=== PATIENT | female | born 1975 | race Caucasian/White ===

== ENCOUNTER 2018-07-22 18:14 | Emergency (ER) | payer OTHER ==
[2018-07-22] MEDS ORDERED: Bacitracin Oint 1 GM U/D Packet TOP ONE (19:42)
[2018-07-22 21:11] VITALS: BP 145/78
--- NOTE | 2018-07-22 21:44 | EDM.PDOC ---
ED HPI GENERAL MEDICAL PROBLEM - General Chief Complaint: Laceration Stated Complaint: CUT RIGHT ANKLE ON RAZOR Time Seen by Provider: 07/22/18 19:42 Source of Information: Reports: Patient, Family (Daughter) History Limitations: Reports: No Limitations - History of Present Illness INITIAL COMMENTS - FREE TEXT/NARRATIVE: chief complaint: cut ankle This is a 42 year old female presents to ER for wound care. She reports has been house cleaning, using a case cutter to clean around window, forget where she put it, she walked and the blade was sticking out and cut the outside of her right ankle. she applied pressure to control bleeding and came to ER. Report TD is up to date. 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(s) Right Outer Aspect Ankle Pain Score (Numeric/FACES): 4 - Related Data Allergies Allergy/AdvReac Type Severity Reaction Status Date / Time ferumoxytol [From Feraheme] Allergy Severe Difficulty Verified 07/22/18 20:48 Breathing adhesive tape Allergy Other Verified 07/22/18 20:48 ciprofloxacin Allergy Rash Verified 07/22/18 20:48 fentanyl Allergy Itching Verified 07/22/18 20:48 Penicillins Allergy Other Verified 07/22/18 20:48 pineapple Allergy Other Verified 07/22/18 20:48 Home Meds: Home Meds Albuterol Sulfate [Proair Hfa] 2 puff IH QID PRN 08/28/15 [History] Cyanocobalamin (Vitamin B12) [Vitamin B12] 500 mcg PO DAILY 08/28/15 [History] Dextroamphetamine/Amphetamine [Adderall 10 mg Tablet] 10 mg PO BID 08/28/15 [ History] Venlafaxine HCl [Venlafaxine ER] 37.5 mg PO DAILY 01/03/18 [History] Past Medical History [employer]ER History: Reports: Neurological History: Reports: Migraines Psychiatric History: Reports: ADHD - Infectious Disease History Infectious Disease History: Reports: Chicken Pox - Past Surgical History GI Surgical History: Reports: Bariatric Procedure, Cholecystectomy, Hernia Repair/Other Female Surgical History: Reports: Hysterectomy Neurological Surgical History: Reports: None Social & Family History - Family History Family Medical History: Noncontributory - Tobacco Use Smoking Status *Q: Never Smoker Second Hand Smoke Exposure: No - Caffeine Use Caffeine Use: Reports: Soda - Recreational Drug Use Recreational Drug Use: No ED ROS GENERAL - Review of Systems Review Of Systems: See Below Constitutional: Reports: No Symptoms Cardiovascular: Reports: No Symptoms Endocrine: Reports: No Symptoms Skin: Reports: Other (laceration to right lateral ankle) Neurological: Reports: No Symptoms Psychiatric: Reports: No Symptoms Hematologic/Lymphatic: Reports: No Symptoms Immunologic: Reports: No Symptoms ED EXAM, SKIN/RASH Exam: See Below Exam Limited By: No Limitations General Appearance: Alert, WD/WN, Anxious Nose: Normal Inspection, No Blood Throat/Mouth: Normal Voice, No Airway Compromise Head: Atraumatic, Normocephalic Neck: Supple Respiratory/Chest: No Respiratory Distress Cardiovascular: No Edema Extremities: Normal Range of Motion, No Pedal Edema, Normal Capillary Refill, Other (laceration noted to lateral right ankle, no bleeding noted, wound is gaping.) Neurological: Alert, Oriented, No Motor/Sensory Deficits Psychiatric: Normal Affect, Normal Mood, Anxious Skin: Wound/Incision (right lateral ankle) Location, Skin: Lower Extremity, Right Characteristics: Linear Associated features: Tenderness Lymphatic: No Adenopathy ED SKIN PROCEDURES - Laceration/Wound Repair Right Lateral Ankle Lac/Wound length In cm: 3 Appearance: Subcutaneous, Linear, Clean Distal NVT: Neuro & Vascular Intact, No Tendon Injury Anesthetic Type: Local Local Anesthesia - Lidocaine (Xylocaine): 1% Plain Local Anesthetic Volume: 3cc Skin Prep: Chlorhexidine (Hibiciens), Saline Saline Irrigation (cc's): 20 Exploration/Debridement/Repair: Wound Explored, In a Bloodless Field, Explored to Base Closed with: Sutures Suture Size: 4-0 # of Sutures: 10 Suture Type: Prolene, Interrupted, Simple Drain Placement: No Sterile Dressing Applied: Provider Tetanus Status Addressed: Other (reports up to date with immunizations) Complications: No Course - Vital Signs Last Recorded V/S: Last Vital Signs Temp 36.3 C 07/22/18 20:45 Pulse 87 07/22/18 20:45 Resp 12 07/22/18 20:45 BP 145/78 H 07/22/18 20:45 Pulse Ox 94 L 07/22/18 20:45 - Orders/Labs/Meds Meds: Medications Discontinued Medications Generic Name Dose Route Start Last Admin Trade Name Soni PRN Reason Stop Dose Admin Bacitracin 1 dose 07/22/18 19:42 07/22/18 20:48 Bacitracin Oint 1 Gm TOP 07/22/18 19:43 1 dose ONETIME ONE Administration Lidocaine HCl 5 ml 07/22/18 19:42 07/22/18 20:48 Xylocaine-Mpf 1% INJECT 07/22/18 19:43 5 ml ONETIME ONE Administration Departure - Departure Time of Disposition: 21:38 Disposition: Home, Self-Care 01 Condition: Good Clinical Impression: Laceration of right ankle Qualifiers: Encounter type: initial encounter Qualified Code(s): S91.011A - Laceration without foreign body, right ankle, initial encounter - Discharge Information *PRESCRIPTION DRUG MONITORING PROGRAM REVIEWED*: No *COPY OF PRESCRIPTION DRUG MONITORING REPORT IN PATIENT TORSTEN: No Instructions: Sutured Wound Care, [id number] Referrals: Michelle Biswas PA [Primary Care Provider] - Forms: ED Department Discharge Care Plan Goals: Laceration repair -keep covered for 2 to 3 days, then clean and dry -apply antibiotic ointment to laceration two times a day for 3 day -Zithromax as directed for prevention of infection -Hydrocodone 5/325mg po every 4 hours as needed for pain #8 no exposure of wound until completely healed, no swimming pools, hot tubs, walking ponds or water, or soaking in bath tub wound check on Wednesday if has any concerns. Return to ER for any redness, increased pain, redness, discharge, or not improved. - Problem List & Annotations (1) Laceration of right ankle SNOMED Code(s): 404328698, [id number] Code(s): S91.011A - LACERATION WITHOUT FOREIGN BODY, RIGHT ANKLE, INIT ENCNTR Status: Acute Priority: High Current Visit: Yes Qualifiers: Encounter type: initial encounter Qualified Code(s): S91.011A - Laceration without foreign body, right ankle, initial encounter - Problem List Review Problem List Initiated/Reviewed/Updated: Yes - Assessment/Plan Plan: Laceration repair -keep covered for 2 to 3 days, then clean and dry -apply antibiotic ointment to laceration two times a day for 3 day -Zithromax as directed for prevention of infection -Hydrocodone 5/325mg po every 4 hours as needed for pain #8 no exposure of wound until completely healed, no swimming pools, hot tubs, walking ponds or water, or soaking in bath tub wound check on Wednesday if has any concerns. Return to ER for any redness, increased pain, redness, discharge, or not improved.
== END 2018-07-22 21:57 | disposition home or self-care (01) ==
LOC: JP.ED 18:14
DX: S91.011A Laceration without foreign body, right ankle, initial encounter (principal); Z79.899 Other long term (current) drug therapy; W26.8XXA Contact with other sharp object(s), not elsewhere classified, initial encounter
CPT/HCPCS: 12002; 99282; J2001

== ENCOUNTER 2018-09-27 22:37 | Inpatient (IN) | payer MEDICAID, OTHER ==
[2018-09-27] MEDS ORDERED: HYDROmorphone 0.5 MG/0.5 ML Syringe IVPUSH ONE ×2 (22:51→23:41)
[2018-09-27] MEDS ORDERED: Lactated Ringers 1,000 ML IV ONE (22:51)
[2018-09-27] MEDS ORDERED: Ketorolac 30 MG/ML SDV IVPUSH ONE (23:41)
--- NOTE | 2018-09-27 23:42 | EDM.PDOC ---
ED HPI GENERAL MEDICAL PROBLEM - General Chief Complaint: Abdominal Pain Stated Complaint: MEDICAL Time Seen by Provider: 09/27/18 23:00 Source of Information: Reports: Patient History Limitations: Reports: No Limitations - History of Present Illness INITIAL COMMENTS - FREE TEXT/NARRATIVE: 43-year-old female who has had recurring bouts of pancreatitis over the past several years, no real reason has been found but when she does get episodes they are very intense and painful. Tonight she developed pain about one and a half hours before coming into the emergency room, it is upper abdomen radiating down towards the left lower quadrant, nausea but no vomiting. Some back discomfort. No fevers or chills. The pain is very similar to her previous 2 or 3 episodes of pancreatitis. She is currently on a Bactrim antibiotic due to a lesion on her right arm that was felt to possibly be MRSA. That has caused some mild abdominal upset with nausea but no pain. Onset: Sudden Duration: Hour(s): (Symptoms started within the last 2 hours) Treatments DIRECTOR REPORT: Reports: Other (see below) Other Treatments DIRECTOR REPORT: unkown Abdomen Pain Score (Numeric/FACES): 8 - Related Data Allergies Allergy/AdvReac Type Severity Reaction Status Date / Time ferumoxytol [From Feraheme] Allergy Severe Difficulty Verified 09/27/18 22:55 Breathing adhesive tape Allergy Other Verified 09/27/18 22:55 ciprofloxacin Allergy Rash Verified 09/27/18 22:55 fentanyl Allergy Itching Verified 09/27/18 22:55 Penicillins Allergy Other Verified 09/27/18 22:55 pineapple Allergy Other Verified 09/27/18 22:55 Home Meds: Home Meds Albuterol Sulfate [Proair Hfa] 2 puff IH QID PRN 08/28/15 [History] Cyanocobalamin (Vitamin B12) [Vitamin B12] 500 mcg PO DAILY 08/28/15 [History] Dextroamphetamine/Amphetamine [Adderall 10 mg Tablet] 10 mg PO BID 08/28/15 [ History] Venlafaxine HCl [Venlafaxine ER] 37.5 mg PO DAILY 01/03/18 [History] Sulfamethoxazole/Trimethoprim [Bactrim Ds Tablet] 1 each PO BID 09/27/18 [ History] traMADol [Ultram] 50 mg PO Q6H PRN 09/27/18 [History] 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: Neurological History: Reports: Migraines Psychiatric History: Reports: ADHD - Infectious Disease History Infectious Disease History: Reports: Chicken Pox - Past Surgical History GI Surgical History: Reports: Bariatric Procedure, Cholecystectomy, Hernia Repair/Other Female Surgical History: Reports: Hysterectomy Neurological Surgical History: Reports: None Dermatological Surgical History: Reports: None Social & Family History - Family History Family Medical History: Noncontributory - Tobacco Use Smoking Status *Q: Never Smoker Second Hand Smoke Exposure: No - Caffeine Use Caffeine Use: Reports: Coffee - Recreational Drug Use Recreational Drug Use: No ED ROS GENERAL - Review of Systems Review Of Systems: See Below Constitutional: Reports: Malaise. Denies: Fever, Chills HEENT: Reports: No Symptoms Respiratory: Denies: Shortness of Breath Cardiovascular: Denies: Chest Pain GI/Abdominal: Reports: Abdominal Pain, Nausea. Denies: Vomiting : Reports: No Symptoms Skin: Reports: Other (Some healing impetigo-like lesions on the arms) Psychiatric: Reports: Anxiety ED EXAM, GI/ABD - Physical Exam Exam: See Below Exam Limited By: No Limitations General Appearance: Alert, Moderate Distress (Difficult to examine as she is in so much discomfort) Eyes: Bilateral: Normal Appearance (No jaundice) Respiratory/Chest: No Respiratory Distress, Lungs Clear Cardiovascular: Tachycardia GI/Abdominal Exam: Guarding (Guarding over nearly the whole abdomen), Tender Extremities: No: Pedal Edema Neurological: Alert, Oriented Psychiatric: Anxious Skin Exam: Warm, Dry Course - Vital Signs Last Recorded V/S: Last Vital Signs Temp 97.2 F 09/28/18 02:47 Pulse 118 H 09/28/18 02:47 Resp 20 09/28/18 02:47 BP 137/80 09/28/18 02:47 Pulse Ox 96 09/28/18 04:31 - Orders/Labs/Meds Orders: Active Orders 24 hr Category Date Time Status Iopamidol [Isovue-300 (61%)] Med 09/28/18 00:30 Active 70 ml IV . DIRECTED Sodium Chloride 0.9% [Normal Saline] 70 ml Med 09/28/18 00:30 Active IV ASDIRECTED Medication Orders Hydromorphone HCl (Dilaudid Paleology Teacher 15 Mg In Ns 30 Ml) 15 mg IV ASDIRECTED ERICK; Protocol Last Admin: 09/28/18 03:43 Dose: 15 mg Sodium Chloride (Normal Saline) 70 mls @ 3 mls/sec IV ASDIRECTED [facility] Last Admin: 09/28/18 00:34 Dose: 3 mls/sec Lactated Ringer's (Ringers, Lactated) 1,000 mls @ 250 mls/hr IV ASDIRECTED [facility] Last Admin: 09/28/18 02:10 Dose: 250 mls/hr Iopamidol (Isovue-300 (61%)) 70 ml IV . DIRECTED [facility] Ketorolac Tromethamine (Toradol) 30 mg IVPUSH Q8H PRN PRN Reason: Pain Stop: 10/03/18 07:01 Lorazepam (Ativan) 0.5 mg IVPUSH Q4H PRN PRN Reason: Anxiety Last Admin: 09/28/18 04:46 Dose: 0.5 mg Ondansetron HCl (Zofran) 4 mg IVPUSH Q4H PRN PRN Reason: Nausea/Vomiting Pantoprazole Sodium (Protonix Iv) 40 mg IVPUSH Q24H [facility] Last Admin: 09/28/18 03:43 Dose: 40 mg Labs: Laboratory Tests 09/27/18 09/27/18 09/28/18 Range/Units 23:05 23:05 00:15 WBC 4.9 (4.5-11.0) K/uL RBC 4.11 (3.30-5.50) M/uL Hgb 13.1 (12.0-15.0) g/dL Hct 39.6 (36.0-48.0) % MCV 96 (80-98) fL MCH 32 H (27-31) pg MCHC 33 (32-36) % Plt Count 336 (150-400) K/uL Neut % (Auto) 45 (36-66) % Lymph % (Auto) 45 H (24-44) % [place] % (Auto) 8 H (2-6) % Eos % (Auto) 2 (2-4) % Baso % (Auto) 1 (0-1) % Sodium 139 L (140-148) mmol/L Potassium 5.2 (3.6-5.2) mmol/L Chloride 105 (100-108) mmol/L Carbon Dioxide 23 (21-32) mmol/L Anion Gap 16.2 H (5.0-14.0) mmol/L BUN 18 (7-18) mg/dL Creatinine 1.0 (0.6-1.0) mg/dL Est Cr Clr Drug Dosing 51.57 mL/min Estimated GFR (MDRD) > 60 (>60) Glucose 89 (74-106) mg/dL Calcium 8.7 (8.5-10.1) mg/dL Total Bilirubin 0.2 (0.2-1.0) mg/dL AST 27 (15-37) U/L ALT 39 D (12-78) U/L Alkaline Phosphatase 75 (46-116) U/L Total Protein 7.1 (6.4-8.2) g/dL Albumin 3.3 L (3.4-5.0) g/dL Globulin 3.8 H (2.3-3.5) g/dL Albumin/Globulin Ratio 0.9 L (1.2-2.2) Amylase 79 (25-115) U/L Lipase 481 H (73-393) U/L Urine Opiates Screen Negative (NEGATIVE) Ur Oxycodone Screen Negative (NEGATIVE) Urine Methadone Screen Presumptive positive H (NEGATIVE) Ur Propoxyphene Screen Negative (NEGATIVE) Ur Barbiturates Screen Negative (NEGATIVE) Ur Tricyclics Screen Presumptive positive H (NEGATIVE) Ur Phencyclidine Scrn Negative (NEGATIVE) Ur Amphetamine Screen Presumptive positive H (NEGATIVE) U Methamphetamines Scrn Negative (NEGATIVE) Urine MDMA Screen Negative (NEGATIVE) U Benzodiazepines Scrn Presumptive positive H (NEGATIVE) U Cocaine Metab Screen Negative (NEGATIVE) U Marijuana (THC) Screen Negative (NEGATIVE) Meds: Medications Generic Name Dose Route Start Last Admin Trade Name Freq PRN Reason Stop Dose Admin Hydromorphone HCl 15 mg 09/28/18 03:00 09/28/18 03:43 Dilaudid Paleology Teacher 15 Mg In Ns 30 Ml IV 15 mg ASDIRECTED ERICK Administration Protocol Sodium Chloride 70 mls @ 3 mls/sec 09/28/18 00:30 09/28/18 00:34 Normal Saline IV 3 mls/sec ASDIRECTED ERICK Administration Lactated Ringer's 1,000 mls @ 250 mls/hr 09/28/18 02:00 09/28/18 02:10 Ringers, Lactated IV 250 mls/hr ASDIRECTED ERICK Administration Iopamidol 70 ml 09/28/18 00:30 Isovue-300 (61%) IV . DIRECTED [facility] Ketorolac Tromethamine 30 mg 09/28/18 07:00 Toradol IVPUSH 10/03/18 07:01 Q8H PRN Pain Lorazepam 0.5 mg 09/28/18 04:29 09/28/18 04:46 Ativan IVPUSH 0.5 mg Q4H PRN Administration Anxiety Ondansetron HCl 4 mg 09/28/18 02:58 Zofran IVPUSH Q4H PRN Nausea/Vomiting Pantoprazole Sodium 40 mg 09/28/18 03:00 09/28/18 03:43 Protonix Iv IVPUSH 40 mg Q24H ERICK Administration Discontinued Medications Generic Name Dose Route Start Last Admin Trade Name Freq PRN Reason Stop Dose Admin Hydromorphone HCl 0.5 mg 09/27/18 22:51 09/27/18 23:11 Dilaudid IVPUSH 09/27/18 22:52 0.5 mg ONETIME ONE Administration Hydromorphone HCl 0.5 mg 09/27/18 23:41 09/27/18 23:50 Dilaudid IVPUSH 09/27/18 23:42 0.5 mg ONETIME ONE Administration Hydromorphone HCl 0.5 mg 09/28/18 01:04 09/28/18 01:13 Dilaudid IVPUSH 09/28/18 01:05 0.5 mg ONETIME ONE Administration Hydromorphone HCl 0.5 mg 09/28/18 02:29 09/28/18 02:36 Dilaudid IVPUSH 09/28/18 02:30 0.5 mg ONETIME ONE Administration Lactated Ringer's 1,000 mls @ 1,000 mls/hr 09/27/18 22:51 09/27/18 23:15 Ringers, Lactated IV 09/27/18 23:50 1,000 mls/hr BOLUS ONE Administration Iopamidol 100 ml 09/28/18 00:30 09/28/18 00:33 Isovue-300 (61%) IV Not Given . DIRECTED [facility] Ketorolac Tromethamine 30 mg 09/27/18 23:41 09/27/18 23:47 Toradol IVPUSH 09/27/18 23:42 30 mg ONETIME ONE Administration - Re-Assessments/Exams Free Text/Narrative Re-Assessment/Exam: 09/28/18 01:32 Patient was initially in significant discomfort, an IV was started and she was given 0.5 mg of IV Dilaudid. CBC, CMP, amylase and lipase were obtained as well as a UA for urine drug screen. Lactated Ringer bolus was started. After the first liter she was able to give us a urine. Lipase returned elevated but only mildly. CBC was normal. 09/28/18 01:34 Urine drug screen was positive for methadone and benzodiazepines. Unsure if these are cross-reaction from other medication she is taking. Positive for amphetamines which she is prescribed. After the initial labs, the patient was given 30 mg of IV Toradol and another 0.5 mg of IV Dilaudid and she did settle down quite a bit. CT with IV contrast was ordered which was noncontributory, basically negative. The CT continued to show the dilated bile duct system from her cholecystectomy. At that point I called Dr. Calderon to ask if he would admit her overnight for pain control, serial lipase levels and IV hydration and possibly a surgical consultation tomorrow. Departure - Departure Time of Disposition: 02:52 Disposition: Admitted As Inpatient 65 Clinical Impression: Abdominal pain Qualifiers: Abdominal location: generalized Qualified Code(s): R10.84 - Generalized abdominal pain Pancreatitis Qualifiers: Chronicity: acute Pancreatitis type: idiopathic Acute pancreatitis complication : unspecified Qualified Code(s): K85.00 - Idiopathic acute pancreatitis without necrosis or infection - Discharge Information - My Orders Last 24 Hours: My Active Orders 09/28/18 00:30 Iopamidol [Isovue-300 (61%)] 70 ml IV . DIRECTED Sodium Chloride 0.9% [Normal Saline] 70 ml IV ASDIRECTED - Assessment/Plan Last 24 Hours: My Active Orders 09/28/18 00:30 Iopamidol [Isovue-300 (61%)] 70 ml IV . DIRECTED Sodium Chloride 0.9% [Normal Saline] 70 ml IV ASDIRECTED
[2018-09-28] MEDS ORDERED: Iopamidol 612 MG/ML 100 ML Bottle IV SCH (00:30)
[2018-09-28] MEDS: Iopamidol 612 MG/ML 100 ML Bottle IV SCH ×2 (00:32→00:33)
[2018-09-28] MEDS ORDERED: HYDROmorphone 0.5 MG/0.5 ML Syringe IVPUSH ONE ×2 (01:04→02:29)
--- NOTE | 2018-09-28 01:20 | CRLCT ---
INDICATION: Abdominal pain TECHNIQUE: CT abdomen and pelvis acquired with 70 cc Isovue 300 IV contrast. COMPARISON: January 01, 2018 FINDINGS: Lower chest: Bilateral breast implants. Liver: Unremarkable. Spleen: Unremarkable. Pancreas: Unremarkable. Gallbladder and bile ducts: S/p cholecystectomy. Intrahepatic and extrahepatic biliary ductal dilatation is stable. The common bile duct measures 9.5 mm in diameter, unchanged. Adrenal glands: Unremarkable. Kidneys: Unremarkable. GI tract: Status post gastric bypass procedure. Appendix is normal. Large amount of feces in the colon. Vascular structures: Unremarkable. Lymph nodes: Unremarkable. Miscellaneous: Unremarkable. No free air or significant free fluid. Pelvic Organs: Status post hysterectomy. Bones: Unremarkable for age. IMPRESSION: No acute intra-abdominal inflammatory process identified. Intrahepatic and extrahepatic biliary ductal dilatation may be due to reservoir effect although a distal obstruction cannot be excluded. Consider MRCP for further evaluation if clinically indicated. Large amount of feces in the colon. Status post bilateral breast implants, cholecystectomy, gastric bypass procedure, and hysterectomy. Please note that all CT scans at this facility use dose modulation, iterative reconstruction, and/or weight-based dosing when appropriate to reduce radiation dose to as low as reasonably achievable. Dictated by Natalee Camarena MD @ Sep 28 2018 1:12AM Signed by Dr. Natalee Camarena @ Sep 28 2018 1:20AM
[2018-09-28] MEDS: Lactated Ringers 1,000 ML IV SCH ×4 (02:10→21:05)
[2018-09-28] MEDS: Pantoprazole 40 MG Vial IVPUSH SCH (03:43)
[2018-09-28] MEDS: HYDROmorphone/Normal Saline 15 MG/30 ML PCA IV SCH (03:43)
[2018-09-28] MEDS: LORazepam 2 MG/ML SDV IVPUSH PRN ×3 (04:46→15:38)
[2018-09-28] MEDS ORDERED: Naloxone 0.4 MG/ML SDV IV PRN (07:27)
[2018-09-28] MEDS: Ketorolac 30 MG/ML SDV IVPUSH PRN (07:28)
--- NOTE | 2018-09-28 08:15 | HP ---
FIDENTIFYING DATA: Yenni Christianson is a 43-year-old single female from [place]. CHIEF COMPLAINT: Recurring abdominal pain. HISTORY OF PRESENT ILLNESS: Adult female has a noted history of recurrent generalized abdominal pain with accompanying nausea and evidence of active pancreatitis. She has noted hospitalizations in [place] in January of 2018 and [facility] in [place] in April 2018 with acute onset of abdominal pain and elevated lipase consistent with acute pancreatitis. Extensive GI workup previously has not shown underlying etiology. This is idiopathic in presentation. She notes she ate half a burger at a local food establishment this evening at approximately 8:00 p.m. One to 1-1/2 hours later, she had sudden onset of pain in the epigastrium and right upper quadrant with radiation to the lower abdomen and lower interscapular regions. The pain has persisted, though increased in intensity in waves, with accompanying diaphoresis and nausea. She has had no emesis. She denies hematemesis or bowel changes. Specifically, no melena, hematochezia, diarrhea or constipation. She is voiding with good regularity with normal appearing urine passed. Previous abdominal surgeries include Dalton-en-Y bariatric surgery of 12 years ago. She has had 2 laparotomies for reasons of lysis of abdominal adhesions and hysterectomy with unilateral oophorectomy for benign disease in the remote past. Additionally, she has had previous breast augmentation. She notes recent difficulty with dental disease, being cared for by a local dentist with multiple caries requiring repair. 1-1/2 weeks ago, she presented to the walk-in clinic with an inflammatory ulcerated skin lesion on the extensor surface of the right forearm, suggesting an active cellulitic change of the skin. She was placed on 10-day course of Bactrim, and though she notes abdominal upset from the Bactrim, she has been able to complete 9-1/2 days of therapy with the wound healing. She has had no other current skin rashes evident. PAST MEDICAL HISTORY: Surgical history as noted above. Additionally, she has a history of migraine headache presentation with abortive therapy, including the use of tramadol and intermittent Zomig, chronic depressive therapy, and ADD is managed with pharmacologic therapy. She denies recent use of other narcotic analgesics or benzodiazepines. Does use Adderall on a scheduled basis. ALLERGIES: HEME SUPPLEMENTS, ADHESIVE TAPE, CIPROFLOXACIN, FENTANYL, PENICILLIN, AND PINEAPPLE. CURRENT MEDICATIONS: Albuterol 2 puffs q.i.d. p.r.n. wheeze, B complex solution use sporadically by patient's report, Adderall 10 mg b.i.d., venlafaxine extended release 37.5 mg daily, Bactrim DS 1 tablet b.i.d. with completion of antibiotic course anticipated today, tramadol 50 mg q.6 hours p.r.n. migraine headaches, and Zomig p.r.n. migraines. HABITS: No tobacco use. Rare use of caffeinated beverages. Alcohol use is infrequent. None for greater than 1 month's time. Denies illicit drug use including marijuana, narcotic analgesics that are non-prescribed, or benzodiazepines. SOCIAL HISTORY: Currently single, moving into a new residence in [facility]. Young adult children provide assistance as needed. FAMILY HISTORY: No familial history of chronic inflammatory bowel disease or recent GI illnesses. REVIEW OF SYSTEMS: NEUROLOGIC: History of ADD and depressive disorder on chronic maintenance therapy with good control of symptoms. No history of strokes, headaches, seizures, or paresthesias. CARDIAC: No history of hypertension, diabetes, congenital heart disease, PA, chest pain or palpitations. RESPIRATORY: Infrequent mild wheeze with p.r.n. use of rescue inhaler. No recent acute upper respiratory infection, shortness of breath, cough, or sputum production. GASTROINTESTINAL: As above. No history of hepatitis, jaundice, or emesis. She is status post cholecystectomy. GENITOURINARY: Previous hysterectomy. No urinary symptoms. Denying urgency, frequency or change in normal pattern. PHYSICAL EXAMINATION: GENERAL: Appearance is that of an adult female in moderate discomfort secondary to recurrent waves of mid to upper abdominal pain. VITAL SIGNS: Initial vitals; temperature 96.7 degrees Fahrenheit, pulse 107, respiratory rate 14, blood pressure 141/85, and O2 saturations 98% on room air. HEENT: Pupils equal and reactive to light. Sclerae anicteric. Ears showed normal canals. Oral mucosa is moist. Scattered dental caries are noted. NECK: No adenopathy, thyromegaly, or JVD. Brisk carotid pulses. No bruits. LUNGS: Symmetrical and clear, non-tachypneic. HEART: Borderline tachycardic. No murmurs or gallops noted. ABDOMEN: Nondistended. Diminished sounds. No obvious organomegaly. Anterior abdominal pain diffusely to palpation. No CVA tenderness. Good femoral pulses. No abdominal bruits noted. GENITOURINARY: Omitted. RECTAL: Omitted. EXTREMITIES: Warm, pink and dry. Good arterial pulses. Brisk capillary refill. No cyanosis. Healing inflammatory skin ulcer over the right extensor forearm is noted. No other concerning skin rashes. LABORATORY DATA ON ADMISSION: WBC 4.9, hemoglobin 13.1, hematocrit 39.6, and platelet count 336,000. Sodium 139, potassium 5.2, BUN 18, creatinine 1.0, glucose 89, calcium 8.7, alkaline phosphatase 75, AST 27, amylase 79, and lipase mildly elevated at 481. Urine drug screen positive for methadone, tricyclics, amphetamines and benzodiazepines. IMAGING STUDIES: CT of the abdomen. No acute changes evident. She has mild dilatation of the common bile duct, thought to be secondary to post cholecystectomy phase, absence of gallbladder and uterus is confirmed without other obvious pathology. IMPRESSION: 1. Recurrent episodes of abdominal pain with accompanying elevated lipase suggest acute pancreatitis. 2. History of recurring pancreatitis, unknown etiology. 3. Status post bariatric surgery of 12 years ago. 4. Migraine headache, infrequent presentation. 5. History of attention deficit disorder and depressive illness with pharmacologic therapies. 6. Previous surgeries of the abdomen include cholecystectomy, Dalton-en-Y bariatric surgery, hysterectomy with unilateral oophorectomy, and lysis of abdominal adhesions x2. 7. Positive urine drug screen for methadone, benzodiazepines, amphetamines and tricyclics noted, history of scheduled use of Adderall for ADD. PLAN: The patient will be admitted to Medical floor for conservative and supportive care. Maintain n.p.o. status with full code presentation. IV fluid hydration is administered. We will provide antiemetics and PPI agents as ordered, as well as scheduled administration of Toradol on a t.i.d. schedule and Dilaudid by SOFTWARE DEPLOYMENT ENGINEER pump. Follow up labs including CBC, metabolic panel, and serial lipase enzymes are requested. If she shows a rapid improvement in abdominal symptoms, we will reintroduce clear liquid diet and advance as tolerated. Previous GI evaluation has not shown definitive evidence of cause of her pancreatitis. Questions via potential for illicit drug use with positive agents noted on urine drug screen. Castillo Calderon MD /[id number]
[2018-09-28] MEDS: Ondansetron 4 MG/2 ML SDV IVPUSH PRN (21:29)
[2018-09-29] MEDS: Ketorolac 30 MG/ML SDV IVPUSH PRN ×3 (02:47→21:03)
[2018-09-29] MEDS: Pantoprazole 40 MG Vial IVPUSH SCH (02:51)
[2018-09-29] MEDS: Lactated Ringers 1,000 ML IV SCH ×3 (05:17→21:02)
--- NOTE | 2018-09-29 11:45 | PCM.PN ---
- General Info Date of Service: 09/29/18 Subjective Update: There were no acute events overnight. Abdominal pain is somewhat better today though she did have a flare of the pain recently. Nausea last night but none today. No vomiting. No fevers. Lipase level is down to 1000 today from or than 4000 yesterday. She does report a headache and this has been improving with Toradol. Functional Status: Reports: Pain Controlled - Review of Systems General: Denies: Fever HEENT: Reports: Headaches Gastrointestinal: Reports: Abdominal Pain, Nausea - Patient Data Vitals - Most Recent: Last Vital Signs Temp 35.6 C 09/29/18 10:24 Pulse 113 H 09/29/18 10:24 Resp 18 09/29/18 10:24 BP 147/85 H 09/29/18 10:24 Pulse Ox 96 09/29/18 10:24 Weight - Most Recent: 52.435 kg I&O - Last 24 Hours: Intake & Output 09/28/18 09/29/18 09/29/18 22:59 06:59 14:59 Intake Total 2216 1410 Output Total 100 400 300 Balance 2116 1010 -300 Lab Results Last 24 Hours: Laboratory Results - last 24 hr 09/29/18 09/29/18 Range/Units 05:40 05:40 WBC 3.8 L (4.5-11.0) K/uL RBC 3.48 (3.30-5.50) M/uL Hgb 11.1 L D (12.0-15.0) g/dL Hct 34.3 L (36.0-48.0) % MCV 99 H (80-98) fL MCH 32 H (27-31) pg MCHC 32 (32-36) % Plt Count 359 (150-400) K/uL Sodium 135 L (140-148) mmol/L Potassium 4.6 (3.6-5.2) mmol/L Chloride 103 (100-108) mmol/L Carbon Dioxide 26 (21-32) mmol/L Anion Gap 10.6 (5.0-14.0) mmol/L BUN 10 (7-18) mg/dL Creatinine 0.6 (0.6-1.0) mg/dL Est Cr Clr Drug Dosing 85.94 mL/min Estimated GFR (MDRD) > 60 (>60) Glucose 85 (74-106) mg/dL Calcium 7.8 L (8.5-10.1) mg/dL Total Bilirubin 0.5 D (0.2-1.0) mg/dL AST 28 (15-37) U/L ALT 33 (12-78) U/L Alkaline Phosphatase 60 (46-116) U/L Total Protein 5.0 L (6.4-8.2) g/dL Albumin 2.3 L (3.4-5.0) g/dL Globulin 2.7 (2.3-3.5) g/dL Albumin/Globulin Ratio 0.9 L (1.2-2.2) Lipase 1018 H (73-393) U/L Med Orders - Current: Current Medications Hydromorphone HCl (Dilaudid Job Placement Specialist 15 Mg In Ns 30 Ml) 15 mg IV ASDIRECTED ERICK; Protocol Last Admin: 09/28/18 03:43 Dose: 15 mg Lactated Ringer's (Ringers, Lactated) 1,000 mls @ 125 mls/hr IV ASDIRECTED ERICK Last Admin: 09/29/18 05:17 Dose: 125 mls/hr Ketorolac Tromethamine (Toradol) 30 mg IVPUSH Q8H PRN PRN Reason: Pain Stop: 10/03/18 07:01 Last Admin: 09/29/18 02:47 Dose: 30 mg Lorazepam (Ativan) 0.5 mg IVPUSH Q4H PRN PRN Reason: Anxiety Last Admin: 09/28/18 15:38 Dose: 0.5 mg Naloxone HCl (Narcan) 0.1 mg IV ASDIRECTED PRN PRN Reason: decreased respiratory rate Ondansetron HCl (Zofran) 4 mg IVPUSH Q4H PRN PRN Reason: Nausea/Vomiting Last Admin: 09/28/18 21:29 Dose: 4 mg Pantoprazole Sodium (Protonix Iv) 40 mg IVPUSH Q24H [facility] Last Admin: 09/29/18 02:51 Dose: 40 mg Discontinued Medications Hydromorphone HCl (Dilaudid) 0.5 mg IVPUSH ONETIME ONE Stop: 09/27/18 22:52 Last Admin: 09/27/18 23:11 Dose: 0.5 mg Hydromorphone HCl (Dilaudid) 0.5 mg IVPUSH ONETIME ONE Stop: 09/27/18 23:42 Last Admin: 09/27/18 23:50 Dose: 0.5 mg Hydromorphone HCl (Dilaudid) 0.5 mg IVPUSH ONETIME ONE Stop: 09/28/18 01:05 Last Admin: 09/28/18 01:13 Dose: 0.5 mg Hydromorphone HCl (Dilaudid) 0.5 mg IVPUSH ONETIME ONE Stop: 09/28/18 02:30 Last Admin: 09/28/18 02:36 Dose: 0.5 mg Lactated Ringer's (Ringers, Lactated) 1,000 mls @ 1,000 mls/hr IV BOLUS ONE Stop: 09/27/18 23:50 Last Admin: 09/27/18 23:15 Dose: 1,000 mls/hr Sodium Chloride (Normal Saline) 70 mls @ 3 mls/sec IV ASDIRECTED [facility] Stop: 09/28/18 12:00 Last Admin: 09/28/18 00:34 Dose: 3 mls/sec Lactated Ringer's (Ringers, Lactated) 1,000 mls @ 250 mls/hr IV ASDIRECTED [facility] Last Admin: 09/28/18 08:50 Dose: 250 mls/hr Iopamidol (Isovue-300 (61%)) 100 ml IV . DIRECTED [facility] Last Admin: 09/28/18 00:33 Dose: Not Given Iopamidol (Isovue-300 (61%)) 70 ml IV . DIRECTED [facility] Stop: 09/28/18 12:00 Ketorolac Tromethamine (Toradol) 30 mg IVPUSH ONETIME ONE Stop: 09/27/18 23:42 Last Admin: 09/27/18 23:47 Dose: 30 mg - Exam Quality Assessment: No: Supplemental Oxygen General: Alert, Oriented, Cooperative, No Acute Distress Lungs: Normal Respiratory Effort Cardiovascular: Regular Rate, Regular Rhythm GI/Abdominal Exam: Soft, No Distention, Tender Extremities: No Pedal Edema. No: Increased Warmth Skin: Warm, Dry Psy/Mental Status: Alert, Normal Affect - Problem List Review Problem List Initiated/Reviewed/Updated: Yes - My Orders Last 24 Hours: My Active Orders 09/28/18 11:00 Lactated Ringers [Ringers, Lactated] 1,000 ml IV ASDIRECTED 09/29/18 11:44 Ketorolac [Toradol] 30 mg IVPUSH Q6H PRN 09/30/18 05:00 CBC W/O DIFF,HEMOGRAM [HEME] Timed (1) COMPREHENSIVE METABOLIC PN,CMP [CHEM] Timed LIPASE [CHEM] Timed - Plan Plan:: ASSESSMENT AND PLAN - Acute pancreatitis - etiology not entirely clear but did happen towards the end of a 10 day course of Bactrim and this could be the offending agent. Patient denies tobacco use and alcohol ingestion. No evidence for gallstones based on CT imaging and she is status post cholecystectomy. Laboratory studies improving. -Continue NPO status -Pain control -IV fluids -Symptomatically management of nausea -Lipase in the morning -Advance diet when pain has improved further and lipase normal or near-normal History of gastric bypass surgery - no issues at this time Maintenance issues - - DVT prophylaxis - mechanical - GI prophylaxis - PPI - Nutrition - nothing by mouth - Sutton catheter - not indicated Disposition - I would anticipate discharge home after the hospital stay Darinel Leach M.D.
[2018-09-29] MEDS: LORazepam 2 MG/ML SDV IVPUSH PRN (23:11)
[2018-09-30] MEDS: Pantoprazole 40 MG Vial IVPUSH SCH (03:52)
[2018-09-30] MEDS: Lactated Ringers 1,000 ML IV SCH (05:33)
[2018-09-30] MEDS: HYDROmorphone/Normal Saline 15 MG/30 ML PCA IV SCH (08:10)
[2018-09-30] MEDS: Ketorolac 30 MG/ML SDV IVPUSH PRN ×2 (09:10→16:01)
[2018-09-30] MEDS ORDERED: Ondansetron 4 MG Tab.DIS PO PRN (13:31)
--- NOTE | 2018-09-30 13:32 | PCM.PN ---
- General Info Date of Service: 09/30/18 Subjective Update: no acute events overnight. Pain remains moderate in nature but is better than yesterday. No significant nausea or fevers. Appetite is starting to return. Lipase level is down to 600 today. Functional Status: Reports: Pain Controlled - Review of Systems General: Denies: Fever Gastrointestinal: Reports: Abdominal Pain - Patient Data Vitals - Most Recent: Last Vital Signs Temp 36.6 C 09/30/18 10:39 Pulse 103 H 09/30/18 10:39 Resp 16 09/30/18 10:39 BP 129/81 09/30/18 10:39 Pulse Ox 93 L 09/30/18 12:05 Weight - Most Recent: 52.435 kg I&O - Last 24 Hours: Intake & Output 09/29/18 09/30/18 09/30/18 22:59 06:59 14:59 Intake Total 1608 1330 Output Total 761 676 1717 Balance 1308 930 -1000 Lab Results Last 24 Hours: Laboratory Results - last 24 hr 09/30/18 09/30/18 Range/Units 05:56 05:56 WBC 3.7 L (4.5-11.0) K/uL RBC 3.48 (3.30-5.50) M/uL Hgb 10.8 L (12.0-15.0) g/dL Hct 34.4 L (36.0-48.0) % MCV 99 H (80-98) fL MCH 31 (27-31) pg MCHC 31 L (32-36) % Plt Count 387 (150-400) K/uL Sodium 136 L (140-148) mmol/L Potassium 4.4 (3.6-5.2) mmol/L Chloride 100 (100-108) mmol/L Carbon Dioxide 25 (21-32) mmol/L Anion Gap 15.4 H (5.0-14.0) mmol/L BUN 5 L (7-18) mg/dL Creatinine 0.5 L (0.6-1.0) mg/dL Est Cr Clr Drug Dosing 103.13 mL/min Estimated GFR (MDRD) > 60 (>60) Glucose 67 L (74-106) mg/dL Calcium 8.0 L (8.5-10.1) mg/dL Total Bilirubin 0.5 (0.2-1.0) mg/dL AST 30 (15-37) U/L ALT 30 (12-78) U/L Alkaline Phosphatase 68 (46-116) U/L Total Protein 5.2 L (6.4-8.2) g/dL Albumin 2.3 L (3.4-5.0) g/dL Globulin 2.9 (2.3-3.5) g/dL Albumin/Globulin Ratio 0.8 L (1.2-2.2) Lipase 612 H (73-393) U/L Med Orders - Current: Current Medications Ketorolac Tromethamine (Toradol) 30 mg IVPUSH Q6H PRN PRN Reason: Pain Stop: 10/03/18 07:01 Last Admin: 09/30/18 09:10 Dose: 30 mg Lorazepam (Ativan) 0.5 mg IVPUSH Q4H PRN PRN Reason: Anxiety Last Admin: 09/29/18 23:11 Dose: 0.5 mg Naloxone HCl (Narcan) 0.1 mg IV ASDIRECTED PRN PRN Reason: decreased respiratory rate Ondansetron HCl (Zofran) 4 mg IVPUSH Q4H PRN PRN Reason: Nausea/Vomiting Last Admin: 09/28/18 21:29 Dose: 4 mg Discontinued Medications Hydromorphone HCl (Dilaudid) 0.5 mg IVPUSH ONETIME ONE Stop: 09/27/18 22:52 Last Admin: 09/27/18 23:11 Dose: 0.5 mg Hydromorphone HCl (Dilaudid) 0.5 mg IVPUSH ONETIME ONE Stop: 09/27/18 23:42 Last Admin: 09/27/18 23:50 Dose: 0.5 mg Hydromorphone HCl (Dilaudid) 0.5 mg IVPUSH ONETIME ONE Stop: 09/28/18 01:05 Last Admin: 09/28/18 01:13 Dose: 0.5 mg Hydromorphone HCl (Dilaudid) 0.5 mg IVPUSH ONETIME ONE Stop: 09/28/18 02:30 Last Admin: 09/28/18 02:36 Dose: 0.5 mg Hydromorphone HCl (Dilaudid Sheet Metal Contractor 15 Mg In Ns 30 Ml) 15 mg IV ASDIRECTED [facility]; Protocol Last Admin: 09/30/18 08:10 Dose: 15 mg Lactated Ringer's (Ringers, Lactated) 1,000 mls @ 1,000 mls/hr IV BOLUS ONE Stop: 09/27/18 23:50 Last Admin: 09/27/18 23:15 Dose: 1,000 mls/hr Sodium Chloride (Normal Saline) 70 mls @ 3 mls/sec IV ASDIRECTED [facility] Stop: 09/28/18 12:00 Last Admin: 09/28/18 00:34 Dose: 3 mls/sec Lactated Ringer's (Ringers, Lactated) 1,000 mls @ 250 mls/hr IV ASDIRECTED [facility] Last Admin: 09/28/18 08:50 Dose: 250 mls/hr Lactated Ringer's (Ringers, Lactated) 1,000 mls @ 125 mls/hr IV ASDIRECTED [facility] Last Admin: 09/30/18 05:33 Dose: 125 mls/hr Iopamidol (Isovue-300 (61%)) 100 ml IV . DIRECTED [facility] Last Admin: 09/28/18 00:33 Dose: Not Given Iopamidol (Isovue-300 (61%)) 70 ml IV . DIRECTED [facility] Stop: 09/28/18 12:00 Ketorolac Tromethamine (Toradol) 30 mg IVPUSH ONETIME ONE Stop: 09/27/18 23:42 Last Admin: 09/27/18 23:47 Dose: 30 mg Ketorolac Tromethamine (Toradol) 30 mg IVPUSH Q8H PRN PRN Reason: Pain Stop: 10/03/18 07:01 Last Admin: 09/29/18 02:47 Dose: 30 mg Pantoprazole Sodium (Protonix Iv) 40 mg IVPUSH Q24H [facility] Last Admin: 09/30/18 03:52 Dose: 40 mg - Exam Quality Assessment: No: Supplemental Oxygen General: Alert, Oriented, Cooperative, No Acute Distress Lungs: Normal Respiratory Effort GI/Abdominal Exam: Soft, No Distention Extremities: No Pedal Edema Skin: Warm, Dry Psy/Mental Status: Alert, Normal Affect - Problem List Review Problem List Initiated/Reviewed/Updated: Yes - My Orders Last 24 Hours: My Active Orders 09/30/18 13:30 Acetaminophen/oxyCODONE [Percocet 325-5 MG] 1 tab PO Q4H PRN Convert IV to Saline Lock [OM.PC] Routine 09/30/18 13:31 Discontinue Telemetry Monitoring [Cardiac Monitoring Discontinue] [RC] Click to Edit Ondansetron [Zofran ODT] 4 mg PO Q6H PRN 09/30/18 Lunch Clear Liquid Diet [DIET] 10/01/18 05:00 BASIC METABOLIC PANEL,BMP [CHEM] Timed LIPASE [CHEM] Timed - Plan Plan:: ASSESSMENT AND PLAN - Acute pancreatitis - etiology not entirely clear but did happen towards the end of a 10 day course of Bactrim and this could be the offending agent. lipase level down further today. Pain is down to moderate level at this time and patient is interested in a trial of oral pain medications and clear liquids. -trial of clear liquids -oralPain control -saline lock IV fluids -Symptomatically management of nausea -Lipase in the morning -Advance diet as tolerated if pain continues to improve History of gastric bypass surgery - no issues at this time Maintenance issues - - DVT prophylaxis - mechanical - GI prophylaxis - PPI - Nutrition - clear liquids - Sutton catheter - not indicated Disposition - I would anticipate discharge home after the hospital stay Darinel Leach M.D.
[2018-09-30] MEDS: Acetaminophen/oxyCODONE 325-5 MG Tab PO PRN ×3 (13:54→23:36)
[2018-10-01] MEDS: Acetaminophen/oxyCODONE 325-5 MG Tab PO PRN ×4 (03:44→20:24)
[2018-10-01] MEDS: LORazepam 2 MG/ML SDV IVPUSH PRN ×3 (05:07→22:15)
[2018-10-01] MEDS: Ketorolac 30 MG/ML SDV IVPUSH PRN ×3 (05:27→18:14)
--- NOTE | 2018-10-01 10:43 | PCM.PN ---
- General Info Date of Service: 10/01/18 Subjective Update: No acute events overnight. Abdominal pain seems to be stable today but is not dramatically better. Lipase level is slightly higher today. No complaints of nausea. No fevers. No headache. Functional Status: Reports: Pain Controlled. Denies: Tolerating Diet - Review of Systems General: Denies: Fever Gastrointestinal: Reports: Abdominal Pain - Patient Data Vitals - Most Recent: Last Vital Signs Temp 35.9 C 10/01/18 07:19 Pulse 113 H 10/01/18 07:19 Resp 18 10/01/18 07:19 BP 144/84 H 10/01/18 07:19 Pulse Ox 99 10/01/18 07:19 Weight - Most Recent: 52.435 kg I&O - Last 24 Hours: Intake & Output 09/30/18 10/01/18 10/01/18 22:59 06:59 14:59 Intake Total 480 500 Output Total 1000 425 Balance -520 75 Lab Results Last 24 Hours: Laboratory Results - last 24 hr 10/01/18 Range/Units 05:04 Sodium 137 L (140-148) mmol/L Potassium 3.8 (3.6-5.2) mmol/L Chloride 101 (100-108) mmol/L Carbon Dioxide 27 (21-32) mmol/L Anion Gap 12.8 (5.0-14.0) mmol/L BUN 4 L (7-18) mg/dL Creatinine 0.6 (0.6-1.0) mg/dL Est Cr Clr Drug Dosing 85.94 mL/min Estimated GFR (MDRD) > 60 (>60) Glucose 132 H (74-106) mg/dL Calcium 7.8 L (8.5-10.1) mg/dL Lipase 1150 H (73-393) U/L Med Orders - Current: Current Medications Ketorolac Tromethamine (Toradol) 30 mg IVPUSH Q6H PRN PRN Reason: Pain Stop: 10/03/18 07:01 Last Admin: 10/01/18 05:27 Dose: 30 mg Lorazepam (Ativan) 0.5 mg IVPUSH Q4H PRN PRN Reason: Anxiety Last Admin: 10/01/18 05:07 Dose: 0.5 mg Ondansetron HCl (Zofran) 4 mg IVPUSH Q4H PRN PRN Reason: Nausea/Vomiting Last Admin: 09/28/18 21:29 Dose: 4 mg Ondansetron HCl (Zofran Odt) 4 mg PO Q6H PRN PRN Reason: Nausea/Vomiting Oxycodone/Acetaminophen (Percocet 325-5 Mg) 1 tab PO Q4H PRN PRN Reason: Pain Last Admin: 10/01/18 03:44 Dose: 1 tab Discontinued Medications Hydromorphone HCl (Dilaudid) 0.5 mg IVPUSH ONETIME ONE Stop: 09/27/18 22:52 Last Admin: 09/27/18 23:11 Dose: 0.5 mg Hydromorphone HCl (Dilaudid) 0.5 mg IVPUSH ONETIME ONE Stop: 09/27/18 23:42 Last Admin: 09/27/18 23:50 Dose: 0.5 mg Hydromorphone HCl (Dilaudid) 0.5 mg IVPUSH ONETIME ONE Stop: 09/28/18 01:05 Last Admin: 09/28/18 01:13 Dose: 0.5 mg Hydromorphone HCl (Dilaudid) 0.5 mg IVPUSH ONETIME ONE Stop: 09/28/18 02:30 Last Admin: 09/28/18 02:36 Dose: 0.5 mg Hydromorphone HCl (Dilaudid Sports Book Writer 15 Mg In Ns 30 Ml) 15 mg IV ASDIRECTED ERICK; Protocol Last Admin: 09/30/18 08:10 Dose: 15 mg Lactated Ringer's (Ringers, Lactated) 1,000 mls @ 1,000 mls/hr IV BOLUS ONE Stop: 09/27/18 23:50 Last Admin: 09/27/18 23:15 Dose: 1,000 mls/hr Sodium Chloride (Normal Saline) 70 mls @ 3 mls/sec IV ASDIRECTED [facility] Stop: 09/28/18 12:00 Last Admin: 09/28/18 00:34 Dose: 3 mls/sec Lactated Ringer's (Ringers, Lactated) 1,000 mls @ 250 mls/hr IV ASDIRECTED ER[facility] Last Admin: 09/28/18 08:50 Dose: 250 mls/hr Lactated Ringer's (Ringers, Lactated) 1,000 mls @ 125 mls/hr IV ASDIRECTED [facility] Last Admin: 09/30/18 05:33 Dose: 125 mls/hr Iopamidol (Isovue-300 (61%)) 100 ml IV . DIRECTED [facility] Last Admin: 09/28/18 00:33 Dose: Not Given Iopamidol (Isovue-300 (61%)) 70 ml IV . DIRECTED [facility] Stop: 09/28/18 12:00 Ketorolac Tromethamine (Toradol) 30 mg IVPUSH ONETIME ONE Stop: 09/27/18 23:42 Last Admin: 09/27/18 23:47 Dose: 30 mg Ketorolac Tromethamine (Toradol) 30 mg IVPUSH Q8H PRN PRN Reason: Pain Stop: 10/03/18 07:01 Last Admin: 09/29/18 02:47 Dose: 30 mg Naloxone HCl (Narcan) 0.1 mg IV ASDIRECTED PRN PRN Reason: decreased respiratory rate Pantoprazole Sodium (Protonix Iv) 40 mg IVPUSH Q24H [facility] Last Admin: 09/30/18 03:52 Dose: 40 mg - Exam Quality Assessment: No: Supplemental Oxygen General: Alert, Oriented, Cooperative, No Acute Distress Lungs: Normal Respiratory Effort GI/Abdominal Exam: Soft, No Distention Extremities: No Pedal Edema Psy/Mental Status: Alert, Normal Affect - Problem List Review Problem List Initiated/Reviewed/Updated: Yes - My Orders Last 24 Hours: My Active Orders 09/30/18 13:30 Acetaminophen/oxyCODONE [Percocet 325-5 MG] 1 tab PO Q4H PRN Convert IV to Saline Lock [OM.PC] Routine 09/30/18 13:31 Ondansetron [Zofran ODT] 4 mg PO Q6H PRN 10/01/18 Lunch NPO [Nothing Per Oral Diet] [DIET] 10/02/18 05:00 BASIC METABOLIC PANEL,BMP [CHEM] Timed CBC W/O DIFF,HEMOGRAM [HEME] Timed (1) LIPASE [CHEM] Timed - Plan Plan:: ASSESSMENT AND PLAN - Acute pancreatitis - etiology not entirely clear but did happen towards the end of a 10 day course of Bactrim and this could be the offending agent. Lipase level slightly higher today and pain has not improved dramatically. -Water and ice chips -oral Pain control -saline lock IV fluids -Symptomatically management of nausea -Lipase in the morning -Advance diet as tolerated once pain starts to improve History of gastric bypass surgery - no issues at this time Maintenance issues - - DVT prophylaxis - mechanical - GI prophylaxis - PPI - Nutrition - water and ice chips only - Sutton catheter - not indicated Disposition - I would anticipate discharge home after the hospital stay Darinel Leach M.D.
[2018-10-02] MEDS: Acetaminophen/oxyCODONE 325-5 MG Tab PO PRN ×2 (00:18→06:29)
[2018-10-02] MEDS: Ketorolac 30 MG/ML SDV IVPUSH PRN (04:16)
[2018-10-02] MEDS: HYDROmorphone 1 MG/ML Syringe IVPUSH PRN ×6 (09:48→22:07)
[2018-10-02] MEDS: D5 1/2 NS w/ 20 mEq/L KCl 1,000 ML IV SCH ×2 (09:48→22:39)
--- NOTE | 2018-10-02 10:02 | PCM.PN ---
- General Info Date of Service: 10/02/18 Subjective Update: No acute events overnight but patient does report increased pain today. She has not had fevers. No complaints of nausea. Seems to be tolerating water okay. Lipase level has risen further today despite previous clinical improvement. No appetite. No complaints of shortness of breath. Functional Status: Denies: Pain Controlled - Review of Systems General: Denies: Fever Gastrointestinal: Reports: Abdominal Pain - Patient Data Vitals - Most Recent: Last Vital Signs Temp 36.2 C 10/02/18 07:07 Pulse 95 10/02/18 07:07 Resp 16 10/02/18 07:07 BP 123/87 10/02/18 07:07 Pulse Ox 96 10/02/18 07:07 Weight - Most Recent: 52.435 kg I&O - Last 24 Hours: Intake & Output 10/01/18 10/02/18 10/02/18 22:59 06:59 14:59 Intake Total 125 Output Total 600 200 Balance -475 -200 Lab Results Last 24 Hours: Laboratory Results - last 24 hr 10/02/18 10/02/18 Range/Units 04:30 04:30 WBC 4.0 L (4.5-11.0) K/uL RBC 3.84 (3.30-5.50) M/uL Hgb 11.9 L (12.0-15.0) g/dL Hct 37.1 (36.0-48.0) % MCV 97 (80-98) fL MCH 31 (27-31) pg MCHC 32 (32-36) % Plt Count 426 H (150-400) K/uL Sodium 137 L (140-148) mmol/L Potassium 3.7 (3.6-5.2) mmol/L Chloride 101 (100-108) mmol/L Carbon Dioxide 23 (21-32) mmol/L Anion Gap 16.7 H (5.0-14.0) mmol/L BUN 5 L (7-18) mg/dL Creatinine 0.4 L (0.6-1.0) mg/dL Est Cr Clr Drug Dosing 128.92 mL/min Estimated GFR (MDRD) > 60 (>60) Glucose 90 (74-106) mg/dL Calcium 8.2 L (8.5-10.1) mg/dL Lipase 2240 H (73-393) U/L Med Orders - Current: Current Medications Hydromorphone HCl (Dilaudid) 1 mg IVPUSH Q2H PRN PRN Reason: Pain (severe 7-10) Last Admin: 10/02/18 09:48 Dose: 1 mg Potassium Chloride/Dextrose/Sod Cl (D5 1/2 Ns W/ 20 Meq/L Kcl) 1,000 mls @ 75 mls/hr IV ASDIRECTED [facility] Last Admin: 10/02/18 09:48 Dose: 75 mls/hr Lorazepam (Ativan) 0.5 mg IVPUSH Q4H PRN PRN Reason: Anxiety Last Admin: 10/01/18 22:15 Dose: 0.5 mg Ondansetron HCl (Zofran) 4 mg IVPUSH Q4H PRN PRN Reason: Nausea/Vomiting Last Admin: 09/28/18 21:29 Dose: 4 mg Ondansetron HCl (Zofran Odt) 4 mg PO Q6H PRN PRN Reason: Nausea/Vomiting Discontinued Medications Hydromorphone HCl (Dilaudid) 0.5 mg IVPUSH ONETIME ONE Stop: 09/27/18 22:52 Last Admin: 09/27/18 23:11 Dose: 0.5 mg Hydromorphone HCl (Dilaudid) 0.5 mg IVPUSH ONETIME ONE Stop: 09/27/18 23:42 Last Admin: 09/27/18 23:50 Dose: 0.5 mg Hydromorphone HCl (Dilaudid) 0.5 mg IVPUSH ONETIME ONE Stop: 09/28/18 01:05 Last Admin: 09/28/18 01:13 Dose: 0.5 mg Hydromorphone HCl (Dilaudid) 0.5 mg IVPUSH ONETIME ONE Stop: 09/28/18 02:30 Last Admin: 09/28/18 02:36 Dose: 0.5 mg Hydromorphone HCl (Dilaudid Tub Wash Operator 15 Mg In Ns 30 Ml) 15 mg IV ASDIRECTED [facility]; Protocol Last Admin: 09/30/18 08:10 Dose: 15 mg Lactated Ringer's (Ringers, Lactated) 1,000 mls @ 1,000 mls/hr IV BOLUS ONE Stop: 09/27/18 23:50 Last Admin: 09/27/18 23:15 Dose: 1,000 mls/hr Sodium Chloride (Normal Saline) 70 mls @ 3 mls/sec IV ASDIRECTED [facility] Stop: 09/28/18 12:00 Last Admin: 09/28/18 00:34 Dose: 3 mls/sec Lactated Ringer's (Ringers, Lactated) 1,000 mls @ 250 mls/hr IV ASDIRECTED [facility] Last Admin: 09/28/18 08:50 Dose: 250 mls/hr Lactated Ringer's (Ringers, Lactated) 1,000 mls @ 125 mls/hr IV ASDIRECTED [facility] Last Admin: 09/30/18 05:33 Dose: 125 mls/hr Iopamidol (Isovue-300 (61%)) 100 ml IV . DIRECTED [facility] Last Admin: 09/28/18 00:33 Dose: Not Given Iopamidol (Isovue-300 (61%)) 70 ml IV . DIRECTED [facility] Stop: 09/28/18 12:00 Ketorolac Tromethamine (Toradol) 30 mg IVPUSH ONETIME ONE Stop: 09/27/18 23:42 Last Admin: 09/27/18 23:47 Dose: 30 mg Ketorolac Tromethamine (Toradol) 30 mg IVPUSH Q8H PRN PRN Reason: Pain Stop: 10/03/18 07:01 Last Admin: 09/29/18 02:47 Dose: 30 mg Ketorolac Tromethamine (Toradol) 30 mg IVPUSH Q6H PRN PRN Reason: Pain Stop: 10/03/18 07:01 Last Admin: 10/02/18 04:16 Dose: 30 mg Naloxone HCl (Narcan) 0.1 mg IV ASDIRECTED PRN PRN Reason: decreased respiratory rate Oxycodone/Acetaminophen (Percocet 325-5 Mg) 1 tab PO Q4H PRN PRN Reason: Pain Last Admin: 10/02/18 06:29 Dose: 1 tab Pantoprazole Sodium (Protonix Iv) 40 mg IVPUSH Q24H [facility] Last Admin: 09/30/18 03:52 Dose: 40 mg - Exam Quality Assessment: No: Supplemental Oxygen General: Alert, Oriented, Cooperative, No Acute Distress Lungs: Normal Respiratory Effort GI/Abdominal Exam: Soft, No Distention Extremities: No Pedal Edema Psy/Mental Status: Alert, Normal Affect - Problem List Review Problem List Initiated/Reviewed/Updated: Yes - My Orders Last 24 Hours: My Active Orders 10/01/18 Lunch NPO [Nothing Per Oral Diet] [DIET] 10/02/18 09:11 HYDROmorphone [Dilaudid] 1 mg IVPUSH Q2H PRN 10/02/18 09:15 D5 1/2 NS w/ 20 mEq/L KCl 1,000 ml IV ASDIRECTED 10/03/18 05:00 CBC W/O DIFF,HEMOGRAM [HEME] Timed (1) COMPREHENSIVE METABOLIC PN,CMP [CHEM] Timed LIPASE [CHEM] Timed 10/03/18 07:00 Abdomen wo Cont [MR] Routine - Plan Plan:: ASSESSMENT AND PLAN - Acute pancreatitis - etiology not entirely clear but did happen towards the end of a 10 day course of Bactrim and this could be the offending agent. Lipase level has risen again today and pain has increased. -Nothing by mouth status -IV pain meds -saline lock IV fluids -Symptomatically management of nausea -Lipase in the morning -MRCP in the morning History of gastric bypass surgery - no issues at this time Maintenance issues - - DVT prophylaxis - mechanical - GI prophylaxis - PPI - Nutrition - nothing by mouth - Sutton catheter - not indicated Disposition - I would anticipate discharge home after the hospital stay Darinel Leach M.D.
[2018-10-02] MEDS: Ondansetron 4 MG/2 ML SDV IVPUSH PRN (15:10)
[2018-10-02] MEDS: LORazepam 2 MG/ML SDV IVPUSH PRN ×2 (17:31→22:45)
[2018-10-03] MEDS: HYDROmorphone 1 MG/ML Syringe IVPUSH PRN ×7 (04:10→21:56)
[2018-10-03] MEDS: Ondansetron 4 MG/2 ML SDV IVPUSH PRN ×2 (04:25→22:02)
[2018-10-03] MEDS: LORazepam 2 MG/ML SDV IVPUSH PRN ×3 (04:29→19:52)
--- NOTE | 2018-10-03 13:18 | PCM.PN ---
- General Info Date of Service: 10/03/18 Subjective Update: Ms. Christianson has continued to experience abdominal pain in the epigastric and supraumbilical region of the abdomen. Lipase level modestly improved from yesterday. MRCP shows ductal dilatation which appears to be stable, no evidence of significant pancreatic inflammation, and no evidence of ductal stones. She continues to experience resting sinus tachycardia, other vital signs stable. Functional Status: Reports: Pain Controlled, Ambulating, Urinating. Denies: Tolerating Diet - Review of Systems General: Denies: Fever, Weakness, Chills Pulmonary: Reports: No Symptoms Cardiovascular: Reports: No Symptoms Gastrointestinal: Reports: Abdominal Pain. Denies: Diarrhea, Difficulty Swallowing, Hematochezia, Melena, Nausea, Vomiting - Patient Data Vitals - Most Recent: Last Vital Signs Temp 97.2 F 10/03/18 13:00 Pulse 105 H 10/03/18 13:00 Resp 16 10/03/18 13:00 BP 147/93 H 10/03/18 13:00 Pulse Ox 96 10/03/18 13:00 Weight - Most Recent: 115 lb 9.59 oz I&O - Last 24 Hours: Intake & Output 10/02/18 10/03/18 10/03/18 22:59 06:59 14:59 Intake Total 579 877 Output Total 225 100 300 Balance 354 777 -300 Lab Results Last 24 Hours: Laboratory Results - last 24 hr 10/03/18 10/03/18 Range/Units 04:52 04:52 WBC 4.2 L (4.5-11.0) K/uL RBC 4.00 (3.30-5.50) M/uL Hgb 12.4 (12.0-15.0) g/dL Hct 39.0 (36.0-48.0) % MCV 98 (80-98) fL MCH 31 (27-31) pg MCHC 32 (32-36) % Plt Count 494 H (150-400) K/uL Sodium 136 L (140-148) mmol/L Potassium 3.9 (3.6-5.2) mmol/L Chloride 102 (100-108) mmol/L Carbon Dioxide 26 (21-32) mmol/L Anion Gap 11.9 (5.0-14.0) mmol/L BUN 6 L (7-18) mg/dL Creatinine 0.4 L (0.6-1.0) mg/dL Est Cr Clr Drug Dosing 128.92 mL/min Estimated GFR (MDRD) > 60 (>60) Glucose 143 H (74-106) mg/dL Calcium 8.3 L (8.5-10.1) mg/dL Total Bilirubin 0.5 (0.2-1.0) mg/dL AST 13 L (15-37) U/L ALT 19 (12-78) U/L Alkaline Phosphatase 116 (46-116) U/L Total Protein 5.7 L (6.4-8.2) g/dL Albumin 2.3 L (3.4-5.0) g/dL Globulin 3.4 (2.3-3.5) g/dL Albumin/Globulin Ratio 0.7 L (1.2-2.2) Lipase 1825 H (73-393) U/L Med Orders - Current: Current Medications Hydromorphone HCl (Dilaudid) 1 mg IVPUSH Q2H PRN PRN Reason: Pain (severe 7-10) Last Admin: 10/03/18 11:11 Dose: 1 mg Potassium Chloride/Dextrose/Sod Cl (D5 1/2 Ns W/ 20 Meq/L Kcl) 1,000 mls @ 75 mls/hr IV ASDIRECTED [facility] Last Admin: 10/02/18 22:39 Dose: 75 mls/hr Lorazepam (Ativan) 0.5 mg IVPUSH Q4H PRN PRN Reason: Anxiety Last Admin: 10/03/18 12:18 Dose: 0.5 mg Ondansetron HCl (Zofran) 4 mg IVPUSH Q4H PRN PRN Reason: Nausea/Vomiting Last Admin: 10/03/18 04:25 Dose: 4 mg Ondansetron HCl (Zofran Odt) 4 mg PO Q6H PRN PRN Reason: Nausea/Vomiting Discontinued Medications Hydromorphone HCl (Dilaudid) 0.5 mg IVPUSH ONETIME ONE Stop: 09/27/18 22:52 Last Admin: 09/27/18 23:11 Dose: 0.5 mg Hydromorphone HCl (Dilaudid) 0.5 mg IVPUSH ONETIME ONE Stop: 09/27/18 23:42 Last Admin: 09/27/18 23:50 Dose: 0.5 mg Hydromorphone HCl (Dilaudid) 0.5 mg IVPUSH ONETIME ONE Stop: 09/28/18 01:05 Last Admin: 09/28/18 01:13 Dose: 0.5 mg Hydromorphone HCl (Dilaudid) 0.5 mg IVPUSH ONETIME ONE Stop: 09/28/18 02:30 Last Admin: 09/28/18 02:36 Dose: 0.5 mg Hydromorphone HCl (Dilaudid Sole Tier 15 Mg In Ns 30 Ml) 15 mg IV ASDIRECTED [facility]; Protocol Last Admin: 09/30/18 08:10 Dose: 15 mg Lactated Ringer's (Ringers, Lactated) 1,000 mls @ 1,000 mls/hr IV BOLUS ONE Stop: 09/27/18 23:50 Last Admin: 09/27/18 23:15 Dose: 1,000 mls/hr Sodium Chloride (Normal Saline) 70 mls @ 3 mls/sec IV ASDIRECTED [facility] Stop: 09/28/18 12:00 Last Admin: 09/28/18 00:34 Dose: 3 mls/sec Lactated Ringer's (Ringers, Lactated) 1,000 mls @ 250 mls/hr IV ASDIRECTED [facility] Last Admin: 09/28/18 08:50 Dose: 250 mls/hr Lactated Ringer's (Ringers, Lactated) 1,000 mls @ 125 mls/hr IV ASDIRECTED [facility] Last Admin: 09/30/18 05:33 Dose: 125 mls/hr Iopamidol (Isovue-300 (61%)) 100 ml IV . DIRECTED [facility] Last Admin: 09/28/18 00:33 Dose: Not Given Iopamidol (Isovue-300 (61%)) 70 ml IV . DIRECTED [facility] Stop: 09/28/18 12:00 Ketorolac Tromethamine (Toradol) 30 mg IVPUSH ONETIME ONE Stop: 09/27/18 23:42 Last Admin: 09/27/18 23:47 Dose: 30 mg Ketorolac Tromethamine (Toradol) 30 mg IVPUSH Q8H PRN PRN Reason: Pain Stop: 10/03/18 07:01 Last Admin: 09/29/18 02:47 Dose: 30 mg Ketorolac Tromethamine (Toradol) 30 mg IVPUSH Q6H PRN PRN Reason: Pain Stop: 10/03/18 07:01 Last Admin: 10/02/18 04:16 Dose: 30 mg Naloxone HCl (Narcan) 0.1 mg IV ASDIRECTED PRN PRN Reason: decreased respiratory rate Oxycodone/Acetaminophen (Percocet 325-5 Mg) 1 tab PO Q4H PRN PRN Reason: Pain Last Admin: 10/02/18 06:29 Dose: 1 tab Pantoprazole Sodium (Protonix Iv) 40 mg IVPUSH Q24H [facility] Last Admin: 09/30/18 03:52 Dose: 40 mg - Exam General: Alert, Oriented, Cooperative, Moderate Distress Lungs: Clear to Auscultation, Normal Respiratory Effort Cardiovascular: Regular Rate, Regular Rhythm, No Murmurs GI/Abdominal Exam: Soft, No Organomegaly, Distended, Tender. No: Guarding, Rigid, Rebound Extremities: Non-Tender, No Pedal Edema - Problem List Review Problem List Initiated/Reviewed/Updated: Yes - My Orders Last 24 Hours: My Active Orders 10/04/18 05:00 CBC WITH AUTO DIFF [HEME] Timed COMPREHENSIVE METABOLIC PN,CMP [CHEM] Timed LIPASE [CHEM] Timed - Plan Plan:: ASSESSMENT AND PLAN - Acute pancreatitis - etiology not entirely clear but did happen towards the end of a 10 day course of Bactrim and this could be the offending agent. Lipase level mildly improved from yesterday. Continues to experience epigastric and supraumbilical abdominal pain. MRCP obtained today shows increase in ascites, no obstructing lesion or significant pancreatic inflammation. -Nothing by mouth status -IV pain meds -saline lock IV fluids -Symptomatically management of nausea -Lipase in the morning History of gastric bypass surgery - no issues at this time Maintenance issues - - DVT prophylaxis - mechanical - GI prophylaxis - PPI - Nutrition - nothing by mouth - Sutton catheter - not indicated Disposition - I would anticipate discharge home after the hospital stay
[2018-10-03] MEDS: D5 1/2 NS w/ 20 mEq/L KCl 1,000 ML IV SCH (13:22)
--- NOTE | 2018-10-03 13:23 | MR ---
Abdomen wo Cont CLINICAL HISTORY: Pancreatitis COMPARISON: CT abdomen 09/28/2018 TECHNIQUE: Multiple images of the biliary system were obtained. All images were obtained on a 1.5 Radha Siemens unit. FINDINGS: There is diffuse fatty infiltration liver. There is intrahepatic biliary dilatation. There is also dilatation of the common hepatic and common bile duct. Maximum diameter of the common hepatic duct is 10 mm common bile duct measures 9 mm in diameter. This tapers just before the ampulla. The pancreatic duct is a normal contour. No pancreatic mass or cyst is identified. There is a large amount of abdominal ascites. This is increased since the study from 09/28/2018. There are small bibasal effusions.. There are some fluid-filled dilated loops of small bowel in a nonacute pattern IMPRESSION: Moderate diffuse ascites increased since prior study Common hepatic and common bile duct dilatation likely related to cholecystectomy. There is some mild intrahepatic biliary dilatation. Pancreatic duct is normal diameter. No filling defects are seen. Diffuse fatty infiltration liver Mild diffuse small bowel distention
[2018-10-04] MEDS: HYDROmorphone 1 MG/ML Syringe IVPUSH PRN ×2 (00:45→10:49)
[2018-10-04] MEDS: LORazepam 2 MG/ML SDV IVPUSH PRN (00:46)
[2018-10-04] MEDS: D5 1/2 NS w/ 20 mEq/L KCl 1,000 ML IV SCH (00:58)
[2018-10-04] MEDS ORDERED: LORazepam 0.5 MG Tab PO PRN (14:37)
--- NOTE | 2018-10-04 14:42 | PCM.PN ---
- General Info Date of Service: 10/04/18 Subjective Update: Ms. Christianson has remained stable since yesterday. Lipase level was almost normalized and her abdominal pain has significantly improved. Functional Status: Reports: Ambulating, Urinating - Review of Systems General: Denies: Fever, Chills Pulmonary: Reports: No Symptoms Cardiovascular: Reports: No Symptoms Gastrointestinal: Reports: Abdominal Pain. Denies: Difficulty Swallowing, Nausea, Vomiting - Patient Data Vitals - Most Recent: Last Vital Signs Temp 99.4 F 10/04/18 07:19 Pulse 109 H 10/04/18 07:19 Resp 16 10/04/18 07:19 BP 112/78 10/04/18 07:19 Pulse Ox 95 10/04/18 07:19 Weight - Most Recent: 115 lb 9.59 oz I&O - Last 24 Hours: Intake & Output 10/03/18 10/04/18 10/04/18 22:59 06:59 14:59 Intake Total 850 1748 Output Total 600 150 Balance 250 1598 Lab Results Last 24 Hours: Laboratory Results - last 24 hr 10/04/18 10/04/18 Range/Units 04:50 04:50 WBC 4.7 (4.5-11.0) K/uL RBC 3.62 (3.30-5.50) M/uL Hgb 11.5 L (12.0-15.0) g/dL Hct 35.3 L (36.0-48.0) % MCV 98 (80-98) fL MCH 32 H (27-31) pg MCHC 33 (32-36) % Plt Count 474 H (150-400) K/uL Neut % (Auto) 68 H (36-66) % Lymph % (Auto) 20 L (24-44) % [place] % (Auto) 11 H (2-6) % Eos % (Auto) 1 L (2-4) % Baso % (Auto) 0 (0-1) % Sodium 136 L (140-148) mmol/L Potassium 3.9 (3.6-5.2) mmol/L Chloride 102 (100-108) mmol/L Carbon Dioxide 27 (21-32) mmol/L Anion Gap 10.9 (5.0-14.0) mmol/L BUN 6 L (7-18) mg/dL Creatinine 0.5 L (0.6-1.0) mg/dL Est Cr Clr Drug Dosing 103.13 mL/min Estimated GFR (MDRD) > 60 (>60) Glucose 151 H (74-106) mg/dL Calcium 8.1 L (8.5-10.1) mg/dL Total Bilirubin 0.5 (0.2-1.0) mg/dL AST 15 (15-37) U/L ALT 17 (12-78) U/L Alkaline Phosphatase 121 H (46-116) U/L Total Protein 5.1 L (6.4-8.2) g/dL Albumin 1.9 L (3.4-5.0) g/dL Globulin 3.2 (2.3-3.5) g/dL Albumin/Globulin Ratio 0.6 L (1.2-2.2) Lipase 607 H (73-393) U/L Med Orders - Current: Current Medications Lorazepam (Ativan) 0.5 mg PO Q4H PRN PRN Reason: Anxiety Ondansetron HCl (Zofran Odt) 4 mg PO Q6H PRN PRN Reason: Nausea/Vomiting Oxycodone HCl (Oxycodone) 5 mg PO Q4H PRN PRN Reason: Pain Discontinued Medications Hydromorphone HCl (Dilaudid) 0.5 mg IVPUSH ONETIME ONE Stop: 09/27/18 22:52 Last Admin: 09/27/18 23:11 Dose: 0.5 mg Hydromorphone HCl (Dilaudid) 0.5 mg IVPUSH ONETIME ONE Stop: 09/27/18 23:42 Last Admin: 09/27/18 23:50 Dose: 0.5 mg Hydromorphone HCl (Dilaudid) 0.5 mg IVPUSH ONETIME ONE Stop: 09/28/18 01:05 Last Admin: 09/28/18 01:13 Dose: 0.5 mg Hydromorphone HCl (Dilaudid) 0.5 mg IVPUSH ONETIME ONE Stop: 09/28/18 02:30 Last Admin: 09/28/18 02:36 Dose: 0.5 mg Hydromorphone HCl (Dilaudid Insurance Processing Clerk 15 Mg In Ns 30 Ml) 15 mg IV ASDIRECTED [facility]; Protocol Last Admin: 09/30/18 08:10 Dose: 15 mg Hydromorphone HCl (Dilaudid) 1 mg IVPUSH Q2H PRN PRN Reason: Pain (severe 7-10) Last Admin: 10/04/18 10:49 Dose: 1 mg Lactated Ringer's (Ringers, Lactated) 1,000 mls @ 1,000 mls/hr IV BOLUS ONE Stop: 09/27/18 23:50 Last Admin: 09/27/18 23:15 Dose: 1,000 mls/hr Sodium Chloride (Normal Saline) 70 mls @ 3 mls/sec IV ASDIRECTED [facility] Stop: 09/28/18 12:00 Last Admin: 09/28/18 00:34 Dose: 3 mls/sec Lactated Ringer's (Ringers, Lactated) 1,000 mls @ 250 mls/hr IV ASDIRECTED [facility] Last Admin: 09/28/18 08:50 Dose: 250 mls/hr Lactated Ringer's (Ringers, Lactated) 1,000 mls @ 125 mls/hr IV ASDIRECTED [facility] Last Admin: 09/30/18 05:33 Dose: 125 mls/hr Potassium Chloride/Dextrose/Sod Cl (D5 1/2 Ns W/ 20 Meq/L Kcl) 1,000 mls @ 75 mls/hr IV ASDIRECTED [facility] Last Admin: 10/04/18 00:58 Dose: 75 mls/hr Iopamidol (Isovue-300 (61%)) 100 ml IV . DIRECTED [facility] Last Admin: 09/28/18 00:33 Dose: Not Given Iopamidol (Isovue-300 (61%)) 70 ml IV . DIRECTED [facility] Stop: 09/28/18 12:00 Ketorolac Tromethamine (Toradol) 30 mg IVPUSH ONETIME ONE Stop: 09/27/18 23:42 Last Admin: 09/27/18 23:47 Dose: 30 mg Ketorolac Tromethamine (Toradol) 30 mg IVPUSH Q8H PRN PRN Reason: Pain Stop: 10/03/18 07:01 Last Admin: 09/29/18 02:47 Dose: 30 mg Ketorolac Tromethamine (Toradol) 30 mg IVPUSH Q6H PRN PRN Reason: Pain Stop: 10/03/18 07:01 Last Admin: 10/02/18 04:16 Dose: 30 mg Lorazepam (Ativan) 0.5 mg IVPUSH Q4H PRN PRN Reason: Anxiety Last Admin: 10/04/18 00:46 Dose: 0.5 mg Naloxone HCl (Narcan) 0.1 mg IV ASDIRECTED PRN PRN Reason: decreased respiratory rate Ondansetron HCl (Zofran) 4 mg IVPUSH Q4H PRN PRN Reason: Nausea/Vomiting Last Admin: 10/03/18 22:02 Dose: 4 mg Oxycodone/Acetaminophen (Percocet 325-5 Mg) 1 tab PO Q4H PRN PRN Reason: Pain Last Admin: 10/02/18 06:29 Dose: 1 tab Pantoprazole Sodium (Protonix Iv) 40 mg IVPUSH Q24H [facility] Last Admin: 09/30/18 03:52 Dose: 40 mg - Exam General: Alert, Oriented, Cooperative, Mild Distress Lungs: Clear to Auscultation, Normal Respiratory Effort Cardiovascular: Regular Rate, Regular Rhythm, No Murmurs GI/Abdominal Exam: Soft, No Organomegaly, Tender. No: Distended, Guarding, Rigid, Rebound - Problem List Review Problem List Initiated/Reviewed/Updated: Yes - My Orders Last 24 Hours: My Active Orders 10/04/18 14:36 Convert IV to Saline Lock [OM.PC] Routine 10/04/18 14:37 LORazepam [Ativan] 0.5 mg PO Q4H PRN oxyCODONE 5 mg PO Q4H PRN 10/04/18 Lunch Regular Diet [DIET] 10/05/18 05:00 LIPASE [CHEM] Timed - Plan Plan:: ASSESSMENT AND PLAN - Acute pancreatitis - etiology not entirely clear but did happen towards the end of a 10 day course of Bactrim and this could be the offending agent. Lipase level has almost normalized. [place] pain significantly improved over the last 24 hours -Regular diet -Saline lock IV -Symptomatically management of nausea -Lipase in the morning History of gastric bypass surgery - no issues at this time Maintenance issues - - DVT prophylaxis - mechanical - GI prophylaxis - PPI - Nutrition - regular diet - Sutton catheter - not indicated Disposition - I would anticipate discharge home tomorrow
[2018-10-04] MEDS: oxyCODONE 5 MG Tab PO PRN ×2 (16:18→23:03)
[2018-10-05] MEDS: oxyCODONE 5 MG Tab PO PRN (08:05)
--- NOTE | 2018-10-05 12:04 | PCM.DCSUM1 ---
Discharge Summary - Hospital Course Brief History: Ms. Chrsitianson is a 43-year-old woman who was admitted through the emergency department with abdominal pain, nausea, and elevated lipase level, consistent with pancreatitis. - Discharge Data Discharge Date: 10/05/18 Discharge Disposition: Home, Self-Care 01 Condition: Fair - Discharge Diagnosis/Problem(s) (1) Nausea & vomiting SNOMED Code(s): 89787239 ICD Code: R11.2 - NAUSEA WITH VOMITING, UNSPECIFIED Status: Acute Current Visit: Yes (2) Dehydration SNOMED Code(s): 65426745 ICD Code: E86.0 - DEHYDRATION Status: Acute Current Visit: Yes (3) Abdominal pain SNOMED Code(s): 27939016 ICD Code: R10.9 - UNSPECIFIED ABDOMINAL PAIN Status: Acute Current Visit : Yes Qualifiers: Abdominal location: generalized Qualified Code(s): R10.84 - Generalized abdominal pain (4) Pancreatitis SNOMED Code(s): 92974068 ICD Code: K85.90 - ACUTE PANCREATITIS WITHOUT NECROSIS OR INFECTION, UNSP Status: Acute Current Visit: Yes Qualifiers: Chronicity: acute Pancreatitis type: idiopathic Acute pancreatitis complication: unspecified Qualified Code(s): K85.00 - Idiopathic acute pancreatitis without necrosis or infection - Patient Summary/Data Hospital Course: Ms. Christianson is a 43-year-old woman who was admitted through the emergency department with nausea and abdominal pain. Lipase level was found to be elevated CT scan was obtained which showed no evidence of obvious pancreatitis. Liver ducts were noted to be enlarged but she is status post cholecystectomy, ducts were stable in size when compared to previous imaging. On admission she was kept nothing by mouth and given IV fluids for hydration as well as medication for pain and nausea. Initially she improved with decrease in pain and improved lipase level. She was started on a clear liquid diet but shortly thereafter redeveloped significant pain with nausea and vomiting. Lipase level increased to greater than 2000 with the second episode. She does have a previous history of 2 recent episodes of pancreatitis with no specific etiology identified on fairly extensive evaluation. Because of the recurrent symptoms and elevation in lipase level with feeding she was placed back on nothing by mouth and given further IV fluids for hydration. MRCP was obtained and showed no evidence of obstructing stone or significant pancreatic inflammation. Over the next few days symptoms essentially resolved and lipase level normalized. She was placed on regular diet which she tolerated without difficulty and lipase level remains stable. Was felt most likely that recent antibiotic therapy with sulfa-containing medication Bactrim could be the precipitating event of this most recent episode. She should be careful about taking sulfa- containing medications in the future. She is also been instructed to avoid all alcohol use. Follow-up appointment will be scheduled with her primary care provider within one week. Activity will be as tolerated and she will resume her usual diet. - Patient Instructions Diet: Usual Diet as Tolerated Activity: As Tolerated Other/Special Instructions: Schedule follow-up appointment with primary care provider within one week. - Discharge Plan *PRESCRIPTION DRUG MONITORING PROGRAM REVIEWED*: Not Applicable *COPY OF PRESCRIPTION DRUG MONITORING REPORT IN PATIENT TORSTEN: Not Applicable Home Medications: Home Meds Albuterol Sulfate [Proair Hfa] 2 puff IH QID PRN 08/28/15 [History] Cyanocobalamin (Vitamin B12) [Vitamin B12] 500 mcg PO DAILY 08/28/15 [History] Dextroamphetamine/Amphetamine [Adderall 10 mg Tablet] 10 mg PO BID 08/28/15 [ History] Venlafaxine HCl [Venlafaxine ER] 37.5 mg PO DAILY 01/03/18 [History] traMADol [Ultram] 50 mg PO Q6H PRN 09/27/18 [History] Referrals: Michelle Biswas PA [Advanced RN Practitioner] - - Discharge Summary/Plan Comment DC Time >30 min.: No - Patient Data Vitals - Most Recent: Last Vital Signs Temp 97.2 F 10/05/18 07:50 Pulse 107 H 10/05/18 07:50 Resp 16 10/05/18 07:50 BP 115/64 10/05/18 07:50 Pulse Ox 91 L 10/05/18 07:50 Weight - Most Recent: 115 lb 9.59 oz I&O - Last 24 hours: Intake & Output 10/04/18 10/05/18 10/05/18 22:59 06:59 14:59 Intake Total 100 200 Balance 100 200 Lab Results - Last 24 hrs: Laboratory Results - last 24 hr 10/05/18 Range/Units 05:36 Lipase 360 (73-393) U/L Med Orders - Current: Current Medications Lorazepam (Ativan) 0.5 mg PO Q4H PRN PRN Reason: Anxiety Last Admin: 10/04/18 19:33 Dose: 0.5 mg Ondansetron HCl (Zofran Odt) 4 mg PO Q6H PRN PRN Reason: Nausea/Vomiting Last Admin: 10/04/18 19:32 Dose: 4 mg Oxycodone HCl (Oxycodone) 5 mg PO Q4H PRN PRN Reason: Pain Last Admin: 10/05/18 08:05 Dose: 5 mg Discontinued Medications Hydromorphone HCl (Dilaudid) 0.5 mg IVPUSH ONETIME ONE Stop: 09/27/18 22:52 Last Admin: 09/27/18 23:11 Dose: 0.5 mg Hydromorphone HCl (Dilaudid) 0.5 mg IVPUSH ONETIME ONE Stop: 09/27/18 23:42 Last Admin: 09/27/18 23:50 Dose: 0.5 mg Hydromorphone HCl (Dilaudid) 0.5 mg IVPUSH ONETIME ONE Stop: 09/28/18 01:05 Last Admin: 09/28/18 01:13 Dose: 0.5 mg Hydromorphone HCl (Dilaudid) 0.5 mg IVPUSH ONETIME ONE Stop: 09/28/18 02:30 Last Admin: 09/28/18 02:36 Dose: 0.5 mg Hydromorphone HCl (Dilaudid Music Pastor 15 Mg In Ns 30 Ml) 15 mg IV ASDIRECTED ERICK; Protocol Last Admin: 09/30/18 08:10 Dose: 15 mg Hydromorphone HCl (Dilaudid) 1 mg IVPUSH Q2H PRN PRN Reason: Pain (severe 7-10) Last Admin: 10/04/18 10:49 Dose: 1 mg Lactated Ringer's (Ringers, Lactated) 1,000 mls @ 1,000 mls/hr IV BOLUS ONE Stop: 09/27/18 23:50 Last Admin: 09/27/18 23:15 Dose: 1,000 mls/hr Sodium Chloride (Normal Saline) 70 mls @ 3 mls/sec IV ASDIRECTED ERICK Stop: 09/28/18 12:00 Last Admin: 09/28/18 00:34 Dose: 3 mls/sec Lactated Ringer's (Ringers, Lactated) 1,000 mls @ 250 mls/hr IV ASDIRECTED [facility] Last Admin: 09/28/18 08:50 Dose: 250 mls/hr Lactated Ringer's (Ringers, Lactated) 1,000 mls @ 125 mls/hr IV ASDIRECTED [facility] Last Admin: 09/30/18 05:33 Dose: 125 mls/hr Potassium Chloride/Dextrose/Sod Cl (D5 1/2 Ns W/ 20 Meq/L Kcl) 1,000 mls @ 75 mls/hr IV ASDIRECTED [facility] Last Admin: 10/04/18 00:58 Dose: 75 mls/hr Iopamidol (Isovue-300 (61%)) 100 ml IV . DIRECTED [facility] Last Admin: 09/28/18 00:33 Dose: Not Given Iopamidol (Isovue-300 (61%)) 70 ml IV . DIRECTED [facility] Stop: 09/28/18 12:00 Ketorolac Tromethamine (Toradol) 30 mg IVPUSH ONETIME ONE Stop: 09/27/18 23:42 Last Admin: 09/27/18 23:47 Dose: 30 mg Ketorolac Tromethamine (Toradol) 30 mg IVPUSH Q8H PRN PRN Reason: Pain Stop: 10/03/18 07:01 Last Admin: 09/29/18 02:47 Dose: 30 mg Ketorolac Tromethamine (Toradol) 30 mg IVPUSH Q6H PRN PRN Reason: Pain Stop: 10/03/18 07:01 Last Admin: 10/02/18 04:16 Dose: 30 mg Lorazepam (Ativan) 0.5 mg IVPUSH Q4H PRN PRN Reason: Anxiety Last Admin: 10/04/18 00:46 Dose: 0.5 mg Naloxone HCl (Narcan) 0.1 mg IV ASDIRECTED PRN PRN Reason: decreased respiratory rate Ondansetron HCl (Zofran) 4 mg IVPUSH Q4H PRN PRN Reason: Nausea/Vomiting Last Admin: 10/03/18 22:02 Dose: 4 mg Oxycodone/Acetaminophen (Percocet 325-5 Mg) 1 tab PO Q4H PRN PRN Reason: Pain Last Admin: 10/02/18 06:29 Dose: 1 tab Pantoprazole Sodium (Protonix Iv) 40 mg IVPUSH Q24H [facility] Last Admin: 09/30/18 03:52 Dose: 40 mg - Exam General: Reports: Alert, Oriented, Cooperative, No Acute Distress Lungs: Reports: Clear to Auscultation, Normal Respiratory Effort Cardiovascular: Reports: Regular Rate, Regular Rhythm, No Murmurs GI/Abdominal Exam: Soft, Non-Tender, No Organomegaly, No Distention
[2018-10-05 12:42] VITALS: BP 115/79; PULSE 96
== END 2018-10-05 13:13 | disposition home or self-care (01) | DRG 440 ==
LOC: JP.ED 22:37 → JP.MS 09-28 01:46
PROVIDERS: ADMIT Family Medicine; ATTEND Hospitalist
DX: K85.30 Drug induced acute pancreatitis without necrosis or infection (principal); T36.8X5A Adverse effect of other systemic antibiotics, initial encounter; E86.0 Dehydration; G43.909 Migraine, unspecified, not intractable, without status migrainosus; F90.9 Attention-deficit hyperactivity disorder, unspecified type; F41.9 Anxiety disorder, unspecified; Z88.1 Allergy status to other antibiotic agents; Z88.0 Allergy status to penicillin; Z88.8 Allergy status to other drugs, medicaments and biological substances; Z90.49 Acquired absence of other specified parts of digestive tract; Z91.018 Allergy to other foods; Z98.84 Bariatric surgery status; Z79.899 Other long term (current) drug therapy; Z90.710 Acquired absence of both cervix and uterus; Z86.14 Personal history of Methicillin resistant Staphylococcus aureus infection
CPT/HCPCS: 36415; 74177; 74181; 74181-26; 80048; 80053; 80305-QW; 82150; 83690; 85025; 85027; 94762; 96361; 96374; 96375; 96376; 99284-25; A9270-GY; C9113; J1170; J1885; J2060; J2405; J3480; J7030; J7120

== ENCOUNTER 2018-10-06 08:14 | Inpatient (IN) | payer OTHER ==
[2018-10-06] MEDS ORDERED: Lactated Ringers 1,000 ML IV ONE (08:41)
[2018-10-06] MEDS ORDERED: HYDROmorphone 0.5 MG/0.5 ML Syringe IVPUSH ONE ×2 (08:43→11:04)
[2018-10-06] MEDS ORDERED: Ondansetron 4 MG/2 ML SDV IVPUSH ONE ×2 (08:49→12:22)
--- NOTE | 2018-10-06 08:55 | EDM.PDOC ---
ED HPI GENERAL MEDICAL PROBLEM - General Chief Complaint: Abdominal Pain Stated Complaint: D/C YESTERDAY;PANCREATITIS Time Seen by Provider: 10/06/18 08:45 Source of Information: Reports: Patient, Old Records, RN History Limitations: Reports: No Limitations - History of Present Illness INITIAL COMMENTS - FREE TEXT/NARRATIVE: 43 yo female was discharged yesterday from here after an admission for pancreatitis. Ate only a cup of chicken noodle soup after discharge and now her pain is back. Not as bad as when she was last admitted, but certainly worse than when discharged. No fever or bleeding. Has a pHx of hysterectomy, cholecystectomy and gastric bypass(13 yrs ago). Reports diarrhea since discharge. Had nausea and vomiting x 1 this morning at 7 am and her pain began about 0330h last night. Onset: Today Onset Date: 10/06/18 Onset Time: 03:30 Duration: Hour(s):, Getting Worse Location: Reports: Abdomen Quality: Reports: Ache Severity: Moderate Improves with: Reports: None Worsens with: Reports: Other (time) Context: Reports: Other (see HPI) Associated Symptoms: Reports: Nausea/Vomiting, Other (diarrhea). 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) Abdominal Pain Score (Numeric/FACES): 8 - Related Data Allergies Allergy/AdvReac Type Severity Reaction Status Date / Time ferumoxytol [From Feraheme] Allergy Severe Difficulty Verified 09/27/18 22:55 Breathing adhesive tape Allergy Other Verified 09/27/18 22:55 ciprofloxacin Allergy Rash Verified 09/27/18 22:55 fentanyl Allergy Itching Verified 09/27/18 22:55 Penicillins Allergy Other Verified 09/27/18 22:55 pineapple Allergy Other Verified 09/27/18 22:55 sulfamethoxazole AdvReac Other Verified 10/05/18 11:50 [From Bactrim] trimethoprim [From Bactrim] AdvReac Other Verified 10/05/18 11:50 Home Meds: Home Meds Albuterol Sulfate [Proair Hfa] 2 puff IH QID PRN 08/28/15 [History] Cyanocobalamin (Vitamin B12) [Vitamin B12] 500 mcg PO DAILY 08/28/15 [History] Dextroamphetamine/Amphetamine [Adderall 10 mg Tablet] 10 mg PO BID 08/28/15 [ History] Venlafaxine HCl [Venlafaxine ER] 37.5 mg PO DAILY 01/03/18 [History] traMADol [Ultram] 50 mg PO Q6H PRN 09/27/18 [History] 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: Neurological History: Reports: Migraines Psychiatric History: Reports: ADHD - Infectious Disease History Infectious Disease History: Reports: Chicken Pox - Past Surgical History GI Surgical History: Reports: Bariatric Procedure, Cholecystectomy, Hernia Repair/Other Female Surgical History: Reports: Hysterectomy Neurological Surgical History: Reports: None Dermatological Surgical History: Reports: None Social & Family History - Family History Family Medical History: Noncontributory - Tobacco Use Smoking Status *Q: Never Smoker - Caffeine Use Caffeine Use: Reports: None - Recreational Drug Use Recreational Drug Use: No ED ROS GENERAL - Review of Systems Review Of Systems: See Below Constitutional: Reports: No Symptoms HEENT: Reports: No Symptoms Respiratory: Reports: No Symptoms Cardiovascular: Reports: No Symptoms Endocrine: Reports: No Symptoms GI/Abdominal: Reports: Abdominal Pain, Diarrhea, Decreased Appetite, Nausea, Vomiting. Denies: Black Stool, Bloody Stool, Constipation, Distension, Hematemesis, Hematochezia, Melena : Reports: No Symptoms Musculoskeletal: Reports: No Symptoms Skin: Reports: No Symptoms Neurological: Reports: No Symptoms Psychiatric: Reports: No Symptoms ED EXAM, GI/ABD - Physical Exam Exam: See Below Exam Limited By: No Limitations General Appearance: Alert, WD/WN, No Apparent Distress Eyes: Bilateral: Normal Appearance, EOMI Ears: Normal External Exam, Normal Canal, Hearing Grossly Normal, Normal TMs Nose: Normal Inspection, No Blood Throat/Mouth: Normal Inspection, Normal Lips, Normal Oropharynx, Normal Voice, No Airway Compromise Head: Atraumatic, Normocephalic Neck: Normal Inspection Respiratory/Chest: No Respiratory Distress, Lungs Clear, Normal Breath Sounds, No Accessory Muscle Use Cardiovascular: Regular Rate, Rhythm, No Edema GI/Abdominal Exam: Normal Bowel Sounds, Soft, No Distention, Tender (epigastrium ). No: Non-Tender, Distended, Guarding, Rigid, Rebound Back Exam: Normal Inspection. No: CVA Tenderness (R), CVA Tenderness (L) Extremities: Normal Inspection, Normal Range of Motion, Non-Tender Neurological: Alert, Oriented, CN II-XII Intact, Normal Cognition, No Motor/ Sensory Deficits Psychiatric: Normal Affect, Normal Mood Skin Exam: Warm, Dry, Intact, Normal Color, No Rash Course - Vital Signs Text/Narrative:: No improvement with GI cocktail. Discussed with Dr. Lockett @ 10:45am, recommends MRCP for rising LFT's Last Recorded V/S: Last Vital Signs Temp 36.0 C 10/06/18 09:48 Pulse 82 10/06/18 09:48 Resp BP 139/91 H 10/06/18 09:48 Pulse Ox 99 10/06/18 09:48 - Orders/Labs/Meds Orders: Active Orders 24 hr Category Date Time Status NS + KCl 20mEq/L [Normal Saline with 20 mEq KCl] 1,000 Med 10/06/18 10:15 Active ml IV ASDIRECTED Medication Orders Potassium Chloride/Sodium Chloride (Normal Saline With 20 Meq Kcl) 1,000 mls @ 500 mls/hr IV ASDIRECTED ERICK Last Admin: 10/06/18 10:16 Dose: 500 mls/hr Labs: Laboratory Tests 10/06/18 10/06/18 10/06/18 Range/Units 08:41 08:41 08:42 WBC 5.5 (4.5-11.0) K/uL RBC 3.62 (3.30-5.50) M/uL Hgb 11.5 L (12.0-15.0) g/dL Hct 34.6 L (36.0-48.0) % MCV 96 (80-98) fL MCH 32 H (27-31) pg MCHC 33 (32-36) % Plt Count 100 L (150-400) K/uL Sodium 141 (140-148) mmol/L Potassium 3.4 L (3.6-5.2) mmol/L Chloride 104 (100-108) mmol/L Carbon Dioxide 26 (21-32) mmol/L Anion Gap 14.4 H (5.0-14.0) mmol/L BUN 13 D (7-18) mg/dL Creatinine 0.6 (0.6-1.0) mg/dL Est Cr Clr Drug Dosing 85.94 mL/min Estimated GFR (MDRD) > 60 (>60) Glucose 106 (74-106) mg/dL Calcium 8.2 L (8.5-10.1) mg/dL Total Bilirubin (0.2-1.0) mg/dL Direct Bilirubin (0.0-0.2) mg/dL Indirect Bilirubin AST (15-37) U/L ALT (12-78) U/L Alkaline Phosphatase (46-116) U/L Total Protein (6.4-8.2) g/dL Albumin (3.4-5.0) g/dL Globulin (2.3-3.5) g/dL Albumin/Globulin Ratio (1.2-2.2) Lipase 329 (73-393) U/L 10/06/18 Range/Units 09:58 WBC (4.5-11.0) K/uL RBC (3.30-5.50) M/uL Hgb (12.0-15.0) g/dL Hct (36.0-48.0) % MCV (80-98) fL MCH (27-31) pg MCHC (32-36) % Plt Count (150-400) K/uL Sodium (140-148) mmol/L Potassium (3.6-5.2) mmol/L Chloride (100-108) mmol/L Carbon Dioxide (21-32) mmol/L Anion Gap (5.0-14.0) mmol/L BUN (7-18) mg/dL Creatinine (0.6-1.0) mg/dL Est Cr Clr Drug Dosing mL/min Estimated GFR (MDRD) (>60) Glucose (74-106) mg/dL Calcium (8.5-10.1) mg/dL Total Bilirubin 0.5 (0.2-1.0) mg/dL Direct Bilirubin 0.29 H (0.0-0.2) mg/dL Indirect Bilirubin 0.21 AST 84 H D (15-37) U/L ALT 49 D (12-78) U/L Alkaline Phosphatase 145 H (46-116) U/L Total Protein 5.8 L (6.4-8.2) g/dL Albumin 2.3 L (3.4-5.0) g/dL Globulin 3.5 (2.3-3.5) g/dL Albumin/Globulin Ratio 0.7 L (1.2-2.2) Lipase (73-393) U/L Meds: Medications Generic Name Dose Route Start Last Admin Trade Name Freq PRN Reason Stop Dose Admin Potassium Chloride/Sodium Chloride 1,000 mls @ 500 mls/hr 10/06/18 10:15 02/14 10:16 Normal Saline With 20 Meq Kcl IV 500 mls/hr ASDIRECTED ERICK Administration Discontinued Medications Generic Name Dose Route Start Last Admin Trade Name Soni PRN Reason Stop Dose Admin Al Hydroxide/Mg Hydroxide 15 0 ml 10/06/18 09:24 10/06/18 09:28 ml/ Lidocaine HCl 15 ml PO 10/06/18 09:25 15 ml ONETIME ONE Administration Hydromorphone HCl 0.5 mg 10/06/18 08:43 10/06/18 08:58 Dilaudid IVPUSH 10/06/18 08:44 0.5 mg ONETIME ONE Administration Hydromorphone HCl 0.5 mg 10/06/18 11:04 10/06/18 11:08 Dilaudid IVPUSH 10/06/18 11:05 0.5 mg ONETIME ONE Administration Lactated Ringer's 1,000 mls @ 1,000 mls/hr 10/06/18 08:41 10/06/18 09:01 Ringers, Lactated IV 10/06/18 09:40 1,000 mls/hr BOLUS ONE Administration Acetaminophen 1,000 mg/ Premix 100 mls @ 400 mls/hr 10/06/18 10:00 10/06/18 09:52 IV 10/06/18 10:14 400 mls/hr NOW ONE Administration Lorazepam 1 mg 10/06/18 11:45 10/06/18 12:16 Ativan IVPUSH 10/06/18 11:46 1 mg ONETIME ONE Administration Ondansetron HCl 4 mg 10/06/18 08:49 10/06/18 09:01 Zofran IVPUSH 10/06/18 08:50 4 mg ONETIME ONE Administration Ondansetron HCl 4 mg 10/06/18 12:22 10/06/18 12:30 Zofran IVPUSH 10/06/18 12:23 4 mg ONETIME ONE Administration - Radiology Interpretation Free Text/Narrative:: MRCP-no acute findings Departure - Departure Time of Disposition: 14:45 Disposition: Refer to Observation Condition: Fair Clinical Impression: Epigastric pain, Hypokalemia - Discharge Information Referrals: Michelle Biswas PA [Primary Care Provider] - Forms: ED Department Discharge - My Orders Last 24 Hours: My Active Orders 10/06/18 10:15 NS + KCl 20mEq/L [Normal Saline with 20 mEq KCl] 1,000 ml IV ASDIRECTED - Assessment/Plan Last 24 Hours: My Active Orders 10/06/18 10:15 NS + KCl 20mEq/L [Normal Saline with 20 mEq KCl] 1,000 ml IV ASDIRECTED
[2018-10-06] MEDS ORDERED: Alum Hydrox/Mag Hydrox/Simeth 15 ML, Lidocaine 2% 15 ML PO ONE ×2 (09:24)
[2018-10-06] MEDS ORDERED: Acetaminophen 1,000 MG in Premix Bag 1 BAG IV ONE ×2 (09:40→10:00)
[2018-10-06] MEDS ORDERED: NS + KCl 20mEq/L 1,000 ML IV SCH (10:15)
[2018-10-06] MEDS ORDERED: LORazepam 2 MG/ML SDV IVPUSH ONE (11:45)
--- NOTE | 2018-10-06 14:33 | CRLMR ---
INDICATION: Rising LFTs, pain, history of cholecystectomy, history of gastric bypass. COMPARISON: CT scans dated 09/28/2018, and 01/03/2018 TECHNIQUE: MRCP. FINDINGS: Bilateral augmentation mammoplasty. New small bilateral pleural effusions. New small to moderate amount of ascites. Cholecystectomy clips. No significant hepatic steatosis. Non cirrhotic liver morphology. The spleen is normal in size. No hydronephrosis. Mild intrahepatic biliary ductal dilatation. The common bile duct measures approximately 11-12 mm in maximal diameter, and tapers distally. The pancreatic duct is normal in caliber. The noncontrast appearance to the pancreas is grossly unremarkable. No definite filling defects within the biliary system. Adrenal glands are unremarkable in appearance. IMPRESSION: 1. Unchanged mild intra and extrahepatic biliary ductal dilatation status post cholecystectomy without definite filling defect seen on the MRCP. 2. New small bilateral pleural effusions, and new mild to moderate ascites. Dictated by Kevin Spaulding MD @ Oct 06 2018 2:17PM (Electronically Signed)
--- NOTE | 2018-10-06 15:30 | PCM.HP ---
H&P History of Present Illness - General Date of Service: 10/06/18 Admit Problem/Dx: Admission Diagnosis/Problem Admission Diagnosis/Problem Pancreatitis Source of Information: Patient, Old Records, Provider, RN Notes Reviewed History Limitations: Reports: No Limitations - History of Present Illness Initial Comments - Free Text/Narative: Ms. Christianson is a 43-year-old woman was admitted to observation status because of recurrent abdominal pain, nausea, and vomiting, secondary to pancreatitis. She was hospitalized at this facility and discharged home yesterday with similar symptoms. During that hospitalization did have significant elevation in her lipase level. CT scan obtained on admission showed no obvious inflammation in the pancreas and MRCP obtained during hospitalization showed no evidence of obstructing stones or significant pancreatic inflammation. Pain did recur during that hospitalization requiring a more poor prolonged stay. At the time of discharge she was tolerating a regular diet and had been pain-free with normalization of her lipase level. She felt well during the day after discharge yesterday but awoke early this morning with recurrent symptoms. MRCP is been repeated and still shows no evidence of obstructing stones. Abdominal Pain Score (Numeric/FACES): 8 - Related Data Allergies/Adverse Reactions: Allergies Allergy/AdvReac Type Severity Reaction Status Date / Time ferumoxytol [From Feraheme] Allergy Severe Difficulty Verified 09/27/18 22:55 Breathing adhesive tape Allergy Other Verified 09/27/18 22:55 ciprofloxacin Allergy Rash Verified 09/27/18 22:55 fentanyl Allergy Itching Verified 09/27/18 22:55 Penicillins Allergy Other Verified 09/27/18 22:55 pineapple Allergy Other Verified 09/27/18 22:55 sulfamethoxazole AdvReac Other Verified 10/05/18 11:50 [From Bactrim] trimethoprim [From Bactrim] AdvReac Other Verified 10/05/18 11:50 Home Medications: Home Meds Albuterol Sulfate [Proair Hfa] 2 puff IH QID PRN 08/28/15 [History] Cyanocobalamin (Vitamin B12) [Vitamin B12] 500 mcg PO DAILY 08/28/15 [History] Dextroamphetamine/Amphetamine [Adderall 10 mg Tablet] 10 mg PO BID 08/28/15 [ History] Venlafaxine HCl [Venlafaxine ER] 37.5 mg PO DAILY 10/08/18 [History] traMADol [Ultram] 50 mg PO Q6H PRN 09/27/18 [History] Past Medical History 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: Neurological History: Reports: Migraines Psychiatric History: Reports: ADHD - Infectious Disease History Infectious Disease History: Reports: Chicken Pox - Past Surgical History GI Surgical History: Reports: Bariatric Procedure, Cholecystectomy, Hernia Repair/Other Female Surgical History: Reports: Hysterectomy Neurological Surgical History: Reports: None Dermatological Surgical History: Reports: None Social & Family History - Family History Family Medical History: Noncontributory - Tobacco Use Smoking Status *Q: Never Smoker - Caffeine Use Caffeine Use: Reports: None - Recreational Drug Use Recreational Drug Use: No H&P Review of Systems - Review of Systems: Review Of Systems: See Below General: Reports: Malaise. Denies: Fever, Chills HEENT: Reports: No Symptoms Pulmonary: Reports: No Symptoms Cardiovascular: Reports: No Symptoms Gastrointestinal: Reports: Abdominal Pain, Diarrhea, Decreased Appetite, Nausea , Vomiting. Denies: Difficulty Swallowing, Hematemesis, Hematochezia, Melena Genitourinary: Reports: No Symptoms Musculoskeletal: Reports: No Symptoms Skin: Reports: No Symptoms Psychiatric: Reports: No Symptoms Neurological: Reports: No Symptoms Hematologic/Lymphatic: Reports: No Symptoms Immunologic: Reports: No Symptoms Exam - Exam Exam: See Below - Vital Signs Vital Signs: Last Vital Signs Temp 96.8 F 10/06/18 09:48 Pulse 82 10/06/18 09:48 Resp BP 139/91 H 10/06/18 09:48 Pulse Ox 99 10/06/18 09:48 Weight: 116 lb 6.465 oz - Exam General: Alert, Oriented, Cooperative, Mild Distress HEENT: Conjunctiva Clear, Hearing Intact, Mucosa Moist & [place], Normal Nasal Septum, Posterior Pharynx Clear, Pupils Equal Neck: Supple, Trachea Midline, +2 Carotid Pulse wo Bruit Lungs: Clear to Auscultation, Normal Respiratory Effort Cardiovascular: Regular Rate, Regular Rhythm, Normal S1, Normal S2. No: Systolic Murmur, Diastolic Murmur GI/Abdominal Exam: Soft, Non-Tender, No Organomegaly, No Distention Back Exam: Normal Inspection, Full Range of Motion Extremities: Non-Tender, No Pedal Edema Skin: Warm, Dry, Intact Neurological: Cranial Nerves Intact, Strength Equal Bilateral, Normal Speech, Normal Tone, Sensation Intact. No: Focal Deficit Neuro Extensive - Mental Status: Alert, Oriented x3, Normal Mood/Affect, Normal Cognition, Memory Intact - Patient Data Lab Results Last 24 hrs: Laboratory Results - last 24 hr 10/06/18 10/06/18 10/06/18 Range/Units 08:41 08:41 08:42 WBC 5.5 (4.5-11.0) K/uL RBC 3.62 (3.30-5.50) M/uL Hgb 11.5 L (12.0-15.0) g/dL Hct 34.6 L (36.0-48.0) % MCV 96 (80-98) fL MCH 32 H (27-31) pg MCHC 33 (32-36) % Plt Count 100 L (150-400) K/uL Sodium 141 (140-148) mmol/L Potassium 3.4 L (3.6-5.2) mmol/L Chloride 104 (100-108) mmol/L Carbon Dioxide 26 (21-32) mmol/L Anion Gap 14.4 H (5.0-14.0) mmol/L BUN 13 D (7-18) mg/dL Creatinine 0.6 (0.6-1.0) mg/dL Est Cr Clr Drug Dosing 85.94 mL/min Estimated GFR (MDRD) > 60 (>60) Glucose 106 (74-106) mg/dL Calcium 8.2 L (8.5-10.1) mg/dL Total Bilirubin (0.2-1.0) mg/dL Direct Bilirubin (0.0-0.2) mg/dL Indirect Bilirubin AST (15-37) U/L ALT (12-78) U/L Alkaline Phosphatase (46-116) U/L Total Protein (6.4-8.2) g/dL Albumin (3.4-5.0) g/dL Globulin (2.3-3.5) g/dL Albumin/Globulin Ratio (1.2-2.2) Lipase 329 (73-393) U/L 10/06/18 Range/Units 09:58 WBC (4.5-11.0) K/uL RBC (3.30-5.50) M/uL Hgb (12.0-15.0) g/dL Hct (36.0-48.0) % MCV (80-98) fL MCH (27-31) pg MCHC (32-36) % Plt Count (150-400) K/uL Sodium (140-148) mmol/L Potassium (3.6-5.2) mmol/L Chloride (100-108) mmol/L Carbon Dioxide (21-32) mmol/L Anion Gap (5.0-14.0) mmol/L BUN (7-18) mg/dL Creatinine (0.6-1.0) mg/dL Est Cr Clr Drug Dosing mL/min Estimated GFR (MDRD) (>60) Glucose (74-106) mg/dL Calcium (8.5-10.1) mg/dL Total Bilirubin 0.5 (0.2-1.0) mg/dL Direct Bilirubin 0.29 H (0.0-0.2) mg/dL Indirect Bilirubin 0.21 AST 84 H D (15-37) U/L ALT 49 D (12-78) U/L Alkaline Phosphatase 145 H (46-116) U/L Total Protein 5.8 L (6.4-8.2) g/dL Albumin 2.3 L (3.4-5.0) g/dL Globulin 3.5 (2.3-3.5) g/dL Albumin/Globulin Ratio 0.7 L (1.2-2.2) Lipase (73-393) U/L Result Diagrams: 10/06/18 08:41 10/06/18 08:41 *Q Meaningful Use (ADM) - VTE Risk Assess *Q Each Risk Factor Represents 1 Point: Age 41 - 59 years Total Score 1 Point Risk Factors: 1 Each Risk Factor Represents 2 Points: None Total Score 2 Point Risk Factors: 0 Each Risk Factor Represents 3 Points: None Total Score 3 Point Risk Factors: 0 Each Risk Factor Represents 5 Points: None Total Score 5 Point Risk Factors: 0 Venous Thromboembolism Risk Factor Score *Q: 1 Problem List Initiated/Reviewed/Updated: Yes Orders Last 24hrs: Active Orders 24 hr Category Date Time Status Patient Status Manage Transfer [TRANSFER] Routine ADT 10/06/18 15:17 Active NS + KCl 20mEq/L [Normal Saline with 20 mEq KCl] 1,000 Med 10/06/18 10:15 Active ml IV ASDIRECTED Resuscitation Status Routine Resus Stat 10/06/18 15:19 Ordered Medication Orders Potassium Chloride/Sodium Chloride (Normal Saline With 20 Meq Kcl) 1,000 mls @ 500 mls/hr IV ASDIRECTED [facility] Last Admin: 10/06/18 10:16 Dose: 500 mls/hr Assessment/Plan Comment:: ASSESSMENT AND PLAN - Acute pancreatitis - current pain since discharge yesterday. Associated with nausea and vomiting. Lipase level within normal range, modest elevation in alkaline phosphatase and AST. MRCP obtained today shows no evidence of stones within the ducts. No other specific etiology has been identified for her recurrent episodes of pancreatitis -Regular diet -Normal saline 125 L per hour -Symptomatically management of nausea and pain -Lipase and LFTs in the morning History of gastric bypass surgery - no issues at this time Mild hypokalemia -Oral potassium replacement -Recheck potassium level in a.m. Maintenance issues - - DVT prophylaxis - ambulation - GI prophylaxis - PPI - Nutrition - regular diet - Sutton catheter - not indicated Primary care provider-Michelle Biswas Disposition - I would anticipate discharge home in 1-2 days
[2018-10-06] MEDS ORDERED: Sodium Chloride 0.9% 10 ML Syringe FLUSH PRN (15:40)
[2018-10-06] MEDS ORDERED: Acetaminophen 325 MG Tab PO PRN (15:40)
[2018-10-06] MEDS ORDERED: Albuterol 8 GM Inhaler INH PRN (15:40)
[2018-10-06] MEDS ORDERED: Albuterol 0.083% 2.5 MG/3 ML Neb Soln NEB PRN (15:40)
[2018-10-06] MEDS ORDERED: Ondansetron 4 MG/2 ML SDV IV PRN (15:40)
[2018-10-06] MEDS ORDERED: Potassium Chloride 20 MEQ Tab.ER PO ONE (16:30)
[2018-10-06] MEDS: Sodium Chloride 0.9% 1,000 ML IV SCH (16:48)
[2018-10-06] MEDS: oxyCODONE 5 MG Tab PO PRN ×2 (16:48→21:28)
[2018-10-06] MEDS: Pantoprazole 40 MG Tab.CR PO SCH (17:08)
[2018-10-06] MEDS: LORazepam 2 MG/ML SDV IV PRN (23:34)
[2018-10-07] MEDS: Sodium Chloride 0.9% 1,000 ML IV SCH (00:48)
[2018-10-07] MEDS: oxyCODONE 5 MG Tab PO PRN ×6 (02:05→22:43)
[2018-10-07] MEDS: Pantoprazole 40 MG Tab.CR PO SCH (07:43)
[2018-10-07] MEDS: Amphetamine/Dextroamphetamine Salts 10 MG Tab PO SCH ×2 (09:30→17:21)
[2018-10-07] MEDS: Venlafaxine 37.5 MG Cap.ER PO SCH (09:30)
--- NOTE | 2018-10-07 20:35 | PCM.PN ---
- General Info Date of Service: 10/07/18 Subjective Update: Ms. Christianson has felt moderate improvement since admission with less pain, currently tolerating diet. Vital signs have been stable and she has remained afebrile. Lipase level was found to be normal again today, liver enzymes are elevated from admission. - Review of Systems General: Reports: Weakness. Denies: Fever, Chills Pulmonary: Reports: No Symptoms Cardiovascular: Reports: No Symptoms Gastrointestinal: Reports: Abdominal Pain, Decreased Appetite, Nausea. Denies: Diarrhea, Difficulty Swallowing, Vomiting - Patient Data Vitals - Most Recent: Last Vital Signs Temp 96.8 F 10/07/18 15:00 Pulse 96 10/07/18 15:00 Resp 16 10/07/18 15:00 BP 136/82 10/07/18 15:00 Pulse Ox 98 10/07/18 15:00 Weight - Most Recent: 119 lb 3.016 oz I&O - Last 24 Hours: Intake & Output 10/07/18 10/07/18 10/07/18 06:59 14:59 22:59 Intake Total 240 Output Total 850 Balance -850 240 Lab Results Last 24 Hours: Laboratory Results - last 24 hr 10/07/18 10/07/18 Range/Units 05:00 05:11 Sodium 137 L (140-148) mmol/L Potassium 4.6 (3.6-5.2) mmol/L Chloride 105 (100-108) mmol/L Carbon Dioxide 24 (21-32) mmol/L Anion Gap 12.6 (5.0-14.0) mmol/L BUN 10 (7-18) mg/dL Creatinine 0.5 L (0.6-1.0) mg/dL Est Cr Clr Drug Dosing 103.13 mL/min Estimated GFR (MDRD) > 60 (>60) Glucose 98 (74-106) mg/dL Calcium 7.7 L (8.5-10.1) mg/dL Total Bilirubin 0.4 (0.2-1.0) mg/dL AST 245 H D (15-37) U/L ALT 142 H (12-78) U/L Alkaline Phosphatase 140 H (46-116) U/L Total Protein 5.1 L (6.4-8.2) g/dL Albumin 2.0 L (3.4-5.0) g/dL Globulin 3.1 (2.3-3.5) g/dL Albumin/Globulin Ratio 0.7 L (1.2-2.2) Lipase 226 (73-393) U/L Med Orders - Current: Current Medications Acetaminophen (Tylenol) 650 mg PO Q4H PRN PRN Reason: Pain (Mild 1-3)/fever Albuterol (Ventolin Hfa) 0 gm INH QID PRN PRN Reason: Wheezing Albuterol (Proventil Neb Soln) 2.5 mg NEB Q4H PRN PRN Reason: Shortness Of Breath/wheezing Amphetamine/Dextroamphetamine (Adderall) 10 mg PO BID@0900,1400 [facility] Last Admin: 10/07/18 17:21 Dose: Not Given Lorazepam (Ativan) 0.5 mg IV Q4H PRN PRN Reason: Anxiety Last Admin: 10/06/18 23:34 Dose: 0.5 mg Ondansetron HCl (Zofran) 4 mg IV Q4H PRN PRN Reason: Nausea/Vomiting Oxycodone HCl (Oxycodone) 5 mg PO Q4H PRN PRN Reason: Pain (moderate 4-6) Last Admin: 10/07/18 18:57 Dose: 5 mg Pantoprazole Sodium (Protonix) 40 mg PO DAILY@0730 [facility] Last Admin: 10/07/18 07:43 Dose: 40 mg Sodium Chloride (Saline Flush) 10 ml FLUSH ASDIRECTED PRN PRN Reason: Keep Vein Open Venlafaxine HCl (Effexor Xr) 37.5 mg PO DAILY [facility] Last Admin: 10/07/18 09:30 Dose: 37.5 mg Discontinued Medications Al Hydroxide/Mg Hydroxide 15 (ml/ Lidocaine HCl 15 ml) 0 ml PO ONETIME ONE Stop: 10/06/18 09:25 Last Admin: 10/06/18 09:28 Dose: 15 ml Hydromorphone HCl (Dilaudid) 0.5 mg IVPUSH ONETIME ONE Stop: 10/06/18 08:44 Last Admin: 10/06/18 08:58 Dose: 0.5 mg Hydromorphone HCl (Dilaudid) 0.5 mg IVPUSH ONETIME ONE Stop: 10/06/18 11:05 Last Admin: 10/06/18 11:08 Dose: 0.5 mg Lactated Ringer's (Ringers, Lactated) 1,000 mls @ 1,000 mls/hr IV BOLUS ONE Stop: 10/06/18 09:40 Last Admin: 10/06/18 09:01 Dose: 1,000 mls/hr Acetaminophen 1,000 mg/ Premix 100 mls @ 400 mls/hr IV NOW ONE Stop: 10/06/18 10:14 Last Admin: 10/06/18 09:52 Dose: 400 mls/hr Potassium Chloride/Sodium Chloride (Normal Saline With 20 Meq Kcl) 1,000 mls @ 500 mls/hr IV ASDIRECTED [facility] Last Admin: 10/06/18 10:16 Dose: 500 mls/hr Sodium Chloride (Normal Saline) 1,000 mls @ 125 mls/hr IV ASDIRECTED [facility] Last Admin: 10/07/18 00:48 Dose: 125 mls/hr Lorazepam (Ativan) 1 mg IVPUSH ONETIME ONE Stop: 10/06/18 11:46 Last Admin: 10/06/18 12:16 Dose: 1 mg Ondansetron HCl (Zofran) 4 mg IVPUSH ONETIME ONE Stop: 10/06/18 08:50 Last Admin: 10/06/18 09:01 Dose: 4 mg Ondansetron HCl (Zofran) 4 mg IVPUSH ONETIME ONE Stop: 10/06/18 12:23 Last Admin: 10/06/18 12:30 Dose: 4 mg Potassium Chloride (Klor-Con M20) 40 meq PO ONETIME ONE Stop: 10/06/18 16:31 Last Admin: 10/06/18 17:08 Dose: 40 meq - Exam Quality Assessment: DVT Prophylaxis General: Alert, Oriented, Cooperative, Mild Distress Lungs: Clear to Auscultation, Normal Respiratory Effort Cardiovascular: Regular Rate, Regular Rhythm, No Murmurs GI/Abdominal Exam: Soft, No Organomegaly, Tender. No: Distended, Guarding, Rigid, Rebound Extremities: Non-Tender, No Pedal Edema - Problem List Review Problem List Initiated/Reviewed/Updated: Yes - My Orders Last 24 Hours: My Active Orders 10/07/18 09:00 Amphetamine/Dextroamphetamine [Adderall] 10 mg PO BID@0900,1400 Venlafaxine [Effexor XR] 37.5 mg PO DAILY 10/07/18 17:31 Convert IV to Saline Lock [OM.PC] Routine 10/08/18 05:00 COMPREHENSIVE METABOLIC PN,CMP [CHEM] Timed LIPASE [CHEM] Timed - Plan Plan:: ASSESSMENT AND PLAN - Acute pancreatitis - recurrent pain since discharge. Associated with nausea and vomiting. Lipase level remains within normal range, modest elevation in liver enzymes including AST and alkaline phosphatase. Improvement in nausea and vomiting as well as pain since admission -Regular diet -Saline lock IV -Symptomatically management of nausea and pain -Lipase and LFTs in the morning History of gastric bypass surgery - no issues at this time Mild hypokalemia -Oral potassium replacement -Recheck potassium level in a.m. Maintenance issues - - DVT prophylaxis - ambulation - GI prophylaxis - PPI - Nutrition - regular diet - Sutton catheter - not indicated Primary care provider-Michelle Biswas Disposition - I would anticipate discharge home in 1-2 days
[2018-10-07] MEDS: LORazepam 2 MG/ML SDV IV PRN (22:44)
[2018-10-08] MEDS: oxyCODONE 5 MG Tab PO PRN ×3 (02:39→12:14)
[2018-10-08] MEDS: Pantoprazole 40 MG Tab.CR PO SCH (07:31)
[2018-10-08] MEDS: Amphetamine/Dextroamphetamine Salts 10 MG Tab PO SCH ×2 (09:49→14:12)
[2018-10-08] MEDS: Venlafaxine 37.5 MG Cap.ER PO SCH (09:50)
[2018-10-08] MEDS ORDERED: Promethazine 25 MG Tab PO PRN (12:43)
--- NOTE | 2018-10-08 13:12 | PCM.PN ---
- General Info Date of Service: 10/08/18 Subjective Update: Ms. Christianson continues to experience epigastric and right upper quadrant abdominal pain, nausea but no vomiting. Pain continues to radiate into the back, lipase level has remained normal. Transaminase levels have increased from admission. Functional Status: Reports: Ambulating, Urinating - Review of Systems General: Reports: Weakness. Denies: Fever, Chills Pulmonary: Reports: No Symptoms Cardiovascular: Reports: No Symptoms Gastrointestinal: Reports: Abdominal Pain, Decreased Appetite, Nausea. Denies: Difficulty Swallowing, Hematochezia, Melena, Vomiting - Patient Data Vitals - Most Recent: Last Vital Signs Temp 96.8 F 10/08/18 11:00 Pulse 111 H 10/08/18 11:00 Resp 18 10/08/18 11:00 BP 148/86 H 10/08/18 11:00 Pulse Ox 93 L 10/08/18 11:00 Weight - Most Recent: 117 lb 3.2 oz I&O - Last 24 Hours: Intake & Output 10/07/18 10/08/18 10/08/18 22:59 06:59 14:59 Output Total 900 Balance -900 Lab Results Last 24 Hours: Laboratory Results - last 24 hr 10/08/18 Range/Units 05:30 Sodium 141 (140-148) mmol/L Potassium 4.5 (3.6-5.2) mmol/L Chloride 105 (100-108) mmol/L Carbon Dioxide 33 H (21-32) mmol/L Anion Gap 7.5 (5.0-14.0) mmol/L BUN 6 L (7-18) mg/dL Creatinine 0.6 (0.6-1.0) mg/dL Est Cr Clr Drug Dosing 85.94 mL/min Estimated GFR (MDRD) > 60 (>60) Glucose 112 H (74-106) mg/dL Calcium 8.5 (8.5-10.1) mg/dL Total Bilirubin 0.4 (0.2-1.0) mg/dL AST 461 H D (15-37) U/L ALT 394 H (12-78) U/L Alkaline Phosphatase 161 H (46-116) U/L Total Protein 5.7 L (6.4-8.2) g/dL Albumin 2.3 L (3.4-5.0) g/dL Globulin 3.4 (2.3-3.5) g/dL Albumin/Globulin Ratio 0.7 L (1.2-2.2) Lipase 292 (73-393) U/L Med Orders - Current: Current Medications Albuterol (Ventolin Hfa) 0 gm INH QID PRN PRN Reason: Wheezing Albuterol (Proventil Neb Soln) 2.5 mg NEB Q4H PRN PRN Reason: Shortness Of Breath/wheezing Amphetamine/Dextroamphetamine (Adderall) 10 mg PO BID@0900,1400 [facility] Last Admin: 10/08/18 09:49 Dose: Not Given Famotidine (Pepcid) 20 mg PO BID [facility] Ketorolac Tromethamine (Toradol) 30 mg IVPUSH Q6H PRN PRN Reason: Pain Stop: 10/13/18 12:43 Promethazine HCl (Phenergan) 25 mg PO Q6H PRN PRN Reason: Nausea/Vomiting Scopolamine (Transderm-Scop) 1.5 mg TRDERM Q72H [facility] Sodium Chloride (Saline Flush) 10 ml FLUSH ASDIRECTED PRN PRN Reason: Keep Vein Open Venlafaxine HCl (Effexor Xr) 37.5 mg PO DAILY [facility] Last Admin: 10/08/18 09:50 Dose: Not Given Discontinued Medications Acetaminophen (Tylenol) 650 mg PO Q4H PRN PRN Reason: Pain (Mild 1-3)/fever Al Hydroxide/Mg Hydroxide 15 (ml/ Lidocaine HCl 15 ml) 0 ml PO ONETIME ONE Stop: 10/06/18 09:25 Last Admin: 10/06/18 09:28 Dose: 15 ml Hydromorphone HCl (Dilaudid) 0.5 mg IVPUSH ONETIME ONE Stop: 10/06/18 08:44 Last Admin: 10/06/18 08:58 Dose: 0.5 mg Hydromorphone HCl (Dilaudid) 0.5 mg IVPUSH ONETIME ONE Stop: 10/06/18 11:05 Last Admin: 10/06/18 11:08 Dose: 0.5 mg Lactated Ringer's (Ringers, Lactated) 1,000 mls @ 1,000 mls/hr IV BOLUS ONE Stop: 10/06/18 09:40 Last Admin: 10/06/18 09:01 Dose: 1,000 mls/hr Acetaminophen 1,000 mg/ Premix 100 mls @ 400 mls/hr IV NOW ONE Stop: 10/06/18 10:14 Last Admin: 10/06/18 09:52 Dose: 400 mls/hr Potassium Chloride/Sodium Chloride (Normal Saline With 20 Meq Kcl) 1,000 mls @ 500 mls/hr IV ASDIRECTED [facility] Last Admin: 10/06/18 10:16 Dose: 500 mls/hr Sodium Chloride (Normal Saline) 1,000 mls @ 125 mls/hr IV ASDIRECTED [facility] Last Admin: 10/07/18 00:48 Dose: 125 mls/hr Lorazepam (Ativan) 1 mg IVPUSH ONETIME ONE Stop: 10/06/18 11:46 Last Admin: 10/06/18 12:16 Dose: 1 mg Lorazepam (Ativan) 0.5 mg IV Q4H PRN PRN Reason: Anxiety Last Admin: 10/07/18 22:44 Dose: 0.5 mg Ondansetron HCl (Zofran) 4 mg IVPUSH ONETIME ONE Stop: 10/06/18 08:50 Last Admin: 10/06/18 09:01 Dose: 4 mg Ondansetron HCl (Zofran) 4 mg IVPUSH ONETIME ONE Stop: 10/06/18 12:23 Last Admin: 10/06/18 12:30 Dose: 4 mg Ondansetron HCl (Zofran) 4 mg IV Q4H PRN PRN Reason: Nausea/Vomiting Oxycodone HCl (Oxycodone) 5 mg PO Q4H PRN PRN Reason: Pain (moderate 4-6) Last Admin: 10/08/18 12:14 Dose: 5 mg Pantoprazole Sodium (Protonix) 40 mg PO DAILY@0730 [facility] Last Admin: 10/08/18 07:31 Dose: 40 mg Potassium Chloride (Klor-Con M20) 40 meq PO ONETIME ONE Stop: 10/06/18 16:31 Last Admin: 10/06/18 17:08 Dose: 40 meq - Exam General: Alert, Oriented, Cooperative, Mild Distress Lungs: Clear to Auscultation, Normal Respiratory Effort Cardiovascular: Regular Rate, Regular Rhythm, No Murmurs GI/Abdominal Exam: Soft, No Organomegaly, No Distention, Tender. No: Guarding, Rigid, Rebound Extremities: Non-Tender, No Pedal Edema - Problem List Review Problem List Initiated/Reviewed/Updated: Yes - My Orders Last 24 Hours: My Active Orders 10/07/18 17:31 Convert IV to Saline Lock [OM.PC] Routine 10/08/18 12:40 Patient Status [ADT] Routine 10/08/18 12:43 Ketorolac [Toradol] 30 mg IVPUSH Q6H PRN Promethazine [Phenergan] 25 mg PO Q6H PRN 10/08/18 12:45 Scopolamine [Transderm-Scop] 1.5 mg TRDERM Q72H 10/08/18 12:54 HEPATITIS PANEL (4) Urgent 10/08/18 13:30 Famotidine [Pepcid] 20 mg PO BID 10/09/18 05:00 COMPREHENSIVE METABOLIC PN,CMP [CHEM] Timed - Plan Plan:: ASSESSMENT AND PLAN - Acute pancreatitis - lipase level has remained within normal range -Regular diet -Saline lock IV -Symptomatically management of nausea and pain Transaminitis-specific etiology not clear. Medications have been reviewed by pharmacy and we'll plan to discontinue all of recent medication and switch to other forms. -Discontinue; lorazepam, Zofran, oxycodone, and Protonix -Acute hepatitis profile History of gastric bypass surgery - no issues at this time Mild hypokalemia -Oral potassium replacement -Recheck potassium level in a.m. Maintenance issues - - DVT prophylaxis - ambulation - GI prophylaxis - PPI - Nutrition - regular diet - Sutton catheter - not indicated Primary care provider-Michelle Biswas Disposition - I would anticipate discharge home in 1-2 days
[2018-10-08] MEDS ORDERED: Scopolamine 1.5 MG Transdermal Patch TRDERM SCH (13:30)
[2018-10-08] MEDS: Famotidine 20 MG Tab PO SCH ×2 (13:53→22:16)
[2018-10-08] MEDS: Ketorolac 30 MG/ML SDV IVPUSH PRN ×2 (16:38→22:15)
[2018-10-08] MEDS ORDERED: Melatonin 3 MG Tab PO PRN (21:00)
--- NOTE | 2018-10-08 21:08 | PCM.SN ---
- Free Text/Narrative Note: time 2[address] call [address] [place] [address] for sleep aid. Mrs. Christianson declines melatonin and other sleep aides ordered a: insomnia p: Ambien 5mg po at hs prn insomnia
[2018-10-09] MEDS: Ketorolac 30 MG/ML SDV IVPUSH PRN ×2 (08:20→14:32)
[2018-10-09] MEDS: Famotidine 20 MG Tab PO SCH (08:51)
[2018-10-09] MEDS: Venlafaxine 37.5 MG Cap.ER PO SCH (08:53)
[2018-10-09] MEDS: Amphetamine/Dextroamphetamine Salts 10 MG Tab PO SCH ×2 (08:53→14:32)
[2018-10-09] MEDS ORDERED: VERIFY SCOP PATCH TOP SCH (09:00)
[2018-10-09 11:34] VITALS: BP 103/62; PULSE 88
--- NOTE | 2018-10-09 14:22 | PCM.DCSUM1 ---
Discharge Summary - Hospital Course Brief History: Ms. Christianson is a 43-year-old woman who was admitted to observation status with recurrent epigastric abdominal pain, nausea, and vomiting. - Discharge Data Discharge Date: 10/09/18 Discharge Disposition: Home, Self-Care 01 Condition: Fair - Discharge Diagnosis/Problem(s) (1) Transaminitis SNOMED Code(s): 646669499, 641324306 ICD Code: R74.0 - NONSPEC ELEV OF LEVELS OF TRANSAMNS & LACTIC ACID DEHYDRGNSE Status: Acute Current Visit: Yes (2) Nausea & vomiting SNOMED Code(s): 20861702 ICD Code: R11.2 - NAUSEA WITH VOMITING, UNSPECIFIED Status: Acute Current Visit: No (3) Dehydration SNOMED Code(s): 75798473 ICD Code: E86.0 - DEHYDRATION Status: Acute Current Visit: No - Patient Summary/Data Hospital Course: Ms. Christianson is a 43-year-old woman was admitted to observation status because of recurrent abdominal pain, nausea, and vomiting, secondary to pancreatitis. She was hospitalized at this facilityearlier in the week with similar symptoms, just discharged to home on the day prior to admission. During that hospitalization did have significant elevation in her lipase level. CT scan obtained on admission showed no obvious inflammation in the pancreas and MRCP obtained during hospitalization showed no evidence of obstructing stones or significant pancreatic inflammation. Pain did recur during that hospitalization requiring a more prolonged stay. At the time of discharge she was tolerating a regular diet and had been pain-free with normalization of her lipase level. She felt well during the day after discharge, but awoke early this morning with recurrent symptoms. MRCP is been repeated and still shows no evidence of obstructing stones. On admission she was given IV fluids for hydration as well as pain medication and medication for nausea. Liver enzymes were noted to be modestly elevated, on admission, lipase level was within normal range. Follow-up labs obtained on the morning after admission showed further elevation in liver enzymes, lipase level remained normal. 2 days after admission, liver enzymes peaked with AST and ALTs levels in the range of 3-400. Medications were reviewed his this was felt to be the most likely cause of her transaminitis. Medications including oxycodone, Zofran, Protonix, and lorazepam were discontinued. She was started on alternative medications for management of symptoms. Acute hepatitis profile was also drawn and sent off, results of which are pending at the time of discharge. By the following morning liver enzymes had improved significantly but not totally normalized. She continued to experience mild epigastric abdominal pain, nausea and vomiting had totally resolved. She was tolerating a soft diet without significant difficulty. Activity will be as tolerated and she will continue on a soft diet. Follow-up appointment will be scheduled with her primary care provider within one week, CMP should be obtained at the time of follow-up appointment. At her request vitamin B12 level and iron levels were obtained in the day of discharge. Iron level found to be low, she will be scheduled for follow-up in the bariatric clinic for ongoing management of this. Gastroenterology consult will be scheduled for her for assessment of recurrent pancreatitis and elevation in liver enzymes. - Patient Instructions Diet: Usual Diet as Tolerated Activity: As Tolerated Other/Special Instructions: please schedule follow-up appointment with primary care provider within one week. CMP should be obtained at the time of follow-up appointment. Please schedule follow-up appointment in the bariatric surgery clinic, for ongoing management of low iron level. Please schedule gastroenterology consult inserting recurrent pancreatitis and liver enzyme elevation. - Discharge Plan *PRESCRIPTION DRUG MONITORING PROGRAM REVIEWED*: Not Applicable *COPY OF PRESCRIPTION DRUG MONITORING REPORT IN PATIENT TORSTEN: Not Applicable Prescriptions/Med Rec: Ketorolac [Toradol] 10 mg PO Q6H PRN #16 tab PRN Reason: Pain Promethazine [Phenergan] 25 mg PO Q6H PRN #10 tablet PRN Reason: Nausea/Vomiting Scopolamine [Transderm-Scop] 1.5 mg TRDERM Q72H #3 patch Home Medications: Home Meds Albuterol Sulfate [Proair Hfa] 2 puff IH QID PRN 08/28/15 [History] Cyanocobalamin (Vitamin B12) [Vitamin B12] 500 mcg PO DAILY 08/28/15 [History] Dextroamphetamine/Amphetamine [Adderall 10 mg Tablet] 10 mg PO BID 08/28/15 [ History] Venlafaxine HCl [Venlafaxine ER] 37.5 mg PO DAILY 01/03/18 [History] Ketorolac [Toradol] 10 mg PO Q6H PRN #16 tab 10/09/18 [Rx] Promethazine [Phenergan] 25 mg PO Q6H PRN #10 tablet 10/09/18 [Rx] Scopolamine [Transderm-Scop] 1.5 mg TRDERM Q72H #3 patch 10/09/18 [Rx] Referrals: Dianne Celeste PA [Ordering Only Provider] - 10/11/18 10:45 am Michelle Biswas PA [Primary Care Provider] - 10/13/18 1:30 pm - Discharge Summary/Plan Comment DC Time >30 min.: No - Patient Data Vitals - Most Recent: Last Vital Signs Temp 97.9 F 10/09/18 11:00 Pulse 88 10/09/18 11:00 Resp 18 10/09/18 11:00 BP 103/62 10/09/18 11:00 Pulse Ox 95 10/09/18 11:00 Weight - Most Recent: 117 lb 3.2 oz I&O - Last 24 hours: Intake & Output 10/08/18 10/09/18 10/09/18 22:59 06:59 14:59 Intake Total 360 Output Total 9401 852 3258 Balance -1200 400 -500 Lab Results - Last 24 hrs: Laboratory Results - last 24 hr 10/09/18 10/09/18 10/09/18 Range/Units 06:10 06:10 06:10 Sodium 139 L (140-148) mmol/L Potassium 4.3 (3.6-5.2) mmol/L Chloride 105 (100-108) mmol/L Carbon Dioxide 29 (21-32) mmol/L Anion Gap 9.3 (5.0-14.0) mmol/L BUN 6 L (7-18) mg/dL Creatinine 0.6 (0.6-1.0) mg/dL Est Cr Clr Drug Dosing 85.94 mL/min Estimated GFR (MDRD) > 60 (>60) Glucose 98 (74-106) mg/dL Calcium 8.3 L (8.5-10.1) mg/dL Iron 24 L (50-170) ug/dL TIBC 208 L (250-450) ug/dl % Saturation 12 L (20-55) % Ferritin 436 H (8-388) ng/ml Total Bilirubin 0.3 (0.2-1.0) mg/dL AST 239 H (15-37) U/L ALT 325 H (12-78) U/L Alkaline Phosphatase 145 H (46-116) U/L Total Protein 5.4 L (6.4-8.2) g/dL Albumin 2.1 L (3.4-5.0) g/dL Globulin 3.3 (2.3-3.5) g/dL Albumin/Globulin Ratio 0.6 L (1.2-2.2) Vitamin B12 1503 H (193-986) pg/ml Med Orders - Current: Current Medications Albuterol (Ventolin Hfa) 0 gm INH QID PRN PRN Reason: Wheezing Albuterol (Proventil Neb Soln) 2.5 mg NEB Q4H PRN PRN Reason: Shortness Of Breath/wheezing Amphetamine/Dextroamphetamine (Adderall) 10 mg PO BID@0900,1400 [facility] Last Admin: 10/09/18 08:53 Dose: Not Given Famotidine (Pepcid) 20 mg PO BID [facility] Last Admin: 10/09/18 08:51 Dose: 20 mg Ketorolac Tromethamine (Toradol) 30 mg IVPUSH Q6H PRN PRN Reason: Pain Stop: 10/13/18 12:43 Last Admin: 10/09/18 08:20 Dose: 30 mg Melatonin (Melatonin) 6 mg PO BEDTIME PRN PRN Reason: Insomnia Last Admin: 10/09/18 00:04 Dose: 6 mg Verify Scop Patch 0 each TOP DAILY [facility] Last Admin: 10/09/18 08:56 Dose: Not Given Promethazine HCl (Phenergan) 25 mg PO Q6H PRN PRN Reason: Nausea/Vomiting Scopolamine (Transderm-Scop) 1.5 mg TRDERM Q72H [facility] Last Admin: 10/08/18 13:53 Dose: 1.5 mg Sodium Chloride (Saline Flush) 10 ml FLUSH ASDIRECTED PRN PRN Reason: Keep Vein Open Venlafaxine HCl (Effexor Xr) 37.5 mg PO DAILY [facility] Last Admin: 10/09/18 08:53 Dose: 37.5 mg Discontinued Medications Acetaminophen (Tylenol) 650 mg PO Q4H PRN PRN Reason: Pain (Mild 1-3)/fever Al Hydroxide/Mg Hydroxide 15 (ml/ Lidocaine HCl 15 ml) 0 ml PO ONETIME ONE Stop: 10/06/18 09:25 Last Admin: 10/06/18 09:28 Dose: 15 ml Hydromorphone HCl (Dilaudid) 0.5 mg IVPUSH ONETIME ONE Stop: 10/06/18 08:44 Last Admin: 10/06/18 08:58 Dose: 0.5 mg Hydromorphone HCl (Dilaudid) 0.5 mg IVPUSH ONETIME ONE Stop: 10/06/18 11:05 Last Admin: 10/06/18 11:08 Dose: 0.5 mg Lactated Ringer's (Ringers, Lactated) 1,000 mls @ 1,000 mls/hr IV BOLUS ONE Stop: 10/06/18 09:40 Last Admin: 10/06/18 09:01 Dose: 1,000 mls/hr Acetaminophen 1,000 mg/ Premix 100 mls @ 400 mls/hr IV NOW ONE Stop: 10/06/18 10:14 Last Admin: 10/06/18 09:52 Dose: 400 mls/hr Potassium Chloride/Sodium Chloride (Normal Saline With 20 Meq Kcl) 1,000 mls @ 500 mls/hr IV ASDIRECTED [facility] Last Admin: 10/06/18 10:16 Dose: 500 mls/hr Sodium Chloride (Normal Saline) 1,000 mls @ 125 mls/hr IV ASDIRECTED [facility] Last Admin: 10/07/18 00:48 Dose: 125 mls/hr Lorazepam (Ativan) 1 mg IVPUSH ONETIME ONE Stop: 10/06/18 11:46 Last Admin: 10/06/18 12:16 Dose: 1 mg Lorazepam (Ativan) 0.5 mg IV Q4H PRN PRN Reason: Anxiety Last Admin: 10/07/18 22:44 Dose: 0.5 mg Ondansetron HCl (Zofran) 4 mg IVPUSH ONETIME ONE Stop: 10/06/18 08:50 Last Admin: 10/06/18 09:01 Dose: 4 mg Ondansetron HCl (Zofran) 4 mg IVPUSH ONETIME ONE Stop: 10/06/18 12:23 Last Admin: 10/06/18 12:30 Dose: 4 mg Ondansetron HCl (Zofran) 4 mg IV Q4H PRN PRN Reason: Nausea/Vomiting Oxycodone HCl (Oxycodone) 5 mg PO Q4H PRN PRN Reason: Pain (moderate 4-6) Last Admin: 10/08/18 12:14 Dose: 5 mg Pantoprazole Sodium (Protonix) 40 mg PO DAILY@0730 [facility] Last Admin: 10/08/18 07:31 Dose: 40 mg Potassium Chloride (Klor-Con M20) 40 meq PO ONETIME ONE Stop: 10/06/18 16:31 Last Admin: 10/06/18 17:08 Dose: 40 meq - Exam General: Reports: Alert, Oriented, Cooperative, Mild Distress Lungs: Reports: Clear to Auscultation, Normal Respiratory Effort Cardiovascular: Reports: Regular Rate, Regular Rhythm, No Murmurs GI/Abdominal Exam: Soft, No Organomegaly, Tender. No: Distended, Guarding, Rigid, Rebound Extremities: Non-Tender, No Pedal Edema
[2018-10-11 22:07] LABS: HBSAG SCREEN Negative (Negative); HEP A AB, IGM Negative (Negative); HEP B CORE AB, IGM Negative (Negative); HEP C VIRUS AB <0.1 s/co ratio (0.0-0.9)
== END 2018-10-09 15:42 | disposition home or self-care (01) | DRG 440 ==
LOC: JP.ED 08:14 → JP.MS 15:17 → UNDOADMIN 15:17 → JP.MS 15:17 → OBSVTOIN 10-08 12:41 → UNDODISIN 10-09 15:42 → UNDODISOB 10-09 15:42
PROVIDERS: ADMIT Hospitalist; ATTEND Hospitalist
DX: K85.90 Acute pancreatitis without necrosis or infection, unspecified (principal); E86.0 Dehydration; E87.6 Hypokalemia; R74.0 Nonspecific elevation of levels of transaminase and lactic acid dehydrogenase [LDH]; F90.9 Attention-deficit hyperactivity disorder, unspecified type; Z79.899 Other long term (current) drug therapy; Z88.8 Allergy status to other drugs, medicaments and biological substances; Z88.1 Allergy status to other antibiotic agents; Z88.0 Allergy status to penicillin; Z88.2 Allergy status to sulfonamides; Z91.018 Allergy to other foods; Z91.09 Other allergy status, other than to drugs and biological substances; Z98.84 Bariatric surgery status
CPT/HCPCS: 36415; 74181; 80048; 80053; 80074; 80076; 82607; 82728; 83550; 83690; 85027; 96361; 96365; 96366; 96367; 96375; 96376; 99285-25; A9270-GY; G0378; J0131; J1170; J1885; J2060; J2405; J3480; J7030; J7120

== ENCOUNTER 2019-02-04 07:36 | Emergency (ER) | payer OTHER ==
[2019-02-04] MEDS ORDERED: Ondansetron 4 MG/2 ML SDV IVPUSH ONE ×2 (08:16→10:36)
[2019-02-04] MEDS ORDERED: HYDROmorphone 0.5 MG/0.5 ML Syringe IVPUSH ONE ×2 (08:17→09:26)
[2019-02-04] MEDS ORDERED: Sodium Chloride 0.9% 1,000 ML IV SCH ×2 (08:30→09:30)
--- NOTE | 2019-02-04 08:50 | EDM.PDOC ---
ED HPI GENERAL MEDICAL PROBLEM - General Chief Complaint: Abdominal Pain Stated Complaint: WEAKNESS, COUGHING Time Seen by Provider: 02/04/19 08:47 Source of Information: Reports: Patient History Limitations: Reports: No Limitations - History of Present Illness INITIAL COMMENTS - FREE TEXT/NARRATIVE: pt started to have rt lower abdomanal pain yesterday. She was able to rest for a while during the nite and then the pain came and was very severe. Onset: Today, Sudden Duration: Hour(s): Location: Reports: Abdomen, Other (pt had a normal BM yesterday. She has not had vomiting. ) Associated Symptoms: Reports: No Other Symptoms Right Lower Abdominal Pain Score (Numeric/FACES): 5 - Related Data Allergies Allergy/AdvReac Type Severity Reaction Status Date / Time ferumoxytol [From Feraheme] Allergy Severe Difficulty Verified 02/04/19 07:59 Breathing adhesive tape Allergy Other Verified 02/04/19 07:59 ciprofloxacin Allergy Rash Verified 02/04/19 07:59 fentanyl Allergy Itching Verified 02/04/19 07:59 Penicillins Allergy Other Verified 02/04/19 07:59 pineapple Allergy Other Verified 02/04/19 07:59 sulfamethoxazole AdvReac Other Verified 02/04/19 07:59 [From Bactrim] trimethoprim [From Bactrim] AdvReac Other Verified 02/04/19 07:59 Home Meds: Home Meds Albuterol Sulfate [Proair Hfa] 2 puff IH QID PRN 08/28/15 [History] Cyanocobalamin (Vitamin B12) [Vitamin B12] 500 mcg PO DAILY 08/28/15 [History] Dextroamphetamine/Amphetamine [Adderall 10 mg Tablet] 10 mg PO BID 08/28/15 [ History] Venlafaxine HCl [Venlafaxine ER] 37.5 mg PO DAILY 01/03/18 [History] Promethazine [Phenergan] 25 mg PO Q6H PRN #10 tablet 10/09/18 [Rx] Scopolamine [Transderm-Scop] 1.5 mg TRDERM Q72H #3 patch 10/09/18 [Rx] Past Medical History [employer] History: Reports: Neurological History: Reports: Migraines Psychiatric History: Reports: ADHD - Infectious Disease History Infectious Disease History: Reports: Chicken Pox - Past Surgical History GI Surgical History: Reports: Bariatric Procedure, Cholecystectomy, Hernia Repair/Other, Other (See Below) Other GI Surgeries/Procedures: sbo Female Surgical History: Reports: Hysterectomy Social & Family History - Family History Family Medical History: Noncontributory - Tobacco Use Smoking Status *Q: Never Smoker - Caffeine Use Caffeine Use: Reports: None - Recreational Drug Use Recreational Drug Use: No ED ROS GENERAL - Review of Systems Review Of Systems: See Below Constitutional: Reports: No Symptoms HEENT: Reports: No Symptoms Respiratory: Reports: No Symptoms Cardiovascular: Reports: No Symptoms Endocrine: Reports: No Symptoms GI/Abdominal: Reports: Abdominal Pain, Nausea, Other (pt has the most severe pain in the rt lower abdoman. She had a gastric bypass in 2005. ) Musculoskeletal: Reports: No Symptoms ED EXAM, GI/ABD - Physical Exam Exam: See Below Text/Narrative:: pt arrived with pain in the left lower abdoman. She had a stool according t her yesterday, She has not vomited. She has not had a fever. Exam Limited By: No Limitations General Appearance: Alert, Anxious, Moderate Distress Ears: Normal TMs Nose: Normal Inspection Throat/Mouth: Normal Inspection Head: Atraumatic Neck: Normal Inspection Respiratory/Chest: No Respiratory Distress Cardiovascular: Regular Rate, Rhythm GI/Abdominal Exam: Non-Tender, Tender, Other (pt is very tender in the rt lower abdoman. ) (Female) Exam: Deferred Rectal (Female) Exam: Deferred Back Exam: Normal Inspection Extremities: Normal Inspection Neurological: Alert, Oriented, Normal Cognition Course - Vital Signs Last Recorded V/S: Last Vital Signs Temp 36.2 C 02/04/19 07:56 Pulse 92 02/04/19 13:32 Resp 16 02/04/19 13:32 BP 137/88 02/04/19 13:32 Pulse Ox 98 02/04/19 13:32 - Orders/Labs/Meds Orders: Active Orders 24 hr Category Date Time Status Pelvis Non OB Comp [US] Stat Exams 02/04/19 11:19 Taken VL Duplex Abd Pel Ret Ltd [US] Stat Exams 02/04/19 12:34 Taken Iopamidol [Isovue-300 (61%)] Med 02/04/19 10:01 Active 100 ml IV . DIRECTED PRN Sodium Chloride 0.9% [Normal Saline] 1,000 ml Med 02/04/19 08:30 Active IV ASDIRECTED Sodium Chloride 0.9% [Normal Saline] 1,000 ml Med 02/04/19 09:30 Active IV ASDIRECTED Medication Orders Sodium Chloride (Normal Saline) 1,000 mls @ 999 mls/hr IV ASDIRECTED [facility] Last Admin: 02/04/19 08:37 Dose: 999 mls/hr Sodium Chloride (Normal Saline) 1,000 mls @ 999 mls/hr IV ASDIRECTED [facility] Last Admin: 02/04/19 09:38 Dose: 999 mls/hr Iopamidol (Isovue-300 (61%)) 100 ml IV . DIRECTED PRN PRN Reason: RADIOLOGY EXAM Stop: 02/05/19 10:02 Last Admin: 02/04/19 10:18 Dose: 66 ml Labs: Laboratory Tests 02/04/19 02/04/19 02/04/19 Range/Units 08:18 08:19 08:19 WBC 4.2 L (4.5-11.0) K/uL RBC 3.84 (3.30-5.50) M/uL Hgb 12.3 (12.0-15.0) g/dL Hct 38.5 (36.0-48.0) % MCV 100 H (80-98) fL MCH 32 H (27-31) pg MCHC 32 (32-36) % Plt Count 366 (150-400) K/uL Neut % (Auto) 51 (36-66) % Lymph % (Auto) 36 (24-44) % [place] % (Auto) 10 H (2-6) % Eos % (Auto) 2 (2-4) % Baso % (Auto) 0 (0-1) % Sodium 139 L (140-148) mmol/L Potassium 4.1 (3.6-5.2) mmol/L Chloride 106 (100-108) mmol/L Carbon Dioxide 24 (21-32) mmol/L Anion Gap 13.1 (5.0-14.0) mmol/L BUN 15 D (7-18) mg/dL Creatinine 0.6 (0.6-1.0) mg/dL Est Cr Clr Drug Dosing 83.11 mL/min Estimated GFR (MDRD) > 60 (>60) Glucose 105 (74-106) mg/dL Calcium 8.5 (8.5-10.1) mg/dL Total Bilirubin 0.1 L D (0.2-1.0) mg/dL AST 26 D (15-37) U/L ALT 24 D (12-78) U/L Alkaline Phosphatase 93 (46-116) U/L C-Reactive Protein 0.20 (0.0-0.3) mg/dL Total Protein 6.8 (6.4-8.2) g/dL Albumin 3.4 (3.4-5.0) g/dL Globulin 3.4 (2.3-3.5) g/dL Albumin/Globulin Ratio 1.0 L (1.2-2.2) Amylase 59 (25-115) U/L Lipase 346 (73-393) U/L Urine Color (YELLOW) Urine Appearance (CLEAR) Urine pH (5.0-8.0) Ur Specific [place] (1.008-1.030) Urine Protein (NEGATIVE) mg/dL Urine Glucose (UA) (NEGATIVE) mg/dL Urine Ketones (NEGATIVE) mg/dL Urine Occult Blood (NEGATIVE) Urine Nitrite (NEGATIVE) Urine Bilirubin (NEGATIVE) Urine Urobilinogen (0.2-1.0) EU/dL Ur Leukocyte Esterase (NEGATIVE) Urine RBC (0-5) Urine WBC (0-5) Ur Epithelial Cells Amorphous Sediment Urine Bacteria Urine Mucus Urine Other 02/04/19 Range/Units 09:33 WBC (4.5-11.0) K/uL RBC (3.30-5.50) M/uL Hgb (12.0-15.0) g/dL Hct (36.0-48.0) % MCV (80-98) fL MCH (27-31) pg MCHC (32-36) % Plt Count (150-400) K/uL Neut % (Auto) (36-66) % Lymph % (Auto) (24-44) % [place] % (Auto) (2-6) % Eos % (Auto) (2-4) % Baso % (Auto) (0-1) % Sodium (140-148) mmol/L Potassium (3.6-5.2) mmol/L Chloride (100-108) mmol/L Carbon Dioxide (21-32) mmol/L Anion Gap (5.0-14.0) mmol/L BUN (7-18) mg/dL Creatinine (0.6-1.0) mg/dL Est Cr Clr Drug Dosing mL/min Estimated GFR (MDRD) (>60) Glucose (74-106) mg/dL Calcium (8.5-10.1) mg/dL Total Bilirubin (0.2-1.0) mg/dL AST (15-37) U/L ALT (12-78) U/L Alkaline Phosphatase (46-116) U/L C-Reactive Protein (0.0-0.3) mg/dL Total Protein (6.4-8.2) g/dL Albumin (3.4-5.0) g/dL Globulin (2.3-3.5) g/dL Albumin/Globulin Ratio (1.2-2.2) Amylase (25-115) U/L Lipase (73-393) U/L Urine Color Yellow (YELLOW) Urine Appearance Slightly cloudy A (CLEAR) Urine pH 5.5 (5.0-8.0) Ur Specific [place] >= 1.030 (1.008-1.030) Urine Protein Negative (NEGATIVE) mg/dL Urine Glucose (UA) Negative (NEGATIVE) mg/dL Urine Ketones Trace H (NEGATIVE) mg/dL Urine Occult Blood Negative (NEGATIVE) Urine Nitrite Negative (NEGATIVE) Urine Bilirubin Negative (NEGATIVE) Urine Urobilinogen 0.2 (0.2-1.0) EU/dL Ur Leukocyte Esterase Negative (NEGATIVE) Urine RBC Not seen (0-5) Urine WBC Not seen (0-5) Ur Epithelial Cells Few Amorphous Sediment Few Urine Bacteria Rare Urine Mucus Rare Urine Other See note Meds: Medications Generic Name Dose Route Start Last Admin Trade Name Freq PRN Reason Stop Dose Admin Sodium Chloride 1,000 mls @ 999 mls/hr 02/04/19 08:30 02/04/19 08:37 Normal Saline IV 999 mls/hr ASDIRECTED ERICK Administration Sodium Chloride 1,000 mls @ 999 mls/hr 02/04/19 09:30 02/04/19 09:38 Normal Saline IV 999 mls/hr ASDIRECTED ERICK Administration Iopamidol 100 ml 02/04/19 10:01 02/04/19 10:18 Isovue-300 (61%) IV 02/05/19 10:02 66 ml . DIRECTED PRN Administration RADIOLOGY EXAM Discontinued Medications Generic Name Dose Route Start Last Admin Trade Name Soni PRN Reason Stop Dose Admin Hydromorphone HCl 0.5 mg 02/04/19 08:17 02/04/19 08:34 Dilaudid IVPUSH 02/04/19 08:18 0.5 mg ONETIME ONE Administration Hydromorphone HCl 0.5 mg 02/04/19 09:26 02/04/19 09:36 Dilaudid IVPUSH 02/04/19 09:27 0.5 mg ONETIME ONE Administration Hydromorphone HCl 1 mg 02/04/19 10:37 02/04/19 10:43 Dilaudid IVPUSH 02/04/19 10:38 1 mg ONETIME ONE Administration Sodium Chloride 66 mls @ 3 mls/sec 02/04/19 10:15 02/04/19 10:18 Normal Saline IV 02/04/19 10:16 3 mls/sec ASDIRECTED ERICK Administration Ketorolac Tromethamine 30 mg 02/04/19 12:47 02/04/19 13:29 Toradol IVPUSH 02/04/19 12:48 30 mg ONETIME ONE Administration Magnesium Citrate 296 ml 02/04/19 12:51 02/04/19 13:29 Citrate Of Magnesia PO 02/04/19 12:52 296 ml ONETIME ONE Administration Ondansetron HCl 4 mg 02/04/19 08:16 02/04/19 08:33 Zofran IVPUSH 02/04/19 08:17 4 mg ONETIME ONE Administration Ondansetron HCl 4 mg 02/04/19 10:36 02/04/19 10:41 Zofran IVPUSH 02/04/19 10:37 4 mg ONETIME ONE Administration Sodium Chloride 10 ml 02/04/19 10:01 02/04/19 10:18 Saline Flush FLUSH 02/04/19 10:02 10 ml ONETIME PRN Administration per radiology protocol - Re-Assessments/Exams Free Text/Narrative Re-Assessment/Exam: 02/04/19 13:45 pt had normal lab work. She continued to be uncomfortable. Her urine did not reveal any blood . She had a cat scan of the abdoman which was neg except for a rt ovarian cyst. . A pelvic US was done which does reveal good sized ovarian cyst. There is very little pelvic fluid. She does have a large amount of hard stool. Departure - Departure Time of Disposition: 13:49 Disposition: Home, Self-Care 01 Preliminary Cause of *Q: Sepsis & Multi System Organ Failure Clinical Impression: Right ovarian cyst, Constipation - Discharge Information Referrals: PCP,None [Primary Care Provider] - Forms: ED Department Discharge Care Plan Goals: appt with Yocasta True in 4-5 days, high fiber diet, prunes daily, push fluids, motrin nd tylenol for pain, norco 5/325 q6h prn for pain #10 - My Orders Last 24 Hours: My Active Orders 02/04/19 08:30 Sodium Chloride 0.9% [Normal Saline] 1,000 ml IV ASDIRECTED 02/04/19 09:30 Sodium Chloride 0.9% [Normal Saline] 1,000 ml IV ASDIRECTED 02/04/19 10:01 Iopamidol [Isovue-300 (61%)] 100 ml IV . DIRECTED PRN 02/04/19 11:19 Pelvis Non OB Comp [US] Stat 02/04/19 12:34 VL Duplex Abd Pel Ret Ltd [US] Stat - Assessment/Plan Last 24 Hours: My Active Orders 02/04/19 08:30 Sodium Chloride 0.9% [Normal Saline] 1,000 ml IV ASDIRECTED 02/04/19 09:30 Sodium Chloride 0.9% [Normal Saline] 1,000 ml IV ASDIRECTED 02/04/19 10:01 Iopamidol [Isovue-300 (61%)] 100 ml IV . DIRECTED PRN 02/04/19 11:19 Pelvis Non OB Comp [US] Stat 02/04/19 12:34 VL Duplex Abd Pel Ret Ltd [US] Stat
[2019-02-04] MEDS ORDERED: Sodium Chloride 0.9% 10 ML Syringe FLUSH PRN (10:01)
[2019-02-04] MEDS ORDERED: Iopamidol 612 MG/ML 100 ML Bottle IV PRN (10:01)
[2019-02-04] MEDS ORDERED: HYDROmorphone 1 MG/ML Syringe IVPUSH ONE (10:37)
--- NOTE | 2019-02-04 11:10 | CRLCT ---
INDICATION: Right lower abdominal pain. TECHNIQUE: CT abdomen and pelvis acquired with IV contrast. 66 mL Isovue was administered. COMPARISON: CT abdomen/pelvis 09/28/2018 FINDINGS: Lower chest: Partially visualized breast implants. Liver: Within normal limits. Spleen: Within normal limits. Pancreas: Within normal limits. Gallbladder and bile ducts: Status post cholecystectomy. Intra and extrahepatic biliary ductal dilatation, similar to CT 09/28/2018. Common bile duct measures approximately 9 mm, unchanged. Kidneys: Within normal limits. Adrenal glands: Within normal limits. GI tract: Postsurgical changes of gastric bypass. No bowel obstruction. Normal appendix. Vascular structures: Within normal limits. Lymph nodes: No abdominal or pelvic lymphadenopathy. Miscellaneous: Trace free fluid in the pelvis. Tiny fat containing umbilical hernia. Pelvic Organs: Status post hysterectomy. Probable 1.5 cm right ovarian cyst. Bones: Within normal limits. IMPRESSION: 1. Normal appendix. 2. Trace free fluid in the pelvis, most likely physiologic. Probable 1.5 cm right ovarian cyst. 3. Postsurgical changes of gastric bypass and cholecystectomy. Stable intra and extrahepatic biliary ductal dilatation. Dictated by Laura Dee MD @ 02/04/2019 11:09:25 AM Please note that all CT scans at this facility use dose modulation, iterative reconstruction, and/or weight-based dosing when appropriate to reduce radiation dose to as low as reasonably achievable. Dictated by: Laura Dee MD @ 02/04/2019 11:09:32 (Electronically Signed)
[2019-02-04] MEDS ORDERED: Ketorolac 30 MG/ML SDV IVPUSH ONE (12:47)
[2019-02-04] MEDS ORDERED: Magnesium Citrate Solution 296 ML Bottle PO ONE (12:51)
[2019-02-04 13:33] VITALS: BP 137/88; PULSE 92
--- NOTE | 2019-02-04 13:43 | CRLUS ---
INDICATION: Severe right lower abdominal tenderness. Previous history of hysterectomy and left oophorectomy. COMPARISON: CT of the pelvis from earlier today. FINDINGS: Transabdominal ultrasound examination of the female pelvis was performed. The uterus is absent, consistent with the history hysterectomy. The right ovary contains a simple cyst measuring 2.1 x 1.9 x 1.9 centimeters, corresponding well to the appearance on CT. The right ovary measures 3.7 x 3.8 x 2.2 centimeters and has normal color and pulsed Doppler flow. The left ovary cannot be identified, consistent with the history of left oophorectomy. There is no sign of any left adnexal mass. There is no sign of free fluid in the pelvis. IMPRESSION: Simple cyst in the right ovary measuring up to 2.1 centimeters in diameter, corresponding well to the appearance on CT. Otherwise normal appearance of the right ovary with normal color and pulse Doppler flow. Status post hysterectomy and left oophorectomy. No signs of any free fluid in the pelvis. Dictated by González Mckeon MD @ Feb 04 2019 1:39PM Signed by Dr. González Mckeon @ Feb 04 2019 1:42PM
--- NOTE | 2019-02-06 13:31 | CRLUS ---
Final Report: INDICATION: Severe right lower abdominal tenderness. Previous history of hysterectomy and left oophorectomy. COMPARISON: CT of the pelvis from earlier today. FINDINGS: Transabdominal ultrasound examination of the female pelvis was performed. The uterus is absent, consistent with the history hysterectomy. The right ovary contains a simple cyst measuring 2.1 x 1.9 x 1.9 centimeters, corresponding well to the appearance on CT. The right ovary measures 3.7 x 3.8 x 2.2 centimeters and has normal color and pulsed Doppler flow. The left ovary cannot be identified, consistent with the history of left oophorectomy. There is no sign of any left adnexal mass. There is no sign of free fluid in the pelvis. IMPRESSION: Simple cyst in the right ovary measuring up to 2.1 centimeters in diameter, corresponding well to the appearance on CT. Otherwise normal appearance of the right ovary with normal color and pulse Doppler flow. Status post hysterectomy and left oophorectomy. No signs of any free fluid in the pelvis. Dictated by González Mckeon MD @ Feb 04 2019 1:39PM Signed by: González Mckeon MD @02/04/2019 1:42:20 PM (Electronic Signature) MTDD
== END 2019-02-04 14:25 | disposition home or self-care (01) ==
LOC: JP.ED 07:36
DX: N83.201 Unspecified ovarian cyst, right side (principal); K59.00 Constipation, unspecified; Z88.8 Allergy status to other drugs, medicaments and biological substances; Z88.1 Allergy status to other antibiotic agents; Z88.0 Allergy status to penicillin; Z91.018 Allergy to other foods; Z91.048 Other nonmedicinal substance allergy status
CPT/HCPCS: 36415; 74177; 76856; 80053; 81001; 82150; 83690; 85025; 86140; 93976; 96361; 96374; 96375; 96376; 99285; A9270; J1170; J1885; J2405; J7030; Q9967

== ENCOUNTER 2019-03-21 08:54 | Observation (INO) | payer OTHER ==
[2019-03-21] MEDS ORDERED: Famotidine 20 MG/2 ML SDV IVPUSH ONE (09:00)
[2019-03-21] MEDS ORDERED: diphenhydrAMINE 50 MG/ML SDV IVPUSH ONE (09:00)
[2019-03-21] MEDS ORDERED: Sodium Chloride 0.9% 1,000 ML IV SCH (09:00)
[2019-03-21] MEDS ORDERED: Hydrocortisone Sodium Succinate 100 MG/2 ML SDV IVPUSH ONE (09:00)
[2019-03-21] MEDS ORDERED: Iron Sucrose Complex 500 MG in Sodium Chloride 0.9% 250 ML IV ONE (09:30)
[2019-03-21] MEDS ORDERED: Sodium Chloride 0.9% Inhalation Soln 3 ML Neb INH PRN ×2 (11:46→14:03)
[2019-03-21] MEDS: Racepinephrine 2.25% 0.5 ML Neb Soln NEB PRN ×3 (11:51→13:29)
[2019-03-21] MEDS ORDERED: diphenhydrAMINE 50 MG/ML SDV IVPUSH PRN (12:00)
[2019-03-21] MEDS ORDERED: Hydrocortisone Sodium Succinate 100 MG/2 ML SDV IVPUSH PRN (12:00)
[2019-03-21] MEDS ORDERED: Famotidine 20 MG/2 ML SDV IVPUSH PRN (12:00)
--- NOTE | 2019-03-21 13:23 | PCM.HP.2 ---
H&P History of Present Illness - General Date of Service: 03/21/19 Admit Problem/Dx: Admission Diagnosis/Problem Admission Diagnosis/Problem Anaphylaxis Source of Information: Patient, RN History Limitations: Reports: No Limitations - History of Present Illness Initial Comments - Free Text/Narative: CC: My throat is tight HPI: Yenni was in the respiratory care faculty unit today for a Venofer infusion. She has a history of reaction to iron-containing products and was premedicated with steroids, Benadryl and an H2 ashutosh. Part of the way into the infusion she had a reaction with shortness of breath, the sensation that her throat was closing in with chest tightness as well as a rash. The infusion was stopped and she received a second dose of the 3 above-named medications. Initially symptoms abated but then returned again. She was tachycardic with heart rates in the 130s and felt like she had significant airway tightness. I was asked to see her regarding the recurrent allergic reaction. At the time of evaluation she reported significant shortness of breath and the sensation that her throat was closing in. She said this feels similar to her previous reaction though maybe not quite as severe. No complaints of abdominal pain or nausea. No fevers recently. She is receiving a racemic epinephrine nebulizer at the time of my evaluation. - Related Data Allergies/Adverse Reactions: Allergies Allergy/AdvReac Type Severity Reaction Status Date / Time ferumoxytol [From Feraheme] Allergy Severe Difficulty Verified 03/21/19 14:05 Breathing iron [From Venofer] Allergy Severe Anaphylactic Verified 03/21/19 14:05 Shock adhesive tape Allergy Other Verified 03/21/19 14:05 bacitracin Allergy Other Verified 03/21/19 14:05 [From Neosporin ([id number])] ciprofloxacin Allergy Rash Verified 03/21/19 14:05 fentanyl Allergy Itching Verified 03/21/19 14:05 neomycin Allergy Other Verified 03/21/19 14:05 [From Neosporin ([id number])] Penicillins Allergy Other Verified 03/21/19 14:05 pineapple Allergy Other Verified 03/21/19 14:05 polymyxin B Allergy Other Verified 03/21/19 14:05 [From Neosporin ([id number])] sulfamethoxazole AdvReac Other Verified 03/21/19 14:05 [From Bactrim] trimethoprim [From Bactrim] AdvReac Other Verified 03/21/19 14:05 Home Medications: Home Meds Albuterol Sulfate [Proair Hfa] 2 puff IH QID PRN 08/28/15 [History] Cyanocobalamin (Vitamin B12) [Vitamin B12] 500 mcg PO DAILY 08/28/15 [History] Venlafaxine HCl [Venlafaxine ER] 37.5 mg PO DAILY 01/03/18 [History] Calcium Carbonate [Tums] 500 mg PO TID 03/20/19 [History] Cholecalciferol (Vitamin D3) [Vitamin D] 5,000 unit PO DAILY 03/20/19 [History] Cyanocobalamin (Vitamin B-12) [Cyanocobalamin Injection] 1,000 mcg IJ Q14D 03/20 [History] Dextroamphetamine/Amphetamine [Adderall 10 mg Tablet] 10 mg PO BID 03/20/19 [ History] EPINEPHrine [Epipen Jr] 0.15 mg IM ASDIRECTED PRN 03/20/19 [History] Magnesium Chloride [Mag Delay] 64 mg PO DAILY 03/20/19 [History] Omeprazole 40 mg PO BID 03/20/19 [History] Ondansetron [Zofran ODT] 8 mg PO Q8H PRN 03/20/19 [History] Thiamine [Vitamin B-1] 100 mg PO DAILY 03/20/19 [History] ZOLMitriptan [Zomig] 5 mg PO ASDIRECTED 03/20/19 [History] 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: Neurological History: Reports: Migraines Psychiatric History: Reports: ADHD - Infectious Disease History Infectious Disease History: Reports: Chicken Pox - Past Surgical History GI Surgical History: Reports: Bariatric Procedure, Cholecystectomy, Hernia Repair/Other, Other (See Below) Other GI Surgeries/Procedures: sbo Female Surgical History: Reports: Hysterectomy Social & Family History - Family History Family Medical History: Noncontributory - Caffeine Use Caffeine Use: Reports: None H&P Review of Systems - Review of Systems: Review Of Systems: See Below Free Text/Narrative: A complete 12 point review of systems was obtained. Pertinent positives and negatives are noted in the history of present illness. All other systems were reviewed and were negative except as noted. Exam - Exam Exam: See Below - Vital Signs Vital Signs: Last Vital Signs Temp 36.7 C 03/21/19 11:25 Pulse 128 H 03/21/19 12:50 Resp 26 H 03/21/19 12:50 BP 138/75 03/21/19 12:50 Pulse Ox 100 03/21/19 12:50 Weight: 43.998 kg - Exam Quality Assessment: Supplemental Oxygen General: Alert, Oriented, Cooperative, Mild Distress HEENT: Conjunctiva Clear. No: Mucosa Moist & [place] (dry), Scleral Icterus Neck: Supple, Trachea Midline Lungs: Wheezing (Mild diffuse, mostly with inspiration). No: Normal Respiratory Effort (Increased work of breathing) Cardiovascular: Regular Rhythm, Tachycardia. No: Systolic Murmur GI/Abdominal Exam: Soft, No Distention Extremities: No Pedal Edema. No: Increased Warmth Skin: Warm, Dry Neuro Extensive - Mental Status: Alert, Oriented x3, Nl Response to Commands Neuro Extensive - Motor, Sensory, Reflexes: No: Dysarthria, Abnormal Motor, Tremor Psychiatric: Alert, Anxious Sepsis Event Note - Focused Exam Vital Signs: Vital Signs Temp Pulse Resp BP Pulse Ox 03/21/19 12:50 128 H 26 H 138/75 100 03/21/19 12:46 140 H 26 H 146/78 H 100 03/21/19 12:44 142 H 28 H 152/80 H 100 03/21/19 12:42 138 H 32 H 127/88 100 03/21/19 12:40 135 H 28 H 135/58 L 100 03/21/19 12:30 111 H 18 144/81 H 100 03/21/19 12:10 118 H 18 128/71 97 03/21/19 12:05 116 H 20 100 03/21/19 12:00 122 H 20 100 03/21/19 11:52 100 18 136/74 100 03/21/19 11:45 100 18 129/71 100 03/21/19 11:30 112 H 20 142/76 H 100 03/21/19 11:25 36.7 C 115 H 24 H 150/77 H 100 03/21/19 11:20 110 H 26 H 147/79 H 100 03/21/19 11:15 111 H 26 H 153/79 H 100 03/21/19 11:10 117 H 28 H 160/99 H 100 03/21/19 11:08 120 H 28 H 161/78 H 100 03/21/19 11:06 121 H 24 H 146/73 H 100 03/21/19 11:00 111 H 20 144/82 H 100 03/21/19 10:45 100 18 125/71 100 03/21/19 10:30 101 H 18 131/79 98 03/21/19 10:15 97 18 127/78 97 03/21/19 10:00 36.8 C 110 H 18 139/89 100 03/21/19 09:11 36.8 C 118 H 18 127/90 100 Date Exam was Performed: 03/21/19 Time Exam was Performed: 15:04 *Q Meaningful Use (ADM) - VTE Risk Assess *Q Each Risk Factor Represents 1 Point: Age 41 - 59 years Total Score 1 Point Risk Factors: 1 Each Risk Factor Represents 2 Points: None Total Score 2 Point Risk Factors: 0 Each Risk Factor Represents 3 Points: None Total Score 3 Point Risk Factors: 0 Each Risk Factor Represents 5 Points: None Total Score 5 Point Risk Factors: 0 Venous Thromboembolism Risk Factor Score *Q: 1 - Problem List (1) Anaphylactic reaction due to adverse effect of correct drug or medicament properly administered, initial encounter SNOMED Code(s): 004329946 ICD Code: T88.6XXA - ANAPHYL REACTION DUE TO ADVRS EFF DRUG/MED PROP ADMIN, INIT Status: Acute Current Visit: Yes (2) Iron deficiency anemia SNOMED Code(s): 34096205 ICD Code: D50.9 - IRON DEFICIENCY ANEMIA, UNSPECIFIED Status: Chronic Current Visit: Yes Qualifiers: Iron deficiency anemia type: other iron deficiency Qualified Code(s): D50.8 - Other iron deficiency anemias Problem List Initiated/Reviewed/Updated: Yes Orders Last 24hrs: Active Orders 24 hr Category Date Time Status Patient Status Manage Transfer [TRANSFER] Routine ADT 03/21/19 13:16 Ordered RT Aerosol Therapy [RC] ASDIRECTED Care 03/21/19 11:47 Active Famotidine [Pepcid] Med 03/21/19 12:00 Active 20 mg IVPUSH ASDIRECTED PRN Hydrocortisone Sod Succinate [Solu-CORTEF] Med 03/21/19 12:00 Active 100 mg IVPUSH ASDIRECTED PRN Iron Sucrose Complex [Venofer] 500 mg Med 03/21/19 09:30 Active Sodium Chloride 0.9% [Normal Saline] 250 ml IV ONETIME Racepinephrine [S-2 2.25%] Med 03/21/19 11:46 Active 0.5 ml NEB Q2H PRN Sodium Chloride 0.9% Med 03/21/19 11:46 Active 3 ml INH ASDIRECTED PRN Sodium Chloride 0.9% [Normal Saline] 1,000 ml Med 03/21/19 09:00 Active IV ASDIRECTED diphenhydrAMINE [Benadryl] Med 03/21/19 12:00 Active 50 mg IVPUSH ASDIRECTED PRN Resuscitation Status Routine Resus Stat 03/21/19 13:18 Ordered Medication Orders Diphenhydramine HCl (Benadryl) 50 mg IVPUSH ASDIRECTED PRN PRN Reason: ALLERIC REACTION Last Admin: 03/21/19 11:09 Dose: 50 mg Famotidine (Pepcid) 20 mg IVPUSH ASDIRECTED PRN PRN Reason: ALLERGIC REACTIONS Last Admin: 03/21/19 11:13 Dose: 20 mg Hydrocortisone Sodium Succinate (Solu-Cortef) 100 mg IVPUSH ASDIRECTED PRN PRN Reason: ALLERGIC REACTION Last Admin: 03/21/19 11:07 Dose: 100 mg Iron Sucrose 500 mg/ Sodium (Chloride) 275 mls @ 68 mls/hr IV ONETIME ONE Stop: 03/21/19 13:32 Last Admin: 03/21/19 10:01 Dose: 68 mls/hr Sodium Chloride (Normal Saline) 1,000 mls @ 100 mls/hr IV ASDIRECTED ERICK Last Admin: 03/21/19 09:29 Dose: 100 mls/hr Racepinephrine (S-2 2.25%) 0.5 ml NEB Q2H PRN PRN Reason: Shortness of Breath Last Admin: 03/21/19 11:51 Dose: 0.5 ml Sodium Chloride (Sodium Chloride 0.9%) 3 ml INH ASDIRECTED PRN PRN Reason: mix with racepinephrine neb Last Admin: 03/21/19 11:51 Dose: 3 ml Assessment/Plan Comment:: ASSESSMENT AND PLAN - Anaphylactic reaction to iron-containing product history of reaction to iron- containing products but the patient had been premedicated and the hope was that she would tolerate this infusion. Unfortunately she did not. Recurrent symptoms of throat tightness and shortness of breath despite aggressive management to reduce the reaction. Given the severity of symptoms she is not safe for outpatient management. -IV Solu-Medrol every 6 hours -IV diphenhydramine every 6 hours -Close monitoring in the intensive care unit -Cardiac monitoring and pulse oximetry Severe iron deficiency anemia-severe reaction to Venofer. I would advise against infusions of iron-containing products in the future given the severity of her reaction even in the setting of appropriate premedication. She may need a referral to a farm butcher to discuss other options for replacement. Maintenance issues - - DVT prophylaxis - mechanical - GI prophylaxis -not indicated - Nutrition - regular diet as tolerated - Sutton catheter -not indicated CODE STATUS -full code Admission justification -patient will be referred to observation status for management of anaphylactic reaction. Disposition -I would anticipate discharge home tomorrow Darinel Leach M.D. - Mortality Measure Prognosis:: Good
[2019-03-21] MEDS ORDERED: EPINEPHrine 1 MG/ML SDV IM ONE (13:27)
[2019-03-21] MEDS ORDERED: Ondansetron 4 MG Tab.DIS PO PRN (14:03)
[2019-03-21] MEDS ORDERED: Magnesium Hydroxide 400 MG/5 ML Susp 30 ML Cup PO PRN (14:03)
[2019-03-21] MEDS ORDERED: Melatonin 3 MG Tab PO PRN (14:03)
[2019-03-21] MEDS ORDERED: Ondansetron 4 MG/2 ML SDV IV PRN (14:03)
[2019-03-21] MEDS ORDERED: Racepinephrine 2.25% 0.5 ML Neb Soln NEB PRN (14:03)
[2019-03-21] MEDS: methylPREDNISolone Sodium Succinate 125 MG/2 ML SDV IVPUSH SCH ×2 (14:14→20:32)
[2019-03-21] MEDS: LORazepam 2 MG/ML SDV IVPUSH PRN ×2 (14:14→23:19)
[2019-03-21] MEDS: Amphetamine/Dextroamphetamine Salts 10 MG Tab PO SCH (16:47)
[2019-03-21] MEDS: Sodium Chloride 0.9% 1,000 ML IV SCH (17:00)
[2019-03-21] MEDS: diphenhydrAMINE 50 MG/ML SDV IVPUSH SCH ×2 (18:01→23:23)
[2019-03-21] MEDS: Acetaminophen 325 MG Tab PO PRN ×2 (19:33→23:22)
[2019-03-22] MEDS: Sodium Chloride 0.9% 1,000 ML IV SCH ×2 (00:07→08:05)
[2019-03-22] MEDS: methylPREDNISolone Sodium Succinate 125 MG/2 ML SDV IVPUSH SCH ×2 (02:08→08:02)
[2019-03-22] MEDS: diphenhydrAMINE 50 MG/ML SDV IVPUSH SCH (05:43)
[2019-03-22 06:03] VITALS: PULSE 88
[2019-03-22] MEDS: Acetaminophen 325 MG Tab PO PRN (06:59)
[2019-03-22] MEDS: Amphetamine/Dextroamphetamine Salts 10 MG Tab PO SCH (08:02)
[2019-03-22] MEDS ORDERED: Venlafaxine 37.5 MG Cap.ER PO SCH (09:00)
[2019-03-22 09:37] VITALS: BP 126/73
--- NOTE | 2019-03-22 10:30 | PCM.DCSUM1 ---
Discharge Summary - Hospital Course Brief History: Ms. Christianson is a 43-year-old woman who was admitted as a direct admission from the rn long term care unit with anaphylactic reaction secondary to IV iron infusion. - Discharge Data Discharge Date: 03/22/19 Discharge Disposition: Home, Self-Care 01 Condition: Good - Referral to Home Health Primary Care Physician: ALEX Melton - Patient Summary/Data Hospital Course: Ms. Christianson was in the rn long term care unit today for a Venofer infusion. She has a history of reaction to iron-containing products and was premedicated with steroids, Benadryl and an H2 ashutosh. Part of the way into the infusion she had a reaction with shortness of breath, the sensation that her throat was closing in with chest tightness as well as a rash. The infusion was stopped and she received a second dose of the 3 above-named medications. Initially symptoms abated but then returned again. She was tachycardic with heart rates in the 130s and felt like she had significant airway tightness. I was asked to see her regarding the recurrent allergic reaction. At the time of evaluation she reported significant shortness of breath and the sensation that her throat was closing in. She said this feels similar to her previous reaction though maybe not quite as severe. No complaints of abdominal pain or nausea. She was admitted to observation status in the intensive care unit and received racemic epinephrine nebulizer therapy. She was then started on regular dosing of Benadryl and Solu-Medrol IV. Over the course of a few hours allergic reaction resolved and by the following morning she was stable with no throat tightness and vital signs within desired range. I have recommended that she not receive further doses of IV or IM iron because of her significant reactions. She will be given a list of high iron foods and will try different oral iron supplements to improve her iron level. Activity will be as tolerated and she will resume her usual diet. Follow-up appointment has already been scheduled with Janet Mohan for March 24. - Patient Instructions Diet: Usual Diet as Tolerated Activity: As Tolerated Other/Special Instructions: Patient has follow-up appointment scheduled with Janet Mohan for March 24. - Discharge Plan *PRESCRIPTION DRUG MONITORING PROGRAM REVIEWED*: Not Applicable *COPY OF PRESCRIPTION DRUG MONITORING REPORT IN PATIENT TORSTEN: Not Applicable Home Medications: Home Meds Albuterol Sulfate [Proair Hfa] 2 puff IH QID PRN 08/28/15 [History] Cyanocobalamin (Vitamin B12) [Vitamin B12] 500 mcg PO DAILY 08/28/15 [History] Venlafaxine HCl [Venlafaxine ER] 37.5 mg PO DAILY 01/03/18 [History] Calcium Carbonate [Tums] 500 mg PO TID 03/20/19 [History] Cholecalciferol (Vitamin D3) [Vitamin D] 5,000 unit PO DAILY 03/20/19 [History] Cyanocobalamin (Vitamin B-12) [Cyanocobalamin Injection] 1,000 mcg IJ Q14D 03/20 [History] Dextroamphetamine/Amphetamine [Adderall 10 mg Tablet] 10 mg PO BID 03/20/19 [ History] EPINEPHrine [Epipen Jr 2-[place]] 0.15 mg IM ASDIRECTED PRN 03/20/19 [History] Magnesium Chloride [Mag Delay] 64 mg PO DAILY 03/20/19 [History] Omeprazole 40 mg PO BID 03/20/19 [History] Ondansetron [Zofran Odt] 8 mg PO Q8H PRN 03/20/19 [History] Thiamine [Vitamin B-1] 100 mg PO DAILY 03/20/19 [History] ZOLMitriptan [Zomig] 5 mg PO ASDIRECTED 03/20/19 [History] - Discharge Summary/Plan Comment DC Time >30 min.: No - Patient Data Vitals - Most Recent: Last Vital Signs Temp 97 F 03/22/19 08:00 Pulse 88 03/22/19 06:00 Resp 12 03/22/19 08:00 BP 126/73 03/22/19 08:00 Pulse Ox 100 03/22/19 08:00 Weight - Most Recent: 97 lb I&O - Last 24 hours: Intake & Output 03/21/19 03/22/19 03/22/19 22:59 06:59 14:59 Intake Total 800 1463 Balance 800 1463 Med Orders - Current: Current Medications Acetaminophen (Tylenol) 650 mg PO Q4H PRN PRN Reason: Pain (Mild 1-3)/fever Last Admin: 03/22/19 06:59 Dose: 650 mg Amphetamine/Dextroamphetamine (Adderall) 10 mg PO BID@0800,1600 ERICK Last Admin: 12/25/19 08:02 Dose: 10 mg Diphenhydramine HCl (Benadryl) 25 mg IVPUSH Q6H [facility] Last Admin: 03/22/19 05:43 Dose: 25 mg Sodium Chloride (Normal Saline) 1,000 mls @ 125 mls/hr IV ASDIRECTED [facility] Last Admin: 03/22/19 08:05 Dose: 125 mls/hr Lorazepam (Ativan) 0.5 mg IVPUSH Q4H PRN PRN Reason: Nausea/Vomiting Last Admin: 03/21/19 23:19 Dose: 0.5 mg Magnesium Hydroxide (Milk Of Magnesia) 30 ml PO Q12H PRN PRN Reason: Constipation Melatonin (Melatonin) 9 mg PO BEDTIME PRN PRN Reason: Sleep Methylprednisolone Sodium Succinate (Solu-Medrol) 62.5 mg IVPUSH Q6H [facility] Last Admin: 03/22/19 08:02 Dose: 62.5 mg Ondansetron HCl (Zofran Odt) 4 mg PO Q6H PRN PRN Reason: Nausea able to take PO Ondansetron HCl (Zofran) 4 mg IV Q6H PRN PRN Reason: Nausea/Vomiting Racepinephrine (S-2 2.25%) 0.5 ml NEB Q2H PRN PRN Reason: stridor Senna/Docusate Sodium (Senna Plus) 1 tab PO BID PRN PRN Reason: Constipation Sodium Chloride (Sodium Chloride 0.9%) 3 ml INH ASDIRECTED PRN PRN Reason: mix with racepinephrine neb Venlafaxine HCl (Effexor Xr) 37.5 mg PO DAILY [facility] Last Admin: 03/22/19 08:03 Dose: 37.5 mg Discontinued Medications Diphenhydramine HCl (Benadryl) 50 mg IVPUSH ONETIME ONE Stop: 03/21/19 09:01 Last Admin: 03/21/19 09:34 Dose: 50 mg Diphenhydramine HCl (Benadryl) 50 mg IVPUSH ASDIRECTED PRN PRN Reason: ALLERIC REACTION Last Admin: 03/21/19 11:09 Dose: 50 mg Epinephrine HCl (Adrenalin) 0.3 mg IM ONETIME ONE Stop: 03/21/19 13:28 Last Admin: 03/21/19 13:36 Dose: 0.3 mg Famotidine (Pepcid) 20 mg IVPUSH ONETIME ONE Stop: 03/21/19 09:01 Last Admin: 03/21/19 09:39 Dose: 20 mg Famotidine (Pepcid) 20 mg IVPUSH ASDIRECTED PRN PRN Reason: ALLERGIC REACTIONS Last Admin: 03/21/19 11:13 Dose: 20 mg Hydrocortisone Sodium Succinate (Solu-Cortef) 100 mg IVPUSH ONETIME ONE Stop: 03/21/19 09:01 Last Admin: 03/21/19 09:30 Dose: 100 mg Hydrocortisone Sodium Succinate (Solu-Cortef) 100 mg IVPUSH ASDIRECTED PRN PRN Reason: ALLERGIC REACTION Last Admin: 03/21/19 11:07 Dose: 100 mg Iron Sucrose 500 mg/ Sodium (Chloride) 275 mls @ 68 mls/hr IV ONETIME ONE Stop: 03/21/19 13:32 Last Admin: 03/21/19 10:01 Dose: 68 mls/hr Sodium Chloride (Normal Saline) 1,000 mls @ 100 mls/hr IV ASDIRECTED ERICK Last Admin: 03/21/19 09:29 Dose: 100 mls/hr Racepinephrine (S-2 2.25%) 0.5 ml NEB Q2H PRN PRN Reason: Shortness of Breath Last Admin: 03/21/19 13:29 Dose: 0.5 ml Sodium Chloride (Sodium Chloride 0.9%) 3 ml INH ASDIRECTED PRN PRN Reason: mix with racepinephrine neb Last Admin: 03/21/19 11:51 Dose: 3 ml - Exam General: Reports: Alert, Oriented, Cooperative, No Acute Distress Lungs: Reports: Clear to Auscultation, Normal Respiratory Effort Cardiovascular: Reports: Regular Rate, Regular Rhythm, No Murmurs GI/Abdominal Exam: Soft, Non-Tender, No Organomegaly, No Distention
--- NOTE | 2019-03-27 11:06 | PN ---
DATE OF SERVICE: 03/22/2019 The patient was receiving some IV Venofer yesterday in [facility] when she developed hypersensitivity reaction despite receiving hydrocortisone, Benadryl, and Pepcid IV preinfusion, and she was admitted overnight for observation things have cleared. Now at this point, she received about 1/3rd of her 500 mg dose of Venofer prior to having it stopped which should get her into a low normal range in terms of her ferritin. In the past, she has been intolerant of any oral iron formulation. She will be seeing Janet this coming Wednesday in clinic and we will see if there are any other oral, perhaps chewable formulas that might be adequate for the patient. Otherwise, I think we will try an INFeD injection with pretreatment with perhaps 60 mg of penicillin the next Wednesday. This can be done in the hospital in case she does have another hypersensitivity reaction. Luis Lockett MD /[id number]
== END 2019-03-22 11:01 | disposition home or self-care (01) ==
LOC: JP.ACU 08:54 → JP.ICU 13:16
PROVIDERS: ADMIT Internal Medicine; ATTEND Internal Medicine
DX: T88.6XXA Anaphylactic reaction due to adverse effect of correct drug or medicament properly administered, initial encounter (principal); T45.4X5A Adverse effect of iron and its compounds, initial encounter; D50.9 Iron deficiency anemia, unspecified; Z88.8 Allergy status to other drugs, medicaments and biological substances; Z88.1 Allergy status to other antibiotic agents; Z91.018 Allergy to other foods; Z88.2 Allergy status to sulfonamides; Z91.048 Other nonmedicinal substance allergy status
CPT/HCPCS: 94640; 96361; 96365; 96372; 96375; 96376; A9270; G0378; J0171; J1200; J1720; J1756; J2060; J2930; J3490; J7030; J7050

== ENCOUNTER 2019-06-26 20:46 | Inpatient (IN) | payer OTHER, SELFPAY ==
[2019-06-26] MEDS ORDERED: Lactated Ringers 1,000 ML IV ONE (21:58)
[2019-06-26] MEDS ORDERED: Ondansetron 4 MG/2 ML SDV IVPUSH ONE ×2 (21:59→23:35)
[2019-06-26] MEDS ORDERED: HYDROmorphone 0.5 MG/0.5 ML Syringe IVPUSH ONE ×2 (21:59→22:43)
--- NOTE | 2019-06-26 22:05 | EDM.PDOC ---
ED HPI GENERAL MEDICAL PROBLEM - General Chief Complaint: Abdominal Pain Stated Complaint: ABD PAIN Time Seen by Provider: 06/26/19 21:45 Source of Information: Reports: Patient, Old Records History Limitations: Reports: No Limitations - History of Present Illness INITIAL COMMENTS - FREE TEXT/NARRATIVE: 43 yo female presents with epigastric pain that began about 10 days ago and was mild and intermittent initially. Sx's are now much worse today. Sx's are worse with movement, not worse with eating. No vomiting, but has some nausea. No change in bowels. No distention. Has a complicated hx of gastric bypass, cholecystectomy, and hysterectomy. Also a pHx of pancreatitis. Onset: Gradual Onset Date: 06/16/19 Duration: Day(s):, Getting Worse Location: Reports: Abdomen Quality: Reports: Ache Severity: Severe Improves with: Reports: None Worsens with: Reports: Other (time), Movement Context: Reports: Other (See HPI) Associated Symptoms: Reports: Nausea/Vomiting (no vomiting). 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) Right Upper Abdomen Pain Score (Numeric/FACES): 8 - Related Data Allergies Allergy/AdvReac Type Severity Reaction Status Date / Time ferumoxytol [From Feraheme] Allergy Severe Difficulty Verified 06/26/19 20:52 Breathing iron [From Venofer] Allergy Severe Anaphylactic Verified 06/26/19 20:52 Shock adhesive tape Allergy Other Verified 06/26/19 20:52 bacitracin Allergy Other Verified 06/26/19 20:52 [From Neosporin ([id number])] ciprofloxacin Allergy Rash Verified 06/26/19 20:52 fentanyl Allergy Itching Verified 06/26/19 20:52 neomycin Allergy Other Verified 06/26/19 20:52 [From Neosporin ([id number])] Penicillins Allergy Other Verified 06/26/19 20:52 pineapple Allergy Other Verified 06/26/19 20:52 polymyxin B Allergy Other Verified 06/26/19 20:52 [From Neosporin ([id number])] sulfamethoxazole AdvReac Other Verified 06/26/19 20:52 [From Bactrim] trimethoprim [From Bactrim] AdvReac Other Verified 06/26/19 20:52 Home Meds: Home Meds Albuterol Sulfate [Proair Hfa] 2 puff IH QID PRN 08/28/15 [History] Cyanocobalamin (Vitamin B12) [Vitamin B12] 500 mcg PO DAILY 08/28/15 [History] Venlafaxine HCl [Venlafaxine ER] 37.5 mg PO DAILY 01/03/18 [History] Calcium Carbonate [Tums] 500 mg PO TID 03/20/19 [History] Cholecalciferol (Vitamin D3) [Vitamin D] 5,000 unit PO DAILY 03/20/19 [History] Cyanocobalamin (Vitamin B-12) [Cyanocobalamin Injection] 1,000 mcg IJ Q14D 03/20 [History] Dextroamphetamine/Amphetamine [Adderall 10 mg Tablet] 10 mg PO BID 03/20/19 [ History] EPINEPHrine [Epipen Jr 2-Fransisco] 0.15 mg IM ASDIRECTED PRN 03/20/19 [History] Magnesium Chloride [Mag Delay] 64 mg PO DAILY 03/20/19 [History] Omeprazole 40 mg PO BID 03/20/19 [History] Ondansetron [Zofran Odt] 8 mg PO Q8H PRN 03/20/19 [History] Thiamine [Vitamin B-1] 100 mg PO DAILY 03/20/19 [History] ZOLMitriptan [Zomig] 5 mg PO ASDIRECTED PRN 03/20/19 [History] Pedi Multivit No.25/Folic Acid [Flintstones Multivit Chew Tab] 2 tab PO DAILY [History] Past Medical History Gastrointestinal History: Reports: 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: Musculoskeletal History: Reports: Fracture Other Musculoskeletal History: foot fx Neurological History: Reports: Migraines Psychiatric History: Reports: ADHD Hematologic History: Reports: B12 Deficiency, Blood Transfusion(s), Iron Deficiency - Infectious Disease History Infectious Disease History: Reports: Chicken Pox, Measles - Past Surgical History GI Surgical History: Reports: Bariatric Procedure, Cholecystectomy, Hernia Repair/Other, Other (See Below) Other GI Surgeries/Procedures: sbo Female Surgical History: Reports: Hysterectomy Social & Family History - Family History Family Medical History: Noncontributory - Tobacco Use Smoking Status *Q: Never Smoker Second Hand Smoke Exposure: No - Caffeine Use Caffeine Use: Reports: None - Alcohol Use Days Per Week of Alcohol Use: 0 - Recreational Drug Use Recreational Drug Use: No ED ROS GENERAL - Review of Systems Review Of Systems: See Below Constitutional: Reports: No Symptoms HEENT: Reports: No Symptoms Respiratory: Reports: No Symptoms Cardiovascular: Reports: No Symptoms GI/Abdominal: Reports: Abdominal Pain, Nausea. Denies: Black Stool, Bloody Stool, Constipation, Diarrhea, Distension, Hematemesis, Hematochezia, Melena, Vomiting : Reports: No Symptoms Musculoskeletal: Reports: No Symptoms Skin: Reports: No Symptoms Neurological: Reports: No Symptoms Psychiatric: Reports: No Symptoms ED EXAM, GI/ABD - Physical Exam Exam: See Below Exam Limited By: No Limitations General Appearance: Alert, WD/WN, Mild Distress Eyes: Bilateral: Normal Appearance Ears: Normal External Exam, Normal Canal, Hearing Grossly Normal, Normal TMs Nose: Normal Inspection, No Blood Throat/Mouth: Normal Inspection, Normal Lips, Normal Oropharynx, Normal Voice, No Airway Compromise Head: Atraumatic, Normocephalic Neck: Normal Inspection Respiratory/Chest: No Respiratory Distress, Lungs Clear, Normal Breath Sounds Cardiovascular: Regular Rate, Rhythm, No Edema GI/Abdominal Exam: No Distention, Tender (especially in the epigastrium), Abnormal Bowel Sounds (decreased). No: Normal Bowel Sounds, Non-Tender, Distended, Rebound, Hernia Back Exam: Normal Inspection. No: CVA Tenderness (R), CVA Tenderness (L) Extremities: Normal Inspection, Normal Range of Motion, Non-Tender, No Pedal Edema Neurological: Alert, Oriented, CN II-XII Intact, Normal Cognition, No Motor/ Sensory Deficits Psychiatric: Normal Affect, Normal Mood Skin Exam: Warm, Dry, Intact, Normal Color, No Rash Course - Vital Signs Text/Narrative:: Dr. Madrid paged @ [phone] Last Recorded V/S: Last Vital Signs Temp 35.9 C L 06/26/19 21:15 Pulse 87 06/26/19 21:15 Resp 22 H 06/26/19 21:15 BP 157/85 H 06/26/19 21:15 Pulse Ox 100 06/26/19 21:15 - Orders/Labs/Meds Orders: Active Orders 24 hr Category Date Time Status Lactated Ringers [Ringers, Lactated] 1,000 ml Med 06/26/19 21:58 Active IV BOLUS Medication Orders Lactated Ringer's (Ringers, Lactated) 1,000 mls @ 1,000 mls/hr IV BOLUS ONE Stop: 06/26/19 22:57 Last Admin: 06/26/19 22:13 Dose: 1,000 mls/hr Labs: Laboratory Tests 06/26/19 06/26/19 06/26/19 Range/Units 22:08 22:08 22:08 WBC 14.1 H (4.5-11.0) K/uL RBC 4.38 (3.30-5.50) M/uL Hgb 13.7 (12.0-15.0) g/dL Hct 43.9 (36.0-48.0) % MCV 100 H (80-98) fL MCH 31 (27-31) pg MCHC 31 L (32-36) % Plt Count 415 H (150-400) K/uL Sodium 141 (140-148) mmol/L Potassium 4.5 (3.6-5.2) mmol/L Chloride 105 (100-108) mmol/L Carbon Dioxide 26 (21-32) mmol/L Anion Gap 9.7 (5.0-14.0) mmol/L BUN 18 (7-18) mg/dL Creatinine 0.8 (0.6-1.0) mg/dL Est Cr Clr Drug Dosing 64.46 mL/min Estimated GFR (MDRD) > 60 (>60) Glucose 113 H (74-106) mg/dL Calcium 9.0 (8.5-10.1) mg/dL Lipase 1563 H (73-393) U/L Meds: Medications Generic Name Dose Route Start Last Admin Trade Name Freq PRN Reason Stop Dose Admin Lactated Ringer's 1,000 mls @ 1,000 mls/hr 06/26/19 21:58 06/26/19 22:13 Ringers, Lactated IV 06/26/19 22:57 1,000 mls/hr BOLUS ONE Administration Discontinued Medications Generic Name Dose Route Start Last Admin Trade Name Freq PRN Reason Stop Dose Admin Hydromorphone HCl 0.5 mg 06/26/19 21:59 06/26/19 22:17 Dilaudid IVPUSH 06/26/19 22:00 0.5 mg ONETIME ONE Administration Ondansetron HCl 4 mg 06/26/19 21:59 06/26/19 22:13 Zofran IVPUSH 06/26/19 22:00 4 mg ONETIME ONE Administration Departure - Departure Time of Disposition: 22:55 Disposition: Admitted As Inpatient 65 Condition: Fair Clinical Impression: Epigastric pain, Elevated lipase - Discharge Information *PRESCRIPTION DRUG MONITORING PROGRAM REVIEWED*: No *COPY OF PRESCRIPTION DRUG MONITORING REPORT IN PATIENT TORSTEN: No Referrals: Michelle Biswas PA [Primary Care Provider] - Forms: ED Department Discharge Sepsis Event Note - Evaluation Sepsis Screening Result: No Definite Risk - Focused Exam Vital Signs: Vital Signs Temp Pulse Resp BP Pulse Ox 06/26/19 21:15 35.9 C L 87 22 H 157/85 H 100 06/26/19 21:00 35.9 C L 87 22 H 157/85 H 100 Date Exam was Performed: 06/26/19 Time Exam was Performed: 22:37 - My Orders Last 24 Hours: My Active Orders 06/26/19 21:58 Lactated Ringers [Ringers, Lactated] 1,000 ml IV BOLUS - Assessment/Plan Last 24 Hours: My Active Orders 06/26/19 21:58 Lactated Ringers [Ringers, Lactated] 1,000 ml IV BOLUS
--- NOTE | 2019-06-26 22:58 | PCM.HP.2 ---
H&P History of Present Illness - General Date of Service: 06/26/19 Source of Information: Patient History Limitations: Reports: No Limitations - History of Present Illness Initial Comments - Free Text/Narative: Patient is a 43yo female with PMH of recurrent acute idiopathic pancreatitis. Patient has symptoms similar in nature starting today. Patient did have a cold and possible skin infection within the last two weeks, but no other illnesses or likely source of pancreatitis. Patient has had cholecystectomy, and gastric bypass surgery denies alcohol use, has had a hysterectomy and does not use OCP, does not take any medications known for pancreatitis, and has had an extensive workup in the past that has yielded no results. Patient says she mainly has pain and nausea, but no SOB, vomiting, diarrhea, constipation. Patient has a family member/partner who is a healthcare worker but neither have symptoms of COVID19. Onset of Symptoms: Reports: Today Duration of Symptoms: Reports: Hour(s): Location: Reports: Abdomen Quality: Reports: Sharp Severity: Severe Improves with: Reports: Medication Worsens with: Reports: Eating, Movement Context: Reports: Activity/Exercise Associated Symptoms: Reports: Nausea/Vomiting Right Upper Abdomen Pain Score (Numeric/FACES): 8 - Related Data Allergies/Adverse Reactions: Allergies Allergy/AdvReac Type Severity Reaction Status Date / Time ferumoxytol [From Feraheme] Allergy Severe Difficulty Verified 06/26/19 20:52 Breathing iron [From Venofer] Allergy Severe Anaphylactic Verified 06/26/19 20:52 Shock adhesive tape Allergy Other Verified 06/26/19 20:52 bacitracin Allergy Other Verified 06/26/19 20:52 [From Neosporin ([id number])] ciprofloxacin Allergy Rash Verified 06/26/19 20:52 fentanyl Allergy Itching Verified 06/26/19 20:52 neomycin Allergy Other Verified 06/26/19 20:52 [From Neosporin ([id number])] Penicillins Allergy Other Verified 06/26/19 20:52 pineapple Allergy Other Verified 06/26/19 20:52 polymyxin B Allergy Other Verified 06/26/19 20:52 [From Neosporin ([id number])] sulfamethoxazole AdvReac Other Verified 06/26/19 20:52 [From Bactrim] trimethoprim [From Bactrim] AdvReac Other Verified 06/26/19 20:52 Home Medications: Home Meds Albuterol Sulfate [Proair Hfa] 2 puff IH QID PRN 08/28/15 [History] Cyanocobalamin (Vitamin B12) [Vitamin B12] 500 mcg PO DAILY 08/28/15 [History] Venlafaxine HCl [Venlafaxine ER] 37.5 mg PO DAILY 01/03/18 [History] Calcium Carbonate [Tums] 500 mg PO TID 03/20/19 [History] Cholecalciferol (Vitamin D3) [Vitamin D] 5,000 unit PO DAILY 03/20/19 [History] Cyanocobalamin (Vitamin B-12) [Cyanocobalamin Injection] 1,000 mcg IJ Q14D 03/20 [History] Dextroamphetamine/Amphetamine [Adderall 10 mg Tablet] 10 mg PO BID 03/20/19 [ History] EPINEPHrine [Epipen Jr 2-Fransisco] 0.15 mg IM ASDIRECTED PRN 03/20/19 [History] Magnesium Chloride [Mag Delay] 64 mg PO DAILY 03/20/19 [History] Omeprazole 40 mg PO BID 03/20/19 [History] Ondansetron [Zofran Odt] 8 mg PO Q8H PRN 03/20/19 [History] Thiamine [Vitamin B-1] 100 mg PO DAILY 03/20/19 [History] ZOLMitriptan [Zomig] 5 mg PO ASDIRECTED PRN 03/20/19 [History] Pedi Multivit No.25/Folic Acid [Flintstones Multivit Chew Tab] 2 tab PO DAILY [History] Past Medical History Gastrointestinal History: 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: Musculoskeletal History: Reports: Fracture Other Musculoskeletal History: foot fx Neurological History: Reports: Migraines Psychiatric History: Reports: ADHD Hematologic History: Reports: B12 Deficiency, Blood Transfusion(s), Iron Deficiency - Infectious Disease History Infectious Disease History: Reports: Chicken Pox, Measles - Past Surgical History GI Surgical History: Reports: Bariatric Procedure, Cholecystectomy, Hernia Repair/Other, Other (See Below) Other GI Surgeries/Procedures: sbo Female Surgical History: Reports: Hysterectomy Social & Family History - Family History Family Medical History: Noncontributory - Tobacco Use Smoking Status *Q: Never Smoker Second Hand Smoke Exposure: No - Caffeine Use Caffeine Use: Reports: None - Alcohol Use Days Per Week of Alcohol Use: 0 - Recreational Drug Use Recreational Drug Use: No H&P Review of Systems - Review of Systems: Review Of Systems: See Below General: Denies: Fever, Chills HEENT: Reports: No Symptoms Pulmonary: Reports: No Symptoms Cardiovascular: Reports: No Symptoms Gastrointestinal: Reports: Abdominal Pain, Nausea. Denies: Constipation, Diarrhea Genitourinary: Reports: No Symptoms Musculoskeletal: Reports: No Symptoms Skin: Reports: No Symptoms Psychiatric: Reports: No Symptoms Neurological: Reports: No Symptoms Hematologic/Lymphatic: Reports: No Symptoms Immunologic: Reports: No Symptoms Exam - Exam Exam: See Below - Vital Signs Vital Signs: Last Vital Signs Temp 35.9 C L 06/26/19 21:15 Pulse 87 06/26/19 21:15 Resp 22 H 06/26/19 21:15 BP 157/85 H 06/26/19 21:15 Pulse Ox 100 06/26/19 21:15 Weight: 50.4 kg - Exam General: Alert, Oriented, Cooperative, Mild Distress HEENT: PERRLA, Hearing Intact, Mucosa Moist & Pace, Nares Patent, Normal Nasal Septum, Posterior Pharynx Clear, Conjunctiva Clear, EOMI, EACs Clear, TMs Clear Neck: Supple, Trachea Midline, 2 Lungs: Clear to Auscultation, Normal Respiratory Effort Cardiovascular: Regular Rate, Regular Rhythm GI/Abdominal Exam: Normal Bowel Sounds, Soft, Non-Tender, No Organomegaly, No Distention, No Abnormal Bruit, No Mass, Pelvis Stable, Tender (epigastric) (Female) Exam: Normal External Exam, Normal Speculum Exam, Normal Bimanual Exam Rectal (Female) Exam: Normal Exam, Normal Rectal Tone Back Exam: Normal Inspection, Full Range of Motion, NT Extremities: Normal Inspection, Normal Range of Motion, Non-Tender, No Pedal Edema, Normal Capillary Refill Skin: Warm, Dry, Intact Neurological: Cranial Nerves Intact Neuro Extensive - Mental Status: Alert, Oriented x3, Normal Mood/Affect, Normal Cognition Psychiatric: Alert, Normal Affect, Normal Mood - Patient Data Lab Results Last 24 hrs: Laboratory Results - last 24 hr 06/26/19 06/26/19 06/26/19 Range/Units 22:08 22:08 22:08 WBC 14.1 H (4.5-11.0) K/uL RBC 4.38 (3.30-5.50) M/uL Hgb 13.7 (12.0-15.0) g/dL Hct 43.9 (36.0-48.0) % MCV 100 H (80-98) fL MCH 31 (27-31) pg MCHC 31 L (32-36) % Plt Count 415 H (150-400) K/uL Sodium 141 (140-148) mmol/L Potassium 4.5 (3.6-5.2) mmol/L Chloride 105 (100-108) mmol/L Carbon Dioxide 26 (21-32) mmol/L Anion Gap 9.7 (5.0-14.0) mmol/L BUN 18 (7-18) mg/dL Creatinine 0.8 (0.6-1.0) mg/dL Est Cr Clr Drug Dosing 64.46 mL/min Estimated GFR (MDRD) > 60 (>60) Glucose 113 H (74-106) mg/dL Calcium 9.0 (8.5-10.1) mg/dL Lipase 1563 H (73-393) U/L Result Diagrams: 06/26/19 22:08 06/26/19 22:08 Sepsis Event Note - Evaluation Sepsis Screening Result: No Definite Risk - Focused Exam Vital Signs: Vital Signs Temp Pulse Resp BP Pulse Ox 06/26/19 21:15 35.9 C L 87 22 H 157/85 H 100 06/26/19 21:00 35.9 C L 87 22 H 157/85 H 100 Date Exam was Performed: 06/26/19 Time Exam was Performed: 23:42 - Problem List (1) Acute pancreatitis SNOMED Code(s): 212178835 ICD Code: K85.90 - ACUTE PANCREATITIS WITHOUT NECROSIS OR INFECTION, UNSP Status: Acute Current Visit: Yes Onset Date: ~06/26/19 Problem Details: Patient has idiopathic pancreatitis, is vitally stable, has increased white count but calcium and glucose are normal, will continue pain medication with nausea, NPO and fluids. Do not see benefit in CT at this time as patient's data does not suggest significant infection or pseudocyst, saponification or other comorbidity Qualifiers: Pancreatitis type: idiopathic Acute pancreatitis complication: unspecified Qualified Code(s): K85.00 - Idiopathic acute pancreatitis without necrosis or infection Problem List Initiated/Reviewed/Updated: Yes - Mortality Measure Prognosis:: Good
[2019-06-26] MEDS ORDERED: Promethazine 12.5 MG in Sodium Chloride 0.9% 50 ML IV PRN (23:31)
[2019-06-26] MEDS ORDERED: Naloxone 0.4 MG/ML SDV IVPUSH PRN (23:37)
[2019-06-26] MEDS ORDERED: HYDROmorphone/Normal Saline 15 MG/30 ML PCA IV PRN (23:37)
[2019-06-27] MEDS: Lactated Ringers 1,000 ML IV SCH ×2 (00:10→06:45)
[2019-06-27] MEDS: Ondansetron 4 MG/2 ML SDV IV PRN ×3 (02:52→19:55)
[2019-06-27] MEDS ORDERED: Lactated Ringers 1,000 ML IV SCH (09:30)
--- NOTE | 2019-06-27 15:27 | PCM.PN ---
- General Info Date of Service: 06/27/19 Subjective Update: Ms. Christianson is a 43-year-old woman who was admitted last night by Dr. Madrid with recurrent idiopathic pancreatitis. She has had symptoms of abdominal pain and nausea intermittently over the past week, became more severe yesterday. She has had previous episodes of pancreatitis and despite fairly extensive evaluation as well as subspecialty consultation no definitive cause has been identified. She is somewhat sleepy and lethargic related to pain medication. reports that she has not necessarily been following her diet and occasionally does drink alcohol. Lipase level was 1500 on admission and today has gone up to 5200. She has noted no improvement in the pain or nausea since admission. Functional Status: Reports: Tolerating Diet, Ambulating - Review of Systems General: Reports: Weakness, Fatigue. Denies: Fever, Chills Pulmonary: Reports: No Symptoms Cardiovascular: Reports: No Symptoms Gastrointestinal: Reports: Abdominal Pain, Nausea. Denies: Diarrhea, Difficulty Swallowing, Vomiting - Patient Data Vitals - Most Recent: Last Vital Signs Temp 97.0 F 06/27/19 10:59 Pulse 104 H 06/27/19 10:59 Resp 16 06/27/19 10:59 BP 104/75 06/27/19 10:59 Pulse Ox 100 06/27/19 12:41 Weight - Most Recent: 114 lb 0.016 oz I&O - Last 24 Hours: Intake & Output 06/27/19 06/27/19 06/27/19 06:59 14:59 22:59 Intake Total 737 Output Total 400 400 Balance 337 -400 Lab Results Last 24 Hours: Laboratory Results - last 24 hr 06/26/19 06/26/19 06/26/19 Range/Units 22:08 22:08 22:08 WBC 14.1 H (4.5-11.0) K/uL RBC 4.38 (3.30-5.50) M/uL Hgb 13.7 (12.0-15.0) g/dL Hct 43.9 (36.0-48.0) % MCV 100 H (80-98) fL MCH 31 (27-31) pg MCHC 31 L (32-36) % Plt Count 415 H (150-400) K/uL Neut % (Auto) (36-66) % Lymph % (Auto) (24-44) % Kemper % (Auto) (2-6) % Eos % (Auto) (2-4) % Baso % (Auto) (0-1) % Sodium 141 (140-148) mmol/L Potassium 4.5 (3.6-5.2) mmol/L Chloride 105 (100-108) mmol/L Carbon Dioxide 26 (21-32) mmol/L Anion Gap 9.7 (5.0-14.0) mmol/L BUN 18 (7-18) mg/dL Creatinine 0.8 (0.6-1.0) mg/dL Est Cr Clr Drug Dosing 64.46 mL/min Estimated GFR (MDRD) > 60 (>60) Glucose 113 H (74-106) mg/dL Calcium 9.0 (8.5-10.1) mg/dL Total Bilirubin (0.2-1.0) mg/dL AST (15-37) U/L ALT (12-78) U/L Alkaline Phosphatase (46-116) U/L Total Protein (6.4-8.2) g/dL Albumin (3.4-5.0) g/dL Globulin (2.3-3.5) g/dL Albumin/Globulin Ratio (1.2-2.2) Lipase 1563 H (73-393) U/L 06/27/19 06/27/19 Range/Units 07:15 07:15 WBC 4.9 (4.5-11.0) K/uL RBC 3.58 (3.30-5.50) M/uL Hgb 11.2 L D (12.0-15.0) g/dL Hct 36.2 (36.0-48.0) % MCV 101 H (80-98) fL MCH 31 (27-31) pg MCHC 31 L (32-36) % Plt Count 308 (150-400) K/uL Neut % (Auto) 69 H (36-66) % Lymph % (Auto) 24 (24-44) % Kemper % (Auto) 7 H (2-6) % Eos % (Auto) 1 L (2-4) % Baso % (Auto) 0 (0-1) % Sodium 142 (140-148) mmol/L Potassium 4.1 (3.6-5.2) mmol/L Chloride 107 (100-108) mmol/L Carbon Dioxide 30 (21-32) mmol/L Anion Gap 4.6 L (5.0-14.0) mmol/L BUN 13 (7-18) mg/dL Creatinine 0.6 (0.6-1.0) mg/dL Est Cr Clr Drug Dosing 85.94 mL/min Estimated GFR (MDRD) > 60 (>60) Glucose 96 (74-106) mg/dL Calcium 8.0 L (8.5-10.1) mg/dL Total Bilirubin 0.3 D (0.2-1.0) mg/dL AST 117 H D (15-37) U/L ALT 71 D (12-78) U/L Alkaline Phosphatase 116 (46-116) U/L Total Protein 5.6 L (6.4-8.2) g/dL Albumin 2.9 L (3.4-5.0) g/dL Globulin 2.7 (2.3-3.5) g/dL Albumin/Globulin Ratio 1.1 L (1.2-2.2) Lipase 5252 H (73-393) U/L Med Orders - Current: Current Medications Hydromorphone HCl (Dilaudid) 0.5 mg IVPUSH Q2H PRN PRN Reason: Pain Promethazine HCl 12.5 mg/ (Sodium Chloride) 50.5 mls @ 200 mls/hr IV Q6H PRN PRN Reason: Nausea/Vomiting Last Admin: 06/27/19 05:04 Dose: 200 mls/hr Lactated Ringer's (Ringers, Lactated) 1,000 mls @ 100 mls/hr IV ASDIRECTED ERICK Naloxone HCl (Narcan) 0.4 mg IVPUSH Q2M PRN PRN Reason: Respiratory Distress Ondansetron HCl (Zofran) 4 mg IV Q4H PRN PRN Reason: Nausea/Vomiting Last Admin: 06/27/19 11:03 Dose: 4 mg Discontinued Medications Hydromorphone HCl (Dilaudid) 0.5 mg IVPUSH ONETIME ONE Stop: 06/26/19 22:00 Last Admin: 06/26/19 22:17 Dose: 0.5 mg Hydromorphone HCl (Dilaudid) 0.5 mg IVPUSH ONETIME ONE Stop: 06/26/19 22:44 Last Admin: 06/26/19 22:58 Dose: 0.5 mg Hydromorphone HCl (Dilaudid Rn Surgical 15 Mg In Ns 30 Ml) 0 mg IV ASDIRECTED PRN; Protocol PRN Reason: Pain Last Admin: 06/27/19 00:11 Dose: 15 mg Lactated Ringer's (Ringers, Lactated) 1,000 mls @ 1,000 mls/hr IV BOLUS ONE Stop: 06/26/19 22:57 Last Admin: 06/26/19 22:13 Dose: 1,000 mls/hr Lactated Ringer's (Ringers, Lactated) 1,000 mls @ 150 mls/hr IV ASDIRECTED ERICK Last Admin: 06/27/19 06:45 Dose: 150 mls/hr Ondansetron HCl (Zofran) 4 mg IVPUSH ONETIME ONE Stop: 06/26/19 22:00 Last Admin: 06/26/19 22:13 Dose: 4 mg Ondansetron HCl (Zofran) 4 mg IVPUSH ONETIME ONE Stop: 06/26/19 23:36 Last Admin: 06/26/19 23:41 Dose: 4 mg - Exam Quality Assessment: DVT Prophylaxis General: Cooperative, Mild Distress, Lethargic Lungs: Clear to Auscultation, Normal Respiratory Effort Cardiovascular: Regular Rate, Regular Rhythm, No Murmurs GI/Abdominal Exam: Soft, No Organomegaly, Tender. No: Distended, Guarding, Rigid, Rebound Extremities: Non-Tender, No Pedal Edema Sepsis Event Note - Evaluation Sepsis Screening Result: No Definite Risk - Focused Exam Vital Signs: Vital Signs Temp Pulse Resp BP Pulse Ox 06/27/19 12:41 100 06/27/19 10:59 97.0 F 104 H 16 104/75 96 06/27/19 08:02 97.7 F 70 16 101/60 96 06/27/19 07:15 99 Date Exam was Performed: 06/27/19 Time Exam was Performed: 15:28 - Problem List Review Problem List Initiated/Reviewed/Updated: Yes - My Orders Last 24 Hours: My Active Orders 06/27/19 09:30 Lactated Ringers [Ringers, Lactated] 1,000 ml IV ASDIRECTED 06/27/19 15:20 HYDROmorphone [Dilaudid] 0.5 mg IVPUSH Q2H PRN 06/28/19 05:00 CBC WITH AUTO DIFF [HEME] Timed COMPREHENSIVE METABOLIC PN,CMP [CHEM] Timed LIPASE [CHEM] Timed - Plan Plan:: ASSESSMENT AND PLAN ACUTE ON CHRONIC PANCREATITIS-recurrent episode, despite previous evaluation and subspecialty consultation no specific etiology for pancreatitis has been identified. Lipase level has increased from admission, she has ongoing pain and nausea. -N.p.o. -Repeat lipase in a.m. -IV fluids for hydration -Pain and nausea medication as needed STATUS POST GASTRIC BYPASS SURGERY MAINTENANCE ISSUES -DVT prophylaxis; SCUDs -GI prophylaxis; not indicated -Sutton catheter; not indicated -Nutrition; n.p.o. -Nicotine dependence; not required CODE STATUS-FULL CODE ADMISSION STATUS-patient will be admitted to inpatient status, expect at least a 2 night hospital stay for evaluation and management of problems as outlined above. At the time of this admission I do not reasonably expected evaluation and management of this problem will require more than a 96 hour hospital stay. DISPOSITION-anticipate discharge to home after the hospital stay. PRIMARY CARE PROVIDER-Yocasta Biswas
[2019-06-27] MEDS: HYDROmorphone 0.5 MG/0.5 ML Syringe IVPUSH PRN ×2 (19:46→22:57)
[2019-06-28] MEDS: Ondansetron 4 MG/2 ML SDV IV PRN ×2 (03:46→09:25)
[2019-06-28] MEDS: HYDROmorphone 0.5 MG/0.5 ML Syringe IVPUSH PRN ×3 (03:50→09:25)
--- NOTE | 2019-06-28 10:48 | PCM.PN ---
- General Info Date of Service: 06/28/19 Subjective Update: Ms. Christianson proved significantly since yesterday, nausea has resolved, and pain significantly improved. White blood cell count remains normal and lipase level has normalized. She is tolerated a full liquid diet this morning without significant difficulty. Functional Status: Reports: Tolerating Diet, Ambulating, Urinating - Review of Systems General: Denies: Fever, Chills Pulmonary: Reports: No Symptoms Cardiovascular: Reports: No Symptoms Gastrointestinal: Reports: Abdominal Pain. Denies: Diarrhea, Difficulty Swallowing, Nausea, Vomiting - Patient Data Vitals - Most Recent: Last Vital Signs Temp 98.4 F 06/28/19 07:52 Pulse 94 06/28/19 07:52 Resp 16 06/28/19 07:52 BP 121/71 06/28/19 07:52 Pulse Ox 96 06/28/19 07:52 Weight - Most Recent: 114 lb 0.016 oz I&O - Last 24 Hours: Intake & Output 06/27/19 06/28/19 06/28/19 22:59 06:59 14:59 Intake Total 1656 2663 501 Output Total 1100 300 600 Balance 556 2363 -99 Lab Results Last 24 Hours: Laboratory Results - last 24 hr 06/28/19 06/28/19 Range/Units 04:14 04:14 WBC 4.9 (4.5-11.0) K/uL RBC 3.30 (3.30-5.50) M/uL Hgb 10.5 L (12.0-15.0) g/dL Hct 33.5 L (36.0-48.0) % MCV 102 H (80-98) fL MCH 32 H (27-31) pg MCHC 31 L (32-36) % Plt Count 255 (150-400) K/uL Neut % (Auto) 66 (36-66) % Lymph % (Auto) 25 (24-44) % Weld % (Auto) 8 H (2-6) % Eos % (Auto) 1 L (2-4) % Baso % (Auto) 0 (0-1) % Sodium 138 L (140-148) mmol/L Potassium 3.7 (3.6-5.2) mmol/L Chloride 103 (100-108) mmol/L Carbon Dioxide 26 (21-32) mmol/L Anion Gap 12.7 (5.0-14.0) mmol/L BUN 8 (7-18) mg/dL Creatinine 0.6 (0.6-1.0) mg/dL Est Cr Clr Drug Dosing 85.94 mL/min Estimated GFR (MDRD) > 60 (>60) Glucose 83 (74-106) mg/dL Calcium 7.7 L (8.5-10.1) mg/dL Total Bilirubin 0.4 (0.2-1.0) mg/dL AST 37 (15-37) U/L ALT 44 (12-78) U/L Alkaline Phosphatase 101 (46-116) U/L Total Protein 5.3 L (6.4-8.2) g/dL Albumin 2.5 L (3.4-5.0) g/dL Globulin 2.8 (2.3-3.5) g/dL Albumin/Globulin Ratio 0.9 L (1.2-2.2) Lipase 281 (73-393) U/L Med Orders - Current: Current Medications Ondansetron HCl (Zofran) 4 mg IV Q4H PRN PRN Reason: Nausea/Vomiting Last Admin: 06/28/19 09:25 Dose: 4 mg Oxycodone HCl (Oxycodone) 5 mg PO Q4H PRN PRN Reason: Pain Discontinued Medications Hydromorphone HCl (Dilaudid) 0.5 mg IVPUSH ONETIME ONE Stop: 06/26/19 22:00 Last Admin: 06/26/19 22:17 Dose: 0.5 mg Hydromorphone HCl (Dilaudid) 0.5 mg IVPUSH ONETIME ONE Stop: 06/26/19 22:44 Last Admin: 06/26/19 22:58 Dose: 0.5 mg Hydromorphone HCl (Dilaudid Strainer Cleaner 15 Mg In Ns 30 Ml) 0 mg IV ASDIRECTED PRN; Protocol PRN Reason: Pain Last Admin: 06/27/19 00:11 Dose: 15 mg Hydromorphone HCl (Dilaudid) 0.5 mg IVPUSH Q2H PRN PRN Reason: Pain Last Admin: 06/28/19 09:25 Dose: 0.5 mg Lactated Ringer's (Ringers, Lactated) 1,000 mls @ 1,000 mls/hr IV BOLUS ONE Stop: 06/26/19 22:57 Last Admin: 06/26/19 22:13 Dose: 1,000 mls/hr Lactated Ringer's (Ringers, Lactated) 1,000 mls @ 150 mls/hr IV ASDIRECTED [facility] Last Admin: 06/27/19 06:45 Dose: 150 mls/hr Promethazine HCl 12.5 mg/ (Sodium Chloride) 50.5 mls @ 200 mls/hr IV Q6H PRN PRN Reason: Nausea/Vomiting Last Admin: 06/27/19 05:04 Dose: 200 mls/hr Lactated Ringer's (Ringers, Lactated) 1,000 mls @ 100 mls/hr IV ASDIRECTED [facility] Last Admin: 06/27/19 22:48 Dose: 100 mls/hr Naloxone HCl (Narcan) 0.4 mg IVPUSH Q2M PRN PRN Reason: Respiratory Distress Ondansetron HCl (Zofran) 4 mg IVPUSH ONETIME ONE Stop: 06/26/19 22:00 Last Admin: 06/26/19 22:13 Dose: 4 mg Ondansetron HCl (Zofran) 4 mg IVPUSH ONETIME ONE Stop: 06/26/19 23:36 Last Admin: 06/26/19 23:41 Dose: 4 mg - Exam Quality Assessment: DVT Prophylaxis General: Alert, Oriented, Cooperative, No Acute Distress Lungs: Clear to Auscultation, Normal Respiratory Effort Cardiovascular: Regular Rate, Regular Rhythm, No Murmurs GI/Abdominal Exam: Soft, No Organomegaly, Tender. No: Distended, Guarding, Rigid, Rebound Extremities: Non-Tender, No Pedal Edema Sepsis Event Note - Evaluation Sepsis Screening Result: No Definite Risk - Focused Exam Vital Signs: Vital Signs Temp Pulse Resp BP Pulse Ox 06/28/19 07:52 98.4 F 94 16 121/71 96 06/28/19 06:59 98.1 F 96 18 124/76 95 06/28/19 03:00 99.0 F 101 H 16 128/82 95 06/27/19 23:02 98.7 F 109 H 16 108/62 91 L Date Exam was Performed: 06/28/19 Time Exam was Performed: 10:44 - Problem List Review Problem List Initiated/Reviewed/Updated: Yes - My Orders Last 24 Hours: My Active Orders 06/28/19 08:25 Convert IV to Saline Lock [OM.PC] Routine 06/28/19 10:42 oxyCODONE 5 mg PO Q4H PRN 06/28/19 Lunch GI Soft Low Fiber [Soft Diet] [DIET] - Plan Plan:: ASSESSMENT AND PLAN ACUTE ON CHRONIC PANCREATITIS-recurrent episode, good improvement over the last 24 hours. Nausea is resolved and pain significantly improved. Lipase level is now within normal range. -Soft diet -Saline lock IV -Pain and nausea medication as needed STATUS POST GASTRIC BYPASS SURGERY MAINTENANCE ISSUES -DVT prophylaxis; SCUDs -GI prophylaxis; not indicated -Sutton catheter; not indicated -Nutrition; n.p.o. -Nicotine dependence; not required CODE STATUS-FULL CODE ADMISSION STATUS-patient will be admitted to inpatient status, expect at least a 2 night hospital stay for evaluation and management of problems as outlined above. At the time of this admission I do not reasonably expected evaluation and management of this problem will require more than a 96 hour hospital stay. DISPOSITION-anticipate discharge to home tomorrow PRIMARY CARE PROVIDER-Yocasta Biswas
[2019-06-28] MEDS: oxyCODONE 5 MG Tab PO PRN ×3 (16:33→23:41)
[2019-06-29] MEDS: oxyCODONE 5 MG Tab PO PRN ×2 (03:47→07:58)
[2019-06-29 10:52] VITALS: BP 113/70; PULSE 92
--- NOTE | 2019-06-29 11:01 | PCM.DCSUM1 ---
Discharge Summary - Hospital Course Brief History: Ms. Christianson is a 43-year-old woman who was admitted through the emergency department with abdominal pain and nausea secondary to recurrent idiopathic pancreatitis. - Discharge Data Discharge Date: 06/29/19 Discharge Disposition: Home, Self-Care 01 Condition: Stable - Referral to Home Health Primary Care Physician: ALEX Melton - Discharge Diagnosis/Problem(s) (1) Epigastric pain SNOMED Code(s): 95022135 ICD Code: R10.13 - EPIGASTRIC PAIN Status: Acute (2) Acute pancreatitis SNOMED Code(s): 955659576 ICD Code: K85.90 - ACUTE PANCREATITIS WITHOUT NECROSIS OR INFECTION, UNSP Status: Acute Onset Date: ~06/26/19 Problem Details: Patient has idiopathic pancreatitis, is vitally stable, has increased white count but calcium and glucose are normal, will continue pain medication with nausea, NPO and fluids. Do not see benefit in CT at this time as patient's data does not suggest significant infection or pseudocyst, saponification or other comorbidity Qualifiers: Pancreatitis type: idiopathic Acute pancreatitis complication: unspecified Qualified Code(s): K85.00 - Idiopathic acute pancreatitis without necrosis or infection (3) Bariatric surgery status SNOMED Code(s): 008968910, 284990882, 871634113 ICD Code: Z98.84 - BARIATRIC SURGERY STATUS Status: Chronic - Patient Summary/Data Hospital Course: Ms. Christianson is a 43-year-old woman who was admitted through the emergency department with nausea and abdominal pain secondary to recurrent idiopathic pancreatitis. She has had symptoms of abdominal pain and nausea intermittently over the past week, became more severe yesterday. She has had previous episodes of pancreatitis and despite fairly extensive evaluation as well as subspecialty consultation no definitive cause has been identified. reports that she has not necessarily been following her diet and occasionally does drink alcohol. Lipase level was 1500 on admission. She was admitted to the hospital and given medication as needed for pain and nausea. By the following morning lipase level had increased to 5200. Over the next 24 hours of hospitalization abdominal pain improved significantly and lipase level normalized. She was started on a full liquid diet which was advanced to a soft diet. Over 24 hours prior to discharge she tolerated diet and had almost total resolution of her abdominal pain. Activity will be as tolerated and she will be discharged home on her usual diet, instructed to avoid all alcohol use. Follow-up appointment will be scheduled with her primary care provider within 1 week. - Patient Instructions Diet: Usual Diet as Tolerated, No Alcoholic Beverages Activity: As Tolerated Other/Special Instructions: Please schedule follow-up appointment with primary care provider within 1 week. - Discharge Plan *PRESCRIPTION DRUG MONITORING PROGRAM REVIEWED*: No *COPY OF PRESCRIPTION DRUG MONITORING REPORT IN PATIENT TORSTEN: No Home Medications: Home Meds Albuterol Sulfate [Proair Hfa] 2 puff IH QID PRN 08/28/15 [History] Cyanocobalamin (Vitamin B12) [Vitamin B12] 500 mcg PO DAILY 08/28/15 [History] Venlafaxine HCl [Venlafaxine ER] 37.5 mg PO DAILY 01/03/18 [History] Calcium Carbonate [Tums] 500 mg PO TID 03/20/19 [History] Cholecalciferol (Vitamin D3) [Vitamin D] 5,000 unit PO DAILY 03/20/19 [History] Cyanocobalamin (Vitamin B-12) [Cyanocobalamin Injection] 1,000 mcg IJ Q14D 03/20 [History] Dextroamphetamine/Amphetamine [Adderall 10 mg Tablet] 10 mg PO BID 03/20/19 [ History] EPINEPHrine [Epipen Jr 2-Fransisco] 0.15 mg IM ASDIRECTED PRN 03/20/19 [History] Magnesium Chloride [Mag Delay] 64 mg PO DAILY 03/20/19 [History] Omeprazole 40 mg PO BID 03/20/19 [History] Ondansetron [Zofran Odt] 8 mg PO Q8H PRN 03/20/19 [History] Thiamine [Vitamin B-1] 100 mg PO DAILY 03/20/19 [History] ZOLMitriptan [Zomig] 5 mg PO ASDIRECTED PRN 03/20/19 [History] Pedi Multivit No.25/Folic Acid [Flintstones Multivit Chew Tab] 2 tab PO DAILY [History] Patient Handouts: Acute Pancreatitis Referrals: Michelle Biswas PA [Primary Care Provider] - 07/06/19 1:30 pm (Please arrive 15 minutes early to register for your appointment.) - Discharge Summary/Plan Comment DC Time >30 min.: No - Patient Data Vitals - Most Recent: Last Vital Signs Temp 97.5 F 06/29/19 10:49 Pulse 92 06/29/19 10:49 Resp 16 06/29/19 10:49 BP 113/70 06/29/19 10:49 Pulse Ox 99 06/29/19 10:49 Weight - Most Recent: 114 lb 0.016 oz I&O - Last 24 hours: Intake & Output 06/28/19 06/29/19 06/29/19 22:59 06:59 14:59 Intake Total 380 120 Output Total 1000 950 600 Balance -620 -830 -600 Med Orders - Current: Current Medications Ondansetron HCl (Zofran) 4 mg IV Q4H PRN PRN Reason: Nausea/Vomiting Last Admin: 06/28/19 09:25 Dose: 4 mg Oxycodone HCl (Oxycodone) 5 mg PO Q4H PRN PRN Reason: Pain Last Admin: 06/29/19 07:58 Dose: 5 mg Discontinued Medications Hydromorphone HCl (Dilaudid) 0.5 mg IVPUSH ONETIME ONE Stop: 06/26/19 22:00 Last Admin: 06/26/19 22:17 Dose: 0.5 mg Hydromorphone HCl (Dilaudid) 0.5 mg IVPUSH ONETIME ONE Stop: 06/26/19 22:44 Last Admin: 06/26/19 22:58 Dose: 0.5 mg Hydromorphone HCl (Dilaudid Office Assistant Receptionist 15 Mg In Ns 30 Ml) 0 mg IV ASDIRECTED PRN; Protocol PRN Reason: Pain Last Admin: 06/27/19 00:11 Dose: 15 mg Hydromorphone HCl (Dilaudid) 0.5 mg IVPUSH Q2H PRN PRN Reason: Pain Last Admin: 06/28/19 09:25 Dose: 0.5 mg Lactated Ringer's (Ringers, Lactated) 1,000 mls @ 1,000 mls/hr IV BOLUS ONE Stop: 06/26/19 22:57 Last Admin: 06/26/19 22:13 Dose: 1,000 mls/hr Lactated Ringer's (Ringers, Lactated) 1,000 mls @ 150 mls/hr IV ASDIRECTED [facility] Last Admin: 06/27/19 06:45 Dose: 150 mls/hr Promethazine HCl 12.5 mg/ (Sodium Chloride) 50.5 mls @ 200 mls/hr IV Q6H PRN PRN Reason: Nausea/Vomiting Last Admin: 06/27/19 05:04 Dose: 200 mls/hr Lactated Ringer's (Ringers, Lactated) 1,000 mls @ 100 mls/hr IV ASDIRECTED [facility] Last Admin: 06/27/19 22:48 Dose: 100 mls/hr Naloxone HCl (Narcan) 0.4 mg IVPUSH Q2M PRN PRN Reason: Respiratory Distress Ondansetron HCl (Zofran) 4 mg IVPUSH ONETIME ONE Stop: 06/26/19 22:00 Last Admin: 06/26/19 22:13 Dose: 4 mg Ondansetron HCl (Zofran) 4 mg IVPUSH ONETIME ONE Stop: 06/26/19 23:36 Last Admin: 06/26/19 23:41 Dose: 4 mg Sumatriptan Succinate (Sumatriptan) 100 mg PO ONETIME ONE Stop: 06/28/19 11:46 Last Admin: 06/28/19 11:36 Dose: 100 mg - Exam General: Reports: Alert, Oriented, Cooperative, No Acute Distress Lungs: Reports: Clear to Auscultation, Normal Respiratory Effort Cardiovascular: Reports: Regular Rate, Regular Rhythm, No Murmurs GI/Abdominal Exam: Soft, No Organomegaly, Tender. No: Distended, Guarding, Rigid, Rebound Extremities: Non-Tender, No Pedal Edema
== END 2019-06-29 11:50 | disposition home or self-care (01) | DRG 440 ==
LOC: JP.ED 20:46 → JP.MS 23:31
PROVIDERS: ADMIT Family Medicine; ATTEND Hospitalist
DX: K85.00 Idiopathic acute pancreatitis without necrosis or infection (principal); K86.1 Other chronic pancreatitis; Z98.84 Bariatric surgery status; Z91.09 Other allergy status, other than to drugs and biological substances; Z88.1 Allergy status to other antibiotic agents; Z88.0 Allergy status to penicillin; Z88.2 Allergy status to sulfonamides; Z88.8 Allergy status to other drugs, medicaments and biological substances; Z79.899 Other long term (current) drug therapy
CPT/HCPCS: 36415; 80048; 80053; 83690; 85025; 85027; 94762; 96361; 96374; 96375; 96376; 99284-25; A9270-GY; J1170; J2405; J2550; J7050; J7120

== ENCOUNTER 2019-07-02 14:01 | Inpatient (IN) | payer OTHER ==
[2019-07-02] MEDS ORDERED: Sodium Chloride 0.9% 10 ML Syringe FLUSH PRN ×3 (14:36→19:15)
[2019-07-02] MEDS ORDERED: Ondansetron 4 MG/2 ML SDV IVPUSH ONE (14:37)
[2019-07-02] MEDS ORDERED: HYDROmorphone 1 MG/ML Syringe IVPUSH ONE (14:37)
[2019-07-02] MEDS ORDERED: Lactated Ringers 1,000 ML IV SCH (14:45)
--- NOTE | 2019-07-02 14:48 | EDM.PDOC ---
ED HPI GENERAL MEDICAL PROBLEM - General Chief Complaint: Abdominal Pain Stated Complaint: PAIN IN STOMACH AREA Time Seen by Provider: 07/02/19 14:31 Source of Information: Reports: Patient, Family, Old Records, RN Notes Reviewed History Limitations: Reports: No Limitations - History of Present Illness INITIAL COMMENTS - FREE TEXT/NARRATIVE: 43-year-old female presents emergency department a complaint of abdominal pain, she has known history of gastric bypass as well as recurrent pancreatitis was recently admitted to the hospital for pancreatitis discharged 3 days prior, at that time her lipase was markedly elevated states the time of discharge she was doing well tolerating foods and liquids however over the last 12 hours or so she has gotten significantly worse pain is predominantly on the right side she has some nausea and vomiting no fevers Right Lower Back Pain Score (Numeric/FACES): 10 - Related Data Allergies Allergy/AdvReac Type Severity Reaction Status Date / Time ferumoxytol [From Feraheme] Allergy Severe Difficulty Verified 07/02/19 14:07 Breathing iron [From Venofer] Allergy Severe Anaphylactic Verified 07/02/19 14:07 Shock adhesive tape Allergy Other Verified 07/02/19 14:07 bacitracin Allergy Other Verified 07/02/19 14:07 [From Neosporin ([id number])] ciprofloxacin Allergy Rash Verified 07/02/19 14:07 fentanyl Allergy Itching Verified 07/02/19 14:07 neomycin Allergy Other Verified 07/02/19 14:07 [From Neosporin ([id number])] Penicillins Allergy Other Verified 07/02/19 14:07 pineapple Allergy Other Verified 07/02/19 14:07 polymyxin B Allergy Other Verified 07/02/19 14:07 [From Neosporin ([id number])] sulfamethoxazole AdvReac Other Verified 07/02/19 14:07 [From Bactrim] trimethoprim [From Bactrim] AdvReac Other Verified 07/02/19 14:07 Home Meds: Home Meds Albuterol Sulfate [Proair Hfa] 2 puff IH QID PRN 08/28/15 [History] Cyanocobalamin (Vitamin B12) [Vitamin B12] 500 mcg PO DAILY 08/28/15 [History] Venlafaxine HCl [Venlafaxine ER] 37.5 mg PO DAILY 01/03/18 [History] Calcium Carbonate [Tums] 500 mg PO TID 03/20/19 [History] Cholecalciferol (Vitamin D3) [Vitamin D] 5,000 unit PO DAILY 03/20/19 [History] Cyanocobalamin (Vitamin B-12) [Cyanocobalamin Injection] 1,000 mcg IJ Q14D 03/20 [History] Dextroamphetamine/Amphetamine [Adderall 10 mg Tablet] 10 mg PO BID 03/20/19 [ History] EPINEPHrine [Epipen Jr 2-Fransisco] 0.15 mg IM ASDIRECTED PRN 03/20/19 [History] Ondansetron [Zofran Odt] 8 mg PO Q8H PRN 03/20/19 [History] Thiamine [Vitamin B-1] 100 mg PO DAILY 03/20/19 [History] ZOLMitriptan [Zomig] 5 mg PO ASDIRECTED PRN 03/20/19 [History] Pedi Multivit No.25/Folic Acid [Flintstones Multivit Chew Tab] 2 tab PO DAILY [History] Past Medical History Gastrointestinal History: Reports: Pancreatitis 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: Musculoskeletal History: Reports: Fracture Other Musculoskeletal History: foot fx Neurological History: Reports: Migraines Psychiatric History: Reports: ADHD Hematologic History: Reports: B12 Deficiency, Blood Transfusion(s), Iron Deficiency - Infectious Disease History Infectious Disease History: Reports: Chicken Pox, Measles - Past Surgical History GI Surgical History: Reports: Bariatric Procedure, Cholecystectomy, Hernia Repair/Other, Other (See Below) Other GI Surgeries/Procedures: sbo Female Surgical History: Reports: Hysterectomy Dermatological Surgical History: Reports: None Social & Family History - Family History Family Medical History: Noncontributory - Caffeine Use Caffeine Use: Reports: None ED ROS GENERAL - Review of Systems Review Of Systems: See Below Constitutional: Denies: Fever, Chills HEENT: Reports: No Symptoms Respiratory: Reports: No Symptoms Cardiovascular: Reports: No Symptoms GI/Abdominal: Reports: Abdominal Pain, Nausea, Vomiting : Reports: No Symptoms ED EXAM, GI/ABD - Physical Exam Exam: See Below Exam Limited By: No Limitations General Appearance: Alert, Moderate Distress Respiratory/Chest: No Respiratory Distress, Lungs Clear, Normal Breath Sounds, No Accessory Muscle Use, Chest Non-Tender Cardiovascular: Regular Rate, Rhythm, No Murmur GI/Abdominal Exam: Normal Bowel Sounds, Soft, No Distention, No Abnormal Bruit, Tender (Right upper quadrant) Course - Vital Signs Last Recorded V/S: Last Vital Signs Temp 97.8 F 07/02/19 14:11 Pulse 99 07/02/19 17:34 Resp 14 07/02/19 17:34 BP 128/66 07/02/19 17:34 Pulse Ox 98 07/02/19 17:34 - Orders/Labs/Meds Orders: Active Orders 24 hr Category Date Time Status Peripheral IV Care [RC] . DIRECTED Care 07/02/19 14:36 Active CULTURE URINE [RM] Urgent Lab 07/02/19 16:03 Received Lactated Ringers [Ringers, Lactated] 1,000 ml Med 07/02/19 14:45 Active IV ASDIRECTED Sodium Chloride 0.9% [Saline Flush] Med 07/02/19 14:36 Active 10 ml FLUSH ASDIRECTED PRN Sodium Chloride 0.9% [Saline Flush] Med 07/02/19 15:16 Active 10 ml FLUSH ONETIME PRN cefTRIAXone [Rocephin] 1 gm Med 07/02/19 17:53 Ordered Sodium Chloride 0.9% [Normal Saline] 50 ml IV ONETIME Peripheral IV Insertion Adult [OM.PC] Urgent Oth 07/02/19 14:36 Ordered Medication Orders Lactated Ringer's (Ringers, Lactated) 1,000 mls @ 999 mls/hr IV ASDIRECTED ERICK Last Admin: 07/02/19 14:51 Dose: 999 mls/hr Ceftriaxone Sodium 1 gm/ (Sodium Chloride) 50 mls @ 100 mls/hr IV ONETIME ONE Stop: 07/02/19 18:22 Sodium Chloride (Saline Flush) 10 ml FLUSH ASDIRECTED PRN PRN Reason: Keep Vein Open Last Admin: 07/02/19 14:47 Dose: 10 ml Sodium Chloride (Saline Flush) 10 ml FLUSH ONETIME PRN PRN Reason: PER RADIOLOGY PROTOCOL Last Admin: 07/02/19 15:35 Dose: 10 ml Labs: Laboratory Tests 07/02/19 07/02/19 07/02/19 Range/Units 14:55 14:55 14:55 WBC 13.3 H (4.5-11.0) K/uL RBC 3.74 (3.30-5.50) M/uL Hgb 12.0 (12.0-15.0) g/dL Hct 36.5 (36.0-48.0) % MCV 98 (80-98) fL MCH 32 H (27-31) pg MCHC 33 (32-36) % Plt Count 401 H (150-400) K/uL Neut % (Auto) 78 H (36-66) % Lymph % (Auto) 14 L (24-44) % [place] % (Auto) 8 H (2-6) % Eos % (Auto) 0 L (2-4) % Baso % (Auto) 0 (0-1) % Sodium 136 L (140-148) mmol/L Potassium 4.0 (3.6-5.2) mmol/L Chloride 101 (100-108) mmol/L Carbon Dioxide 24 (21-32) mmol/L Anion Gap 15.0 H (5.0-14.0) mmol/L BUN 12 (7-18) mg/dL Creatinine 0.7 (0.6-1.0) mg/dL Est Cr Clr Drug Dosing 73.67 mL/min Estimated GFR (MDRD) > 60 (>60) Glucose 92 (74-106) mg/dL Lactic Acid 1.7 (0.4-2.0) mmol/L Calcium 8.5 (8.5-10.1) mg/dL Total Bilirubin 0.4 (0.2-1.0) mg/dL AST 14 L (15-37) U/L ALT 25 (12-78) U/L Alkaline Phosphatase 104 (46-116) U/L Troponin I (0.000-0.056) ng/mL Total Protein 7.0 (6.4-8.2) g/dL Albumin 3.2 L (3.4-5.0) g/dL Globulin 3.8 H (2.3-3.5) g/dL Albumin/Globulin Ratio 0.8 L (1.2-2.2) Triglycerides (15-150) mg/dL Lipase 221 (73-393) U/L Urine Color (YELLOW) Urine Appearance (CLEAR) Urine pH (5.0-8.0) Ur Specific Driscoll (1.008-1.030) Urine Protein (NEGATIVE) mg/dL Urine Glucose (UA) (NEGATIVE) mg/dL Urine Ketones (NEGATIVE) mg/dL Urine Occult Blood (NEGATIVE) Urine Nitrite (NEGATIVE) Urine Bilirubin (NEGATIVE) Urine Urobilinogen (0.2-1.0) EU/dL Ur Leukocyte Esterase (NEGATIVE) Urine RBC (0-5) Urine WBC (0-5) Ur Epithelial Cells Amorphous Sediment Urine Bacteria Urine Mucus Urine Opiates Screen (NEGATIVE) Ur Oxycodone Screen (NEGATIVE) Urine Methadone Screen (NEGATIVE) Ur Propoxyphene Screen (NEGATIVE) Ur Barbiturates Screen (NEGATIVE) Ur Tricyclics Screen (NEGATIVE) Ur Phencyclidine Scrn (NEGATIVE) Ur Amphetamine Screen (NEGATIVE) U Methamphetamines Scrn (NEGATIVE) Urine MDMA Screen (NEGATIVE) U Benzodiazepines Scrn (NEGATIVE) U Cocaine Metab Screen (NEGATIVE) U Marijuana (THC) Screen (NEGATIVE) Ethyl Alcohol mg/dL 07/02/19 07/02/19 07/02/19 Range/Units 14:55 14:55 15:28 WBC (4.5-11.0) K/uL RBC (3.30-5.50) M/uL Hgb (12.0-15.0) g/dL Hct (36.0-48.0) % MCV (80-98) fL MCH (27-31) pg MCHC (32-36) % Plt Count (150-400) K/uL Neut % (Auto) (36-66) % Lymph % (Auto) (24-44) % [place] % (Auto) (2-6) % Eos % (Auto) (2-4) % Baso % (Auto) (0-1) % Sodium (140-148) mmol/L Potassium (3.6-5.2) mmol/L Chloride (100-108) mmol/L Carbon Dioxide (21-32) mmol/L Anion Gap (5.0-14.0) mmol/L BUN (7-18) mg/dL Creatinine (0.6-1.0) mg/dL Est Cr Clr Drug Dosing mL/min Estimated GFR (MDRD) (>60) Glucose (74-106) mg/dL Lactic Acid (0.4-2.0) mmol/L Calcium (8.5-10.1) mg/dL Total Bilirubin (0.2-1.0) mg/dL AST (15-37) U/L ALT (12-78) U/L Alkaline Phosphatase (46-116) U/L Troponin I (0.000-0.056) ng/mL Total Protein (6.4-8.2) g/dL Albumin (3.4-5.0) g/dL Globulin (2.3-3.5) g/dL Albumin/Globulin Ratio (1.2-2.2) Triglycerides 83 (15-150) mg/dL Lipase (73-393) U/L Urine Color Yellow (YELLOW) Urine Appearance Slightly cloudy A (CLEAR) Urine pH 7.0 (5.0-8.0) Ur Specific Driscoll 1.025 (1.008-1.030) Urine Protein Negative (NEGATIVE) mg/dL Urine Glucose (UA) Negative (NEGATIVE) mg/dL Urine Ketones Negative (NEGATIVE) mg/dL Urine Occult Blood Trace-intact H (NEGATIVE) Urine Nitrite Positive H (NEGATIVE) Urine Bilirubin Negative (NEGATIVE) Urine Urobilinogen 2.0 H (0.2-1.0) EU/dL Ur Leukocyte Esterase Negative (NEGATIVE) Urine RBC 0-5 (0-5) Urine WBC 0-5 (0-5) Ur Epithelial Cells Few Amorphous Sediment Not seen Urine Bacteria Many Urine Mucus Not seen Urine Opiates Screen (NEGATIVE) Ur Oxycodone Screen (NEGATIVE) Urine Methadone Screen (NEGATIVE) Ur Propoxyphene Screen (NEGATIVE) Ur Barbiturates Screen (NEGATIVE) Ur Tricyclics Screen (NEGATIVE) Ur Phencyclidine Scrn (NEGATIVE) Ur Amphetamine Screen (NEGATIVE) U Methamphetamines Scrn (NEGATIVE) Urine MDMA Screen (NEGATIVE) U Benzodiazepines Scrn (NEGATIVE) U Cocaine Metab Screen (NEGATIVE) U Marijuana (THC) Screen (NEGATIVE) Ethyl Alcohol < 3 mg/dL 07/02/19 07/02/19 Range/Units 15:28 16:21 WBC (4.5-11.0) K/uL RBC (3.30-5.50) M/uL Hgb (12.0-15.0) g/dL Hct (36.0-48.0) % MCV (80-98) fL MCH (27-31) pg MCHC (32-36) % Plt Count (150-400) K/uL Neut % (Auto) (36-66) % Lymph % (Auto) (24-44) % [place] % (Auto) (2-6) % Eos % (Auto) (2-4) % Baso % (Auto) (0-1) % Sodium (140-148) mmol/L Potassium (3.6-5.2) mmol/L Chloride (100-108) mmol/L Carbon Dioxide (21-32) mmol/L Anion Gap (5.0-14.0) mmol/L BUN (7-18) mg/dL Creatinine (0.6-1.0) mg/dL Est Cr Clr Drug Dosing mL/min Estimated GFR (MDRD) (>60) Glucose (74-106) mg/dL Lactic Acid (0.4-2.0) mmol/L Calcium (8.5-10.1) mg/dL Total Bilirubin (0.2-1.0) mg/dL AST (15-37) U/L ALT (12-78) U/L Alkaline Phosphatase (46-116) U/L Troponin I < 0.017 (0.000-0.056) ng/mL Total Protein (6.4-8.2) g/dL Albumin (3.4-5.0) g/dL Globulin (2.3-3.5) g/dL Albumin/Globulin Ratio (1.2-2.2) Triglycerides (15-150) mg/dL Lipase (73-393) U/L Urine Color (YELLOW) Urine Appearance (CLEAR) Urine pH (5.0-8.0) Ur Specific Driscoll (1.008-1.030) Urine Protein (NEGATIVE) mg/dL Urine Glucose (UA) (NEGATIVE) mg/dL Urine Ketones (NEGATIVE) mg/dL Urine Occult Blood (NEGATIVE) Urine Nitrite (NEGATIVE) Urine Bilirubin (NEGATIVE) Urine Urobilinogen (0.2-1.0) EU/dL Ur Leukocyte Esterase (NEGATIVE) Urine RBC (0-5) Urine WBC (0-5) Ur Epithelial Cells Amorphous Sediment Urine Bacteria Urine Mucus Urine Opiates Screen Presumptive positive H (NEGATIVE) Ur Oxycodone Screen Negative (NEGATIVE) Urine Methadone Screen Negative (NEGATIVE) Ur Propoxyphene Screen Negative (NEGATIVE) Ur Barbiturates Screen Negative (NEGATIVE) Ur Tricyclics Screen Presumptive positive H (NEGATIVE) Ur Phencyclidine Scrn Negative (NEGATIVE) Ur Amphetamine Screen Presumptive positive H (NEGATIVE) U Methamphetamines Scrn Negative (NEGATIVE) Urine MDMA Screen Negative (NEGATIVE) U Benzodiazepines Scrn Negative (NEGATIVE) U Cocaine Metab Screen Negative (NEGATIVE) U Marijuana (THC) Screen Negative (NEGATIVE) Ethyl Alcohol mg/dL Meds: Medications Generic Name Dose Route Start Last Admin Trade Name Freq PRN Reason Stop Dose Admin Lactated Ringer's 1,000 mls @ 999 mls/hr 07/02/19 14:45 07/02/19 14:51 Ringers, Lactated IV 999 mls/hr ASDIRECTED ERICK Administration Ceftriaxone Sodium 1 gm/ 50 mls @ 100 mls/hr 07/02/19 17:53 Sodium Chloride IV 07/02/19 18:22 ONETIME ONE Sodium Chloride 10 ml 07/02/19 14:36 07/02/19 14:47 Saline Flush FLUSH 10 ml ASDIRECTED PRN Administration Keep Vein Open Sodium Chloride 10 ml 07/02/19 15:16 07/02/19 15:35 Saline Flush FLUSH 10 ml ONETIME PRN Administration PER RADIOLOGY PROTOCOL Discontinued Medications Generic Name Dose Route Start Last Admin Trade Name Freq PRN Reason Stop Dose Admin Hydromorphone HCl 1 mg 07/02/19 14:37 07/02/19 14:47 Dilaudid IVPUSH 07/02/19 14:38 1 mg ONETIME ONE Administration Hydromorphone HCl 0.5 mg 07/02/19 16:01 07/02/19 16:06 Dilaudid IVPUSH 07/02/19 16:02 0.5 mg ONETIME ONE Administration Sodium Chloride 70 mls @ 3 mls/sec 07/02/19 15:16 07/02/19 15:35 Normal Saline IV 07/02/19 15:17 3 mls/sec ONETIME ONE Administration Iopamidol 75 ml 07/02/19 15:16 07/02/19 15:36 Isovue-300 (61%) IV 75 ml . DIRECTED PRN Administration RADIOLOGY EXAM Ondansetron HCl 4 mg 07/02/19 14:37 07/02/19 14:47 Zofran IVPUSH 07/02/19 14:38 4 mg ONETIME ONE Administration Departure - Departure Time of Disposition: 18:00 Disposition: Admitted As Inpatient 65 Condition: Fair Clinical Impression: Pyelonephritis - Discharge Information Referrals: Michelle Biswas PA [Primary Care Provider] - Forms: ED Department Discharge Sepsis Event Note - Evaluation Sepsis Screening Result: No Definite Risk - Focused Exam Vital Signs: Vital Signs Temp Pulse Resp BP Pulse Ox 07/02/19 17:34 99 14 128/66 98 07/02/19 16:54 102 H 11 L 143/86 H 97 07/02/19 16:00 96 16 124/72 99 07/02/19 14:11 97.8 F 120 H 17 122/77 99 07/02/19 14:10 97.8 F 120 H 17 122/77 99 Date Exam was Performed: 07/02/19 Time Exam was Performed: 17:57 - My Orders Last 24 Hours: My Active Orders 07/02/19 14:36 Peripheral IV Care [RC] . DIRECTED Sodium Chloride 0.9% [Saline Flush] 10 ml FLUSH ASDIRECTED PRN Peripheral IV Insertion Adult [OM.PC] Urgent 07/02/19 14:45 Lactated Ringers [Ringers, Lactated] 1,000 ml IV ASDIRECTED 07/02/19 15:16 Sodium Chloride 0.9% [Saline Flush] 10 ml FLUSH ONETIME PRN 07/02/19 16:03 CULTURE URINE [RM] Urgent 07/02/19 17:53 cefTRIAXone [Rocephin] 1 gm Sodium Chloride 0.9% [Normal Saline] 50 ml IV ONETIME - Assessment/Plan Last 24 Hours: My Active Orders 07/02/19 14:36 Peripheral IV Care [RC] . DIRECTED Sodium Chloride 0.9% [Saline Flush] 10 ml FLUSH ASDIRECTED PRN Peripheral IV Insertion Adult [OM.PC] Urgent 07/02/19 14:45 Lactated Ringers [Ringers, Lactated] 1,000 ml IV ASDIRECTED 07/02/19 15:16 Sodium Chloride 0.9% [Saline Flush] 10 ml FLUSH ONETIME PRN 07/02/19 16:03 CULTURE URINE [RM] Urgent 07/02/19 17:53 cefTRIAXone [Rocephin] 1 gm Sodium Chloride 0.9% [Normal Saline] 50 ml IV ONETIME Plan: Assessment Acuity = acute Site and laterality = right pyelonephritis Etiology = probable bacterial cause Manifestations = right flank pain Location of injury = Home Lab values = WBC elevated 13.3 consistent leukocytosis, troponin was negative CMP is unremarkable urinalysis positive for nitrates urine drug screen positive for opiates tricyclics and amphetamine alcohol was negative CT scan describes a pyelonephritis as well as a 2.5 x 2 cm fluid collection near the right UPJ Plan Call discussed the case with Dr. Bello interventional radiologist at [facility] 1750 felt the fluid collection was too small to intervene with interventional radiology recommended antibiotics first and then reimaging. Then call discussed case with hospitalist on-call at 1800 he kindly agreed to evaluate the patient in the emergency department for admission. Blood cultures and urine culture are pending she received 1 g Rocephin and 1 L fluids while in the ED This note was dictated using [employer] voice recognition software please call with any questions on syntax or grammar.
[2019-07-02] MEDS ORDERED: Iopamidol 612 MG/ML 100 ML Bottle IV PRN (15:16)
[2019-07-02] MEDS ORDERED: HYDROmorphone 0.5 MG/0.5 ML Syringe IVPUSH ONE (16:01)
--- NOTE | 2019-07-02 16:39 | CRLCT ---
INDICATION: Right flank pain. TECHNIQUE: CT abdomen and pelvis acquired with 75 cc Isovue-300 contrast. COMPARISON: 02/04/2019. FINDINGS: Lower chest: Bilateral breast implants are partially imaged. Imaged lung bases are unremarkable. Liver: Intrahepatic biliary ductal dilatation is similar to prior likely due to post cholecystectomy changes. Gallbladder and bile ducts: Cholecystectomy. Extrahepatic biliary ductal dilatation likely due to postcholecystectomy reservoir effect, similar to prior. Pancreas: Unremarkable. No mass or inflammation. Spleen: Unremarkable. Normal in size. No masses. Adrenal glands: Unremarkable. No nodules. Kidneys: Striated right nephrogram suspicious for right pyelonephritis. Mild thickening enhancement of the right collecting system and right proximal ureter. There is a peripherally enhancing hypoattenuating collection abutting the right ureter near the UPJ measuring approximately 2.5 x 2.2 cm (series 2, image 40). Dilated extrarenal pelvis with peripheral enhancement suspicious for infection as well. Right perinephric stranding. Left kidney is unremarkable. GI tract: Gastric bypass. No evidence of inflammation or obstruction. Vasculature: Unremarkable. Lymph nodes: No lymphadenopathy. Omentum/Peritoneum/Abdominal Wall: Unremarkable. No sign of mass or infiltration. No free air or significant free fluid. Pelvis: Urinary bladder is nondistended. Bones: Unremarkable. IMPRESSION: : 1. Findings suspicious for right pyelonephritis. 2. Peripheral enhancing hypoattenuating collection adjacent to the right kidney and right UPJ which could represent an abscess although this is an atypical location. Recommend urologic consultation, and consider follow-up imaging to document resolution after resolution of acute symptoms. Please note that all CT scans at this facility use dose modulation, iterative reconstruction, and/or weight-based dosing when appropriate to reduce radiation dose to as low as reasonably achievable. Dictated by Javier Price MD @ Jul 02 2019 4:18PM Signed by Dr. Javier Price @ Jul 02 2019 4:37PM
[2019-07-02] MEDS ORDERED: cefTRIAXone 1 GM in Sodium Chloride 0.9% 50 ML IV ONE (17:53)
[2019-07-02] MEDS ORDERED: Sodium Chloride 0.9% 50 ML ONE (18:07)
--- NOTE | 2019-07-02 19:07 | PCM.HP.2 ---
H&P History of Present Illness - General Date of Service: 07/02/19 Admit Problem/Dx: Admission Diagnosis/Problem Admission Diagnosis/Problem Pyelonephritis Source of Information: Patient, Family, Old Records, Provider, RN Notes Reviewed History Limitations: Reports: No Limitations - History of Present Illness Initial Comments - Free Text/Narative: Ms. Christianson is a 43-year-old woman who was admitted through the emergency department with right flank and abdominal pain, nausea, secondary to right pyelonephritis and possible associated abscess. She was just discharged from this facility 3 days ago after being hospitalized with acute episode of pancreatitis. She has had a history of recurrent idiopathic pancreatitis. She felt well after discharge until this morning when she began to develop increased right-sided abdominal pain associated with flank pain and nausea. On evaluation in the emergency department white blood cell count was mildly elevated, lactic acid and lipase level within normal range. CT scan of the abdomen pelvis shows evidence of right-sided pyelonephritis with possible associated abscess. CT scan was reviewed by interventional radiology who felt that the potential abscess was too small for percutaneous drainage. They recommended antibiotic therapy and follow-up CT scan after a course of antibiotics. Right Lower Back Pain Score (Numeric/FACES): 10 - Related Data Allergies/Adverse Reactions: Allergies Allergy/AdvReac Type Severity Reaction Status Date / Time ferumoxytol [From Feraheme] Allergy Severe Difficulty Verified 07/02/19 14:07 Breathing iron [From Venofer] Allergy Severe Anaphylactic Verified 07/02/19 14:07 Shock adhesive tape Allergy Other Verified 07/02/19 14:07 bacitracin Allergy Other Verified 07/02/19 14:07 [From Neosporin ([id number])] ciprofloxacin Allergy Rash Verified 07/02/19 14:07 fentanyl Allergy Itching Verified 07/02/19 14:07 neomycin Allergy Other Verified 07/02/19 14:07 [From Neosporin ([id number])] Penicillins Allergy Other Verified 07/02/19 14:07 pineapple Allergy Other Verified 07/02/19 14:07 polymyxin B Allergy Other Verified 07/02/19 14:07 [From Neosporin ([id number])] sulfamethoxazole AdvReac Other Verified 07/02/19 14:07 [From Bactrim] trimethoprim [From Bactrim] AdvReac Other Verified 07/02/19 14:07 Home Medications: Home Meds Albuterol Sulfate [Proair Hfa] 2 puff IH QID PRN 08/28/15 [History] Cyanocobalamin (Vitamin B12) [Vitamin B12] 500 mcg PO DAILY 08/28/15 [History] Venlafaxine HCl [Venlafaxine ER] 37.5 mg PO DAILY 01/03/18 [History] Calcium Carbonate [Tums] 500 mg PO TID 03/20/19 [History] Cholecalciferol (Vitamin D3) [Vitamin D] 5,000 unit PO DAILY 03/20/19 [History] Cyanocobalamin (Vitamin B-12) [Cyanocobalamin Injection] 1,000 mcg IJ Q14D 03/20 [History] Dextroamphetamine/Amphetamine [Adderall 10 mg Tablet] 10 mg PO BID 03/20/19 [ History] EPINEPHrine [Epipen Jr 2-Fransisco] 0.15 mg IM ASDIRECTED PRN 03/20/19 [History] Ondansetron [Zofran Odt] 8 mg PO Q8H PRN 03/20/19 [History] Thiamine [Vitamin B-1] 100 mg PO DAILY 03/20/19 [History] ZOLMitriptan [Zomig] 5 mg PO ASDIRECTED PRN 03/20/19 [History] Pedi Multivit No.25/Folic Acid [Flintstones Multivit Chew Tab] 2 tab PO DAILY [History] Past Medical History Gastrointestinal History: Reports: Pancreatitis 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 TYPE History: Reports: Musculoskeletal History: Reports: Fracture Other Musculoskeletal History: foot fx Neurological History: Reports: Migraines Psychiatric History: Reports: ADHD Hematologic History: Reports: B12 Deficiency, Blood Transfusion(s), Iron Deficiency - Infectious Disease History Infectious Disease History: Reports: Chicken Pox, Measles - Past Surgical History GI Surgical History: Reports: Bariatric Procedure, Cholecystectomy, Hernia Repair/Other, Other (See Below) Other GI Surgeries/Procedures: sbo Female Surgical History: Reports: Hysterectomy Dermatological Surgical History: Reports: None Social & Family History - Family History Family Medical History: Noncontributory - Caffeine Use Caffeine Use: Reports: None H&P Review of Systems - Review of Systems: Review Of Systems: See Below General: Reports: Chills, Malaise, Weakness, Decreased Appetite. Denies: Fever HEENT: Reports: No Symptoms Pulmonary: Reports: No Symptoms Cardiovascular: Reports: No Symptoms Gastrointestinal: Reports: Abdominal Pain, Decreased Appetite, Nausea. Denies: Constipation, Diarrhea, Difficulty Swallowing, Distension, Hematemesis, Hematochezia, Melena, Vomiting Genitourinary: Reports: Flank Pain. Denies: Dysuria, Burning, Urgency, Hematuria Musculoskeletal: Reports: No Symptoms Skin: Reports: No Symptoms Psychiatric: Reports: No Symptoms Neurological: Reports: No Symptoms Hematologic/Lymphatic: Reports: No Symptoms Immunologic: Reports: No Symptoms Exam - Exam Exam: See Below - Vital Signs Vital Signs: Last Vital Signs Temp 97.8 F 07/02/19 14:11 Pulse 94 07/02/19 18:11 Resp 15 07/02/19 18:11 BP 114/70 07/02/19 18:11 Pulse Ox 99 07/02/19 18:11 Weight: 110 lb - Exam Quality Assessment: DVT Prophylaxis General: Alert, Oriented, Cooperative, Moderate Distress HEENT: Conjunctiva Clear, Hearing Intact, Normal Nasal Septum, Posterior Pharynx Clear, Pupils Equal. No: Mucosa Moist & [place] Neck: Supple, Trachea Midline, +2 Carotid Pulse wo Bruit Lungs: Clear to Auscultation, Normal Respiratory Effort Cardiovascular: Regular Rate, Regular Rhythm, Normal S1, Normal S2. No: Systolic Murmur, Diastolic Murmur GI/Abdominal Exam: Soft, No Organomegaly, No Distention, Tender. No: Guarding, Rigid, Rebound Back Exam: Normal Inspection, CVA Tenderness (R) Extremities: Non-Tender, No Pedal Edema Skin: Warm, Dry, Intact Neurological: Cranial Nerves Intact, Strength Equal Bilateral, Normal Speech, Normal Tone, Sensation Intact. No: Focal Deficit Neuro Extensive - Mental Status: Alert, Oriented x3, Normal Mood/Affect, Normal Cognition, Memory Intact - Patient Data Lab Results Last 24 hrs: Laboratory Results - last 24 hr 07/02/19 07/02/19 07/02/19 Range/Units 14:55 14:55 14:55 WBC 13.3 H (4.5-11.0) K/uL RBC 3.74 (3.30-5.50) M/uL Hgb 12.0 (12.0-15.0) g/dL Hct 36.5 (36.0-48.0) % MCV 98 (80-98) fL MCH 32 H (27-31) pg MCHC 33 (32-36) % Plt Count 401 H (150-400) K/uL Neut % (Auto) 78 H (36-66) % Lymph % (Auto) 14 L (24-44) % [place] % (Auto) 8 H (2-6) % Eos % (Auto) 0 L (2-4) % Baso % (Auto) 0 (0-1) % Sodium 136 L (140-148) mmol/L Potassium 4.0 (3.6-5.2) mmol/L Chloride 101 (100-108) mmol/L Carbon Dioxide 24 (21-32) mmol/L Anion Gap 15.0 H (5.0-14.0) mmol/L BUN 12 (7-18) mg/dL Creatinine 0.7 (0.6-1.0) mg/dL Est Cr Clr Drug Dosing 73.67 mL/min Estimated GFR (MDRD) > 60 (>60) Glucose 92 (74-106) mg/dL Lactic Acid 1.7 (0.4-2.0) mmol/L Calcium 8.5 (8.5-10.1) mg/dL Total Bilirubin 0.4 (0.2-1.0) mg/dL AST 14 L (15-37) U/L ALT 25 (12-78) U/L Alkaline Phosphatase 104 (46-116) U/L Troponin I (0.000-0.056) ng/mL Total Protein 7.0 (6.4-8.2) g/dL Albumin 3.2 L (3.4-5.0) g/dL Globulin 3.8 H (2.3-3.5) g/dL Albumin/Globulin Ratio 0.8 L (1.2-2.2) Triglycerides (15-150) mg/dL Lipase 221 (73-393) U/L Urine Color (YELLOW) Urine Appearance (CLEAR) Urine pH (5.0-8.0) Ur Specific [place] (1.008-1.030) Urine Protein (NEGATIVE) mg/dL Urine Glucose (UA) (NEGATIVE) mg/dL Urine Ketones (NEGATIVE) mg/dL Urine Occult Blood (NEGATIVE) Urine Nitrite (NEGATIVE) Urine Bilirubin (NEGATIVE) Urine Urobilinogen (0.2-1.0) EU/dL Ur Leukocyte Esterase (NEGATIVE) Urine RBC (0-5) Urine WBC (0-5) Ur Epithelial Cells Amorphous Sediment Urine Bacteria Urine Mucus Urine Opiates Screen (NEGATIVE) Ur Oxycodone Screen (NEGATIVE) Urine Methadone Screen (NEGATIVE) Ur Propoxyphene Screen (NEGATIVE) Ur Barbiturates Screen (NEGATIVE) Ur Tricyclics Screen (NEGATIVE) Ur Phencyclidine Scrn (NEGATIVE) Ur Amphetamine Screen (NEGATIVE) U Methamphetamines Scrn (NEGATIVE) Urine MDMA Screen (NEGATIVE) U Benzodiazepines Scrn (NEGATIVE) U Cocaine Metab Screen (NEGATIVE) U Marijuana (THC) Screen (NEGATIVE) Ethyl Alcohol mg/dL 07/02/19 07/02/19 07/02/19 Range/Units 14:55 14:55 15:28 WBC (4.5-11.0) K/uL RBC (3.30-5.50) M/uL Hgb (12.0-15.0) g/dL Hct (36.0-48.0) % MCV (80-98) fL MCH (27-31) pg MCHC (32-36) % Plt Count (150-400) K/uL Neut % (Auto) (36-66) % Lymph % (Auto) (24-44) % [place] % (Auto) (2-6) % Eos % (Auto) (2-4) % Baso % (Auto) (0-1) % Sodium (140-148) mmol/L Potassium (3.6-5.2) mmol/L Chloride (100-108) mmol/L Carbon Dioxide (21-32) mmol/L Anion Gap (5.0-14.0) mmol/L BUN (7-18) mg/dL Creatinine (0.6-1.0) mg/dL Est Cr Clr Drug Dosing mL/min Estimated GFR (MDRD) (>60) Glucose (74-106) mg/dL Lactic Acid (0.4-2.0) mmol/L Calcium (8.5-10.1) mg/dL Total Bilirubin (0.2-1.0) mg/dL AST (15-37) U/L ALT (12-78) U/L Alkaline Phosphatase (46-116) U/L Troponin I (0.000-0.056) ng/mL Total Protein (6.4-8.2) g/dL Albumin (3.4-5.0) g/dL Globulin (2.3-3.5) g/dL Albumin/Globulin Ratio (1.2-2.2) Triglycerides 83 (15-150) mg/dL Lipase (73-393) U/L Urine Color Yellow (YELLOW) Urine Appearance Slightly cloudy A (CLEAR) Urine pH 7.0 (5.0-8.0) Ur Specific [place] 1.025 (1.008-1.030) Urine Protein Negative (NEGATIVE) mg/dL Urine Glucose (UA) Negative (NEGATIVE) mg/dL Urine Ketones Negative (NEGATIVE) mg/dL Urine Occult Blood Trace-intact H (NEGATIVE) Urine Nitrite Positive H (NEGATIVE) Urine Bilirubin Negative (NEGATIVE) Urine Urobilinogen 2.0 H (0.2-1.0) EU/dL Ur Leukocyte Esterase Negative (NEGATIVE) Urine RBC 0-5 (0-5) Urine WBC 0-5 (0-5) Ur Epithelial Cells Few Amorphous Sediment Not seen Urine Bacteria Many Urine Mucus Not seen Urine Opiates Screen (NEGATIVE) Ur Oxycodone Screen (NEGATIVE) Urine Methadone Screen (NEGATIVE) Ur Propoxyphene Screen (NEGATIVE) Ur Barbiturates Screen (NEGATIVE) Ur Tricyclics Screen (NEGATIVE) Ur Phencyclidine Scrn (NEGATIVE) Ur Amphetamine Screen (NEGATIVE) U Methamphetamines Scrn (NEGATIVE) Urine MDMA Screen (NEGATIVE) U Benzodiazepines Scrn (NEGATIVE) U Cocaine Metab Screen (NEGATIVE) U Marijuana (THC) Screen (NEGATIVE) Ethyl Alcohol < 3 mg/dL 07/02/19 07/02/19 Range/Units 15:28 16:21 WBC (4.5-11.0) K/uL RBC (3.30-5.50) M/uL Hgb (12.0-15.0) g/dL Hct (36.0-48.0) % MCV (80-98) fL MCH (27-31) pg MCHC (32-36) % Plt Count (150-400) K/uL Neut % (Auto) (36-66) % Lymph % (Auto) (24-44) % [place] % (Auto) (2-6) % Eos % (Auto) (2-4) % Baso % (Auto) (0-1) % Sodium (140-148) mmol/L Potassium (3.6-5.2) mmol/L Chloride (100-108) mmol/L Carbon Dioxide (21-32) mmol/L Anion Gap (5.0-14.0) mmol/L BUN (7-18) mg/dL Creatinine (0.6-1.0) mg/dL Est Cr Clr Drug Dosing mL/min Estimated GFR (MDRD) (>60) Glucose (74-106) mg/dL Lactic Acid (0.4-2.0) mmol/L Calcium (8.5-10.1) mg/dL Total Bilirubin (0.2-1.0) mg/dL AST (15-37) U/L ALT (12-78) U/L Alkaline Phosphatase (46-116) U/L Troponin I < 0.017 (0.000-0.056) ng/mL Total Protein (6.4-8.2) g/dL Albumin (3.4-5.0) g/dL Globulin (2.3-3.5) g/dL Albumin/Globulin Ratio (1.2-2.2) Triglycerides (15-150) mg/dL Lipase (73-393) U/L Urine Color (YELLOW) Urine Appearance (CLEAR) Urine pH (5.0-8.0) Ur Specific [place] (1.008-1.030) Urine Protein (NEGATIVE) mg/dL Urine Glucose (UA) (NEGATIVE) mg/dL Urine Ketones (NEGATIVE) mg/dL Urine Occult Blood (NEGATIVE) Urine Nitrite (NEGATIVE) Urine Bilirubin (NEGATIVE) Urine Urobilinogen (0.2-1.0) EU/dL Ur Leukocyte Esterase (NEGATIVE) Urine RBC (0-5) Urine WBC (0-5) Ur Epithelial Cells Amorphous Sediment Urine Bacteria Urine Mucus Urine Opiates Screen Presumptive positive H (NEGATIVE) Ur Oxycodone Screen Negative (NEGATIVE) Urine Methadone Screen Negative (NEGATIVE) Ur Propoxyphene Screen Negative (NEGATIVE) Ur Barbiturates Screen Negative (NEGATIVE) Ur Tricyclics Screen Presumptive positive H (NEGATIVE) Ur Phencyclidine Scrn Negative (NEGATIVE) Ur Amphetamine Screen Presumptive positive H (NEGATIVE) U Methamphetamines Scrn Negative (NEGATIVE) Urine MDMA Screen Negative (NEGATIVE) U Benzodiazepines Scrn Negative (NEGATIVE) U Cocaine Metab Screen Negative (NEGATIVE) U Marijuana (THC) Screen Negative (NEGATIVE) Ethyl Alcohol mg/dL Result Diagrams: 07/02/19 14:55 07/02/19 14:55 Sepsis Event Note - Evaluation Sepsis Screening Result: No Definite Risk - Focused Exam Vital Signs: Vital Signs Temp Pulse Resp BP Pulse Ox 07/02/19 18:11 94 15 114/70 99 07/02/19 17:34 99 14 128/66 98 07/02/19 16:54 102 H 11 L 143/86 H 97 07/02/19 16:00 96 16 124/72 99 07/02/19 14:11 97.8 F 120 H 17 122/77 99 07/02/19 14:10 97.8 F 120 H 17 122/77 99 Date Exam was Performed: 07/02/19 Time Exam was Performed: 18:59 *Q Meaningful Use (ADM) - VTE Risk Assess *Q Each Risk Factor Represents 1 Point: Age 41 - 59 years Total Score 1 Point Risk Factors: 1 Each Risk Factor Represents 2 Points: None Total Score 2 Point Risk Factors: 0 Each Risk Factor Represents 3 Points: None Total Score 3 Point Risk Factors: 0 Each Risk Factor Represents 5 Points: None Total Score 5 Point Risk Factors: 0 Venous Thromboembolism Risk Factor Score *Q: 1 Problem List Initiated/Reviewed/Updated: Yes Orders Last 24hrs: Active Orders 24 hr Category Date Time Status Patient Status Manage Transfer [TRANSFER] Routine ADT 07/02/19 18:47 Ordered Peripheral IV Care [RC] . DIRECTED Care 07/02/19 14:36 Active CULTURE BLOOD [BC] Urgent Lab 07/02/19 14:45 Received CULTURE BLOOD [BC] Urgent Lab 07/02/19 14:55 Received CULTURE URINE [RM] Urgent Lab 07/02/19 16:03 Received Lactated Ringers [Ringers, Lactated] 1,000 ml Med 07/02/19 14:45 Active IV ASDIRECTED Sodium Chloride 0.9% [Saline Flush] Med 07/02/19 14:36 Active 10 ml FLUSH ASDIRECTED PRN Sodium Chloride 0.9% [Saline Flush] Med 07/02/19 15:16 Active 10 ml FLUSH ONETIME PRN Blood Culture x2 Reflex Set [OM.PC] Urgent Oth 07/02/19 17:59 Ordered Peripheral IV Insertion Adult [OM.PC] Urgent Oth 07/02/19 14:36 Ordered Resuscitation Status Routine Resus Stat 07/02/19 18:50 Ordered Medication Orders Lactated Ringer's (Ringers, Lactated) 1,000 mls @ 999 mls/hr IV ASDIRECTED ERICK Last Admin: 07/02/19 14:51 Dose: 999 mls/hr Sodium Chloride (Saline Flush) 10 ml FLUSH ASDIRECTED PRN PRN Reason: Keep Vein Open Last Admin: 07/02/19 14:47 Dose: 10 ml Sodium Chloride (Saline Flush) 10 ml FLUSH ONETIME PRN PRN Reason: PER RADIOLOGY PROTOCOL Last Admin: 07/02/19 15:35 Dose: 10 ml Assessment/Plan Comment:: ASSESSMENT AND PLAN RIGHT PYELONEPHRITIS-she presented to the emergency department with right flank and abdominal pain, nausea, and chills. Evaluation with CT scan shows evidence of right-sided pyelonephritis, possible abscess. CT reviewed by interventional radiology, they felt that she should be managed with antibiotics and plan for follow-up CT scan after antibiotics. No evidence of sepsis other than tachycardia noted on admission, likely secondary to pain and dehydration. Tachycardia has resolved. -Blood and urine cultures pending -Pain and nausea medications as needed -Ceftriaxone 1 g IV every 24 hours -Follow-up CT scan after antibiotic therapy to reassess area of potential abscess, consider CT scan sooner if she is not improving or appears to worsen. RECENT EPISODE OF PANCREATITIS-no evidence of pancreatitis noted on evaluation today, lipase level is normal and CT scan showed no evidence of pancreatic inflammation. MAINTENANCE ISSUES -DVT prophylaxis; SCUDs -GI prophylaxis; not indicated -[place] catheter; not indicated -Nutrition; regular diet -Nicotine dependence; not required CODE STATUS-FULL CODE ADMISSION STATUS-patient will be admitted to inpatient status, expect at least a 2 night hospital stay for evaluation and management of problems as outlined above. At the time of this admission I do not reasonably expected evaluation and management of this problem will require more than a 96 hour hospital stay. DISPOSITION-anticipate discharge to home after the hospital stay. PRIMARY CARE PROVIDER-Yocasta Biswas - Mortality Measure Prognosis:: Good
[2019-07-02] MEDS ORDERED: Polyethylene Glycol 3350 Powder 17 GM Packet PO PRN (19:15)
[2019-07-02] MEDS ORDERED: Acetaminophen 325 MG Tab PO PRN (19:15)
[2019-07-02] MEDS ORDERED: Albuterol 8 GM Inhaler INH PRN (19:15)
[2019-07-02] MEDS: HYDROmorphone 0.5 MG/0.5 ML Syringe IVPUSH PRN ×2 (19:41→21:58)
[2019-07-02] MEDS: Sodium Chloride 0.9% 1,000 ML IV SCH (19:44)
[2019-07-02] MEDS: Ondansetron 4 MG/2 ML SDV IV PRN (19:49)
[2019-07-02] MEDS: Calcium Carbonate 500 MG Tab.Chew PO SCH (21:58)
[2019-07-03] MEDS: HYDROmorphone 0.5 MG/0.5 ML Syringe IVPUSH PRN ×8 (00:36→21:18)
[2019-07-03] MEDS: Ondansetron 4 MG/2 ML SDV IV PRN ×5 (00:39→21:18)
[2019-07-03] MEDS: Sodium Chloride 0.9% 1,000 ML IV SCH ×2 (03:19→11:22)
[2019-07-03] MEDS: Amphetamine/Dextroamphetamine Salts 10 MG Tab PO SCH ×2 (07:53→15:57)
[2019-07-03] MEDS ORDERED: Multivitamins with Iron Tab.Chew PO SCH (09:00)
[2019-07-03] MEDS: Cholecalciferol (Vitamin D3) 25 MCG Tab PO SCH (09:53)
[2019-07-03] MEDS: Cyanocobalamin (Vitamin B12) 1,000 MCG Tab PO SCH (09:54)
[2019-07-03] MEDS: Calcium Carbonate 500 MG Tab.Chew PO SCH ×3 (09:54→21:11)
[2019-07-03] MEDS: Venlafaxine 37.5 MG Cap.ER PO SCH (09:54)
[2019-07-03] MEDS: Thiamine 100 MG Tab PO SCH (09:55)
--- NOTE | 2019-07-03 12:44 | PCM.PN ---
- General Info Date of Service: 07/03/19 Subjective Update: There were no acute events overnight. Pain is persistent but seems to be slowly improving. No significant nausea and she has been able to tolerate a diet. She has been up and walking around. She has not had any fevers. White blood cell count is now normal. Urine culture is growing a gram-negative kadi with identification pending. Functional Status: Reports: Pain Controlled, Tolerating Diet - Review of Systems General: Denies: Fever Genitourinary: Reports: Flank Pain - Patient Data Vitals - Most Recent: Last Vital Signs Temp 36.2 C 07/03/19 10:24 Pulse 91 07/03/19 10:24 Resp 18 07/03/19 10:24 BP 117/70 07/03/19 10:24 Pulse Ox 93 L 07/03/19 10:24 Weight - Most Recent: 49.895 kg I&O - Last 24 Hours: Intake & Output 07/02/19 07/03/19 07/03/19 22:59 06:59 14:59 Intake Total 100 1500 Output Total 200 500 600 Balance -100 1000 -600 Lab Results Last 24 Hours: Laboratory Results - last 24 hr 07/02/19 07/02/19 07/02/19 Range/Units 14:55 14:55 14:55 WBC 13.3 H (4.5-11.0) K/uL RBC 3.74 (3.30-5.50) M/uL Hgb 12.0 (12.0-15.0) g/dL Hct 36.5 (36.0-48.0) % MCV 98 (80-98) fL MCH 32 H (27-31) pg MCHC 33 (32-36) % Plt Count 401 H (150-400) K/uL Neut % (Auto) 78 H (36-66) % Lymph % (Auto) 14 L (24-44) % [place] % (Auto) 8 H (2-6) % Eos % (Auto) 0 L (2-4) % Baso % (Auto) 0 (0-1) % Sodium 136 L (140-148) mmol/L Potassium 4.0 (3.6-5.2) mmol/L Chloride 101 (100-108) mmol/L Carbon Dioxide 24 (21-32) mmol/L Anion Gap 15.0 H (5.0-14.0) mmol/L BUN 12 (7-18) mg/dL Creatinine 0.7 (0.6-1.0) mg/dL Est Cr Clr Drug Dosing 73.67 mL/min Estimated GFR (MDRD) > 60 (>60) Glucose 92 (74-106) mg/dL Lactic Acid 1.7 (0.4-2.0) mmol/L Calcium 8.5 (8.5-10.1) mg/dL Total Bilirubin 0.4 (0.2-1.0) mg/dL AST 14 L (15-37) U/L ALT 25 (12-78) U/L Alkaline Phosphatase 104 (46-116) U/L Troponin I (0.000-0.056) ng/mL Total Protein 7.0 (6.4-8.2) g/dL Albumin 3.2 L (3.4-5.0) g/dL Globulin 3.8 H (2.3-3.5) g/dL Albumin/Globulin Ratio 0.8 L (1.2-2.2) Triglycerides (15-150) mg/dL Lipase 221 (73-393) U/L Urine Color (YELLOW) Urine Appearance (CLEAR) Urine pH (5.0-8.0) Ur Specific [place] (1.008-1.030) Urine Protein (NEGATIVE) mg/dL Urine Glucose (UA) (NEGATIVE) mg/dL Urine Ketones (NEGATIVE) mg/dL Urine Occult Blood (NEGATIVE) Urine Nitrite (NEGATIVE) Urine Bilirubin (NEGATIVE) Urine Urobilinogen (0.2-1.0) EU/dL Ur Leukocyte Esterase (NEGATIVE) Urine RBC (0-5) Urine WBC (0-5) Ur Epithelial Cells Amorphous Sediment Urine Bacteria Urine Mucus Urine Opiates Screen (NEGATIVE) Ur Oxycodone Screen (NEGATIVE) Urine Methadone Screen (NEGATIVE) Ur Propoxyphene Screen (NEGATIVE) Ur Barbiturates Screen (NEGATIVE) Ur Tricyclics Screen (NEGATIVE) Ur Phencyclidine Scrn (NEGATIVE) Ur Amphetamine Screen (NEGATIVE) U Methamphetamines Scrn (NEGATIVE) Urine MDMA Screen (NEGATIVE) U Benzodiazepines Scrn (NEGATIVE) U Cocaine Metab Screen (NEGATIVE) U Marijuana (THC) Screen (NEGATIVE) Ethyl Alcohol mg/dL 04/05/20 04/05/20 04/05/20 Range/Units 14:55 14:55 15:28 WBC (4.5-11.0) K/uL RBC (3.30-5.50) M/uL Hgb (12.0-15.0) g/dL Hct (36.0-48.0) % MCV (80-98) fL MCH (27-31) pg MCHC (32-36) % Plt Count (150-400) K/uL Neut % (Auto) (36-66) % Lymph % (Auto) (24-44) % [place] % (Auto) (2-6) % Eos % (Auto) (2-4) % Baso % (Auto) (0-1) % Sodium (140-148) mmol/L Potassium (3.6-5.2) mmol/L Chloride (100-108) mmol/L Carbon Dioxide (21-32) mmol/L Anion Gap (5.0-14.0) mmol/L BUN (7-18) mg/dL Creatinine (0.6-1.0) mg/dL Est Cr Clr Drug Dosing mL/min Estimated GFR (MDRD) (>60) Glucose (74-106) mg/dL Lactic Acid (0.4-2.0) mmol/L Calcium (8.5-10.1) mg/dL Total Bilirubin (0.2-1.0) mg/dL AST (15-37) U/L ALT (12-78) U/L Alkaline Phosphatase (46-116) U/L Troponin I (0.000-0.056) ng/mL Total Protein (6.4-8.2) g/dL Albumin (3.4-5.0) g/dL Globulin (2.3-3.5) g/dL Albumin/Globulin Ratio (1.2-2.2) Triglycerides 83 (15-150) mg/dL Lipase (73-393) U/L Urine Color Yellow (YELLOW) Urine Appearance Slightly cloudy A (CLEAR) Urine pH 7.0 (5.0-8.0) Ur Specific [place] 1.025 (1.008-1.030) Urine Protein Negative (NEGATIVE) mg/dL Urine Glucose (UA) Negative (NEGATIVE) mg/dL Urine Ketones Negative (NEGATIVE) mg/dL Urine Occult Blood Trace-intact H (NEGATIVE) Urine Nitrite Positive H (NEGATIVE) Urine Bilirubin Negative (NEGATIVE) Urine Urobilinogen 2.0 H (0.2-1.0) EU/dL Ur Leukocyte Esterase Negative (NEGATIVE) Urine RBC 0-5 (0-5) Urine WBC 0-5 (0-5) Ur Epithelial Cells Few Amorphous Sediment Not seen Urine Bacteria Many Urine Mucus Not seen Urine Opiates Screen (NEGATIVE) Ur Oxycodone Screen (NEGATIVE) Urine Methadone Screen (NEGATIVE) Ur Propoxyphene Screen (NEGATIVE) Ur Barbiturates Screen (NEGATIVE) Ur Tricyclics Screen (NEGATIVE) Ur Phencyclidine Scrn (NEGATIVE) Ur Amphetamine Screen (NEGATIVE) U Methamphetamines Scrn (NEGATIVE) Urine MDMA Screen (NEGATIVE) U Benzodiazepines Scrn (NEGATIVE) U Cocaine Metab Screen (NEGATIVE) U Marijuana (THC) Screen (NEGATIVE) Ethyl Alcohol < 3 mg/dL 07/02/19 07/02/19 07/03/19 Range/Units 15:28 16:21 04:00 WBC 10.8 (4.5-11.0) K/uL RBC 3.30 (3.30-5.50) M/uL Hgb 10.3 L (12.0-15.0) g/dL Hct 32.8 L (36.0-48.0) % MCV 99 H (80-98) fL MCH 31 (27-31) pg MCHC 31 L (32-36) % Plt Count 340 (150-400) K/uL Neut % (Auto) 77 H (36-66) % Lymph % (Auto) 14 L (24-44) % [place] % (Auto) 8 H (2-6) % Eos % (Auto) 1 L (2-4) % Baso % (Auto) 0 (0-1) % Sodium (140-148) mmol/L Potassium (3.6-5.2) mmol/L Chloride (100-108) mmol/L Carbon Dioxide (21-32) mmol/L Anion Gap (5.0-14.0) mmol/L BUN (7-18) mg/dL Creatinine (0.6-1.0) mg/dL Est Cr Clr Drug Dosing mL/min Estimated GFR (MDRD) (>60) Glucose (74-106) mg/dL Lactic Acid (0.4-2.0) mmol/L Calcium (8.5-10.1) mg/dL Total Bilirubin (0.2-1.0) mg/dL AST (15-37) U/L ALT (12-78) U/L Alkaline Phosphatase (46-116) U/L Troponin I < 0.017 (0.000-0.056) ng/mL Total Protein (6.4-8.2) g/dL Albumin (3.4-5.0) g/dL Globulin (2.3-3.5) g/dL Albumin/Globulin Ratio (1.2-2.2) Triglycerides (15-150) mg/dL Lipase (73-393) U/L Urine Color (YELLOW) Urine Appearance (CLEAR) Urine pH (5.0-8.0) Ur Specific [place] (1.008-1.030) Urine Protein (NEGATIVE) mg/dL Urine Glucose (UA) (NEGATIVE) mg/dL Urine Ketones (NEGATIVE) mg/dL Urine Occult Blood (NEGATIVE) Urine Nitrite (NEGATIVE) Urine Bilirubin (NEGATIVE) Urine Urobilinogen (0.2-1.0) EU/dL Ur Leukocyte Esterase (NEGATIVE) Urine RBC (0-5) Urine WBC (0-5) Ur Epithelial Cells Amorphous Sediment Urine Bacteria Urine Mucus Urine Opiates Screen Presumptive positive H (NEGATIVE) Ur Oxycodone Screen Negative (NEGATIVE) Urine Methadone Screen Negative (NEGATIVE) Ur Propoxyphene Screen Negative (NEGATIVE) Ur Barbiturates Screen Negative (NEGATIVE) Ur Tricyclics Screen Presumptive positive H (NEGATIVE) Ur Phencyclidine Scrn Negative (NEGATIVE) Ur Amphetamine Screen Presumptive positive H (NEGATIVE) U Methamphetamines Scrn Negative (NEGATIVE) Urine MDMA Screen Negative (NEGATIVE) U Benzodiazepines Scrn Negative (NEGATIVE) U Cocaine Metab Screen Negative (NEGATIVE) U Marijuana (THC) Screen Negative (NEGATIVE) Ethyl Alcohol mg/dL 07/03/19 Range/Units 04:00 WBC (4.5-11.0) K/uL RBC (3.30-5.50) M/uL Hgb (12.0-15.0) g/dL Hct (36.0-48.0) % MCV (80-98) fL MCH (27-31) pg MCHC (32-36) % Plt Count (150-400) K/uL Neut % (Auto) (36-66) % Lymph % (Auto) (24-44) % [place] % (Auto) (2-6) % Eos % (Auto) (2-4) % Baso % (Auto) (0-1) % Sodium 131 L (140-148) mmol/L Potassium 3.8 (3.6-5.2) mmol/L Chloride 100 (100-108) mmol/L Carbon Dioxide 25 (21-32) mmol/L Anion Gap 9.8 (5.0-14.0) mmol/L BUN 7 (7-18) mg/dL Creatinine 0.6 (0.6-1.0) mg/dL Est Cr Clr Drug Dosing 85.94 mL/min Estimated GFR (MDRD) > 60 (>60) Glucose 132 H (74-106) mg/dL Lactic Acid (0.4-2.0) mmol/L Calcium 8.2 L (8.5-10.1) mg/dL Total Bilirubin (0.2-1.0) mg/dL AST (15-37) U/L ALT (12-78) U/L Alkaline Phosphatase (46-116) U/L Troponin I (0.000-0.056) ng/mL Total Protein (6.4-8.2) g/dL Albumin (3.4-5.0) g/dL Globulin (2.3-3.5) g/dL Albumin/Globulin Ratio (1.2-2.2) Triglycerides (15-150) mg/dL Lipase (73-393) U/L Urine Color (YELLOW) Urine Appearance (CLEAR) Urine pH (5.0-8.0) Ur Specific [place] (1.008-1.030) Urine Protein (NEGATIVE) mg/dL Urine Glucose (UA) (NEGATIVE) mg/dL Urine Ketones (NEGATIVE) mg/dL Urine Occult Blood (NEGATIVE) Urine Nitrite (NEGATIVE) Urine Bilirubin (NEGATIVE) Urine Urobilinogen (0.2-1.0) EU/dL Ur Leukocyte Esterase (NEGATIVE) Urine RBC (0-5) Urine WBC (0-5) Ur Epithelial Cells Amorphous Sediment Urine Bacteria Urine Mucus Urine Opiates Screen (NEGATIVE) Ur Oxycodone Screen (NEGATIVE) Urine Methadone Screen (NEGATIVE) Ur Propoxyphene Screen (NEGATIVE) Ur Barbiturates Screen (NEGATIVE) Ur Tricyclics Screen (NEGATIVE) Ur Phencyclidine Scrn (NEGATIVE) Ur Amphetamine Screen (NEGATIVE) U Methamphetamines Scrn (NEGATIVE) Urine MDMA Screen (NEGATIVE) U Benzodiazepines Scrn (NEGATIVE) U Cocaine Metab Screen (NEGATIVE) U Marijuana (THC) Screen (NEGATIVE) Ethyl Alcohol mg/dL [place] Results Last 24 Hours: Microbiology 07/02/19 16:03 Urine Culture - Preliminary Urine, Clean Catch Med Orders - Current: Current Medications Acetaminophen (Tylenol) 650 mg PO Q4H PRN PRN Reason: Pain (Mild 1-3)/fever Albuterol (Ventolin Hfa) 0 gm INH QID PRN PRN Reason: Wheezing Amphetamine/Dextroamphetamine (Adderall) 10 mg PO BID@0800,1600 [facility] Last Admin: 07/03/19 07:53 Dose: 10 mg Calcium Carbonate/Glycine (Tums) 500 mg PO TID [facility] Last Admin: 07/03/19 09:54 Dose: 500 mg Cholecalciferol (Vitamin D3) 125 mcg PO DAILY [facility] Last Admin: 07/03/19 09:53 Dose: 125 mcg Cyanocobalamin (Vitamin B12) 500 mcg PO DAILY [facility] Last Admin: 07/03/19 09:54 Dose: 500 mcg Hydromorphone HCl (Dilaudid) 0.5 mg IVPUSH Q2H PRN PRN Reason: Pain Last Admin: 07/03/19 12:08 Dose: 0.5 mg Ceftriaxone Sodium 1 gm/ (Sodium Chloride) 50 mls @ 100 mls/hr IV Q24H [facility] Sodium Chloride (Normal Saline) 1,000 mls @ 125 mls/hr IV ASDIRECTED [facility] Last Admin: 07/03/19 11:22 Dose: 125 mls/hr Ondansetron HCl (Zofran) 4 mg IV Q4H PRN PRN Reason: Nausea/Vomiting Last Admin: 07/03/19 10:17 Dose: 4 mg Polyethylene Glycol (Miralax) 17 gm PO DAILY PRN PRN Reason: Constipation Sodium Chloride (Saline Flush) 10 ml FLUSH ASDIRECTED PRN PRN Reason: Keep Vein Open Thiamine HCl (Vitamin B-1) 100 mg PO DAILY [facility] Last Admin: 07/03/19 09:55 Dose: 100 mg Venlafaxine HCl (Effexor Xr) 37.5 mg PO DAILY [facility] Last Admin: 07/03/19 09:54 Dose: 37.5 mg Discontinued Medications Hydromorphone HCl (Dilaudid) 1 mg IVPUSH ONETIME ONE Stop: 07/02/19 14:38 Last Admin: 07/02/19 14:47 Dose: 1 mg Hydromorphone HCl (Dilaudid) 0.5 mg IVPUSH ONETIME ONE Stop: 07/02/19 16:02 Last Admin: 07/02/19 16:06 Dose: 0.5 mg Lactated Ringer's (Ringers, Lactated) 1,000 mls @ 999 mls/hr IV ASDIRECTED [facility] Last Admin: 07/02/19 14:51 Dose: 999 mls/hr Sodium Chloride (Normal Saline) 70 mls @ 3 mls/sec IV ONETIME ONE Stop: 07/02/19 15:17 Last Admin: 07/02/19 15:35 Dose: 3 mls/sec Ceftriaxone Sodium 1 gm/ (Sodium Chloride) 50 mls @ 100 mls/hr IV ONETIME ONE Stop: 07/02/19 18:22 Last Admin: 07/02/19 18:28 Dose: 100 mls/hr Sodium Chloride (Normal Saline) Confirm Administered Dose 50 mls @ as directed .ROUTE .STK-MED ONE Stop: 07/02/19 18:08 Last Admin: 07/02/19 21:29 Dose: Not Given Iopamidol (Isovue-300 (61%)) 75 ml IV . DIRECTED PRN PRN Reason: RADIOLOGY EXAM Last Admin: 07/02/19 15:36 Dose: 75 ml Multivitamins/Iron (Child Chew Iron) 2 tab PO DAILY [facility] Last Admin: 07/03/19 09:59 Dose: Not Given Ondansetron HCl (Zofran) 4 mg IVPUSH ONETIME ONE Stop: 07/02/19 14:38 Last Admin: 07/02/19 14:47 Dose: 4 mg Sodium Chloride (Saline Flush) 10 ml FLUSH ASDIRECTED PRN PRN Reason: Keep Vein Open Last Admin: 07/02/19 14:47 Dose: 10 ml Sodium Chloride (Saline Flush) 10 ml FLUSH ONETIME PRN PRN Reason: PER RADIOLOGY PROTOCOL Last Admin: 07/02/19 15:35 Dose: 10 ml - Exam Quality Assessment: No: Supplemental Oxygen General: Alert, Oriented, Cooperative, No Acute Distress Lungs: Normal Respiratory Effort Cardiovascular: Regular Rate, Regular Rhythm GI/Abdominal Exam: Soft, No Distention Extremities: No Pedal Edema Psy/Mental Status: Alert, Normal Affect Sepsis Event Note - Evaluation Sepsis Screening Result: No Definite Risk - Focused Exam Vital Signs: Vital Signs Temp Pulse Resp BP BP Pulse Ox 07/03/19 10:24 36.2 C 91 18 117/70 93 L 07/03/19 07:00 37.3 C 106 H 18 103/70 98 07/03/19 03:00 35.8 C L 97 16 111/60 96 Date Exam was Performed: 07/03/19 Time Exam was Performed: 13:52 - Problem List Review Problem List Initiated/Reviewed/Updated: Yes - My Orders Last 24 Hours: My Active Orders 07/03/19 12:43 Acetaminophen/HYDROcodone [[place] 325-5 MG] 1 tab PO Q4H PRN 07/03/19 13:00 Sodium Chloride 0.9% [Normal Saline] 1,000 ml IV ASDIRECTED - Plan Plan:: ASSESSMENT AND PLAN RIGHT PYELONEPHRITIS-no fevers. Feeling a fair amount better today but still has moderate pain. Urine culture growing a gram-negative kadi with identification pending. -Follow-up cultures -Pain and nausea medications as needed -Ceftriaxone 1 g IV every 24 hours -Follow-up CT scan after antibiotic therapy (2 weeks) RECENT EPISODE OF PANCREATITIS-no evidence of pancreatitis noted on evaluation at the time of presentation. MAINTENANCE ISSUES -DVT prophylaxis; SCUDs -GI prophylaxis; not indicated -Sutton catheter; not indicated -Nutrition; regular diet DISPOSITION-anticipate discharge to home after the hospital stay. Darinel Leach MD
[2019-07-03] MEDS ORDERED: SUMAtriptan 50 MG Tab PO PRN (12:51)
[2019-07-03] MEDS: Acetaminophen/HYDROcodone 325-5 MG Tab PO PRN ×3 (12:54→22:53)
[2019-07-03] MEDS ORDERED: Sodium Chloride 0.9% 1,000 ML IV SCH (13:00)
[2019-07-03] MEDS ORDERED: cefTRIAXone 1 GM in Sodium Chloride 0.9% 50 ML IV SCH (17:00)
[2019-07-04] MEDS: Acetaminophen/HYDROcodone 325-5 MG Tab PO PRN ×3 (03:20→11:17)
[2019-07-04] MEDS: Amphetamine/Dextroamphetamine Salts 10 MG Tab PO SCH (07:37)
[2019-07-04 07:40] VITALS: BP 116/64; PULSE 87
[2019-07-04] MEDS: Cholecalciferol (Vitamin D3) 25 MCG Tab PO SCH (08:52)
[2019-07-04] MEDS: Cyanocobalamin (Vitamin B12) 1,000 MCG Tab PO SCH (08:52)
[2019-07-04] MEDS: Venlafaxine 37.5 MG Cap.ER PO SCH (08:53)
[2019-07-04] MEDS: Calcium Carbonate 500 MG Tab.Chew PO SCH (08:53)
[2019-07-04] MEDS: Thiamine 100 MG Tab PO SCH (08:53)
--- NOTE | 2019-07-04 10:37 | PCM.DCSUM1 ---
Discharge Summary - Hospital Course Brief History: 43-year-old female with history of gastric bypass surgery, iron deficiency anemia and recent acute pancreatitis who presented with right flank pain and fever. She was admitted for management of right-sided pyelonephritis with a possible renal abscess. Diagnosis: Stroke: No - Discharge Data Discharge Date: 07/04/19 Discharge Disposition: Home, Self-Care 01 Condition: Good - Referral to Home Health Primary Care Physician: ALEX Melton - Discharge Diagnosis/Problem(s) (1) Pyelonephritis SNOMED Code(s): 21629934 ICD Code: N12 - TUBULO-INTERSTITIAL NEPHRITIS, NOT SPCF ACUTE OR CHRONIC Status: Acute Problem Details: Right pyelonephritis with possible abscess (2) Bariatric surgery status SNOMED Code(s): 947585450, 771700608, [id number] ICD Code: Z98.84 - BARIATRIC SURGERY STATUS Status: Chronic - Patient Summary/Data Hospital Course: Yenni presented to the emergency room with flank pain and nausea. Work-up in the emergency room was consistent with pyelonephritis on the right side. There was question of a possible abscess noted on the CT scan. Cultures were obtained and she was started on ceftriaxone and admitted for further management. Over the next couple of days she had fairly rapid improvement. Her pain improved daily. Her nausea resolved fairly quickly. White blood cell count trended down. She has not had any fevers. She has been up and walking around without a significant increase in her pain. She has been tolerating a regular diet. Blood cultures have been negative. Urine culture grew out pansensitive E. coli. She feels well enough to go home at this point and I believe she is stable and safe for discharge at this time. She will be on oral antibiotics for 8 more days to complete a total of 10 days of antibiotic therapy. She will have a repeat CT scan several days after the antibiotics are complete to see if there is resolution of the abscess if one was indeed present since the CT scan was not definitive. - Patient Instructions Diet: Regular Diet as Tolerated Activity: As Tolerated Notify Provider of: Fever, Increased Pain, Nausea and/or Vomiting Other/Special Instructions: 1. You were in the hospital for management of right- sided pyelonephritis with a possible abscess in your kidney based on CT scan imaging. Your condition has been improving with antibiotic therapy. I do recommend ongoing antibiotic therapy with cephalexin (Keflex). Please take 500 mg twice daily for 8 more days. Your first dose will be due tonight. 2. Continue your other home medications as previously prescribed. 3. You should have a follow-up scan to ensure that if an abscess was indeed present in your right kidney that it has resolved. This should be scheduled on July 16 and your follow-up appointment can be scheduled the day after to get results. - Discharge Plan *PRESCRIPTION DRUG MONITORING PROGRAM REVIEWED*: Not Applicable *COPY OF PRESCRIPTION DRUG MONITORING REPORT IN PATIENT TORSTEN: Not Applicable Prescriptions/Med Rec: Acetaminophen/HYDROcodone [[place] 325-5 MG] 1 tab PO Q4H PRN #10 tablet PRN Reason: Pain (Moderate 4-6) cephALEXin [Keflex] 500 mg PO BID #16 cap Home Medications: Home Meds Albuterol Sulfate [Proair Hfa] 2 puff IH QID PRN 08/28/15 [History] Cyanocobalamin (Vitamin B12) [Vitamin B12] 500 mcg PO DAILY 08/28/15 [History] Venlafaxine HCl [Venlafaxine ER] 37.5 mg PO DAILY 01/03/18 [History] Cyanocobalamin (Vitamin B-12) [Cyanocobalamin Injection] 1,000 mcg IJ Q30D 03/20 [History] Dextroamphetamine/Amphetamine [Adderall 10 mg Tablet] 10 mg PO BID 03/20/19 [ History] EPINEPHrine [Epipen Jr 2-[place]] 0.15 mg IM ASDIRECTED PRN 03/20/19 [History] Ondansetron [Zofran Odt] 8 mg PO Q8H PRN 03/20/19 [History] ZOLMitriptan [Zomig] 5 mg PO ASDIRECTED PRN 03/20/19 [History] Pedi Multivit No.25/Folic Acid [[place] Multivit Chew Tab] 2 tab PO DAILY [History] Acetaminophen/HYDROcodone [[place] 325-5 MG] 1 tab PO Q4H PRN #10 tablet 07/04/19 [Rx] cephALEXin [Keflex] 500 mg PO BID #16 cap 07/04/19 [Rx] Oxygen Therapy Mode: Room Air Patient Handouts: Pyelonephritis, Adult, Cephalexin tablets or capsules Referrals: Michelle Biswas PA [Primary Care Provider] - 07/17/19 2:00 pm ([place] 15 minutes early for your appointment. Appointment at [facility] in [place]. F/U CT scan) - Discharge Summary/Plan Comment DC Time >30 min.: No - Patient Data Vitals - Most Recent: Last Vital Signs Temp 35.7 C L 07/04/19 07:00 Pulse 87 07/04/19 07:00 Resp 18 07/04/19 07:00 BP 116/64 07/04/19 07:00 Pulse Ox 97 07/04/19 07:00 Weight - Most Recent: 49.895 kg I&O - Last 24 hours: Intake & Output 07/03/19 07/04/19 07/04/19 22:59 06:59 14:59 Intake Total 1692 854 Output Total 500 1400 Balance 1192 -546 SABA Results - Last 24 hrs: Microbiology 07/02/19 16:03 Urine Culture - Final Urine, Clean Catch Escherichia Coli 07/02/19 14:45 Aerobic Blood Culture - Preliminary Blood - Arm, Right NO GROWTH AFTER 1 DAY Anaerobic Blood Culture - Preliminary NO GROWTH AFTER 1 DAY 07/02/19 14:55 Aerobic Blood Culture - Preliminary Blood - Arm, Right NO GROWTH AFTER 1 DAY Anaerobic Blood Culture - Preliminary NO GROWTH AFTER 1 DAY Med Orders - Current: Current Medications Acetaminophen (Tylenol) 650 mg PO Q4H PRN PRN Reason: Pain (Mild 1-3)/fever Hydrocodone Bitart/Acetaminophen ([place] 325-5 Mg) 1 tab PO Q4H PRN PRN Reason: Pain (moderate 4-6) Last Admin: 07/04/19 07:52 Dose: 1 tab Albuterol (Ventolin Hfa) 0 gm INH QID PRN PRN Reason: Wheezing Amphetamine/Dextroamphetamine (Adderall) 10 mg PO BID@0800,1600 [facility] Last Admin: 07/04/19 07:37 Dose: 10 mg Calcium Carbonate/Glycine (Tums) 500 mg PO TID [facility] Last Admin: 07/04/19 08:53 Dose: 500 mg Cholecalciferol (Vitamin D3) 125 mcg PO DAILY [facility] Last Admin: 07/04/19 08:52 Dose: 125 mcg Cyanocobalamin (Vitamin B12) 500 mcg PO DAILY [facility] Last Admin: 07/04/19 08:52 Dose: 500 mcg Hydromorphone HCl (Dilaudid) 0.5 mg IVPUSH Q4H PRN PRN Reason: Pain (severe 7-10) Last Admin: 07/03/19 21:18 Dose: 0.5 mg Ceftriaxone Sodium 1 gm/ (Sodium Chloride) 50 mls @ 100 mls/hr IV Q24H [facility] Last Admin: 07/03/19 16:09 Dose: 100 mls/hr Sodium Chloride (Normal Saline) 1,000 mls @ 50 mls/hr IV ASDIRECTED [facility] Last Admin: 07/03/19 21:26 Dose: 50 mls/hr Ondansetron HCl (Zofran) 4 mg IV Q4H PRN PRN Reason: Nausea/Vomiting Last Admin: 07/03/19 21:18 Dose: 4 mg Polyethylene Glycol (Miralax) 17 gm PO DAILY PRN PRN Reason: Constipation Sodium Chloride (Saline Flush) 10 ml FLUSH ASDIRECTED PRN PRN Reason: Keep Vein Open Sumatriptan Succinate (Imitrex) 50 mg PO DAILY PRN PRN Reason: migraine Thiamine HCl (Vitamin B-1) 100 mg PO DAILY [facility] Last Admin: 07/04/19 08:53 Dose: 100 mg Venlafaxine HCl (Effexor Xr) 37.5 mg PO DAILY [facility] Last Admin: 07/04/19 08:53 Dose: 37.5 mg Discontinued Medications Hydromorphone HCl (Dilaudid) 1 mg IVPUSH ONETIME ONE Stop: 07/02/19 14:38 Last Admin: 07/02/19 14:47 Dose: 1 mg Hydromorphone HCl (Dilaudid) 0.5 mg IVPUSH ONETIME ONE Stop: 07/02/19 16:02 Last Admin: 07/02/19 16:06 Dose: 0.5 mg Hydromorphone HCl (Dilaudid) 0.5 mg IVPUSH Q2H PRN PRN Reason: Pain Last Admin: 07/03/19 12:08 Dose: 0.5 mg Lactated Ringer's (Ringers, Lactated) 1,000 mls @ 999 mls/hr IV ASDIRECTED [facility] Last Admin: 07/02/19 14:51 Dose: 999 mls/hr Sodium Chloride (Normal Saline) 70 mls @ 3 mls/sec IV ONETIME ONE Stop: 07/02/19 15:17 Last Admin: 07/02/19 15:35 Dose: 3 mls/sec Ceftriaxone Sodium 1 gm/ (Sodium Chloride) 50 mls @ 100 mls/hr IV ONETIME ONE Stop: 07/02/19 18:22 Last Admin: 07/02/19 18:28 Dose: 100 mls/hr Sodium Chloride (Normal Saline) Confirm Administered Dose 50 mls @ as directed .ROUTE .STK-MED ONE Stop: 07/02/19 18:08 Last Admin: 07/02/19 21:29 Dose: Not Given Sodium Chloride (Normal Saline) 1,000 mls @ 125 mls/hr IV ASDIRECTED [facility] Last Admin: 07/03/19 11:22 Dose: 125 mls/hr Iopamidol (Isovue-300 (61%)) 75 ml IV . DIRECTED PRN PRN Reason: RADIOLOGY EXAM Last Admin: 07/02/19 15:36 Dose: 75 ml Multivitamins/Iron (Child Chew Iron) 2 tab PO DAILY [facility] Last Admin: 07/03/19 09:59 Dose: Not Given Ondansetron HCl (Zofran) 4 mg IVPUSH ONETIME ONE Stop: 07/02/19 14:38 Last Admin: 07/02/19 14:47 Dose: 4 mg Sodium Chloride (Saline Flush) 10 ml FLUSH ASDIRECTED PRN PRN Reason: Keep Vein Open Last Admin: 07/02/19 14:47 Dose: 10 ml Sodium Chloride (Saline Flush) 10 ml FLUSH ONETIME PRN PRN Reason: PER RADIOLOGY PROTOCOL Last Admin: 07/02/19 15:35 Dose: 10 ml - Exam Quality Assessment: Denies: Supplemental Oxygen General: Reports: Alert, Oriented, Cooperative, No Acute Distress Lungs: Reports: Normal Respiratory Effort GI/Abdominal Exam: Soft, No Distention Extremities: No Pedal Edema Psy/Mental Status: Reports: Alert, Normal Affect
== END 2019-07-04 11:32 | disposition home or self-care (01) | DRG 690 ==
LOC: JP.ED 14:01 → JP.MS 18:47
PROVIDERS: ADMIT Hospitalist; ATTEND Internal Medicine
DX: N12 Tubulo-interstitial nephritis, not specified as acute or chronic (principal); B96.20 Unspecified Escherichia coli [E. coli] as the cause of diseases classified elsewhere; D50.9 Iron deficiency anemia, unspecified; Z98.84 Bariatric surgery status; Z88.1 Allergy status to other antibiotic agents; Z88.0 Allergy status to penicillin; Z88.2 Allergy status to sulfonamides; Z79.899 Other long term (current) drug therapy
CPT/HCPCS: 36415; 74177; 80048; 80053; 80305-QW; 80307; 81001; 83605; 83690; 84478; 84484; 85025; 87040; 87086; 87088; 87186; 96361; 96365; 96375; 96376; 99285-25; A9270-GY; J0696; J1170; J2405; J7030; J7050; J7120; Q9967

== ENCOUNTER 2020-01-20 16:38 | Inpatient (IN) | payer OTHER, SELFPAY ==
[2020-01-20] MEDS ORDERED: Sodium Chloride 0.9% 10 ML Syringe FLUSH PRN (17:43)
[2020-01-20] MEDS ORDERED: HYDROmorphone 0.5 MG/0.5 ML Syringe IVPUSH ONE ×2 (17:46→18:19)
[2020-01-20] MEDS ORDERED: Ondansetron 4 MG/2 ML SDV IVPUSH ONE (17:46)
--- NOTE | 2020-01-20 17:53 | EDM.PDOC ---
ED HPI GENERAL MEDICAL PROBLEM - General Chief Complaint: Abdominal Pain Stated Complaint: STOMACH PAIN Time Seen by Provider: 01/20/20 17:33 Source of Information: Reports: Patient, RN Notes Reviewed, Significant Other History Limitations: Reports: No Limitations - History of Present Illness INITIAL COMMENTS - FREE TEXT/NARRATIVE: Yenni presents today with complaints of abdominal pain to the left upper abdomen with radiation to between the shoulder blades and to the sternum. She reports pain started at 1300 today and waxes/wanes. She describes the pain as stabbing and throbbing. At its worst it is 6-7/10, when it is mild it is 3- 4/10. She reports nausea with the pain and that it feels like it did when she has had pancreatitis in the past. Last bout of pancreatitis May-June 2019. She denies fever, chills, vomiting, diarrhea, constipation, change in bladder, SOB, chest pain, difficulty breathing or other concerns. She has not tried any OTC medications or treatments for her pain. History of pancreatitis, pyelonephritis, gastric bypass. Abdominal Pain Score (Numeric/FACES): 5 - Related Data Allergies Allergy/AdvReac Type Severity Reaction Status Date / Time ferumoxytol [From Feraheme] Allergy Severe Difficulty Verified 01/20/20 17:19 Breathing iron [From Venofer] Allergy Severe Anaphylactic Verified 01/20/20 17:19 Shock adhesive tape Allergy Other Verified 01/20/20 17:19 bacitracin Allergy Other Verified 01/20/20 17:19 [From Neosporin ([id number])] ciprofloxacin Allergy Rash Verified 01/20/20 17:19 fentanyl Allergy Itching Verified 01/20/20 17:19 neomycin Allergy Other Verified 01/20/20 17:19 [From Neosporin ([id number])] Penicillins Allergy Other Verified 01/20/20 17:19 pineapple Allergy Other Verified 01/20/20 17:19 polymyxin B Allergy Other Verified 01/20/20 17:19 [From Neosporin ([id number])] sulfamethoxazole AdvReac Other Verified 01/20/20 17:19 [From Bactrim] trimethoprim [From Bactrim] AdvReac Other Verified 01/20/20 17:19 Home Meds: Home Meds Albuterol Sulfate [Proair Hfa] 2 puff IH QID PRN 08/28/15 [History] Cyanocobalamin (Vitamin B12) [Vitamin B12] 500 mcg PO DAILY 08/28/15 [History] Venlafaxine HCl [Venlafaxine ER] 37.5 mg PO DAILY 01/03/18 [History] Cyanocobalamin (Vitamin B-12) [Cyanocobalamin Injection] 1,000 mcg IJ Q30D 03/20/19 [History] Dextroamphetamine/Amphetamine [Adderall 10 mg Tablet] 10 mg PO BID 03/20/19 [History] EPINEPHrine [Epipen Jr 2-Fransisco] 0.15 mg IM ASDIRECTED PRN 03/20/19 [History] ZOLMitriptan [Zomig] 5 mg PO ASDIRECTED PRN 03/20/19 [History] Pedi Multivit No.25/Folic Acid [Flintstones Multivit Chew Tab] 2 tab PO DAILY 06/26/19 [History] Acetaminophen/HYDROcodone [[place] 325-5 MG] 1 tab PO Q4H PRN #10 tablet 07/04/19 [Rx] Past Medical History Respiratory History: Reports: SOB, Other (See Below) Other Respiratory History: allergies, uses inhaler gets short of breath. 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: Musculoskeletal History: Reports: Fracture Other Musculoskeletal History: foot fx Neurological History: Reports: Migraines Psychiatric History: Reports: ADHD, Anxiety, Depression Hematologic History: Reports: B12 Deficiency, Blood Transfusion(s), Iron Deficiency - Infectious Disease History Infectious Disease History: Reports: Chicken Pox, Measles - Past Surgical History Head Surgeries/Procedures: Reports: None Respiratory Surgical History: Reports: None GI Surgical History: Reports: Bariatric Procedure, Cholecystectomy, Hernia Repair/Other, Other (See Below) Other GI Surgeries/Procedures: sbo Female Surgical History: Reports: Breast Implant, Hysterectomy Dermatological Surgical History: Reports: None Social & Family History - Family History Family Medical History: Noncontributory - Tobacco Use Tobacco Use Status *Q: Never Tobacco User - Caffeine Use Caffeine Use: Reports: None - Recreational Drug Use Recreational Drug Use: No ED ROS GENERAL - Review of Systems Review Of Systems: See Below Constitutional: Reports: No Symptoms HEENT: Reports: No Symptoms Respiratory: Reports: No Symptoms Cardiovascular: Reports: No Symptoms Endocrine: Reports: No Symptoms GI/Abdominal: Reports: Abdominal Pain, Nausea. Denies: Anorexia, Black Stool, Bloody Stool, Constipation, Diarrhea, Decreased Appetite, Difficulty Swallowing, Distension, Flatus, Hematemesis, Hematochezia, Melena, Vomiting : Reports: Flank Pain (right ). Denies: Dysuria, Frequency, Hematuria, Irregular Menses, Pain, Urgency, Urinary Retention Musculoskeletal: Reports: No Symptoms Skin: Reports: No Symptoms Neurological: Reports: No Symptoms Psychiatric: Reports: No Symptoms Hematologic/Lymphatic: Reports: No Symptoms Immunologic: Reports: No Symptoms ED EXAM, GI/ABD - Physical Exam Exam: See Below Exam Limited By: No Limitations General Appearance: Alert, WD/WN, Moderate Distress Eyes: Bilateral: Normal Appearance Ears: Normal External Exam, Normal Canal, Hearing Grossly Normal, Normal TMs Nose: Normal Inspection, Normal Mucosa, No Blood Throat/Mouth: Normal Inspection, Normal Lips, Normal Gums, Normal Oropharynx, Normal Voice, No Airway Compromise Head: Atraumatic, Normocephalic Neck: Normal Inspection, Supple, Non-Tender, Full Range of Motion. No: Lymphadenopathy (R), Lymphadenopathy (L) Respiratory/Chest: No Respiratory Distress, Lungs Clear, Normal Breath Sounds, No Accessory Muscle Use, Chest Non-Tender. No: Crackles, Rales, Rhonchi, Wheezing, Stridor, Accessory Muscle Use, Retractions, Splinting Cardiovascular: Normal Peripheral Pulses, Regular Rate, Rhythm, No Edema, No Gallop, No Murmur, No Rub GI/Abdominal Exam: Normal Bowel Sounds, Soft, No Organomegaly, No Distention, No Mass, Tender. No: Guarding, Rigid Back Exam: Normal Inspection, Full Range of Motion, CVA Tenderness (R). No: CVA Tenderness (L) Extremities: Normal Inspection, Normal Range of Motion, Non-Tender, No Pedal Edema, Normal Capillary Refill Neurological: Alert, Oriented, Normal Cognition, Normal Reflexes, No Motor/Sensory Deficits Psychiatric: Normal Affect, Normal Mood Skin Exam: Warm, Intact, Normal Color, No Rash, Diaphoretic Lymphatic: No Adenopathy #1 Interpretation EKG Date: 01/20/20 Time: 18:07 Rhythm: Other (sinus tachycardia) Rate (Beats/Min): 109 [place]: Normal P-Wave: Present QRS: Normal ST-T: Normal QT: Normal Comparison: NA - No Prior EKG Course - Vital Signs Last Recorded V/S: Last Vital Signs Temp 36.6 C 01/20/20 17:18 Pulse 104 H 01/20/20 18:45 Resp 16 01/20/20 18:45 BP 152/81 H 01/20/20 18:45 Pulse Ox 99 01/20/20 18:45 - Orders/Labs/Meds Orders: Active Orders 24 hr Category Date Time Status EKG Documentation Completion [RC] ASDIRECTED Care 01/20/20 17:45 Active CULTURE URINE [RM] Routine Lab 01/20/20 19:30 Ordered Sodium Chloride 0.9% [Normal Saline] 1,000 ml Med 01/20/20 18:00 Active IV ASDIRECTED Sodium Chloride 0.9% [Saline Flush] Med 01/20/20 17:43 Active 10 ml FLUSH ASDIRECTED PRN Saline Lock Insert [OM.PC] Routine Oth 01/20/20 17:43 Ordered EKG 12 Lead [EK] Routine Ther 01/20/20 17:43 Ordered Medication Orders Sodium Chloride (Normal Saline) 1,000 mls @ 999 mls/hr IV ASDIRECTED ERICK Last Admin: 01/20/20 17:59 Dose: 999 mls/hr Documented by: PREILOR Sodium Chloride (Saline Flush) 10 ml FLUSH ASDIRECTED PRN PRN Reason: Keep Vein Open Last Admin: 01/20/20 18:03 Dose: 10 ml Documented by: PREILOR Labs: Laboratory Tests 01/20/20 01/20/20 01/20/20 Range/Units 18:01 18:01 18:07 WBC 8.1 (4.5-11.0) K/uL RBC 4.57 (3.30-5.50) M/uL Hgb 12.5 D (12.0-15.0) g/dL Hct 40.3 (36.0-48.0) % MCV 88 (80-98) fL MCH 27 (27-31) pg MCHC 31 L (32-36) % Plt Count 287 (150-400) K/uL Neut % (Auto) 80 H (36-66) % Lymph % (Auto) 13 L (24-44) % [place] % (Auto) 6 (2-6) % Eos % (Auto) 1 L (2-4) % Baso % (Auto) 0 (0-1) % Sodium 136 L (140-148) mmol/L Potassium 4.0 (3.6-5.2) mmol/L Chloride 105 (100-108) mmol/L Carbon Dioxide 22 (21-32) mmol/L Anion Gap 13.0 (5.0-14.0) mmol/L BUN 15 D (7-18) mg/dL Creatinine 0.8 (0.6-1.0) mg/dL Est Cr Clr Drug Dosing 63.79 mL/min Estimated GFR (MDRD) > 60 (>60) Glucose 99 (74-106) mg/dL Calcium 8.6 (8.5-10.1) mg/dL Total Bilirubin 0.2 (0.2-1.0) mg/dL AST 78 H D (15-37) U/L ALT 40 (12-78) U/L Alkaline Phosphatase 105 (46-116) U/L C-Reactive Protein < 0.05 (0.0-0.3) mg/dL Total Protein 6.9 (6.4-8.2) g/dL Albumin 3.8 (3.4-5.0) g/dL Globulin 3.1 (2.3-3.5) g/dL Albumin/Globulin Ratio 1.2 (1.2-2.2) Amylase 463 H D (25-115) U/L Lipase 6454 H (73-393) U/L Urine Color Yellow (YELLOW) Urine Appearance Clear (CLEAR) Urine pH 6.0 (5.0-8.0) Ur Specific [place] 1.025 (1.008-1.030) Urine Protein Negative (NEGATIVE) mg/dL Urine Glucose (UA) Negative (NEGATIVE) mg/dL Urine Ketones Negative (NEGATIVE) mg/dL Urine Occult Blood Trace-intact H (NEGATIVE) Urine Nitrite Positive H (NEGATIVE) Urine Bilirubin Negative (NEGATIVE) Urine Urobilinogen 0.2 (0.2-1.0) EU/dL Ur Leukocyte Esterase Negative (NEGATIVE) Urine RBC Not seen (0-5) Urine WBC 0-5 (0-5) Ur Epithelial Cells Few Urine Bacteria Many Noted AMylase 463 Lipase 6454 Neutrophils 80 AST 78 Nitrites + urine, many bacteria Acute pancreatitis, acute urinary tract infection Ongoing pain management, IV ceftriaxone 1g, patient will be admitted inpatient to [facility] Meds: Medications Generic Name Dose Route Start Last Admin Trade Name Freq PRN Reason Stop Dose Admin Sodium Chloride 1,000 mls @ 999 mls/hr 01/20/20 18:00 01/20/20 17:59 Normal Saline IV 999 mls/hr ASDIRECTED ERICK Administration Sodium Chloride 10 ml 01/20/20 17:43 01/20/20 18:03 Saline Flush FLUSH 10 ml ASDIRECTED PRN Administration Keep Vein Open Discontinued Medications Generic Name Dose Route Start Last Admin Trade Name Freq PRN Reason Stop Dose Admin Hydromorphone HCl 0.5 mg 01/20/20 17:46 01/20/20 18:01 Dilaudid IVPUSH 01/20/20 17:47 0.5 mg ONETIME ONE Administration Hydromorphone HCl 0.5 mg 01/20/20 18:19 01/20/20 18:27 Dilaudid IVPUSH 01/20/20 18:20 0.5 mg ONETIME ONE Administration Ceftriaxone Sodium 1 gm/ 50 mls @ 100 mls/hr 01/20/20 18:42 01/20/20 18:59 Sodium Chloride IV 01/20/20 19:11 100 mls/hr ONETIME ONE Administration Ketorolac Tromethamine 30 mg 01/20/20 18:31 01/20/20 18:41 Toradol IVPUSH 01/20/20 18:32 30 mg ONETIME ONE Administration Ondansetron HCl 4 mg 01/20/20 17:46 01/20/20 18:00 Zofran IVPUSH 01/20/20 17:47 4 mg ONETIME ONE Administration - Re-Assessments/Exams Free Text/Narrative Re-Assessment/Exam: 01/20/20 19:03 Dr. Leach here to admit patient. Departure - Departure Time of Disposition: 19:03 Disposition: Admitted As Inpatient 65 Clinical Impression: Abdominal pain, Acute urinary tract infection Acute pancreatitis Qualifiers: Pancreatitis type: idiopathic Acute pancreatitis complication: unspecified Qualified Code(s): K85.00 - Idiopathic acute pancreatitis without necrosis or infection - Discharge Information Referrals: Michelle Biswas PA [Primary Care Provider] - Forms: ED Department Discharge Sepsis Event Note (ED) - Evaluation Sepsis Screening Result: No Definite Risk - Focused Exam Vital Signs: Vital Signs Temp Pulse Resp BP Pulse Ox 01/20/20 18:45 104 H 16 152/81 H 99 01/20/20 18:17 105 H 18 153/89 H 97 01/20/20 17:18 36.6 C 109 H 16 148/66 H 98 01/20/20 17:01 36.6 C 109 H 16 148/66 H 98 - My Orders Last 24 Hours: My Active Orders 01/20/20 17:43 Sodium Chloride 0.9% [Saline Flush] 10 ml FLUSH ASDIRECTED PRN Saline Lock Insert [OM.PC] Routine EKG 12 Lead [EK] Routine 01/20/20 17:45 EKG Documentation Completion [RC] ASDIRECTED 01/20/20 18:00 Sodium Chloride 0.9% [Normal Saline] 1,000 ml IV ASDIRECTED - Assessment/Plan Last 24 Hours: My Active Orders 01/20/20 17:43 Sodium Chloride 0.9% [Saline Flush] 10 ml FLUSH ASDIRECTED PRN Saline Lock Insert [OM.PC] Routine EKG 12 Lead [EK] Routine 01/20/20 17:45 EKG Documentation Completion [RC] ASDIRECTED 01/20/20 18:00 Sodium Chloride 0.9% [Normal Saline] 1,000 ml IV ASDIRECTED Assessment:: Abdominal pain Acute pancreatitis Acute urinary tract infection Plan: Patient will be admitted inpatient per Dr. Leach hospitalist [facility]
[2020-01-20] MEDS ORDERED: Sodium Chloride 0.9% 1,000 ML IV SCH (18:00)
[2020-01-20] MEDS ORDERED: Ketorolac 30 MG/ML SDV IVPUSH ONE (18:31)
[2020-01-20] MEDS ORDERED: cefTRIAXone 1 GM in Sodium Chloride 0.9% 50 ML IV ONE (18:42)
--- NOTE | 2020-01-20 19:40 | PCM.HP.2 ---
H&P History of Present Illness - General Date of Service: 01/20/20 Admit Problem/Dx: Admission Diagnosis/Problem Admission Diagnosis/Problem Acute pancreatitis Source of Information: Patient, Family, Provider, RN Notes Reviewed History Limitations: Reports: No Limitations - History of Present Illness Initial Comments - Free Text/Narative: CC: I've been better HPI: Yenni presents to the emergency room today with fairly acute onset of epigastric abdominal pain. She does report some difficulty with some mild intermittent back pains over the past 2 weeks that she attributed to working a little harder physically than she normally does. These pains persisted but did not bother her much. About lunchtime today she developed fairly acute onset of moderate to moderately severe epigastric pain. The pain radiated through to her back between the shoulder blades and also down into the flank area. Pain was wavelike and did come and go but never went away. This was a sharp pain. She did try some acetaminophen but this did not help. No obvious trigger to make things worse. She had been eating and drinking okay until today and has not had much of anything to eat or drink today. Bowels have been regular. She has some nausea but no vomiting. No fevers or sick contacts. No significant shortness of breath. She does not report significant dysuria or urinary frequency. Work-up in the emergency room was suggestive of acute pancreatitis with a lipase level of more than 6000. There is also suggestion of a urinary tract infection. She will be admitted for further management of both of these conditions. Abdominal Pain Score (Numeric/FACES): 5 - Related Data Allergies/Adverse Reactions: Allergies Allergy/AdvReac Type Severity Reaction Status Date / Time ferumoxytol [From Feraheme] Allergy Severe Difficulty Verified 01/20/20 17:19 Breathing iron [From Venofer] Allergy Severe Anaphylactic Verified 01/20/20 17:19 Shock adhesive tape Allergy Other Verified 01/20/20 17:19 bacitracin Allergy Other Verified 01/20/20 17:19 [From Neosporin ([id number])] ciprofloxacin Allergy Rash Verified 01/20/20 17:19 fentanyl Allergy Itching Verified 01/20/20 17:19 neomycin Allergy Other Verified 01/20/20 17:19 [From Neosporin ([id number])] Penicillins Allergy Other Verified 01/20/20 17:19 pineapple Allergy Other Verified 01/20/20 17:19 polymyxin B Allergy Other Verified 01/20/20 17:19 [From Neosporin ([id number])] sulfamethoxazole AdvReac Other Verified 01/20/20 17:19 [From Bactrim] trimethoprim [From Bactrim] AdvReac Other Verified 01/20/20 17:19 Home Medications: Home Meds Albuterol Sulfate [Proair Hfa] 2 puff IH QID PRN 08/28/15 [History] Cyanocobalamin (Vitamin B12) [Vitamin B12] 500 mcg PO DAILY 08/28/15 [History] Venlafaxine HCl [Venlafaxine ER] 37.5 mg PO DAILY 01/03/18 [History] Cyanocobalamin (Vitamin B-12) [Cyanocobalamin Injection] 1,000 mcg IJ Q30D 03/20/19 [History] Dextroamphetamine/Amphetamine [Adderall 10 mg Tablet] 10 mg PO BID 03/20/19 [History] EPINEPHrine [Epipen Jr 2-Frans[place]] 0.15 mg IM ASDIRECTED PRN 03/20/19 [History] ZOLMitriptan [Zomig] 5 mg PO ASDIRECTED PRN 03/20/19 [History] Pedi Multivit No.25/Folic Acid [Flintstones Multivit Chew Tab] 2 tab PO DAILY 06/26/19 [History] Acetaminophen/HYDROcodone [[place] 325-5 MG] 1 tab PO Q4H PRN #10 tablet 07/04/19 [Rx] Past Medical History Respiratory History: Reports: SOB, Other (See Below) Other Respiratory History: allergies, uses inhaler gets short of breath. 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 History: Reports: Fracture Other Musculoskeletal History: foot fx Neurological History: Reports: Migraines Psychiatric History: Reports: ADHD, Anxiety, Depression Hematologic History: Reports: B12 Deficiency, Blood Transfusion(s), Iron Deficiency - Infectious Disease History Infectious Disease History: Reports: Chicken Pox, Measles - Past Surgical History Head Surgeries/Procedures: Reports: None Respiratory Surgical History: Reports: None GI Surgical History: Reports: Bariatric Procedure, Cholecystectomy, Hernia Repair/Other, Other (See Below) Other GI Surgeries/Procedures: sbo Female Surgical History: Reports: Breast Implant, Hysterectomy Dermatological Surgical History: Reports: None Social & Family History - Family History Family Medical History: Noncontributory - Tobacco Use Tobacco Use Status *Q: Never Tobacco User - Caffeine Use Caffeine Use: Reports: None - Alcohol Use Alcohol Use History: No - Recreational Drug Use Recreational Drug Use: No H&P Review of Systems - Review of Systems: Review Of Systems: See Below Free Text/Narrative: A complete 12 point review of systems was obtained. Pertinent positives and negatives are noted in the history of present illness. All other systems were reviewed and were negative except as noted. Exam - Exam Exam: See Below - Vital Signs Vital Signs: Last Vital Signs Temp 36.6 C 01/20/20 17:18 Pulse 104 H 01/20/20 18:45 Resp 16 01/20/20 18:45 BP 152/81 H 01/20/20 18:45 Pulse Ox 99 01/20/20 18:45 Weight: 49.895 kg - Exam Quality Assessment: No: Supplemental Oxygen General: Alert, Oriented, Cooperative, Mild Distress HEENT: Conjunctiva Clear. No: Mucosa Moist & [place] (dry), Scleral Icterus Neck: Supple, Trachea Midline. No: Lymphadenopathy Lungs: Clear to Auscultation, Normal Respiratory Effort Cardiovascular: Regular Rhythm, Tachycardia. No: Systolic Murmur GI/Abdominal Exam: Normal Bowel Sounds, Soft, No Distention, Tender (moderate diffuse, severe epigastric ). No: Guarding, Rigid Back Exam: Normal Inspection, Full Range of Motion Extremities: No Pedal Edema. No: Increased Warmth Peripheral Pulses: 2+: Dorsalis Pedis (L), Dorsalis Pedis (R) Skin: Warm, Dry Neuro Extensive - Mental Status: Alert, Oriented x3, Nl Response to Commands Neuro Extensive - Motor, Sensory, Reflexes: No: Dysarthria, Abnormal Motor, Tremor Psychiatric: Alert, Normal Affect - Patient Data Lab Results Last 24 hrs: Laboratory Results - last 24 hr 01/20/20 01/20/20 01/20/20 Range/Units 18:01 18:01 18:07 WBC 8.1 (4.5-11.0) K/uL RBC 4.57 (3.30-5.50) M/uL Hgb 12.5 D (12.0-15.0) g/dL Hct 40.3 (36.0-48.0) % MCV 88 (80-98) fL MCH 27 (27-31) pg MCHC 31 L (32-36) % Plt Count 287 (150-400) K/uL Neut % (Auto) 80 H (36-66) % Lymph % (Auto) 13 L (24-44) % [place] % (Auto) 6 (2-6) % Eos % (Auto) 1 L (2-4) % Baso % (Auto) 0 (0-1) % Sodium 136 L (140-148) mmol/L Potassium 4.0 (3.6-5.2) mmol/L Chloride 105 (100-108) mmol/L Carbon Dioxide 22 (21-32) mmol/L Anion Gap 13.0 (5.0-14.0) mmol/L BUN 15 D (7-18) mg/dL Creatinine 0.8 (0.6-1.0) mg/dL Est Cr Clr Drug Dosing 63.79 mL/min Estimated GFR (MDRD) > 60 (>60) Glucose 99 (74-106) mg/dL Calcium 8.6 (8.5-10.1) mg/dL Total Bilirubin 0.2 (0.2-1.0) mg/dL AST 78 H D (15-37) U/L ALT 40 (12-78) U/L Alkaline Phosphatase 105 (46-116) U/L C-Reactive Protein < 0.05 (0.0-0.3) mg/dL Total Protein 6.9 (6.4-8.2) g/dL Albumin 3.8 (3.4-5.0) g/dL Globulin 3.1 (2.3-3.5) g/dL Albumin/Globulin Ratio 1.2 (1.2-2.2) Amylase 463 H D (25-115) U/L Lipase 6454 H (73-393) U/L Urine Color Yellow (YELLOW) Urine Appearance Clear (CLEAR) Urine pH 6.0 (5.0-8.0) Ur Specific [place] 1.025 (1.008-1.030) Urine Protein Negative (NEGATIVE) mg/dL Urine Glucose (UA) Negative (NEGATIVE) mg/dL Urine Ketones Negative (NEGATIVE) mg/dL Urine Occult Blood Trace-intact H (NEGATIVE) Urine Nitrite Positive H (NEGATIVE) Urine Bilirubin Negative (NEGATIVE) Urine Urobilinogen 0.2 (0.2-1.0) EU/dL Ur Leukocyte Esterase Negative (NEGATIVE) Urine RBC Not seen (0-5) Urine WBC 0-5 (0-5) Ur Epithelial Cells Few Urine Bacteria Many Result Diagrams: 01/20/20 18:01 01/20/20 18:01 #1 Interpretation EKG Date: 01/20/20 Rhythm: NSR Rate (Beats/Min): 109 [place]: Normal P-Wave: Present QRS: Normal ST-T: Normal QT: Normal Comparison: No Change EKG Interpretation Comments: the EKG image was personally reviewed Sepsis Event Note - Evaluation Sepsis Screening Result: No Definite Risk - Focused Exam Vital Signs: Vital Signs Temp Pulse Resp BP Pulse Ox 01/20/20 18:45 104 H 16 152/81 H 99 01/20/20 18:17 105 H 18 153/89 H 97 01/20/20 17:18 36.6 C 109 H 16 148/66 H 98 01/20/20 17:01 36.6 C 109 H 16 148/66 H 98 *Q Meaningful Use (ADM) - VTE Risk Assess *Q Each Risk Factor Represents 1 Point: Age 41 - 59 years Total Score 1 Point Risk Factors: 1 Each Risk Factor Represents 2 Points: None Total Score 2 Point Risk Factors: 0 Each Risk Factor Represents 3 Points: None Total Score 3 Point Risk Factors: 0 Each Risk Factor Represents 5 Points: None Total Score 5 Point Risk Factors: 0 Venous Thromboembolism Risk Factor Score *Q: 1 - Problem List (1) Acute pancreatitis SNOMED Code(s): 694937192 ICD Code: K85.90 - ACUTE PANCREATITIS WITHOUT NECROSIS OR INFECTION, UNSP Status: Acute Current Visit: Yes Onset Date: ~06/26/19 Problem Details: Qualifiers: Pancreatitis type: idiopathic Acute pancreatitis complication: unspecified Qualified Code(s): K85.00 - Idiopathic acute pancreatitis without necrosis or infection (2) Acute urinary tract infection SNOMED Code(s): 123833169 ICD Code: N39.0 - URINARY TRACT INFECTION, SITE NOT SPECIFIED Status: Acute Current Visit: Yes Problem List Initiated/Reviewed/Updated: Yes Orders Last 24hrs: Active Orders 24 hr Category Date Time Status Patient Status Manage Transfer [TRANSFER] Routine ADT 01/20/20 19:30 Ordered EKG Documentation Completion [RC] ASDIRECTED Care 01/20/20 17:45 Active CULTURE URINE [RM] Routine Lab 01/20/20 19:33 Received Sodium Chloride 0.9% [Normal Saline] 1,000 ml Med 01/20/20 18:00 Active IV ASDIRECTED Sodium Chloride 0.9% [Saline Flush] Med 01/20/20 17:43 Active 10 ml FLUSH ASDIRECTED PRN Saline Lock Insert [OM.PC] Routine Oth 01/20/20 17:43 Ordered Resuscitation Status Routine Resus Stat 01/20/20 19:32 Ordered EKG 12 Lead [EK] Routine Ther 01/20/20 17:43 Ordered Medication Orders Sodium Chloride (Normal Saline) 1,000 mls @ 999 mls/hr IV ASDIRECTED ERICK Last Admin: 01/20/20 17:59 Dose: 999 mls/hr Documented by: PREILOR Sodium Chloride (Saline Flush) 10 ml FLUSH ASDIRECTED PRN PRN Reason: Keep Vein Open Last Admin: 01/20/20 18:03 Dose: 10 ml Documented by: PREILOR Assessment/Plan Comment:: ASSESSMENT AND PLAN - Acute idiopathic pancreatitis-previous imaging has not revealed a cause for the pancreatitis. Acute onset this afternoon. Lipase level more than 6000. Not able to take anything in by mouth other than a few ice chips at this time. -IV fluids -Pain control -Nausea management -Repeat labs in the morning -Consider advanced imaging if not improving Acute cystitis without hematuria-no impressive symptoms but urine suggestive of infection. -Empiric ceftriaxone -Follow-up urine culture Hx of iron deficiency anemia-hemoglobin currently normal and pulmonary symptoms resolved following recent blood transfusion. Maintenance issues - - DVT prophylaxis - mechanical - GI prophylaxis - PPI - Nutrition - NPO except ice chips - Sutton catheter - not indicated CODE STATUS - FULL Admission justification -this patient will be admitted for inpatient services and is medically appropriate meeting medical necessity for inpatient admission as outlined in my documentation. I reasonably expect the patient will require inpatient services that span a period time over 2 midnights. I reasonably expect this patient to be discharged or transferred within 96 hours [facility]. Disposition - I anticipate discharge home after the hospital stay Primary care physician - Yocasta Leach M.D. - Mortality Measure Prognosis:: Good
[2020-01-20] MEDS ORDERED: Melatonin 3 MG Tab PO PRN (20:09)
[2020-01-20] MEDS ORDERED: Magnesium Hydroxide 400 MG/5 ML Susp 30 ML Cup PO PRN (20:09)
[2020-01-20] MEDS ORDERED: LORazepam 2 MG/ML SDV IVPUSH PRN (20:09)
[2020-01-20] MEDS ORDERED: Amphetamine/Dextroamphetamine Salts 10 MG Tab PO SCH (21:00)
[2020-01-20] MEDS: HYDROmorphone 1 MG/ML Syringe IVPUSH PRN (21:19)
[2020-01-20] MEDS: Pantoprazole 40 MG Vial IV SCH (21:22)
[2020-01-21] MEDS: HYDROmorphone 1 MG/ML Syringe IVPUSH PRN ×5 (00:18→23:12)
[2020-01-21] MEDS: Ketorolac 30 MG/ML SDV IVPUSH PRN ×4 (00:20→23:53)
[2020-01-21] MEDS: Ondansetron 4 MG/2 ML SDV IV PRN ×4 (00:26→23:12)
[2020-01-21] MEDS: Sodium Chloride 0.9% 1,000 ML IV SCH ×3 (04:53→13:33)
[2020-01-21] MEDS: Multivitamins with Iron Tab.Chew PO SCH (08:25)
[2020-01-21] MEDS: Cyanocobalamin (Vitamin B12) 1,000 MCG Tab PO SCH (08:39)
[2020-01-21] MEDS: Venlafaxine 37.5 MG Cap.ER PO SCH (08:41)
[2020-01-21] MEDS: Amphetamine/Dextroamphetamine Salts 10 MG Tab PO SCH ×2 (08:50→13:24)
[2020-01-21] MEDS: Acetaminophen 325 MG Tab PO PRN (10:57)
--- NOTE | 2020-01-21 11:41 | PCM.PN ---
- General Info Date of Service: 01/21/20 Subjective Update: No acute events overnight. Pain has been better controlled overnight though it starting to rise again. No significant nausea and overall she feels better today. She was able to walk in the hallway. She is tolerating ice chips. Lipase level is much better today but her AST and ALT have jumped compared to yesterday. No diarrhea. Functional Status: Reports: Pain Controlled - Review of Systems General: Denies: Fever Gastrointestinal: Reports: Abdominal Pain, Nausea - Patient Data Vitals - Most Recent: Last Vital Signs Temp 36.1 C 01/21/20 08:00 Pulse 73 01/21/20 11:22 Resp 16 01/21/20 11:22 BP 111/60 01/21/20 11:22 Pulse Ox 97 01/21/20 11:22 Weight - Most Recent: 50.349 kg I&O - Last 24 Hours: Intake & Output 01/20/20 01/21/20 01/21/20 22:59 06:59 14:59 Intake Total 1000 Output Total 450 500 Balance 550 -500 Lab Results Last 24 Hours: Laboratory Results - last 24 hr 01/20/20 01/20/20 01/20/20 Range/Units 18:01 18:01 18:07 WBC 8.1 (4.5-11.0) K/uL RBC 4.57 (3.30-5.50) M/uL Hgb 12.5 D (12.0-15.0) g/dL Hct 40.3 (36.0-48.0) % MCV 88 (80-98) fL MCH 27 (27-31) pg MCHC 31 L (32-36) % Plt Count 287 (150-400) K/uL Neut % (Auto) 80 H (36-66) % Lymph % (Auto) 13 L (24-44) % [place] % (Auto) 6 (2-6) % Eos % (Auto) 1 L (2-4) % Baso % (Auto) 0 (0-1) % Sodium 136 L (140-148) mmol/L Potassium 4.0 (3.6-5.2) mmol/L Chloride 105 (100-108) mmol/L Carbon Dioxide 22 (21-32) mmol/L Anion Gap 13.0 (5.0-14.0) mmol/L BUN 15 D (7-18) mg/dL Creatinine 0.8 (0.6-1.0) mg/dL Est Cr Clr Drug Dosing 63.79 mL/min Estimated GFR (MDRD) > 60 (>60) Glucose 99 (74-106) mg/dL Calcium 8.6 (8.5-10.1) mg/dL Total Bilirubin 0.2 (0.2-1.0) mg/dL AST 78 H D (15-37) U/L ALT 40 (12-78) U/L Alkaline Phosphatase 105 (46-116) U/L C-Reactive Protein < 0.05 (0.0-0.3) mg/dL Total Protein 6.9 (6.4-8.2) g/dL Albumin 3.8 (3.4-5.0) g/dL Globulin 3.1 (2.3-3.5) g/dL Albumin/Globulin Ratio 1.2 (1.2-2.2) Amylase 463 H D (25-115) U/L Lipase 6454 H (73-393) U/L Urine Color Yellow (YELLOW) Urine Appearance Clear (CLEAR) Urine pH 6.0 (5.0-8.0) Ur Specific [place] 1.025 (1.008-1.030) Urine Protein Negative (NEGATIVE) mg/dL Urine Glucose (UA) Negative (NEGATIVE) mg/dL Urine Ketones Negative (NEGATIVE) mg/dL Urine Occult Blood Trace-intact H (NEGATIVE) Urine Nitrite Positive H (NEGATIVE) Urine Bilirubin Negative (NEGATIVE) Urine Urobilinogen 0.2 (0.2-1.0) EU/dL Ur Leukocyte Esterase Negative (NEGATIVE) Urine RBC Not seen (0-5) Urine WBC 0-5 (0-5) Ur Epithelial Cells Few Urine Bacteria Many 01/21/20 01/21/20 Range/Units 05:49 05:49 WBC 3.3 L (4.5-11.0) K/uL RBC 3.96 (3.30-5.50) M/uL Hgb 10.8 L (12.0-15.0) g/dL Hct 35.6 L (36.0-48.0) % MCV 90 (80-98) fL MCH 27 (27-31) pg MCHC 30 L (32-36) % Plt Count 203 (150-400) K/uL Neut % (Auto) (36-66) % Lymph % (Auto) (24-44) % [place] % (Auto) (2-6) % Eos % (Auto) (2-4) % Baso % (Auto) (0-1) % Sodium 138 L (140-148) mmol/L Potassium 4.0 (3.6-5.2) mmol/L Chloride 107 (100-108) mmol/L Carbon Dioxide 25 (21-32) mmol/L Anion Gap 10.0 (5.0-14.0) mmol/L BUN 10 (7-18) mg/dL Creatinine 0.6 (0.6-1.0) mg/dL Est Cr Clr Drug Dosing 85.05 mL/min Estimated GFR (MDRD) > 60 (>60) Glucose 97 (74-106) mg/dL Calcium 7.6 L (8.5-10.1) mg/dL Total Bilirubin 0.2 (0.2-1.0) mg/dL AST 600 H D (15-37) U/L ALT 277 H (12-78) U/L Alkaline Phosphatase 147 H (46-116) U/L C-Reactive Protein (0.0-0.3) mg/dL Total Protein 5.2 L (6.4-8.2) g/dL Albumin 2.7 L (3.4-5.0) g/dL Globulin 2.5 (2.3-3.5) g/dL Albumin/Globulin Ratio 1.1 L (1.2-2.2) Amylase (25-115) U/L Lipase 908 H (73-393) U/L Urine Color (YELLOW) Urine Appearance (CLEAR) Urine pH (5.0-8.0) Ur Specific [place] (1.008-1.030) Urine Protein (NEGATIVE) mg/dL Urine Glucose (UA) (NEGATIVE) mg/dL Urine Ketones (NEGATIVE) mg/dL Urine Occult Blood (NEGATIVE) Urine Nitrite (NEGATIVE) Urine Bilirubin (NEGATIVE) Urine Urobilinogen (0.2-1.0) EU/dL Ur Leukocyte Esterase (NEGATIVE) Urine RBC (0-5) Urine WBC (0-5) Ur Epithelial Cells Urine Bacteria Osmani Results Last 24 Hours: Microbiology 01/20/20 19:33 Urine Culture - Preliminary Urine, Clean Catch Med Orders - Current: Current Medications Acetaminophen (Tylenol) 650 mg PO Q4H PRN PRN Reason: Pain (Mild 1-3)/fever Last Admin: 01/21/20 10:57 Dose: 650 mg Documented by: Amphetamine/Dextroamphetamine (Adderall) 10 mg PO BID@0800,1400 [facility] Last Admin: 01/21/20 08:50 Dose: 10 mg Documented by: Cyanocobalamin (Vitamin B12) 500 mcg PO DAILY [facility] Last Admin: 01/21/20 08:39 Dose: 500 mcg Documented by: Hydromorphone HCl (Dilaudid) 1 mg IVPUSH Q2H PRN PRN Reason: Pain Last Admin: 01/21/20 03:42 Dose: 1 mg Documented by: Sodium Chloride (Normal Saline) 1,000 mls @ 125 mls/hr IV ASDIRECTED [facility] Last Admin: 01/21/20 04:55 Dose: 125 mls/hr Documented by: Ketorolac Tromethamine (Toradol) 30 mg IVPUSH Q6H PRN PRN Reason: Pain (moderate 4-6) Last Admin: 01/21/20 08:19 Dose: 30 mg Documented by: Lorazepam (Ativan) 0.5 mg IVPUSH Q4H PRN PRN Reason: Nausea/Vomiting Magnesium Hydroxide (Milk Of Magnesia) 30 ml PO Q12H PRN PRN Reason: Constipation Melatonin (Melatonin) 9 mg PO BEDTIME PRN PRN Reason: Sleep Last Admin: 01/20/20 21:21 Dose: 9 mg Documented by: Multivitamins/Iron (Child Chew Iron) 2 tab PO DAILY [facility] Last Admin: 01/21/20 08:25 Dose: Not Given Documented by: Ondansetron HCl (Zofran) 4 mg IV Q6H PRN PRN Reason: Nausea/Vomiting Last Admin: 01/21/20 08:18 Dose: 4 mg Documented by: Ondansetron HCl (Zofran Odt) 4 mg PO Q6H PRN PRN Reason: Nausea able to take PO Pantoprazole Sodium (Protonix Iv) 40 mg IV Q24H [facility] Last Admin: 01/20/20 21:22 Dose: 40 mg Documented by: Senna/Docusate Sodium (Senna Plus) 1 tab PO BID PRN PRN Reason: Constipation Sodium Chloride (Saline Flush) 10 ml FLUSH ASDIRECTED PRN PRN Reason: Keep Vein Open Last Admin: 01/20/20 18:03 Dose: 10 ml Documented by: Venlafaxine HCl (Effexor Xr) 37.5 mg PO DAILY [facility] Last Admin: 01/21/20 08:41 Dose: 37.5 mg Documented by: Discontinued Medications Amphetamine/Dextroamphetamine (Adderall) 10 mg PO BID [facility] Last Admin: 01/20/20 21:21 Dose: Not Given Documented by: Hydromorphone HCl (Dilaudid) 0.5 mg IVPUSH ONETIME ONE Stop: 01/20/20 17:47 Last Admin: 01/20/20 18:01 Dose: 0.5 mg Documented by: Hydromorphone HCl (Dilaudid) 0.5 mg IVPUSH ONETIME ONE Stop: 01/20/20 18:20 Last Admin: 01/20/20 18:27 Dose: 0.5 mg Documented by: Sodium Chloride (Normal Saline) 1,000 mls @ 999 mls/hr IV ASDIRECTED [facility] Last Admin: 01/20/20 17:59 Dose: 999 mls/hr Documented by: Ceftriaxone Sodium 1 gm/ (Sodium Chloride) 50 mls @ 100 mls/hr IV ONETIME ONE Stop: 01/20/20 19:11 Last Admin: 01/20/20 18:59 Dose: 100 mls/hr Documented by: Ketorolac Tromethamine (Toradol) 30 mg IVPUSH ONETIME ONE Stop: 01/20/20 18:32 Last Admin: 01/20/20 18:41 Dose: 30 mg Documented by: Ondansetron HCl (Zofran) 4 mg IVPUSH ONETIME ONE Stop: 01/20/20 17:47 Last Admin: 01/20/20 18:00 Dose: 4 mg Documented by: - Exam Quality Assessment: No: Supplemental Oxygen General: Alert, Oriented, Cooperative, No Acute Distress Lungs: Normal Respiratory Effort. No: Wheezing Cardiovascular: Regular Rate, Regular Rhythm GI/Abdominal Exam: Soft, No Distention Extremities: No Pedal Edema Psy/Mental Status: Alert, Normal Affect Sepsis Event Note - Evaluation Sepsis Screening Result: No Definite Risk - Focused Exam Vital Signs: Vital Signs Temp Temp Pulse Resp BP Pulse Ox 01/21/20 11:22 73 16 111/60 97 01/21/20 08:00 36.1 C 81 16 116/69 97 01/21/20 03:44 35.4 C L 96 18 146/92 H 100 01/21/20 00:09 35.6 C L 99 18 124/72 98 - Problem List & Annotations (1) Acute pancreatitis SNOMED Code(s): 140288928 Code(s): K85.90 - ACUTE PANCREATITIS WITHOUT NECROSIS OR INFECTION, UNSP Status: Acute Current Visit: Yes Onset Date: ~06/26/19 Qualifiers: Pancreatitis type: idiopathic Acute pancreatitis complication: unspecified Qualified Code(s): K85.00 - Idiopathic acute pancreatitis without necrosis or infection Annotation/Comment:: (2) Acute urinary tract infection SNOMED Code(s): 160687777 Code(s): N39.0 - URINARY TRACT INFECTION, SITE NOT SPECIFIED Status: Acute Current Visit: Yes - Problem List Review Problem List Initiated/Reviewed/Updated: Yes - My Orders Last 24 Hours: My Active Orders 01/20/20 Dinner Nothing per Oral Now Diet [DIET] 01/20/20 19:32 Resuscitation Status Routine 01/20/20 19:33 CULTURE URINE [RM] Routine 01/20/20 20:09 Acetaminophen [TylenoL] 650 mg PO Q4H PRN Docusate Sodium/Sennosides [Senna Plus] 1 tab PO BID PRN LORazepam [Ativan] 0.5 mg IVPUSH Q4H PRN Magnesium Hydroxide [Milk of Magnesia] 30 ml PO Q12H PRN Melatonin 9 mg PO BEDTIME PRN Ondansetron [Zofran] 4 mg IV Q6H PRN Pantoprazole [ProTONIX IV] 40 mg IV Q24H 01/20/20 20:09 Patient Status [ADT] Routine Antiembolic Devices [RC] .Routine Intake and Output [RC] QSHIFT Notify Provider Vital Signs [RC] ASDIRECTED Oxygen Therapy [RC] PRN Up With Assistance [RC] ASDIRECTED Vital Signs [RC] Q4H Sequential Compression Device [OM.PC] Routine 01/20/20 20:30 HYDROmorphone [Dilaudid] 1 mg IVPUSH Q2H PRN 01/21/20 00:00 Ondansetron [Zofran ODT] 4 mg PO Q6H PRN 01/21/20 00:42 Ketorolac [Toradol] 30 mg IVPUSH Q6H PRN 01/21/20 08:00 Amphetamine/Dextroamphetamine [Adderall] 10 mg PO BID@0800,1400 01/21/20 09:00 Cyanocobalamin (Vitamin B12) [Vitamin B12] 500 mcg PO DAILY Multivitamins with Iron [Child Chew Iron] 2 tab PO DAILY Venlafaxine [Effexor XR] 37.5 mg PO DAILY 01/21/20 11:45 Sodium Chloride 0.9% [Normal Saline] 1,000 ml IV ASDIRECTED 01/22/20 05:00 CBC W/O DIFF,HEMOGRAM [HEME] Timed (1) COMPREHENSIVE METABOLIC PN,CMP [CHEM] Timed LIPASE [CHEM] Timed - Plan Plan:: ASSESSMENT AND PLAN - Acute idiopathic pancreatitis-previous imaging has not revealed a cause for the pancreatitis. Lipase better but liver numbers are up quite a bit have had some sort of obstructive process. Pain is better so I think this may have been relieved. She has had a previous cholecystectomy but gallstone could be considered. Sludge or sphincter of Oddi dysfunction could be considered. -Continue IV fluids -Pain control -Nausea management -Repeat labs in the morning -Consider MRCP if not improving tomorrow Acute cystitis without hematuria-no impressive symptoms but urine suggestive of infection and culture is growing a gram-negative kadi. -Empiric ceftriaxone -Follow-up urine culture Hx of iron deficiency anemia-hemoglobin currently normal and pulmonary symptoms resolved following recent blood transfusion. Maintenance issues - - DVT prophylaxis - mechanical - GI prophylaxis - PPI - Nutrition - NPO except ice chips Disposition - I anticipate discharge home after the hospital stay Primary care physician - Yocasta Leach M.D.
[2020-01-21] MEDS: cefTRIAXone 1 GM in Sodium Chloride 0.9% 50 ML IV SCH (17:10)
[2020-01-21] MEDS: Pantoprazole 40 MG Vial IV SCH (20:07)
[2020-01-22] MEDS: Sodium Chloride 0.9% 1,000 ML IV SCH (02:51)
[2020-01-22] MEDS: Ketorolac 30 MG/ML SDV IVPUSH PRN ×2 (07:01→20:57)
[2020-01-22] MEDS: Amphetamine/Dextroamphetamine Salts 10 MG Tab PO SCH ×2 (08:32→13:15)
[2020-01-22] MEDS: Venlafaxine 37.5 MG Cap.ER PO SCH (08:33)
[2020-01-22] MEDS: Multivitamins with Iron Tab.Chew PO SCH (08:33)
[2020-01-22] MEDS: Cyanocobalamin (Vitamin B12) 1,000 MCG Tab PO SCH (08:34)
[2020-01-22] MEDS: Acetaminophen 325 MG Tab PO PRN (08:36)
[2020-01-22] MEDS: Ondansetron 4 MG/2 ML SDV IV PRN (10:13)
[2020-01-22] MEDS: HYDROmorphone 1 MG/ML Syringe IVPUSH PRN (10:35)
--- NOTE | 2020-01-22 13:03 | PCM.PN ---
- General Info Date of Service: 01/22/20 Subjective Update: Ms. Christianson remained stable over the last 24 hours. Abdominal pain has resolved and she is experience no further nausea or vomiting. She is experiencing some pain in her back. Vital signs have otherwise been stable and she has remained afebrile. Functional Status: Reports: Ambulating, Urinating - Review of Systems General: Reports: Weakness. Denies: Fever, Chills Pulmonary: Reports: No Symptoms Cardiovascular: Reports: No Symptoms Gastrointestinal: Reports: No Symptoms Musculoskeletal: Reports: Other (Flank pain) - Patient Data Vitals - Most Recent: Last Vital Signs Temp 96.4 F L 01/22/20 10:47 Pulse 94 01/22/20 10:47 Resp 16 01/22/20 10:47 BP 120/75 01/22/20 10:47 Pulse Ox 97 01/22/20 10:47 Weight - Most Recent: 111 lb 0.009 oz I&O - Last 24 Hours: Intake & Output 01/21/20 01/22/20 01/22/20 22:59 06:59 14:59 Intake Total 1297 867 Output Total 1300 1300 Balance 1297 -433 -1300 Lab Results Last 24 Hours: Laboratory Results - last 24 hr 01/22/20 01/22/20 Range/Units 05:45 05:45 WBC 3.4 L (4.5-11.0) K/uL RBC 4.49 (3.30-5.50) M/uL Hgb 12.4 (12.0-15.0) g/dL Hct 40.1 (36.0-48.0) % MCV 89 (80-98) fL MCH 28 (27-31) pg MCHC 31 L (32-36) % Plt Count 235 (150-400) K/uL Sodium 134 L (140-148) mmol/L Potassium 4.5 (3.6-5.2) mmol/L Chloride 102 (100-108) mmol/L Carbon Dioxide 20 L (21-32) mmol/L Anion Gap 16.5 H (5.0-14.0) mmol/L BUN 8 (7-18) mg/dL Creatinine 0.6 (0.6-1.0) mg/dL Est Cr Clr Drug Dosing 85.05 mL/min Estimated GFR (MDRD) > 60 (>60) Glucose 63 L (74-106) mg/dL Calcium 8.3 L (8.5-10.1) mg/dL Total Bilirubin 0.2 (0.2-1.0) mg/dL AST 153 H (15-37) U/L ALT 188 H (12-78) U/L Alkaline Phosphatase 187 H (46-116) U/L Total Protein 6.2 L (6.4-8.2) g/dL Albumin 3.0 L (3.4-5.0) g/dL Globulin 3.2 (2.3-3.5) g/dL Albumin/Globulin Ratio 0.9 L (1.2-2.2) Lipase 201 (73-393) U/L Osmani Results Last 24 Hours: Microbiology 01/20/20 19:33 Urine Culture - Final Urine, Clean Catch Klebsiella Pneumonia Ss Pneumo Med Orders - Current: Current Medications Acetaminophen (Tylenol) 650 mg PO Q4H PRN PRN Reason: Pain (Mild 1-3)/fever Last Admin: 01/22/20 08:36 Dose: 650 mg Documented by: Amphetamine/Dextroamphetamine (Adderall) 10 mg PO BID@0800,1400 [facility] [place] Last Admin: 01/22/20 08:32 Dose: 10 mg Documented by: Cyanocobalamin (Vitamin B12) 500 mcg PO DAILY [facility] [place] Last Admin: 01/22/20 08:34 Dose: 500 mcg Documented by: Ceftriaxone Sodium 1 gm/ (Sodium Chloride) 50 mls @ 100 mls/hr IV Q24H [facility] [place] Last Admin: 01/21/20 17:10 Dose: 100 mls/hr Documented by: Ketorolac Tromethamine (Toradol) 30 mg IVPUSH Q6H PRN PRN Reason: Pain (moderate 4-6) Last Admin: 01/22/20 07:01 Dose: 30 mg Documented by: Lorazepam (Ativan) 0.5 mg IVPUSH Q4H PRN PRN Reason: Nausea/Vomiting Last Admin: 01/21/20 17:22 Dose: 0.5 mg Documented by: Magnesium Hydroxide (Milk Of Magnesia) 30 ml PO Q12H PRN PRN Reason: Constipation Melatonin (Melatonin) 9 mg PO BEDTIME PRN PRN Reason: Sleep Last Admin: 01/20/20 21:21 Dose: 9 mg Documented by: Ondansetron HCl (Zofran) 4 mg IV Q6H PRN PRN Reason: Nausea/Vomiting Last Admin: 01/22/20 10:13 Dose: 4 mg Documented by: Ondansetron HCl (Zofran Odt) 4 mg PO Q6H PRN PRN Reason: Nausea able to take PO Oxycodone HCl (Oxycodone) 5 mg PO Q4H PRN PRN Reason: Pain Pantoprazole Sodium (Protonix Iv) 40 mg IV Q24H [facility] [place] Last Admin: 01/21/20 20:07 Dose: 40 mg Documented by: Senna/Docusate Sodium (Senna Plus) 1 tab PO BID PRN PRN Reason: Constipation Sodium Chloride (Saline Flush) 10 ml FLUSH ASDIRECTED PRN PRN Reason: Keep Vein Open Last Admin: 01/20/20 18:03 Dose: 10 ml Documented by: Venlafaxine HCl (Effexor Xr) 37.5 mg PO DAILY [facility] [place] Last Admin: 01/22/20 08:33 Dose: 37.5 mg Documented by: Discontinued Medications Amphetamine/Dextroamphetamine (Adderall) 10 mg PO BID [facility] [place] Last Admin: 01/20/20 21:21 Dose: Not Given Documented by: Hydromorphone HCl (Dilaudid) 0.5 mg IVPUSH ONETIME ONE Stop: 01/20/20 17:47 Last Admin: 01/20/20 18:01 Dose: 0.5 mg Documented by: Hydromorphone HCl (Dilaudid) 0.5 mg IVPUSH ONETIME ONE Stop: 01/20/20 18:20 Last Admin: 01/20/20 18:27 Dose: 0.5 mg Documented by: Hydromorphone HCl (Dilaudid) 1 mg IVPUSH Q2H PRN PRN Reason: Pain Last Admin: 01/22/20 10:35 Dose: 1 mg Documented by: Sodium Chloride (Normal Saline) 1,000 mls @ 999 mls/hr IV ASDIRECTED [facility] [place] Last Admin: 01/20/20 17:59 Dose: 999 mls/hr Documented by: Ceftriaxone Sodium 1 gm/ (Sodium Chloride) 50 mls @ 100 mls/hr IV ONETIME ONE Stop: 01/20/20 19:11 Last Admin: 01/20/20 18:59 Dose: 100 mls/hr Documented by: Sodium Chloride (Normal Saline) 1,000 mls @ 125 mls/hr IV ASDIRECTED [facility] [place] Last Admin: 01/21/20 04:55 Dose: 125 mls/hr Documented by: Sodium Chloride (Normal Saline) 1,000 mls @ 75 mls/hr IV ASDIRECTED [facility] [place] Last Admin: 01/22/20 02:51 Dose: 75 mls/hr Documented by: Ketorolac Tromethamine (Toradol) 30 mg IVPUSH ONETIME ONE Stop: 01/20/20 18:32 Last Admin: 01/20/20 18:41 Dose: 30 mg Documented by: Multivitamins/Iron (Child Chew Iron) 2 tab PO DAILY [facility] [place] Last Admin: 01/22/20 08:33 Dose: Not Given Documented by: Ondansetron HCl (Zofran) 4 mg IVPUSH ONETIME ONE Stop: 01/20/20 17:47 Last Admin: 01/20/20 18:00 Dose: 4 mg Documented by: - Exam General: Alert, Oriented, Cooperative, Mild Distress Lungs: Clear to Auscultation, Normal Respiratory Effort Cardiovascular: Regular Rate, Regular Rhythm, No Murmurs GI/Abdominal Exam: Soft, Non-Tender, No Organomegaly, No Distention Extremities: Non-Tender, No Pedal Edema Sepsis Event Note - Evaluation Sepsis Screening Result: Sepsis Risk - Focused Exam Vital Signs: Vital Signs Temp Pulse Resp BP Pulse Ox 01/22/20 10:47 96.4 F L 94 16 120/75 97 01/22/20 07:39 97.9 F 106 H 16 123/76 97 01/22/20 02:47 97.5 F 95 16 120/70 95 - Problem List Review Problem List Initiated/Reviewed/Updated: Yes - My Orders Last 24 Hours: My Active Orders 01/22/20 Breakfast Regular Diet [DIET] 01/22/20 10:54 Convert IV to Saline Lock [OM.PC] Routine 01/22/20 10:55 oxyCODONE 5 mg PO Q4H PRN 01/23/20 05:00 COMPREHENSIVE METABOLIC PN,CMP [CHEM] Timed - Plan Plan:: ASSESSMENT AND PLAN - Acute idiopathic pancreatitis-previous imaging has not revealed a cause for the pancreatitis. Lipase level has normalized and liver enzymes improved from yesterday -Saline lock IV -Regular diet -Pain control -Nausea management Acute cystitis without hematuria-no impressive symptoms but urine suggestive of infection and culture growing Klebsiella -Continue ceftriaxone for 1 more day and then transition to oral antibiotic tomorrow Hx of iron deficiency anemia-hemoglobin currently normal and pulmonary symptoms resolved following recent blood transfusion. Maintenance issues - - DVT prophylaxis - mechanical - GI prophylaxis - PPI - Nutrition -regular diet Disposition - I anticipate discharge home after the hospital stay Primary care physician - Yocasta JOHNSON
[2020-01-22] MEDS: oxyCODONE 5 MG Tab PO PRN (18:09)
[2020-01-22] MEDS: cefTRIAXone 1 GM in Sodium Chloride 0.9% 50 ML IV SCH (18:31)
[2020-01-22] MEDS: Pantoprazole 40 MG Vial IV SCH (19:27)
[2020-01-23] MEDS: Ondansetron 4 MG Tab.DIS PO PRN ×2 (06:07→12:56)
[2020-01-23] MEDS: oxyCODONE 5 MG Tab PO PRN ×2 (06:07→12:54)
[2020-01-23] MEDS: Amphetamine/Dextroamphetamine Salts 10 MG Tab PO SCH (08:37)
[2020-01-23] MEDS: Venlafaxine 37.5 MG Cap.ER PO SCH (08:37)
[2020-01-23] MEDS: Cyanocobalamin (Vitamin B12) 1,000 MCG Tab PO SCH (08:38)
[2020-01-23 10:58] VITALS: BP 125/71; PULSE 89
--- NOTE | 2020-01-23 12:17 | PCM.DCSUM1 ---
Discharge Summary - Hospital Course Brief History: Ms. Christianson is a 44-year-old woman who was admitted through the emergency department with abdominal pain, flank pain, nausea, vomiting, secondary to acute pancreatitis and complicated urinary tract infection. - Discharge Data Discharge Date: 01/23/20 Discharge Disposition: Home, Self-Care 01 Condition: Stable - Referral to Home Health Primary Care Physician: ALEX Melton - Discharge Diagnosis/Problem(s) (1) Pyelonephritis SNOMED Code(s): 44092243 ICD Code: N12 - TUBULO-INTERSTITIAL NEPHRITIS, NOT SPCF ACUTE OR CHRONIC Status: Acute Current Visit: No Problem Details: Right pyelonephritis with possible abscess (2) Acute urinary tract infection SNOMED Code(s): 024077335 ICD Code: N39.0 - URINARY TRACT INFECTION, SITE NOT SPECIFIED Status: Acute Current Visit: Yes (3) Acute pancreatitis SNOMED Code(s): 538250467 ICD Code: K85.90 - ACUTE PANCREATITIS WITHOUT NECROSIS OR INFECTION, UNSP Status: Acute Current Visit: Yes Onset Date: ~06/26/19 Problem Details: Qualifiers: Pancreatitis type: idiopathic Acute pancreatitis complication: unspecified Qualified Code(s): K85.00 - Idiopathic acute pancreatitis without necrosis or infection (4) Bariatric surgery status SNOMED Code(s): 175040492, 070169875, 864090196 ICD Code: Z98.84 - BARIATRIC SURGERY STATUS Status: Chronic Current Visit: No - Patient Summary/Data Hospital Course: Ms. Christianson presented to the emergency room with fairly acute onset of epigastric abdominal pain. She does report some difficulty with some mild intermittent back pains over the past 2 weeks that she attributed to working a little harder physically than she normally does. These pains persisted but did not bother her much. About lunchtime today she developed fairly acute onset of moderate to moderately severe epigastric pain. The pain radiated through to her back betwee n the shoulder blades and also down into the flank area. Pain was wavelike and did come and go but never went away. She had been eating and drinking okay until today and has not had much of anything to eat or drink today. Bowels have been regular. She has some nausea but no vomiting. No fevers or sick contacts. No significant shortness of breath. She does not report significant dysuria or urinary frequency. Work-up in the emergency room was suggestive of acute pancreatitis with a lipase level of more than 6000. There is also suggestion of a urinary tract infection. She will be admitted for further management of both of these conditions. On admission urine culture was obtained and she was started on IV antibiotic therapy with ceftriaxone. She was kept n.p.o. and given IV fluids for hydration in addition to medication for pain and nausea as needed. She improved over the next few days of hospitalization, epigastric pain resolved and her lipase normalized. She continued to experience some flank pain secondary to her complicated urinary tract infection, but this had significantly improved by the time of discharge. Urine culture grew out Klebsiella which was sensitive to just about all of antibiotics. At the time of discharge she will be transitioned to oral antibiotic therapy with cephalexin 500 mg 4 times daily for an additional 4 days. I have recommended that she be seen by gastroenterology for another opinion concerning her recurrent episodes of pancreatitis. Activity will be as tolerated and she will resume her usual diet. Follow-up appointment will be scheduled with her primary care provider within 1 week. - Patient Instructions Diet: Usual Diet as Tolerated Activity: As Tolerated Other/Special Instructions: Please schedule follow-up appointment with primary care provider within 1 week. - Discharge Plan *PRESCRIPTION DRUG MONITORING PROGRAM REVIEWED*: Not Applicable *COPY OF PRESCRIPTION DRUG MONITORING REPORT IN PATIENT TORSTEN: Not Applicable Prescriptions/Med Rec: cephALEXin [Cephalexin] 500 mg PO QID #16 capsule Ondansetron [Zofran ODT] 4 mg PO Q6H PRN #8 tab.dis PRN Reason: Nausea able to take PO Home Medications: Home Meds Albuterol Sulfate [Proair Hfa] 2 puff IH QID PRN 08/28/15 [History] Cyanocobalamin (Vitamin B12) [Vitamin B12] 500 mcg PO DAILY 08/28/15 [History] Venlafaxine HCl [Venlafaxine ER] 37.5 mg PO DAILY 01/03/18 [History] Cyanocobalamin (Vitamin B-12) [Cyanocobalamin Injection] 1,000 mcg IJ Q30D 03/20/19 [History] Dextroamphetamine/Amphetamine [Adderall 10 mg Tablet] 10 mg PO BID 03/20/19 [History] EPINEPHrine [Epipen Jr 2-Fransisco] 0.15 mg IM ASDIRECTED PRN 03/20/19 [History] ZOLMitriptan [Zomig] 5 mg PO ASDIRECTED PRN 03/20/19 [History] Pedi Multivit No.25/Folic Acid [Flintstones Multivit Chew Tab] 2 tab PO DAILY 06/26/19 [History] Acetaminophen/HYDROcodone [[place] 325-5 MG] 1 tab PO Q4H PRN #10 tablet 07/04/19 [Rx] Ondansetron [Zofran ODT] 4 mg PO Q6H PRN #8 tab.dis 01/23/20 [Rx] cephALEXin [Cephalexin] 500 mg PO QID #16 capsule 01/23/20 [Rx] Referrals: Michelle Biswas PA [Primary Care Provider] - 01/31/20 1:30 pm (YOUR APPOINTMENT WITH JAMIL BISWAS WILL BE AT THE [facility]. Arrive 15 minutes early to register for your appointment.) - Discharge Summary/Plan Comment DC Time >30 min.: No - Patient Data Vitals - Most Recent: Last Vital Signs Temp 97.6 F 01/23/20 07:00 Pulse 89 01/23/20 07:00 Resp 16 01/23/20 07:00 BP 125/71 01/23/20 07:00 Pulse Ox 99 01/23/20 07:00 Weight - Most Recent: 111 lb 0.009 oz I&O - Last 24 hours: Intake & Output 01/22/20 01/23/20 01/23/20 22:59 06:59 14:59 Intake Total 500 500 Balance 500 500 Lab Results - Last 24 hrs: Laboratory Results - last 24 hr 01/23/20 Range/Units 05:50 Sodium 138 L (140-148) mmol/L Potassium 4.0 (3.6-5.2) mmol/L Chloride 106 (100-108) mmol/L Carbon Dioxide 26 (21-32) mmol/L Anion Gap 10.0 (5.0-14.0) mmol/L BUN 11 (7-18) mg/dL Creatinine 0.7 (0.6-1.0) mg/dL Est Cr Clr Drug Dosing 72.90 mL/min Estimated GFR (MDRD) > 60 (>60) Glucose 95 (74-106) mg/dL Calcium 7.9 L (8.5-10.1) mg/dL Total Bilirubin < 0.1 L D (0.2-1.0) mg/dL AST 56 H (15-37) U/L ALT 117 H (12-78) U/L Alkaline Phosphatase 144 H (46-116) U/L Total Protein 5.5 L (6.4-8.2) g/dL Albumin 2.6 L (3.4-5.0) g/dL Globulin 2.9 (2.3-3.5) g/dL Albumin/Globulin Ratio 0.9 L (1.2-2.2) Med Orders - Current: Current Medications Acetaminophen (Tylenol) 650 mg PO Q4H PRN PRN Reason: Pain (Mild 1-3)/fever Last Admin: 01/22/20 08:36 Dose: 650 mg Documented by: Amphetamine/Dextroamphetamine (Adderall) 10 mg PO BID@0800,1400 [facility] Last Admin: 01/23/20 08:37 Dose: 10 mg Documented by: Cyanocobalamin (Vitamin B12) 500 mcg PO DAILY [facility] Last Admin: 01/23/20 08:38 Dose: 500 mcg Documented by: Ceftriaxone Sodium 1 gm/ (Sodium Chloride) 50 mls @ 100 mls/hr IV Q24H [facility] Last Admin: 01/22/20 18:31 Dose: 100 mls/hr Documented by: Ketorolac Tromethamine (Toradol) 30 mg IVPUSH Q6H PRN PRN Reason: Pain (moderate 4-6) Stop: 01/25/20 00:43 Last Admin: 01/22/20 20:57 Dose: 30 mg Documented by: Lorazepam (Ativan) 0.5 mg IVPUSH Q4H PRN PRN Reason: Nausea/Vomiting Last Admin: 01/21/20 17:22 Dose: 0.5 mg Documented by: Magnesium Hydroxide (Milk Of Magnesia) 30 ml PO Q12H PRN PRN Reason: Constipation Melatonin (Melatonin) 9 mg PO BEDTIME PRN PRN Reason: Sleep Last Admin: 01/20/20 21:21 Dose: 9 mg Documented by: Ondansetron HCl (Zofran) 4 mg IV Q6H PRN PRN Reason: Nausea/Vomiting Last Admin: 01/22/20 10:13 Dose: 4 mg Documented by: Ondansetron HCl (Zofran Odt) 4 mg PO Q6H PRN PRN Reason: Nausea able to take PO Last Admin: 01/23/20 06:07 Dose: 4 mg Documented by: Oxycodone HCl (Oxycodone) 5 mg PO Q4H PRN PRN Reason: Pain Last Admin: 01/23/20 06:07 Dose: 5 mg Documented by: Pantoprazole Sodium (Protonix) 40 mg PO BEDTIME [facility] Senna/Docusate Sodium (Senna Plus) 1 tab PO BID PRN PRN Reason: Constipation Sodium Chloride (Saline Flush) 10 ml FLUSH ASDIRECTED PRN PRN Reason: Keep Vein Open Last Admin: 01/20/20 18:03 Dose: 10 ml Documented by: Venlafaxine HCl (Effexor Xr) 37.5 mg PO DAILY [facility] Last Admin: 01/23/20 08:37 Dose: 37.5 mg Documented by: Discontinued Medications Amphetamine/Dextroamphetamine (Adderall) 10 mg PO BID [facility] Last Admin: 01/20/20 21:21 Dose: Not Given Documented by: Hydromorphone HCl (Dilaudid) 0.5 mg IVPUSH ONETIME ONE Stop: 01/20/20 17:47 Last Admin: 01/20/20 18:01 Dose: 0.5 mg Documented by: Hydromorphone HCl (Dilaudid) 0.5 mg IVPUSH ONETIME ONE Stop: 01/20/20 18:20 Last Admin: 01/20/20 18:27 Dose: 0.5 mg Documented by: Hydromorphone HCl (Dilaudid) 1 mg IVPUSH Q2H PRN PRN Reason: Pain Last Admin: 01/22/20 10:35 Dose: 1 mg Documented by: Sodium Chloride (Normal Saline) 1,000 mls @ 999 mls/hr IV ASDIRECTED [facility] Last Admin: 01/20/20 17:59 Dose: 999 mls/hr Documented by: Ceftriaxone Sodium 1 gm/ (Sodium Chloride) 50 mls @ 100 mls/hr IV ONETIME ONE Stop: 01/20/20 19:11 Last Admin: 01/20/20 18:59 Dose: 100 mls/hr Documented by: Sodium Chloride (Normal Saline) 1,000 mls @ 125 mls/hr IV ASDIRECTED [facility] Last Admin: 01/21/20 04:55 Dose: 125 mls/hr Documented by: Sodium Chloride (Normal Saline) 1,000 mls @ 75 mls/hr IV ASDIRECTED [facility] Last Admin: 01/22/20 02:51 Dose: 75 mls/hr Documented by: Ketorolac Tromethamine (Toradol) 30 mg IVPUSH ONETIME ONE Stop: 01/20/20 18:32 Last Admin: 01/20/20 18:41 Dose: 30 mg Documented by: Multivitamins/Iron (Child Chew Iron) 2 tab PO DAILY [facility] Last Admin: 01/22/20 08:33 Dose: Not Given Documented by: Ondansetron HCl (Zofran) 4 mg IVPUSH ONETIME ONE Stop: 01/20/20 17:47 Last Admin: 01/20/20 18:00 Dose: 4 mg Documented by: Pantoprazole Sodium (Protonix Iv) 40 mg IV Q24H [facility] Last Admin: 01/22/20 19:27 Dose: 40 mg Documented by: - Exam General: Reports: Alert, Oriented, Cooperative, Mild Distress Lungs: Reports: Clear to Auscultation, Normal Respiratory Effort Cardiovascular: Reports: Regular Rate, Regular Rhythm, No Murmurs GI/Abdominal Exam: Soft, Non-Tender, No Organomegaly, No Distention Back Exam: Reports: Normal Inspection, Full Range of Motion
[2020-01-23] MEDS ORDERED: Pantoprazole 40 MG Tab.CR PO SCH (21:00)
== END 2020-01-23 12:55 | disposition home or self-care (01) | DRG 689 ==
LOC: JP.ED 16:38 → JP.MS 19:30
PROVIDERS: ADMIT Internal Medicine; ATTEND Hospitalist
DX: N10 Acute pyelonephritis (principal); K85.00 Idiopathic acute pancreatitis without necrosis or infection; B96.1 Klebsiella pneumoniae [K. pneumoniae] as the cause of diseases classified elsewhere; F41.9 Anxiety disorder, unspecified; F32.9 Major depressive disorder, single episode, unspecified; F90.9 Attention-deficit hyperactivity disorder, unspecified type; D50.9 Iron deficiency anemia, unspecified; Z98.84 Bariatric surgery status; Z91.09 Other allergy status, other than to drugs and biological substances; Z88.0 Allergy status to penicillin; Z88.2 Allergy status to sulfonamides; Z88.8 Allergy status to other drugs, medicaments and biological substances; Z79.899 Other long term (current) drug therapy; Z90.49 Acquired absence of other specified parts of digestive tract; Z90.710 Acquired absence of both cervix and uterus
CPT/HCPCS: 36415; 80053; 81001; 82150; 83690; 85025; 85027; 86140; 87086; 87088; 87186; 93005; 93010; 96365; 96375; 99285-25; A9270-GY; C9113; J0696; J1170; J1885; J2060; J2405; J7030; J7050

== ENCOUNTER 2020-10-09 21:17 | Observation (INO) | payer OTHER ==
--- NOTE | 2020-10-09 22:00 | EDM.PDOC ---
ED HPI GENERAL MEDICAL PROBLEM - General Chief Complaint: Abdominal Pain Stated Complaint: UPPER ABD PAIN Time Seen by Provider: 10/09/20 21:51 Source of Information: Reports: Patient, Family History Limitations: Reports: No Limitations - History of Present Illness INITIAL COMMENTS - FREE TEXT/NARRATIVE: Patient presents emergency room today secondary to abdominal pain with radiation into her back. Patient states that symptoms have been going on for approximately 10 to 14 days. She has not had any vomiting but she states that she has felt nauseous like she has got some mild motion sickness. Patient also reports that she has had some episodes of lightheaded and dizziness, her states that she had a couple of episodes that were quite severe severe. Patient states that she thinks these episodes are related more to breath-holding secondary to episodic spasm-like pain that she has. Patient has a known history of pancreatitis, she states that she has to come into the emergency room/hospitalization about every 4 to 6 months. Patient does give a history that she was seen at [facility] in [place] in February for this ongoing issue to see if they could help find a solution. At that time I felt that there may be a pancreatic duct stricture and in April she had a stent placed that lasted for about a month before removal in May. Patient states that she has not had any episodes since that stricture has been removed until now. Patient does state that she does have decreased oral intake especially food foods as they do trigger more spasmodic abdominal pain but she also does limit even water secondary to it causing problems at times. Patient denies any fevers chills or symptoms otherwise. PMH--chronic pancreatitis, depression, chronic anemia, migraines, ADHD, multiple allergies (including iron & bugs with anaphalaxis) Meds--MVI, B12, venlafaxine, epi-pen, adderall Allergies--reviewed in EMR denies--tob/etoh/drug usage COVID immunization (J&J)--July 2020 Onset: Gradual epigastric pain Pain Score (Numeric/FACES): 6 - Related Data Allergies Allergy/AdvReac Type Severity Reaction Status Date / Time ferumoxytol [From Feraheme] Allergy Severe Difficulty Verified 10/09/20 21:54 Breathing iron [From Venofer] Allergy Severe Anaphylactic Verified 10/09/20 21:54 Shock adhesive tape Allergy Other Verified 10/09/20 21:54 bacitracin Allergy Other Verified 10/09/20 21:54 [From Neosporin ([id number])] ciprofloxacin Allergy Rash Verified 10/09/20 21:54 fentanyl Allergy Itching Verified 10/09/20 21:54 neomycin Allergy Other Verified 10/09/20 21:54 [From Neosporin ([id number])] Penicillins Allergy Other Verified 10/09/20 21:54 pineapple Allergy Other Verified 10/09/20 21:54 polymyxin B Allergy Other Verified 10/09/20 21:54 [From Neosporin ([id number])] sulfamethoxazole AdvReac Other Verified 10/09/20 21:54 [From Bactrim] trimethoprim [From Bactrim] AdvReac Other Verified 10/09/20 21:54 Home Meds: Home Meds Albuterol Sulfate [Proair Hfa] 2 puff IH QID PRN 08/28/15 [History] Cyanocobalamin (Vitamin B12) [Vitamin B12] 500 mcg PO DAILY 08/28/15 [History] Venlafaxine HCl [Venlafaxine ER] 37.5 mg PO DAILY 01/03/18 [History] Cyanocobalamin (Vitamin B-12) [Cyanocobalamin Injection] 1,000 mcg IJ ASDIRECTED 03/20/19 [History] Dextroamphetamine/Amphetamine [Adderall 10 mg Tablet] 10 mg PO BID 03/20/19 [History] EPINEPHrine [Epipen Jr 2-Fransisco] 0.15 mg IM ASDIRECTED PRN 03/20/19 [History] ZOLMitriptan [Zomig] 5 mg PO ASDIRECTED PRN 03/20/19 [History] Pedi Multivit No.25/Folic Acid [Flintstones Multivit Chew Tab] 2 tab PO DAILY 06/26/19 [History] Ondansetron [Zofran ODT] 4 mg PO Q6H PRN #8 tab.dis 01/23/20 [Rx] Past Medical History Respiratory History: Reports: SOB, Other (See Below) Other Respiratory History: allergies, uses inhaler gets short of breath. 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 MANAGER STORY History: Reports: Musculoskeletal History: Reports: Fracture Other Musculoskeletal History: foot fx Neurological History: Reports: Migraines Psychiatric History: Reports: ADHD, Anxiety, Depression Hematologic History: Reports: B12 Deficiency, Blood Transfusion(s), Iron Deficiency - Infectious Disease History Infectious Disease History: Reports: Chicken Pox, Measles - Past Surgical History Head Surgeries/Procedures: Reports: None Respiratory Surgical History: Reports: None GI Surgical History: Reports: Bariatric Procedure, Cholecystectomy, Hernia Repair/Other, Other (See Below) Other GI Surgeries/Procedures: sbo Female Surgical History: Reports: Breast Implant, Hysterectomy Dermatological Surgical History: Reports: None Social & Family History - Family History Family Medical History: No Pertinent Family History - Caffeine Use Caffeine Use: Reports: None ED ROS GENERAL - Review of Systems Review Of Systems: Comprehensive ROS is negative, except as noted in HPI. Constitutional: Reports: No Symptoms GI/Abdominal: Reports: Abdominal Pain, Nausea. Denies: Vomiting ED EXAM, GI/ABD - Physical Exam Exam: See Below Exam Limited By: No Limitations General Appearance: Alert, WD/WN, Moderate Distress (secondary to abdominal pain rated 4-5/10 although patient is noted to be writhing in apparent severe pain ) Eyes: Bilateral: Normal Appearance, EOMI Ears: Normal External Exam Nose: Normal Inspection Throat/Mouth: Normal Inspection, Normal Voice, No Airway Compromise Head: Atraumatic, Normocephalic Neck: Normal Inspection, Supple, Non-Tender, Full Range of Motion Respiratory/Chest: No Respiratory Distress, Lungs Clear, Normal Breath Sounds, N o Accessory Muscle Use Cardiovascular: Normal Peripheral Pulses, Regular Rate, Rhythm, No Edema, No Murmur GI/Abdominal Exam: Normal Bowel Sounds, Soft, No Distention, Tender (diffuse abdominal tenderness). No: Guarding, Rigid, Rebound (Female) Exam: Deferred Rectal (Female) Exam: Deferred Back Exam: Normal Inspection, Full Range of Motion Extremities: Normal Inspection, Normal Range of Motion, No Pedal Edema, Normal Capillary Refill Neurological: Alert, Oriented, Normal Cognition, No Motor/Sensory Deficits Psychiatric: Normal Affect, Normal Mood Skin Exam: Warm, Dry, Intact, Normal Color Course - Vital Signs Text/Narrative:: [id number]--updated patient and spouse on return of labs. she is feeling slightly improved, now rates pain as 2/10. she has been up to bathroom to void. UA is pending. at this time have d/w them home vs remain in hosp/obs for IVF/bowel rest. they feel like she should stay for pain control/nausea and IVF to help get over this pain episode that has been ongoing for the last 2 weeks. [id number]--call placed to Dr Fregoso, Hospitalist who accepts for observation admission after discussion of case Last Recorded V/S: Last Vital Signs Temp 97.3 F 10/09/20 21:30 Pulse 103 H 10/09/20 22:45 Resp 20 10/09/20 21:30 BP 140/100 H 10/09/20 22:45 Pulse Ox 99 10/09/20 22:45 - Orders/Labs/Meds Orders: Active Orders 24 hr Category Date Time Status UA W/MICROSCOPIC [URIN] Stat Lab 10/09/20 22:04 Ordered Sodium Chloride 0.9% [Normal Saline] 1,000 ml Med 10/09/20 22:15 Active IV ASDIRECTED Sodium Chloride 0.9% [Saline Flush] Med 10/09/20 22:04 Active 10 ml FLUSH ASDIRECTED PRN Saline Lock Insert [OM.PC] Routine Oth 10/09/20 22:04 Ordered Medication Orders Sodium Chloride (Normal Saline) 1,000 mls @ 999 mls/hr IV ASDIRECTED ERICK Last Admin: 10/09/20 22:12 Dose: 999 mls/hr Documented by: TARA Sodium Chloride (Sodium Chloride 0.9% 10 Ml Syringe) 10 ml FLUSH ASDIRECTED PRN PRN Reason: Keep Vein Open Last Admin: 10/09/20 22:13 Dose: 10 ml Documented by: TARA Labs: Laboratory Tests 10/09/20 10/09/20 Range/Units 22:04 22:04 WBC 5.5 (4.5-11.0) K/uL RBC 4.74 (3.30-5.50) M/uL Hgb 14.8 D (12.0-15.0) g/dL Hct 44.3 (36.0-48.0) % MCV 94 (80-98) fL MCH 31 (27-31) pg MCHC 33 (32-36) % Plt Count 325 (150-400) K/uL Neut % (Auto) 53.3 (36-66) % Lymph % (Auto) 36.6 (24-44) % Clarke % (Auto) 6.1 H (2-6) % Eos % (Auto) 3.6 (2-4) % Baso % (Auto) 0.4 (0-1) % Sodium 141 (140-148) mmol/L Potassium 4.2 (3.6-5.2) mmol/L Chloride 104 (100-108) mmol/L Carbon Dioxide 24 (21-32) mmol/L Anion Gap 13.0 (5.0-14.0) mmol/L BUN 23 H D (7-18) mg/dL Creatinine 1.0 (0.6-1.0) mg/dL Est Cr Clr Drug Dosing 50.49 mL/min Estimated GFR (MDRD) 60 (>60) Glucose 85 (74-106) mg/dL Calcium 8.5 (8.5-10.1) mg/dL Magnesium 1.9 (1.8-2.4) mg/dL Total Bilirubin 0.2 D (0.2-1.0) mg/dL AST 20 (15-37) U/L ALT 20 D (12-78) U/L Alkaline Phosphatase 97 (46-116) U/L Total Protein 7.7 (6.4-8.2) g/dL Albumin 4.0 (3.4-5.0) g/dL Globulin 3.7 H (2.3-3.5) g/dL Albumin/Globulin Ratio 1.1 L (1.2-2.2) Amylase 81 D (25-115) U/L Lipase 308 (73-393) U/L Meds: Medications Generic Name Dose Route Start Last Admin Trade Name Vernonq PRN Reason Stop Dose Admin Sodium Chloride 1,000 mls @ 999 mls/hr 10/09/20 22:15 10/09/20 22:12 Normal Saline IV 999 mls/hr ASDIRECTED ERICK Administration Sodium Chloride 10 ml 10/09/20 22:04 10/09/20 22:13 Sodium Chloride 0.9% 10 Ml Syringe FLUSH 10 ml ASDIRECTED PRN Administration Keep Vein Open Discontinued Medications Generic Name Dose Route Start Last Admin Trade Name Freq PRN Reason Stop Dose Admin Famotidine 20 mg 10/09/20 22:04 10/09/20 22:12 Famotidine 20 Mg/2 Ml Sdv IVPUSH 10/09/20 22:05 20 mg ONETIME ONE Administration Morphine Sulfate 4 mg 10/09/20 22:04 10/09/20 22:20 Morphine 4 Mg/Ml Syringe IVPUSH 10/09/20 22:05 4 mg ONETIME ONE Administration Departure - Departure Time of Disposition: 23:16 Disposition: Refer to Observation Clinical Impression: Acute on chronic pancreatitis, Nausea, Dehydration, Abdominal pain - Discharge Information *PRESCRIPTION DRUG MONITORING PROGRAM REVIEWED*: Not Applicable *COPY OF PRESCRIPTION DRUG MONITORING REPORT IN PATIENT TORSTEN: Not Applicable Referrals: Michelle Biswas PA [Primary Care Provider] - Forms: ED Department Discharge Sepsis Event Note (ED) - Evaluation Sepsis Screening Result: No Definite Risk - Focused Exam Vital Signs: Vital Signs Temp Pulse Resp BP Pulse Ox 10/09/20 22:45 103 H 140/100 H 99 10/09/20 21:54 92 135/77 97 10/09/20 21:30 97.3 F 104 H 20 136/78 100 10/09/20 21:28 97.3 F 104 H 20 136/78 100 - My Orders Last 24 Hours: My Active Orders 10/09/20 22:04 UA W/MICROSCOPIC [URIN] Stat Sodium Chloride 0.9% [Saline Flush] 10 ml FLUSH ASDIRECTED PRN Saline Lock Insert [OM.PC] Routine 10/09/20 22:15 Sodium Chloride 0.9% [Normal Saline] 1,000 ml IV ASDIRECTED - Assessment/Plan Last 24 Hours: My Active Orders 10/09/20 22:04 UA W/MICROSCOPIC [URIN] Stat Sodium Chloride 0.9% [Saline Flush] 10 ml FLUSH ASDIRECTED PRN Saline Lock Insert [OM.PC] Routine 10/09/20 22:15 Sodium Chloride 0.9% [Normal Saline] 1,000 ml IV ASDIRECTED
[2020-10-09] MEDS ORDERED: Morphine 4 MG/ML Syringe IVPUSH ONE (22:04)
[2020-10-09] MEDS ORDERED: Sodium Chloride 0.9% 10 ML Syringe FLUSH PRN (22:04)
[2020-10-09] MEDS ORDERED: Famotidine 20 MG/2 ML SDV IVPUSH ONE (22:04)
[2020-10-09] MEDS ORDERED: Sodium Chloride 0.9% 1,000 ML IV SCH (22:15)
[2020-10-09] MEDS ORDERED: Prochlorperazine 10 MG/2 ML SDV IVPUSH ONE (23:19)
[2020-10-09] MEDS: Sodium Chloride 0.9% 1,000 ML IV SCH (23:40)
[2020-10-10] MEDS ORDERED: Ondansetron 4 MG/2 ML SDV IVPUSH PRN (00:31)
[2020-10-10] MEDS ORDERED: Morphine 4 MG/ML Syringe IVPUSH PRN (00:32)
[2020-10-10] MEDS ORDERED: Acetaminophen 325 MG Tab PO PRN (00:33)
[2020-10-10] MEDS ORDERED: Acetaminophen 650 MG Supp RECTAL PRN (00:34)
[2020-10-10] MEDS ORDERED: Docusate Sodium 100 MG Cap PO PRN (00:34)
[2020-10-10] MEDS ORDERED: Prochlorperazine 10 MG/2 ML SDV IVPUSH PRN (00:38)
[2020-10-10] MEDS ORDERED: Aluminum Hydroxide/Magnesium Hydroxide/Simethicone Susp 30 ML Cup PO PRN (06:26)
[2020-10-10] MEDS ORDERED: Famotidine 20 MG/2 ML SDV IV SCH (09:00)
[2020-10-10] MEDS: Sodium Chloride 0.9% 1,000 ML IV SCH (09:04)
[2020-10-10 11:53] VITALS: BP 88/58; PULSE 83
[2020-10-10] MEDS ORDERED: Ketorolac 30 MG/ML SDV IVPUSH ONE (13:15)
[2020-10-10] MEDS ORDERED: Ondansetron 4 MG Tab.DIS PO ONE (16:00)
--- NOTE | 2020-10-10 18:53 | PCM.DCSUM1 ---
Discharge Summary - Hospital Course Free Text/Narrative:: Ms. Christianson is a 45-year-old female who presented for upper abdominal pain with vomiting. 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 She had a stent placed for 1 month, then a sphincterotomy, this was allowed to heal for 1 month and then the stent was removed in May of this year. Since that time she has not had any issues with abdominal pain until about a month and a half ago when she started experiencing intermittent abdominal pain. For the past 2 weeks this abdominal pain has increased in frequency and intensity until the day of admission when it was intolerable. Along with the abdominal pain she did experience vomiting. She stated that eating hamburgers does worsen her abdominal pain, she does not eat fried foods. She stated that the meal prior to the pain was mashed potatoes and chicken and then the pain began approximately 30 minutes later. She had a gastric bypass 14 to [address] Lockett. Since that time her body no longer has the ability to absorb iron properly and she has to get serial transfusions for this. She was admitted for pain control overnight. She received morphine for this. By the morning she was feeling significantly better. By lunchtime she was able to eat and hold food down without any nausea or vomiting. She did develop a headache which was treated with Toradol. By the afternoon she wanted to go home. She was advised to follow-up with her primary care physician and the [facility] regarding future care for her pancreas. Diagnosis: Stroke: No Modified Woodson Scale: No Symptoms at All Modified Woodson Scale Score: 0 - Discharge Data Discharge Date: 10/10/20 Discharge Disposition: Home, Self-Care 01 Condition: Stable - Referral to Home Health Primary Care Physician: ALEX Melton - Discharge Diagnosis/Problem(s) (1) Sphincter of Oddi spasm SNOMED Code(s): 46927709 ICD Code: K83.4 - SPASM OF SPHINCTER OF ODDI Status: Acute (2) Nausea & vomiting SNOMED Code(s): 34381428 ICD Code: R11.2 - NAUSEA WITH VOMITING, UNSPECIFIED Status: Acute (3) Abdominal pain SNOMED Code(s): 76976911 ICD Code: R10.9 - UNSPECIFIED ABDOMINAL PAIN Status: Acute - Discharge Plan *PRESCRIPTION DRUG MONITORING PROGRAM REVIEWED*: Not Applicable *COPY OF PRESCRIPTION DRUG MONITORING REPORT IN PATIENT TORSTEN: Not Applicable Home Medications: Home Meds Albuterol Sulfate [Proair Hfa] 2 puff IH QID PRN 08/28/15 [History] Cyanocobalamin (Vitamin B12) [Vitamin B12] 500 mcg PO DAILY 08/28/15 [History] Venlafaxine HCl [Venlafaxine ER] 37.5 mg PO DAILY 01/03/18 [History] Cyanocobalamin (Vitamin B-12) [Cyanocobalamin Injection] 1,000 mcg IJ ASDIRECTED 03/20/19 [History] Dextroamphetamine/Amphetamine [Adderall 10 mg Tablet] 10 mg PO BID 03/20/19 [History] EPINEPHrine [Epipen Jr 2-Fransisco] 0.15 mg IM ASDIRECTED PRN 03/20/19 [History] ZOLMitriptan [Zomig] 5 mg PO ASDIRECTED PRN 03/20/19 [History] Pedi Multivit No.25/Folic Acid [Flintstones Multivit Chew Tab] 2 tab PO DAILY 06/26/19 [History] Ondansetron [Zofran ODT] 4 mg PO Q6H PRN #8 tab.dis 01/23/20 [Rx] Patient Handouts: Acute Pancreatitis, [id number] Forms: ED Department Discharge Referrals: Michelle Biswas PA [Primary Care Provider] - Isra Calderon MD [Physician] - - Discharge Summary/Plan Comment DC Time >30 min.: Yes - General Info Date of Service: 10/10/20 Admission Dx/Problem (Free Text: Abdominal Pain likely secondary to pancreatic sphincter spasm Subjective Update: By the time I saw Ms. Christianson this morning she was doing significantly better and having minimal pain. He was able to tolerate her lunch without any nausea or vomiting. She had stated that she was wanting to go home as she was feeling significantly better. She was advised to follow-up with the [facility] regarding the sphincter issues. Functional Status: Reports: Pain Controlled, Tolerating Diet, Ambulating, Urinating - Review of Systems General: Reports: No Symptoms, Appetite. Denies: Fever, Chills HEENT: Reports: Headaches. Denies: Visual Changes Pulmonary: Reports: No Symptoms. Denies: Shortness of Breath, Pleuritic Chest Pain, Cough Cardiovascular: Reports: No Symptoms. Denies: Chest Pain, Palpitations Gastrointestinal: Reports: No Symptoms. Denies: Abdominal Pain, Nausea, Vomiting Genitourinary: Reports: No Symptoms. Denies: Dysuria, Frequency, Pain, Urgency Musculoskeletal: Reports: No Symptoms Skin: Reports: No Symptoms Neurological: Reports: Headache. Denies: Confusion, Dizziness Psychiatric: Reports: No Symptoms. Denies: Confusion - Patient Data Vitals - Most Recent: Last Vital Signs Temp 97.7 F 10/10/20 11:49 Pulse 83 10/10/20 11:49 Resp 16 10/10/20 11:49 BP 88/58 L 10/10/20 11:49 Pulse Ox 96 10/10/20 11:49 Weight - Most Recent: 117 lb 11.629 oz I&O - Last 24 hours: Intake & Output 10/10/20 10/10/20 10/10/20 06:59 14:59 22:59 Intake Total 1025 Output Total 775 Balance 1025 -775 Lab Results - Last 24 hrs: Laboratory Results - last 24 hr 10/09/20 10/09/20 10/09/20 Range/Units 22:04 22:04 23:04 WBC 5.5 (4.5-11.0) K/uL RBC 4.74 (3.30-5.50) M/uL Hgb 14.8 D (12.0-15.0) g/dL Hct 44.3 (36.0-48.0) % MCV 94 (80-98) fL MCH 31 (27-31) pg MCHC 33 (32-36) % Plt Count 325 (150-400) K/uL Neut % (Auto) 53.3 (36-66) % Lymph % (Auto) 36.6 (24-44) % [place] % (Auto) 6.1 H (2-6) % Eos % (Auto) 3.6 (2-4) % Baso % (Auto) 0.4 (0-1) % Sodium 141 (140-148) mmol/L Potassium 4.2 (3.6-5.2) mmol/L Chloride 104 (100-108) mmol/L Carbon Dioxide 24 (21-32) mmol/L Anion Gap 13.0 (5.0-14.0) mmol/L BUN 23 H D (7-18) mg/dL Creatinine 1.0 (0.6-1.0) mg/dL Est Cr Clr Drug Dosing 50.49 mL/min Estimated GFR (MDRD) 60 (>60) Glucose 85 (74-106) mg/dL Calcium 8.5 (8.5-10.1) mg/dL Magnesium 1.9 (1.8-2.4) mg/dL Total Bilirubin 0.2 D (0.2-1.0) mg/dL AST 20 (15-37) U/L ALT 20 D (12-78) U/L Alkaline Phosphatase 97 (46-116) U/L Total Protein 7.7 (6.4-8.2) g/dL Albumin 4.0 (3.4-5.0) g/dL Globulin 3.7 H (2.3-3.5) g/dL Albumin/Globulin Ratio 1.1 L (1.2-2.2) Amylase 81 D (25-115) U/L Lipase 308 (73-393) U/L Urine Color Yellow (YELLOW) Urine Appearance Cloudy A (CLEAR) Urine pH 6.5 (5.0-8.0) Ur Specific [place] 1.025 (1.008-1.030) Urine Protein Negative (NEGATIVE) mg/dL Urine Glucose (UA) Negative (NEGATIVE) mg/dL Urine Ketones Negative (NEGATIVE) mg/dL Urine Occult Blood Trace-intact H (NEGATIVE) Urine Nitrite Negative (NEGATIVE) Urine Bilirubin Negative (NEGATIVE) Urine Urobilinogen 0.2 (0.2-1.0) EU/dL Ur Leukocyte Esterase Negative (NEGATIVE) Urine RBC 0-5 (0-5) Urine WBC 0-5 (0-5) Ur Epithelial Cells Few Amorphous Sediment Not seen Urine Bacteria Moderate Urine Mucus Not seen Med Orders - Current: Current Medications Discontinued Medications Acetaminophen (Acetaminophen 325 Mg Tab) 650 mg PO Q4H PRN PRN Reason: Pain/Fever Last Admin: 10/10/20 12:00 Dose: 650 mg Documented by: Acetaminophen (Acetaminophen 650 Mg Supp) 650 mg RECTAL Q4H PRN PRN Reason: Pain/Fever Al Hydroxide/Mg Hydroxide (Aluminum Hydroxide/Magnesium Hydroxide/Simethicone Susp 30 Ml Cup) 30 ml PO Q4H PRN PRN Reason: Dyspepsia Docusate Sodium (Docusate Sodium 100 Mg Cap) 100 mg PO DAILY PRN PRN Reason: Constipation Famotidine (Famotidine 20 Mg/2 Ml Sdv) 20 mg IVPUSH ONETIME ONE Stop: 10/09/20 22:05 Last Admin: 10/09/20 22:12 Dose: 20 mg Documented by: Famotidine (Famotidine 20 Mg/2 Ml Sdv) 20 mg IV BID [facility] Last Admin: 10/10/20 08:56 Dose: 20 mg Documented by: Sodium Chloride (Normal Saline) 1,000 mls @ 999 mls/hr IV ASDIRECTED [facility] Last Admin: 10/09/20 22:12 Dose: 999 mls/hr Documented by: Sodium Chloride (Normal Saline) 1,000 mls @ 100 mls/hr IV ASDIRECTED [facility] Last Admin: 10/10/20 09:04 Dose: 100 mls/hr Documented by: Ketorolac Tromethamine (Ketorolac 30 Mg/Ml Sdv) 15 mg IVPUSH ONETIME ONE Stop: 10/10/20 13:16 Last Admin: 10/10/20 13:21 Dose: 15 mg Documented by: Morphine Sulfate (Morphine 4 Mg/Ml Syringe) 4 mg IVPUSH ONETIME ONE Stop: 10/09/20 22:05 Last Admin: 10/09/20 22:20 Dose: 4 mg Documented by: Morphine Sulfate (Morphine 4 Mg/Ml Syringe) 4 mg IVPUSH Q4H PRN PRN Reason: Pain Ondansetron HCl (Ondansetron 4 Mg/2 Ml Sdv) 4 mg IVPUSH Q6H PRN PRN Reason: Nausea Ondansetron HCl (Ondansetron 4 Mg Tab.Dis) 4 mg PO ONETIME ONE Stop: 10/10/20 16:01 Last Admin: 10/10/20 16:14 Dose: 4 mg Documented by: Prochlorperazine Edisylate (Prochlorperazine 10 Mg/2 Ml Sdv) 5 mg IVPUSH ONETIME ONE Stop: 10/09/20 23:20 Last Admin: 10/09/20 23:40 Dose: 5 mg Documented by: Prochlorperazine Edisylate (Prochlorperazine 10 Mg/2 Ml Sdv) 5 mg IVPUSH Q6H PRN PRN Reason: Nausea Sodium Chloride (Sodium Chloride 0.9% 10 Ml Syringe) 10 ml FLUSH ASDIRECTED PRN PRN Reason: Keep Vein Open Last Admin: 10/09/20 22:13 Dose: 10 ml Documented by: - Exam Quality Assessment: Denies: Supplemental Oxygen, Central Line/PICC, Urine Catheter, DVT Prophylaxis, Skin Breakdown, Restraints General: Reports: Alert, Oriented, Cooperative, No Acute Distress HEENT: Reports: Pupils Equal, EOMI, Mucous Membr. Moist/[place] Neck: Reports: Supple, Trachea Midline Lungs: Reports: Clear to Auscultation, Normal Respiratory Effort Cardiovascular: Reports: Regular Rate, Regular Rhythm GI/Abdominal Exam: Normal Bowel Sounds, Soft, Non-Tender, No Distention Back Exam: Reports: Normal Inspection Extremities: Normal Inspection, Non-Tender, No Pedal Edema Skin: Reports: Warm, Dry, Intact Neurological: Reports: No New Focal Deficit, Normal Gait, Normal Speech Psy/Mental Status: Reports: Alert, Normal Affect, Normal Mood
== END 2020-10-10 17:05 | disposition home or self-care (01) ==
LOC: JP.ED 21:17 → JP.ICU 23:19
PROVIDERS: ADMIT Internal Medicine; ATTEND Internal Medicine
DX: R10.10 Upper abdominal pain, unspecified (principal); R11.10 Vomiting, unspecified; K83.4 Spasm of sphincter of Oddi; G43.909 Migraine, unspecified, not intractable, without status migrainosus; Z79.899 Other long term (current) drug therapy; Z88.2 Allergy status to sulfonamides; Z88.8 Allergy status to other drugs, medicaments and biological substances; Z88.1 Allergy status to other antibiotic agents; Z88.0 Allergy status to penicillin; Z91.048 Other nonmedicinal substance allergy status; Z91.018 Allergy to other foods; Z98.890 Other specified postprocedural states
CPT/HCPCS: 36415; 80053; 81001; 82150; 83690; 83735; 85025; 96374; 96375; 99284; A9270; J0780; J1885; J2270; J3490; J7030; 96376; G0378

== ENCOUNTER 2023-04-22 13:42 | Emergency (ER) | payer OTHER ==
[2023-04-22] MEDS ORDERED: Sodium Chloride 0.9% 10 ML Syringe FLUSH PRN (15:15)
[2023-04-22 15:39] LABS: BASOPHILS ABSOLUTE AUTO 0.03 K/uL (0.00-0.10); BASOPHILS PERCENT AUTO 0.7 % (0.1-1.3); EOSINOPHILS ABSOLUTE AUTO 0.08 K/uL (0.00-0.40); EOSINOPHILS PERCENT AUTO 1.8 % (0.0-5.4); HEMATOCRIT 37.4 % (34.3-46.0); HEMOGLOBIN 11.7 g/dL (11.2-15.5); IMMATURE GRAN PERCENT AUTO 0.2 % (0.0-0.7); LYMPHOCYTES ABSOLUTE AUTO 1.57 K/uL (0.8-3.3); LYMPHOCYTES PERCENT AUTO 35.4 % (11.4-47.7); MEAN CORPUSCULAR HEMOGLOBIN 27.4 pg (31.6-35.5); MEAN CORPUSCULAR HGB CONC 31.3 g/dL (31.6-35.5); MEAN CORPUSCULAR VOLUME 87.6 fL (81.4-99.0); MONOCYTES ABSOLUTE AUTO 0.29 K/uL (0.20-0.90); MONOCYTES PERCENT AUTO 6.5 % (3.3-12.6); NEUTROPHILS ABSOLUTE AUTO 2.45 K/uL (1.0-7.6); NEUTROPHILS PERCENT AUTO 55.4 % (40.0-78.1); PLATELET COUNT,PLT 300 K/uL (130-375); RED BLOOD CELL COUNT 4.27 M/uL (3.77-5.24); WHITE BLOOD CELL COUNT,WBC 4.4 K/uL (3.2-11.0)
[2023-04-22 15:41] LABS: IMMATURE GRAN ABSOLUTE AUTO 0.01 K/uL (0.00-0.23)
[2023-04-22 15:54] LABS: ANION GAP 13.4 mmol/L (5.0-14.0); CALCIUM 7.9 mg/dL (8.5-10.1); CREATININE 0.8 mg/dL (0.6-1.0); EST CRCL DRUG DOSING (CG) 61.77 mL/min; POTASSIUM,K 3.9 mmol/L (3.6-5.2)
[2023-04-22 16:12] VITALS: BP 117/79; PULSE 98
[2023-04-22] MEDS ORDERED: diphenhydrAMINE 50 MG/ML SDV IM ONE (16:16)
[2023-04-22] MEDS ORDERED: Ketorolac 30 MG/ML SDV IM ONE (16:16)
[2023-04-22] MEDS ORDERED: Dexamethasone 4 MG/ML SDV IM ONE (16:16)
[2023-04-22] MEDS ORDERED: Ondansetron 4 MG Tab.DIS PO ONE (16:20)
[2023-04-22 16:24] LABS: A/G RATIO 0.9 (1.2-2.2); ALANINE AMINOTRANSFERASE,ALT 14 U/L (12-78); ALBUMIN 3.3 g/dL (3.4-5.0); ALKALINE PHOSPHATASE 97 U/L (46-116); ASPARTATE AMNIOTRANSFERASE,AST 19 U/L (15-37); BILIRUBIN TOTAL 0.2 mg/dL (0.2-1.0); PROTEIN TOTAL,TP 6.9 g/dL (6.4-8.2)
[2023-04-22 16:34] LABS: BILIRUBIN DIRECT < 0.05 mg/dL (0.0-0.2)
== END 2023-04-22 18:28 | disposition home or self-care (01) ==
LOC: JP.ED 13:42
DX: R51.9 Headache, unspecified (principal); Z90.49 Acquired absence of other specified parts of digestive tract; Z90.710 Acquired absence of both cervix and uterus; Z79.899 Other long term (current) drug therapy; Z88.1 Allergy status to other antibiotic agents; Z88.6 Allergy status to analgesic agent; Z88.0 Allergy status to penicillin; Z91.018 Allergy to other foods; Z88.2 Allergy status to sulfonamides; Z88.5 Allergy status to narcotic agent; Z91.048 Other nonmedicinal substance allergy status
CPT/HCPCS: 36415; 70450; 70486; 80048; 80076; 85025; 96372; 99283; 99284; J1100; J1200; J1885; Q0162

== ENCOUNTER 2024-07-23 18:12 | Emergency (ER) | payer MEDICAID ==
[2024-07-23] MEDS: Metoclopramide 10 MG/2 ML SDV IVPUSH ONE (19:36)
[2024-07-23] MEDS: Sodium Chloride 0.9% 1,000 ML IV ONE (19:36)
[2024-07-23] MEDS: diphenhydrAMINE 50 MG/ML SDV IVPUSH ONE (19:36)
[2024-07-23] MEDS: Sodium Chloride 0.9% 10 ML Syringe FLUSH PRN (19:36)
[2024-07-23 20:43] VITALS: BP 123/71; PULSE 92
== END 2024-07-23 20:52 | disposition home or self-care (01) ==
LOC: JP.ED 18:12
DX: G43.909 Migraine, unspecified, not intractable, without status migrainosus (principal); Z91.048 Other nonmedicinal substance allergy status; Z88.8 Allergy status to other drugs, medicaments and biological substances; Z88.0 Allergy status to penicillin; Z91.018 Allergy to other foods; Z88.2 Allergy status to sulfonamides; Z88.1 Allergy status to other antibiotic agents; Z79.51 Long term (current) use of inhaled steroids; Z79.899 Other long term (current) drug therapy
CPT/HCPCS: 96361; 96374; 96375; 99283; J1200; J2765; J7030

== ENCOUNTER 2024-08-01 11:39 | Emergency (ER) | payer MEDICAID ==
[2024-08-01] MEDS: Sodium Chloride 0.9% 1,000 ML IV SCH (12:43)
[2024-08-01] MEDS: diphenhydrAMINE 50 MG/ML SDV IVPUSH ONE (12:47)
[2024-08-01] MEDS: Ketorolac 30 MG/ML SDV IVPUSH ONE (12:47)
[2024-08-01] MEDS: Prochlorperazine 10 MG/2 ML SDV IVPUSH ONE (12:48)
[2024-08-01] MEDS: Haloperidol Lactate 5 MG/ML SDV IVPUSH ONE (15:03)
[2024-08-01 15:52] VITALS: BP 126/71; PULSE 87
== END 2024-08-01 15:53 | disposition home or self-care (01) ==
LOC: JP.ED 11:39
DX: G43.909 Migraine, unspecified, not intractable, without status migrainosus (principal); K21.9 Gastro-esophageal reflux disease without esophagitis; Z88.8 Allergy status to other drugs, medicaments and biological substances; Z91.048 Other nonmedicinal substance allergy status; Z88.2 Allergy status to sulfonamides; Z88.0 Allergy status to penicillin; Z88.1 Allergy status to other antibiotic agents; Z91.018 Allergy to other foods; Z79.899 Other long term (current) drug therapy; Z86.16 Personal history of COVID-19; Z90.710 Acquired absence of both cervix and uterus; Z90.49 Acquired absence of other specified parts of digestive tract
CPT/HCPCS: 96361; 96374; 96375; 99283; J0780; J1200; J1630; J1885; J7030

== ENCOUNTER 2024-08-12 13:46 | Emergency (ER) | payer MEDICAID ==
[2024-08-12 14:01] VITALS: BP 137/80; PULSE 98
== END 2024-08-12 14:32 | disposition left against medical advice (07) ==
LOC: JP.ED 13:46
DX: Z53.21 Procedure and treatment not carried out due to patient leaving prior to being seen by health care provider (principal)